=== PATIENT | male | born 1990 | race Caucasian/White ===

== ENCOUNTER 2018-04-30 09:35 | Emergency (ER) | payer OTHER, SELFPAY ==
[2018-04-30 09:47] VITALS: BP 139/89; PULSE 85; RESP 20; TEMP 36.8; O2SAT 96
--- NOTE | 2018-04-30 10:59 | ED.GENADUL ---
Disposition Clinical Impression: Contact dermatitis and eczema due to plant Disposition: HOME Instructions: Contact Dermatitis (ED), Poison Glendy (ED) Additional Instructions: Return immediately if you have a rapid spread of your rash, signs of infection, severe urination or thirst, fever chills or systemic illness symptoms. Otherwise take your steroids as prescribed and follow-up with your primary care provider if not improving over the next 2 weeks. Prescriptions: Prednisone 10 mg PO DAILY #31 tablet Referrals: Marty Saleh MD [Primary Care Provider] - 2 weeks (If not improving over the next couple weeks for any worsening symptoms feel free to follow-up with your primary care provider for reassessment) Forms: Work Release Medical Decision Making - Medical Decision Making Patient presenting to the emergency department for chief complaint of contact dermatitis. Patient has physical exam findings consistent with contact dermatitis given periodic vesicular lesions that are linear on the hands and small approximately 1-2 millimeters each. Patient has been trying yzlb-jok-[id number] therapy with little improvement. Due to diffuse nature of rash being present on both lower extremities from the knee down, and the dorsal aspect of hands I do feel that patient is a good candidate for steroid therapy. Patient is a larger gentleman but denies any history of diabetes, or recent infections so patient was placed upon a steroid taper of prednisone. Patient encouraged to return for any signs of infection, high blood sugars, or other concerns due to the prednisone use that were thoroughly discussed with the patient. Otherwise patient informed to follow-up with his primary care provider for reassessment in 2 weeks. After discussion of diagnosis and plan of care with patient patient agreed and stated no further needs, questions, or concerns at this time. History of Present Illness - General Chief complaint: RashLesion Stated complaint: POISON GLENDY Time Seen by Provider: 04/30/18 10:58 Source: patient, RN notes reviewed, old records reviewed Mode of arrival: ambulatory Limitations: no limitations - History of Present Illness Initial comments: Patient reports 5 days ago he was weed whacking and believes he may have gotten into some poison glendy. He noticed the next day after weed whacking he started having a itchy rash on his lower legs and his hands. He is continued to have significant itching and weeping vesicles in these areas. Patient does state he was wearing shorts. Patient denies any areas of rash on his abdomen, denies fever chills, cough, cold, or sores in his mouth. He states he has been using calamine lotion for itching. Onset/Timin -: days(s) Location: upper extremity, lower extremity Severity scale (1-10): 5 Quality: burning (Itching) Consistency: constant Improves with: none Worsens with: none Associated Symptoms: denies other symptoms Treatments Prior to Arrival: none - Related Data Albuterol [Proventil Hfa] 2 puff IH .6HRS PRN #1 inh 11/20/15 Fluticasone/Salmeterol [Advair HFA 115-21] 2 puff IH BID #1 inhaler 12/06/15 Buprenorphine HCl/Naloxone HCl [Suboxone 8 mg-2 mg Sl Film] 1 film PO DAILY 04/30/18 Prednisone 10 mg PO DAILY #31 tablet 04/30/18 Allergies Allergy/AdvReac Type Severity Reaction Status Date / Time No Known Allergies Allergy Unverified 04/30/18 09:54 Review of Systems Constitutional: denies: chills, fever ENT: denies: throat pain Respiratory: no symptoms reported. denies: cough, shortness of breath, stridor, wheezing Cardiovascular: edema (Chronic). denies: chest pain Endocrine: denies: increased thirst, increased urine Gastrointestinal: denies: abdominal pain Genitourinary: denies: dysuria, frequency Skin: as per HPI, rash Past Medical History - Past Medical History Medical history: asthma Previous drug abuse, lower extremity edema Surgical history: non-contributory - Social History Smoking status: current everyday smoker Alcohol use: occasionally Drug use: none, other (Previous narcotic abuse) General Exam - General Limitations: no limitations General appearance: alert, in no apparent distress, other (Well-appearing) - Eye Eye exam: Present: normal apperance - ENT ENT exam: Present: normal exam, normal orophraynx - Respiratory Respiratory exam: Absent: respiratory distress - Cardiovascular Cardiovascular Exam: Present: regular rate, normal rhythm - Extremities Exam Extremities exam: Present: pedal edema (Bilateral 1+ pitting) - Neurological Exam Neurological exam: Present: alert, oriented X3. Absent: altered - Skin Skin exam: Present: warm, dry, vesicles (Patient has linear vesicular lesions on his hands and diffuse vesicular lesions on his legs some of him linear also in nature. None are weeping. Patient does have significant amount of calamine lotion on his lower extremities(circumferential) and dorsal aspect of his hands making exam slightly difficult.) Course Vital Signs - 24 hr 04/30/18 09:47 Temperature 36.8 C Pulse 85 Respiratory 20 Rate Blood Pressure 139/89 Pulse Oximetry 96
== END 2018-04-30 11:28 | disposition home or self-care (01) ==
PROVIDERS: Emergency Provider Physician Assistant; PCP Internal Medicine
DX: L23.7 Allergic contact dermatitis due to plants, except food (principal)
CPT/HCPCS: 99283

== ENCOUNTER 2018-07-14 09:00 | Emergency (ER) | payer OTHER, SELFPAY ==
[2018-07-14 09:06] VITALS: BP 145/86; PULSE 113; RESP 19; TEMP 36.1; O2SAT 96
[2018-07-14] MEDS: Ketorolac 30 MG/ML VIAL IVP (09:33)
[2018-07-14 09:40] LABS: Abs Immature Grans 0.21 k/cumm (0.0-0.09); HCT 40.4 % (40.0-50.0); HGB 13.9 g/dL (13.5-17.5); Mean Corp. HGB Concentration 34.4 g/dL (32.0-36.0); Mean Corpuscular Hemoglobin 29.4 pg (27.0-33.0); Mean Corpuscular Volume 85.4 fL (80-95); Mean Platelet Volume 9.6 fL (8.0-11.0); Platelet Count 301 x1000/uL (130-400); RBC 4.73 m/cumm (4.50-6.00); RBC Distribution Width 12.8 % (11.8-14.1); White Blood Cell Count 10.78 k/cumm (4.4-10.8)
[2018-07-14 09:50] LABS: ALT 42 U/L (12-78); AST 31 U/L (15-37); Albumin 2.6 g/dL (3.4-5.0); Alkaline Phosphatase 92 U/L (46-116); Anion Gap 7.2 mmol/L (3-11); BUN 7 mg/dL (7-18); Bilirubin, Total 0.4 mg/dL (0.2-1.0); CO2 30.8 mmol/L (21.0-32.0); CREATININE 0.71 mg/dL (0.70-1.30); Chloride 100 mmol/L (98-107); Glucose 134 mg/dL (70-100); Potassium 3.8 mmol/L (3.5-5.1); Sodium 138 mmol/L (136-145); Total Protein 7.7 g/dL (6.4-8.2)
[2018-07-14 09:58] LABS: Absolute Basophil Count 0.11 k/cumm (0.0-0.2); Absolute Eosinophil Count 0.43 k/cumm (0.0-0.7); Absolute Lymphocyte Count 2.48 k/cumm (1.2-3.4); Absolute Monocyte Count 0.54 k/cumm (0.11-0.7); Absolute Neutrophil Count 7.22 k/cumm (1.2-6.7); Atypical Lymphocytes % 3; Diff Comment Manual Differential; RBC Morphology Normal
[2018-07-14] MEDS: ACETAMINOPHEN 1,000 MG/100 ML BTL 400 MG IVPB (10:47)
--- NOTE | 2018-07-14 11:09 | DI.US_ITS ---
SYMPTOM/DIAGNOSIS: LEG SWELLING, PAIN BILATERAL LOWER EXTREMITY VENOUS ULTRASOUND: The examination is technically limited. No DVT is identified. It is difficult to visualize the femoral vein though color flow was noted. The left distal femoral vein did not fully compress.
--- NOTE | 2018-07-14 11:49 | W.ED.GENAD ---
Discharge Plan Disposition Patient Disposition: HOME Condition: Stable Discharge Details Chief Complaint: Cellulitis Clinical Impression: Venous stasis dermatitis Primary Care Provider: Marty Saleh ED Provider: Ashok Chand Home Meds and New Rx's Prescriptions: New furosemide 40 mg tablet 40 mg PO DAILY PRN (Reason: edema) Qty: 7 RF: 0 cephalexin 500 mg capsule 500 mg PO TID 7 Days Qty: 21 RF: 0 Continue fluticasone-salmeterol [Advair HFA] 8 GM HFA aerosol inhaler 2 puff Inhalation BID Qty: 1 RF: 3 albuterol sulfate [Proventil HFA] 1 PUFF HFA aerosol inhaler 2 puff Inhalation .6HRS PRNQty: 1 RF: 0 buprenorphine-naloxone [Suboxone] 1 EACH film 1 film PO DAILY RF: 0 Discharge Instructions Instructions: Cellulitis (ED), Stasis Dermatitis (ED) Additional Instructions: Return immediately to the emergency department for any new or worsening symptoms such as fever chills, worsening redness or pain. Otherwise you may continue to take [id number] pain medication as needed. You should follow-up with your primary care provider for reassessment especially if not improving over the next 5 days. While on your fluid pills you should ensure that you have appropriate intake of foods that are high in potassium. Stand Alone Forms: Work Release Referrals: Marty Saleh MD [Primary Care Provider] - (Keep your appointment as scheduled for today and follow-up also in 1 week if not improving on antibiotics and fluid pills.) Discharge Data Discharge Date/Time-TO BE ENTERED AT DEPARTURE: 07/14/18 13:10 Medical Decision Making Patient presenting to the emergency department for chief complaint of right lower leg pain and swelling. Patient states that this is been going on for the past week but over the past couple months this has intermittently occurred bilateral and sometimes switches legs. Patient states that he has seen his primary care provider and put on a fluid pill for this which has provided minimal relief. Patient does state that he is on his feet for 10 hours at a time while at work. Patient is on Suboxone for previous drug abuse but has been using Tylenol and Motrin for discomfort. Physical exam findings does show diffuse erythematous right lower extremity with erythema extending from the knee down and diffuse tenderness throughout the entire leg. Patient does have 3+ pitting edema bilateral with also diffuse tenderness of left leg that does not show any erythematous changes. Differential diagnosis to include thrombosis, cellulitis, venous stasis, lymphedema. Patient given ketorolac for pain pending results. Patient continued to have pain so discussed use of narcotics versus nonnarcotic and patient requested nonnarcotic and so we then gave patient IV Tylenol. Pending review of ultrasound imaging patient continued to complain of pain so patient was given 1 tablet of tramadol as I feel that he is at low risk for current abuse or relapse but did thoroughly discuss risk versus benefit with patient. Ultrasound imaging shows no signs of DVT and appropriate color flow but there is lymphadenopathy bilateral seen within the groin. I still highly suspicious more of venous stasis dermatitis compared to cellulitis but given unilateral nature and lymphadenopathy plan to place patient on Keflex 3 times daily for 7 days along with furosemide 40 mg daily as needed for swelling. Patient does state that he has a primary care follow-up already scheduled for later this afternoon for his Suboxone which I feel is appropriate but he was encouraged to return for any new or worsening symptoms otherwise to follow-up with primary care if not improving over the next week. After discussion of diagnosis and plan of care patient states no further needs, questions, or concerns. HPI General Mode of arrival: ambulatory. Date/Time Provider Initiated Documentation: 07/14/18 09:06. Limitations to Documentation: no limitations. Information obtained by: patient, RN notes reviewed and old records reviewed. History of Present Illness 27 year old M presents to the emergency department with the chief complaint of Right leg pain, described as moderate, with intensity rated at 6. Quality is described as aching, and is localized to the right and lower extremity. Patient started experiencing this week(s) (1) and it has been constant. No relieving factors improve symptom(s), No exacerbating factors reported . Patient notes malaise. Patient did receive the following treatments prior to arrival, NSAID Related Data Home Medications Medication Instructions Recorded Confirmed albuterol sulfate [Proventil HFA] 2 puff INHALATION .6HRS PRN #1 inh 11/20/15 07/14/18 fluticasone-salmeterol [Advair HFA] 2 puff INHALATION BID #1 inhaler 12/06/15 07/14/18 buprenorphine-naloxone [Suboxone] 1 film PO DAILY 04/30/18 07/14/18 cephalexin 500 mg PO TID 7 Days #21 cap 07/14/18 furosemide 40 mg PO DAILY PRN #7 tab 07/14/18 Previous Rx's Medication Instructions Recorded albuterol sulfate [Proventil HFA] 2 puff INHALATION .6HRS PRN #1 inh 11/20/15 cephalexin 500 mg PO TID 7 Days #21 cap 07/14/18 furosemide 40 mg PO DAILY PRN #7 tab 07/14/18 Allergies Allergy/AdvReac Type Severity Reaction Status Date / Time No Known Allergies Allergy Unverified 04/30/18 09:54 General Stated Complaint: Cellulitis GIL: 3 Review of Systems Constitutional Denies body ache(s), Denies chills, Denies fever(s), Reports lethargy and Reports malaise Cardiovascular Denies chest pain and Denies dyspnea Respiratory Denies dyspnea Gastrointestinal Denies abdominal pain, Denies nausea and Denies vomiting Integumentary/Breasts Reports erythema (right lower leg) Neurologic Denies confusion and Denies sensory deficit Psychiatric Denies confusion [facility] Family History Sister Mental disorder Grandfather Diabetes Grandmother Heart disease Maternal Uncle Mental disorder Mother COPD (chronic obstructive pulmonary disease) Father No problems noted. Medical History History of substance abuse Opiate dependence, continuous Social History Smoking/Tobacco Use Status: Current every day Exam Const General: cooperative, no acute distress and not ill appearing Nutritional Appearance: obese morbidly obese Orientation: alert, awake and oriented x3 Limitations: mental status not altered [facility] Mouth: moist mucous membranes Resp Effort & Inspection: normal respiratory effort, able to speak in complete sentences and no respiratory distress Cardio Rate: regular rate Rhythm: regular rhythm Heart Sounds: S1 normal and S2 normal Neuro General: alert, awake, oriented x3, moves all extremities and no focal motor deficits Sensory Exam: no sensory deficits noted Extrem Right lower extremity: full ROM, normal capillary refill, edema Details: pitting and 3+, hip/thigh Details: tenderness Location: of the mid upper leg (difuse), lower leg Details: erythema Location: of the proximal lower leg, of the mid lower leg and of the distal lower leg and tenderness (Differential), ankle Details: tenderness (Diffuse) and foot Left lower extremity: full ROM, normal capillary refill and edema (From thigh down) Details: pitting and 3+ Course Vital Signs Temperature 36.1 C L 07/14/18 09:06 Pulse 113 H 07/14/18 09:06 Respiratory Rate 19 07/14/18 09:06 Blood Pressure 145/86 H 07/14/18 09:06 Pulse Oximetry 96 07/14/18 09:06 Temperature 36.1 C L 07/14/18 09:06 Temperature Source Temporal Artery Scan 07/14/18 09:06 Pulse 113 H 07/14/18 09:06 Respiratory Rate 19 07/14/18 09:06 Blood Pressure 145/86 H 07/14/18 09:06 Pulse Oximetry 96 07/14/18 09:06 Oxygen Delivery Method Room Air 07/14/18 09:06 Oxygen Flow Rate 0 07/14/18 09:06 Pain Level 7 07/14/18 09:52 Lab/Test Results Lab/Test Results: Laboratory Tests Range/Units 07/14/18 07/14/18 09:20 09:20 WBC (4.4-10.8) k/cumm 10.78 RBC (4.50-6.00) m/cumm 4.73 Hgb (13.5-17.5) g/dL 13.9 Hct (40.0-50.0) % 40.4 MCV (80-95) fL 85.4 MCH (27.0-33.0) pg 29.4 MCHC (32.0-36.0) g/dL 34.4 RDW (11.8-14.1) % 12.8 Plt Count (130-400) x1000/uL 301 MPV (8.0-11.0) fL 9.6 Immature Gran % 0.0 Neutrophils % 66.0 Lymphocytes % 20.0 Monocytes % 5.0 Eosinophils % 4.0 Basophils % 1.0 Absolute Neutrophils (1.2-6.7) k/cumm 7.22 H Band Neutrophils % 1.0 Absolute Lymphocytes (1.2-3.4) k/cumm 2.48 Absolute Monocytes (0.11-0.7) k/cumm 0.54 Absolute Eosinophils (0.0-0.7) k/cumm 0.43 Absolute Basophils (0.0-0.2) k/cumm 0.11 Differential Comment Manual differential Atypical Lymphocytes 3 RBC Morphology Normal Sodium (136-145) mmol/L 138 Potassium (3.5-5.1) mmol/L 3.8 Chloride (98-107) mmol/L 100 Carbon Dioxide (21.0-32.0) mmol/L 30.8 Anion Gap (3-11) mmol/L 7.2 BUN (7-18) mg/dL 7 Creatinine (0.70-1.30) mg/dL 0.71 Estimated GFR/1.73 m2 (mL/min/1.73m2) >= 60.00 Glucose (70-100) mg/dL 134 H Calcium (8.5-10.1) mg/dL 8.0 L Total Bilirubin (0.2-1.0) mg/dL 0.4 AST (15-37) U/L 31 ALT (12-78) U/L 42 Alkaline Phosphatase (46-116) U/L 92 Total Protein (6.4-8.2) g/dL 7.7 Albumin (3.4-5.0) g/dL 2.6 L
--- NOTE | 2018-07-14 11:52 | ED.GENADUL_ITS ---
Discharge Plan Disposition Patient Disposition: HOME Condition: Stable Discharge Details Chief Complaint: Cellulitis Clinical Impression: Venous stasis dermatitis Primary Care Provider: Marty Saleh ED Provider: Ashok Chand Home Meds and New Rx's Prescriptions: New furosemide 40 mg tablet 40 mg PO DAILY PRN (Reason: edema) Qty: 7 RF: 0 cephalexin 500 mg capsule 500 mg PO TID 7 Days Qty: 21 RF: 0 Continue fluticasone-salmeterol [Advair HFA] 8 GM HFA aerosol inhaler 2 puff Inhalation BID Qty: 1 RF: 3 albuterol sulfate [Proventil HFA] 1 PUFF HFA aerosol inhaler 2 puff Inhalation .6HRS PRNQty: 1 RF: 0 buprenorphine-naloxone [Suboxone] 1 EACH film 1 film PO DAILY RF: 0 Discharge Instructions Instructions: Cellulitis (ED), Stasis Dermatitis (ED) Additional Instructions: Return immediately to the emergency department for any new or worsening symptoms such as fever chills, worsening redness or pain. Otherwise you may continue to take [id number]-[id number] pain medication as needed. You should follow- up with your primary care provider for reassessment especially if not improving over the next 5 days. While on your fluid pills you should ensure that you have appropriate intake of foods that are high in potassium. Stand Alone Forms: Work Release Referrals: Marty Saleh MD [Primary Care Provider] - (Keep your appointment as scheduled for today and follow-up also in 1 week if not improving on antibiotics and fluid pills.) Discharge Data Discharge Date/Time-TO BE ENTERED AT DEPARTURE: 07/14/18 13:10 Medical Decision Making Patient presenting to the emergency department for chief complaint of right lower leg pain and swelling. Patient states that this is been going on for the past week but over the past couple months this has intermittently occurred bilateral and sometimes switches legs. Patient states that he has seen his primary care provider and put on a fluid pill for this which has provided minimal relief. Patient does state that he is on his feet for 10 hours at a time while at work. Patient is on Suboxone for previous drug abuse but has been using Tylenol and Motrin for discomfort. Physical exam findings does show diffuse erythematous right lower extremity with erythema extending from the knee down and diffuse tenderness throughout the entire leg. Patient does have 3 + pitting edema bilateral with also diffuse tenderness of left leg that does not show any erythematous changes. Differential diagnosis to include thrombosis , cellulitis, venous stasis, lymphedema. Patient given ketorolac for pain pending results. Patient continued to have pain so discussed use of narcotics versus nonnarcotic and patient requested nonnarcotic and so we then gave patient IV Tylenol. Pending review of ultrasound imaging patient continued to complain of pain so patient was given 1 tablet of tramadol as I feel that he is at low risk for current abuse or relapse but did thoroughly discuss risk versus benefit with patient. Ultrasound imaging shows no signs of DVT and appropriate color flow but there is lymphadenopathy bilateral seen within the groin. I still highly suspicious more of venous stasis dermatitis compared to cellulitis but given unilateral nature and lymphadenopathy plan to place patient on Keflex 3 times daily for 7 days along with furosemide 40 mg daily as needed for swelling. Patient does state that he has a primary care follow-up already scheduled for later this afternoon for his Suboxone which I feel is appropriate but he was encouraged to return for any new or worsening symptoms otherwise to follow-up with primary care if not improving over the next week. After discussion of diagnosis and plan of care patient states no further needs, questions, or concerns. HPI General Mode of arrival: ambulatory . Date/Time Provider Initiated Documentation: 07/14/18 09:06 . Limitations to Documentation: no limitations . Information obtained by: patient, RN notes reviewed and old records reviewed . History of Present Illness 27 year old M presents to the emergency department with the chief complaint of Right leg pain, described as moderate, with intensity rated at 6. Quality is described as aching, and is localized to the right and lower extremity. Patient started experiencing this week(s) (1) and it has been constant. No relieving factors improve symptom(s), No exacerbating factors reported . Patient notes malaise. Patient did receive the following treatments prior to arrival, NSAID Related Data Home Medications Medication Instructions Recorded Confirmed albuterol sulfate [Proventil HFA] 2 puff INHALATION .6HRS PRN #1 inh 11/20/15 fluticasone-salmeterol [Advair HFA] 2 puff INHALATION BID #1 inhaler 12/06/15 buprenorphine-naloxone [Suboxone] 1 film PO DAILY 04/30/18 07/14/18 cephalexin 500 mg PO TID 7 Days #21 cap 07/14/18 furosemide 40 mg PO DAILY PRN #7 tab 07/14/18 Previous Rx's Medication Instructions Recorded albuterol sulfate [Proventil HFA] 2 puff INHALATION .6HRS PRN #1 inh 11/20/15 cephalexin 500 mg PO TID 7 Days #21 cap 07/14/18 furosemide 40 mg PO DAILY PRN #7 tab 07/14/18 Allergies Allergy/AdvReac Type Severity Reaction Status Date / Time No Known Allergies Allergy Unverified 04/30/18 09:54 General Stated Complaint: Cellulitis GIL: 3 Review of Systems Constitutional Denies body ache(s), Denies chills, Denies fever(s), Reports lethargy and Reports malaise Cardiovascular Denies chest pain and Denies dyspnea Respiratory Denies dyspnea Gastrointestinal Denies abdominal pain, Denies nausea and Denies vomiting Integumentary/Breasts Reports erythema (right lower leg) Neurologic Denies confusion and Denies sensory deficit Psychiatric Denies confusion [facility] Family History Sister Mental disorder Grandfather Diabetes Grandmother Heart disease Maternal Uncle Mental disorder Mother COPD (chronic obstructive pulmonary disease) Father No problems noted. Medical History History of substance abuse Opiate dependence, continuous Social History Smoking/Tobacco Use Status: Current every day Exam Const General: cooperative, no acute distress and not ill appearing Nutritional Appearance: obese morbidly obese Orientation: alert, awake and oriented x3 Limitations: mental status not altered [facility] Mouth: moist mucous membranes Resp Effort & Inspection: normal respiratory effort, able to speak in complete sentences and no respiratory distress Cardio Rate: regular rate Rhythm: regular rhythm Heart Sounds: S1 normal and S2 normal Neuro General: alert, awake, oriented x3, moves all extremities and no focal motor deficits Sensory Exam: no sensory deficits noted Extrem Right lower extremity: full ROM, normal capillary refill, edema Details: pitting and 3+, hip/thigh Details: tenderness Location: of the mid upper leg ( difuse), lower leg Details: erythema Location: of the proximal lower leg, of the mid lower leg and of the distal lower leg and tenderness (Differential), ankle Details: tenderness (Diffuse) and foot Left lower extremity: full ROM, normal capillary refill and edema (From thigh down) Details: pitting and 3+ Course Vital Signs Temperature 36.1 C L 07/14/18 09:06 Pulse 113 H 07/14/18 09:06 Respiratory Rate 19 07/14/18 09:06 Blood Pressure 145/86 H 07/14/18 09:06 Pulse Oximetry 96 07/14/18 09:06 Temperature 36.1 C L 07/14/18 09:06 Temperature Source Temporal Artery Scan 07/14/18 09:06 Pulse 113 H 07/14/18 09:06 Respiratory Rate 19 07/14/18 09:06 Blood Pressure 145/86 H 07/14/18 09:06 Pulse Oximetry 96 07/14/18 09:06 Oxygen Delivery Method Room Air 07/14/18 09:06 Oxygen Flow Rate 0 07/14/18 09:06 Pain Level 7 07/14/18 09:52 Lab/Test Results Lab/Test Results: Laboratory Tests Range/Units 07/14/18 07/14/18 09:20 09:20 WBC (4.4-10.8) k/cumm 10.78 RBC (4.50-6.00) m/cumm 4.73 Hgb (13.5-17.5) g/dL 13.9 Hct (40.0-50.0) % 40.4 MCV (80-95) fL 85.4 MCH (27.0-33.0) pg 29.4 MCHC (32.0-36.0) g/dL 34.4 RDW (11.8-14.1) % 12.8 Plt Count (130-400) x1000/uL 301 MPV (8.0-11.0) fL 9.6 Immature Gran % 0.0 Neutrophils % 66.0 Lymphocytes % 20.0 Monocytes % 5.0 Eosinophils % 4.0 Basophils % 1.0 Absolute Neutrophils (1.2-6.7) k/cumm 7.22 H Band Neutrophils % 1.0 Absolute Lymphocytes (1.2-3.4) k/cumm 2.48 Absolute Monocytes (0.11-0.7) k/cumm 0.54 Absolute Eosinophils (0.0-0.7) k/cumm 0.43 Absolute Basophils (0.0-0.2) k/cumm 0.11 Differential Comment Manual differential Atypical Lymphocytes 3 RBC Morphology Normal Sodium (136-145) mmol/L 138 Potassium (3.5-5.1) mmol/L 3.8 Chloride (98-107) mmol/L 100 Carbon Dioxide (21.0-32.0) mmol/L 30.8 Anion Gap (3-11) mmol/L 7.2 BUN (7-18) mg/dL 7 Creatinine (0.70-1.30) mg/dL 0.71 Estimated GFR/1.73 m2 (mL/min/1.73m2) >= 60.00 Glucose (70-100) mg/dL 134 H Calcium (8.5-10.1) mg/dL 8.0 L Total Bilirubin (0.2-1.0) mg/dL 0.4 AST (15-37) U/L 31 ALT (12-78) U/L 42 Alkaline Phosphatase (46-116) U/L 92 Total Protein (6.4-8.2) g/dL 7.7 Albumin (3.4-5.0) g/dL 2.6 L
[2018-07-14 12:32] VITALS: BP 141/86; PULSE 83; RESP 19; TEMP 36.7; O2SAT 94
[2018-07-14] MEDS: traMADol 50 MG TAB PO (12:54)
[2018-07-14] MEDS: Furosemide 20 MG TAB 40 MG PO (13:09)
[2018-07-14] MEDS: Cephalexin 500 MG CAP PO (13:09)
== END 2018-07-14 13:10 | disposition home or self-care (01) ==
PROVIDERS: Emergency Provider Nurse Practitioner Family; PCP Internal Medicine
DX: I87.2 Venous insufficiency (chronic) (peripheral) (principal); R60.0 Localized edema; R59.0 Localized enlarged lymph nodes
CPT/HCPCS: 36415; 80053; 96365; 96366; 96375; 99284; 85025; 93970; J0131; J1885

== ENCOUNTER 2018-07-18 08:30 | Emergency (ER) | payer OTHER, SELFPAY ==
[2018-07-18 08:39] VITALS: BP 152/103; PULSE 104; RESP 16; TEMP 36.5; O2SAT 95
--- NOTE | 2018-07-18 09:00 | W.ED.GENAD ---
Discharge Plan Disposition Patient Disposition: HOME Condition: Good Discharge Details Chief Complaint: Cellulitis Clinical Impression: Acute stasis dermatitis of right lower extremity Primary Care Provider: Marty Saleh ED Provider: Mack Tidwell Home Meds and New Rx's Prescriptions: New triamcinolone acetonide 0.1 % ointment 1 applic TP BID Qty: 30 RF: 0 Continue fluticasone-salmeterol [Advair HFA] 8 GM HFA aerosol inhaler 2 puff Inhalation BID Qty: 1 RF: 3 albuterol sulfate [Proventil HFA] 1 PUFF HFA aerosol inhaler 2 puff Inhalation .6HRS PRNQty: 1 RF: 0 buprenorphine-naloxone [Suboxone] 1 EACH film 1 film PO DAILY RF: 0 furosemide 40 mg tablet 40 mg PO DAILY PRN (Reason: edema) Qty: 7 RF: 0 cephalexin 500 mg capsule 500 mg PO TID 7 Days Qty: 21 RF: 0 Discharge Instructions Instructions: Stasis Dermatitis (ED) Additional Instructions: follow up with your primary care provider if you have fevers return to the emergency department for reevaluation Discharge Data Discharge Physician: Mack Tidwell Medical Decision Making 27 yo male comes in with continued redness of the right leg for about a week. Was seen here on 07/14 and placed on cephalexin for possible cellulitis though was noted likely to be venous insuffiency vs stasis dermatitis. He still has redness of the right lower leg so came here. No changes in the redness, no spreading and no fever. Based on his exam I feel this is likely stasis dermatitis, given lack of fevers and no change in the redness and not warm to touch compared to the other leg do not suspect cellulitis and do not feel he has failed outpatient management. Will prescribe topical steroids based on uptodate recommendations, advised f/u with pcp and return precautions given. He has no severe pain or fevers to suggest nec fasc and appears well systemically at this time Differential Diagnosis cellulitis, stasis dermatitis HPI General Mode of arrival: ambulatory. Date/Time Provider Initiated Documentation: 07/18/18 08:31. Limitations to Documentation: no limitations. Information obtained by: patient. History of Present Illness 27 year old M presents to the emergency department with the chief complaint of right leg redness and swelling, described as moderate, with intensity rated at 4. and is localized to the right and lower extremity. Patient reports no radiation. Patient started experiencing this week(s) (1) and it has been constant. No relieving factors improve symptom(s), No exacerbating factors reported . Patient notes no other symptoms.. Related Data Home Medications Medication Instructions Recorded Confirmed albuterol sulfate [Proventil HFA] 2 puff INHALATION .6HRS PRN #1 inh 11/20/15 07/18/18 fluticasone-salmeterol [Advair HFA] 2 puff INHALATION BID #1 inhaler 12/06/15 07/18/18 buprenorphine-naloxone [Suboxone] 1 film PO DAILY 04/30/18 07/18/18 cephalexin 500 mg PO TID 7 Days #21 cap 07/14/18 07/18/18 furosemide 40 mg PO DAILY PRN #7 tab 07/14/18 07/18/18 triamcinolone acetonide 1 applic TP BID #30 gm 07/18/18 Previous Rx's Medication Instructions Recorded albuterol sulfate [Proventil HFA] 2 puff INHALATION .6HRS PRN #1 inh 11/20/15 cephalexin 500 mg PO TID 7 Days #21 cap 07/14/18 furosemide 40 mg PO DAILY PRN #7 tab 07/14/18 triamcinolone acetonide 1 applic TP BID #30 gm 07/18/18 Allergies Allergy/AdvReac Type Severity Reaction Status Date / Time No Known Allergies Allergy Unverified 04/30/18 09:54 General Stated Complaint: Cellulitis GIL: 3 Review of Systems Review of Systems All systems reviewed & are unremarkable except as noted in HPI and below Constitutional Denies chills, Denies fever(s) and Denies weakness Eyes Denies loss of vision ENT Denies change in voice Cardiovascular Denies chest pain and Denies dyspnea Respiratory Denies dyspnea Gastrointestinal Denies abdominal pain, Denies nausea and Denies vomiting Genitourinary Denies dysuria Musculoskeletal Denies joint swelling Integumentary/Breasts Reports rash Neurologic Denies loss of vision and Denies weakness Psychiatric Denies depression Endocrine Denies cold intolerance and Denies heat intolerance [facility] Family History Sister Mental disorder Grandfather Diabetes Grandmother Heart disease Maternal Uncle Mental disorder Mother COPD (chronic obstructive pulmonary disease) Father No problems noted. Medical History History of substance abuse Opiate dependence, continuous Social History Smoking/Tobacco Use Status: Current every day Exam Const General: no acute distress Orientation: alert HENMT Head: normal to inspection Ears: external ears normal General nose exam: external nose normal Mouth: moist mucous membranes Eyes General: appearance normal, both eyes and all related structures Neck Neck: normal visual inspection Resp Effort & Inspection: normal respiratory effort and able to speak in complete sentences Cardio Rate: regular rate Neuro General: alert and oriented x3 Extrem General: full ROM and other (both legs have pitting edema to the knees which is chronic per pt, right leg has redness from foot to proximal tibia, no crepitus, no drainage, not warm to touch compared to the left leg) Psych Mental Status: mental status grossly normal Course Vital Signs Temperature 36.5 C 07/18/18 08:39 Pulse 104 H 07/18/18 08:39 Respiratory Rate 16 07/18/18 08:39 Blood Pressure 152/103 H 07/18/18 08:39 Pulse Oximetry 95 07/18/18 08:39 Temperature 36.5 C 07/18/18 08:39 Temperature Source Temporal Artery Scan 07/18/18 08:39 Pulse 104 H 07/18/18 08:39 Respiratory Rate 16 07/18/18 08:39 Respiratory Effort Non-Labored 07/18/18 08:46 Blood Pressure 152/103 H 07/18/18 08:39 Blood Pressure Position Sitting 07/18/18 08:39 Pulse Oximetry 95 07/18/18 08:39 Oxygen Delivery Method Room Air 07/18/18 08:39 Oxygen Flow Rate 0 07/18/18 08:39
--- NOTE | 2018-07-18 09:05 | ED.GENADUL_ITS ---
Discharge Plan Disposition Patient Disposition: HOME Condition: Good Discharge Details Chief Complaint: Cellulitis Clinical Impression: Acute stasis dermatitis of right lower extremity Primary Care Provider: Marty Saleh ED Provider: Mack Tidwell Home Meds and New Rx's Prescriptions: New triamcinolone acetonide 0.1 % ointment 1 applic TP BID Qty: 30 RF: 0 Continue fluticasone-salmeterol [Advair HFA] 8 GM HFA aerosol inhaler 2 puff Inhalation BID Qty: 1 RF: 3 albuterol sulfate [Proventil HFA] 1 PUFF HFA aerosol inhaler 2 puff Inhalation .6HRS PRNQty: 1 RF: 0 buprenorphine-naloxone [Suboxone] 1 EACH film 1 film PO DAILY RF: 0 furosemide 40 mg tablet 40 mg PO DAILY PRN (Reason: edema) Qty: 7 RF: 0 cephalexin 500 mg capsule 500 mg PO TID 7 Days Qty: 21 RF: 0 Discharge Instructions Instructions: Stasis Dermatitis (ED) Additional Instructions: follow up with your primary care provider if you have fevers return to the emergency department for reevaluation Discharge Data Discharge Physician: Mack Tidwell Medical Decision Making 27 yo male comes in with continued redness of the right leg for about a week. Was seen here on 07/14 and placed on cephalexin for possible cellulitis though was noted likely to be venous insuffiency vs stasis dermatitis. He still has redness of the right lower leg so came here. No changes in the redness, no spreading and no fever. Based on his exam I feel this is likely stasis dermatitis, given lack of fevers and no change in the redness and not warm to touch compared to the other leg do not suspect cellulitis and do not feel he has failed outpatient management. Will prescribe topical steroids based on uptodate recommendations, advised f/u with pcp and return precautions given. He has no severe pain or fevers to suggest nec fasc and appears well systemically at this time Differential Diagnosis cellulitis, stasis dermatitis HPI General Mode of arrival: ambulatory . Date/Time Provider Initiated Documentation: 07/18/18 08:31 . Limitations to Documentation: no limitations . Information obtained by: patient . History of Present Illness 27 year old M presents to the emergency department with the chief complaint of right leg redness and swelling, described as moderate, with intensity rated at 4. and is localized to the right and lower extremity. Patient reports no radiation. Patient started experiencing this week(s) (1) and it has been constant. No relieving factors improve symptom(s), No exacerbating factors reported . Patient notes no other symptoms.. Related Data Home Medications Medication Instructions Recorded Confirmed albuterol sulfate [Proventil HFA] 2 puff INHALATION .6HRS PRN #1 inh 11/20/15 fluticasone-salmeterol [Advair HFA] 2 puff INHALATION BID #1 inhaler 12/06/15 buprenorphine-naloxone [Suboxone] 1 film PO DAILY 04/30/18 07/18/18 cephalexin 500 mg PO TID 7 Days #21 cap 07/14/18 07/18/18 furosemide 40 mg PO DAILY PRN #7 tab 07/14/18 07/18/18 triamcinolone acetonide 1 applic TP BID #30 gm 07/18/18 Previous Rx's Medication Instructions Recorded albuterol sulfate [Proventil HFA] 2 puff INHALATION .6HRS PRN #1 inh 11/20/15 cephalexin 500 mg PO TID 7 Days #21 cap 07/14/18 furosemide 40 mg PO DAILY PRN #7 tab 07/14/18 triamcinolone acetonide 1 applic TP BID #30 gm 07/18/18 Allergies Allergy/AdvReac Type Severity Reaction Status Date / Time No Known Allergies Allergy Unverified 04/30/18 09:54 General Stated Complaint: Cellulitis GIL: 3 Review of Systems Review of Systems All systems reviewed & are unremarkable except as noted in HPI and below Constitutional Denies chills, Denies fever(s) and Denies weakness Eyes Denies loss of vision ENT Denies change in voice Cardiovascular Denies chest pain and Denies dyspnea Respiratory Denies dyspnea Gastrointestinal Denies abdominal pain, Denies nausea and Denies vomiting Genitourinary Denies dysuria Musculoskeletal Denies joint swelling Integumentary/Breasts Reports rash Neurologic Denies loss of vision and Denies weakness Psychiatric Denies depression Endocrine Denies cold intolerance and Denies heat intolerance [facility] Family History Sister Mental disorder Grandfather Diabetes Grandmother Heart disease Maternal Uncle Mental disorder Mother COPD (chronic obstructive pulmonary disease) Father No problems noted. Medical History History of substance abuse Opiate dependence, continuous Social History Smoking/Tobacco Use Status: Current every day Exam Const General: no acute distress Orientation: alert HENMT Head: normal to inspection Ears: external ears normal General nose exam: external nose normal Mouth: moist mucous membranes Eyes General: appearance normal, both eyes and all related structures Neck Neck: normal visual inspection Resp Effort & Inspection: normal respiratory effort and able to speak in complete sentences Cardio Rate: regular rate Neuro General: alert and oriented x3 Extrem General: full ROM and other (both legs have pitting edema to the knees which is chronic per pt, right leg has redness from foot to proximal tibia, no crepitus, no drainage, not warm to touch compared to the left leg) Psych Mental Status: mental status grossly normal Course Vital Signs Temperature 36.5 C 07/18/18 08:39 Pulse 104 H 07/18/18 08:39 Respiratory Rate 16 07/18/18 08:39 Blood Pressure 152/103 H 07/18/18 08:39 Pulse Oximetry 95 07/18/18 08:39 Temperature 36.5 C 07/18/18 08:39 Temperature Source Temporal Artery Scan 07/18/18 08:39 Pulse 104 H 07/18/18 08:39 Respiratory Rate 16 07/18/18 08:39 Respiratory Effort Non-Labored 07/18/18 08:46 Blood Pressure 152/103 H 07/18/18 08:39 Blood Pressure Position Sitting 07/18/18 08:39 Pulse Oximetry 95 07/18/18 08:39 Oxygen Delivery Method Room Air 07/18/18 08:39 Oxygen Flow Rate 0 07/18/18 08:39
== END 2018-07-18 09:29 | disposition home or self-care (01) ==
PROVIDERS: Emergency Provider Emergency Medicine; PCP Internal Medicine
DX: I87.2 Venous insufficiency (chronic) (peripheral) (principal)
CPT/HCPCS: 99283

== ENCOUNTER 2019-02-02 15:45 | Outpatient (REF) | payer SELFPAY ==
[2019-02-07 10:04] LABS: Benzoylecgonine 1791 ng/mL (Cutoff: 50); Cocaine Negative ng/mL (Cutoff: 50); Cocaine Interpretation Positive.
== END 2019-02-02 16:05 ==
LOC: NCHCN 15:45
PROVIDERS: PCP Internal Medicine; Visit Provider Internal Medicine
DX: F11.20 Opioid dependence, uncomplicated (principal)
CPT/HCPCS: 80353

== ENCOUNTER 2019-03-29 11:39 | Inpatient (IN) | payer OTHER, SELFPAY ==
[2019-03-29] VITALS (73 sets, daily range): BP systolic 102–143; BP diastolic 60–89; PULSE 76–145; RESP 3–24; TEMP 36.5–37.9; O2SAT 87–100
--- NOTE | 2019-03-29 12:06 | DI.US_ITS ---
SYMPTOMS/DIAGNOSIS: SWELLING, ? DVT BILATERAL LOWER EXTREMITY ULTRASOUND: Comparison is made with [id number]. Enlarged right groin lymph nodes are again noted. The femoral and popliteal veins and visualized portions of the calf veins are freely compression. The exam is somewhat limited by the patient's body habitus. No thrombus is visible. The doppler venous wave form augments normally. No galan's cyst is seen. There is edema in the subcutaneous fat. IMPRESSION: Findings consistent with cellulitis and reactive groin lymph nodes. No evidence of DVT.
--- NOTE | 2019-03-29 12:06 | DI.RAD_ITS ---
SYMPTOMS/DIAGNOSIS: INFECTION, ? GAS LEFT FEMUR: No fracture is identified. There is no foreign body in the field of view. There is no abnormal gas collection in the field of view. IMPRESSION: Negative left femur. LEFT TIBIA AND FIBULA: There is soft tissue edema in the lower leg and ankle. No focal gas collection or foreign body is seen. No fracture or bony erosions are identified. The knee and ankle are unremarkable. IMPRESSION: Soft tissue edema.
--- NOTE | 2019-03-29 12:18 | ED.GENADUL_ITS ---
Discharge Plan Disposition Condition: Improving Discharge Details Chief Complaint: Cellulitis Admit Date/Time: 03/29/19 14:54 Admit Provider: Fernanda David Attending Provider: Orlando Kim Primary Care Provider: Marty Saleh ED Provider: Maira Ralph Discharge Instructions Activity:: Activity as Tolerated Equipment/Supplies:: No Equipment Needed Diet:: As Tolerated Discharge Orders Discharge Orders: Discharge Order (Routine); Ordered 04/05/19 Ordered By: Tegan Trujillo Discharge Data Discharge Date/Time-TO BE ENTERED AT DEPARTURE: 03/29/19 16:28 Medical Decision Making Abelardo Marrero is a 28 y/o man with history of asthma, IV drug use in the past currently on Suboxone, obesity who presented to the emergency department with left leg pain and rash. On exam patient is nontoxic-appearing. Sinus tachycardia in the 130s. Left leg with extensive erythema and edema into the thigh, genitals not involved. DP pulses not palpable bilaterally. Concern for cellulitis with sepsis, possible DVT. No crepitus however cannot rule out necrotizing fasciitis given extensive erythema of LLE with rapid progression. Exam/history is not consistent with fourniers gangrene, pulmonary embolism at this time. Plan for EKG, left tib-fib and femur x-rays, bilateral lower extremity ultrasound, screening labs, IV fluid hydration, broad-spectrum IV antibiotics, will obtain Doppler lower extremity pulses, telemetry. Xrays neg. US neg. Plan for admission. Medical Records Medical records reviewed: Yes I reviewed the patient's medical records. Imaging Data Radiologic Study: Attestation: I personally reviewed and interpreted this imaging study as follows: Radiologist's impression: LEFT FEMUR: No fracture is identified. There is no foreign body in the field of view. There is no abnormal gas collection in the field of view. IMPRESSION: Negative left femur. LEFT TIBIA AND FIBULA: There is soft tissue edema in the lower leg and ankle. No focal gas collection or foreign body is seen. No fracture or bony erosions are identified. The knee and ankle are unremarkable. IMPRESSION: Soft tissue edema. BILATERAL LOWER EXTREMITY ULTRASOUND: Comparison is made with [id number]. Enlarged right groin lymph nodes are again noted. The femoral and popliteal veins and visualized portions of the calf veins are freely compression. The exam is somewhat limited by the patient's body habitus. No thrombus is visible. The doppler venous wave form augments normally. No galan's cyst is seen. There is edema in the subcutaneous fat. IMPRESSION: Findings consistent with cellulitis and reactive groin lymph nodes. No evidence of DVT. Lab Data Lab results reviewed: Yes I reviewed the patient's lab results. ECG Data Attestation: I personally reviewed and interpreted this ECG (s) as follows: Interpretation: EKG shows sinus tachycardia at 129, normal axis, no significant ST elevation HPI General Mode of arrival: ambulatory . Date/Time Provider Initiated Documentation: 03/29/19 11:47 . Limitations to Documentation: no limitations . Information obtained by: patient, RN notes reviewed and old records reviewed . HPI Narrative: Abelardo Marrero is a 28-year-old man with history of asthma, drug abuse in the past now on Suboxone, obesity presenting to the emergency department with leg pain. Patient reports over the past few days he has noticed that he has had swelling and redness of the left lower leg, now spreading into his thigh. He reports that he has also had pain in the left lower leg. Patient reports that he has had cellulitis of the right lower leg in the past, and has noticed some mild increase in swelling on the right lower leg in the past few days as well, not as severe as the left. He denies fever, vomiting, diarrhea, dysuria. Reports that rash does not spread into the genitals. Has had no pain other than to the left leg. No recent travel. No trauma that he knows of or other inciting factor. Has been eating and drinking as usual. Related Data Home Medications Medication Instructions Recorded Confirmed albuterol sulfate 2 puff INHALATION PRN PRN 03/29/19 03/29/19 buprenorphine-naloxone [Suboxone] 0.5 film SUBLINGUAL DAILY 03/29/19 03/29/19 ammonium lactate 1 applic TOPICAL BID #222 gm 04/05/19 cephalexin [Keflex] 500 mg PO QID #56 cap 04/05/19 foam bandage [Mepilex Border] #5 each 04/05/19 ibuprofen [IBU] 800 mg PO Q8H #30 tab 04/05/19 omeprazole 20 mg PO DAILY #30 cap 04/05/19 Previous Rx's Medication Instructions Recorded ammonium lactate 1 applic TOPICAL BID #222 gm 04/05/19 cephalexin [Keflex] 500 mg PO QID #56 cap 04/05/19 foam bandage [Mepilex Border] #5 each 04/05/19 ibuprofen [IBU] 800 mg PO Q8H #30 tab 04/05/19 omeprazole 20 mg PO DAILY #30 cap 04/05/19 Allergies Allergy/AdvReac Type Severity Reaction Status Date / Time No Known Allergies Allergy Unverified 03/29/19 11:53 General Stated Complaint: Cellulitis GIL: 2 Review of Systems Review of Systems Constitutional: denies fevers, reports malaise and fatigue Eyes: denies eye pain ENT: denies facial pain, dental pain, sore throat Cardiovascular: denies chest pain, reports edema b/l LEs Respiratory: denies SOB, cough GI: denies abdominal pain, vomiting, diarrhea : denies flank pain MSK: denies back pain, neck pain, arthralgias, myalgias Skin: reports rash as per HPI Neuro: denies headaches, numbness, weakness PFSH Medical History Obesity, morbid, BMI 50 or higher (Acute) Asthma (Chronic) Obstructive sleep apnea (Chronic) History of substance abuse Opiate dependence, continuous Family History Sister Mental disorder Grandfather Diabetes Grandmother Heart disease Maternal Uncle Mental disorder Mother COPD (chronic obstructive pulmonary disease) Social History Smoking/Tobacco Use Status: Current every day Tobacco Type: cigarettes Alcohol Intake: current Alcohol Intake frequency: 3 or more drinks per day Alcohol type: beer Counseling given: Yes Counseling provided: provider counseling Details: 7-12 drinks/day, last drink 3 days ago, denies withdrawal sx/seizures Drug use: Current Sobriety Substance use type: former substance user Details: 3 years free of herion; on suboxone therapy Do you feel safe at home: Yes Do you feel safe in your relationship?: Yes Exam Narrative Exam Narrative: Constitutional: appears somewhat ill, pleasant, conversing normally HENT: head atraumatic/normocephalic/normal inspection, mucous membranes dry Eyes: conjunctiva normal, sclera normal, pupils 3mm b/l Neck: no stridor, normal ROM, trachea midline Chest: normal inspection Resp: normal work of breathing, LCTAB Cardio: tachycardic rate, normal rhythm, no murmur appreciated GI: abdomen soft, non-tender, non-distended : normal inspection of external genitalia without erythema or edema Back: normal inspection, no rash Skin: warm, dry, normal color, no rash Neuro: mildly somnolent c/w opiate use, arouses easily to voice, not altered, grossly non-focal, normal tone Ext: non-pitting edema b/l LEs, LLE>>RLE, RLE with mild erythema over anterior lower leg, no crepitus, LLE with circumfirential edema of the lower leg and anterior/medial/posterior erythema of the thigh, does not extend into genitals or abdomen, no crepitus of either lower extremity Psych: normal mood, normal affect, normal behavior Course Vital Signs Temperature 37.9 C H 03/29/19 11:45 Pulse 145 H 03/29/19 11:45 Respiratory Rate 24 03/29/19 11:45 Blood Pressure 130/80 03/29/19 11:45 Pulse Oximetry 93 L 03/29/19 11:45 Temperature 37.9 C H 03/29/19 11:45 Temperature Source Tympanic 03/29/19 11:45 Pulse 145 H 03/29/19 11:45 Respiratory Rate 24 03/29/19 11:45 Blood Pressure 130/80 03/29/19 11:45 Blood Pressure Position Sitting 03/29/19 11:45 Pulse Oximetry 93 L 03/29/19 11:45 Oxygen Delivery Method Room Air 03/29/19 11:45 Oxygen Flow Rate 0 03/29/19 11:45 Pain Level 10 03/29/19 11:45 Critical Care Time Critical Care Time: Yes Total Critical Care Time: 35 Attestation: I have spent 35 minutes of critical care time caring for this critically ill patient.
[2019-03-29 12:37] LABS: Abs Immature Grans 0.56 k/cumm (0.0-0.09); HCT 38.1 % (40.0-50.0); HGB 13.4 g/dL (13.5-17.5); Mean Corp. HGB Concentration 35.2 g/dL (32.0-36.0); Mean Corpuscular Hemoglobin 29.6 pg (27.0-33.0); Mean Corpuscular Volume 84.3 fL (80-95); Mean Platelet Volume 9.7 fL (8.0-11.0); Platelet Count 171 x1000/uL (130-400); RBC 4.52 m/cumm (4.50-6.00); RBC Distribution Width 13.4 % (11.8-14.1); White Blood Cell Count 22.05 k/cumm (4.4-10.8)
[2019-03-29 12:43] LABS: Lactate 2.2 mmol/L (0.6-1.4)
[2019-03-29 12:53] LABS: Absolute Lymphocyte Count 0.88 k/cumm (1.2-3.4); Absolute Monocyte Count 0.44 k/cumm (0.11-0.7); Absolute Neutrophil Count 20.51 k/cumm (1.2-6.7)
[2019-03-29 12:54] LABS: Diff Comment Manual Differential; RBC Morphology Normal
[2019-03-29 13:06] LABS: ALT 28 U/L (12-78); AST 59 U/L (15-37); Albumin 2.8 g/dL (3.4-5.0); Alkaline Phosphatase 55 U/L (46-116); Anion Gap 11.4 mmol/L (3-11); BUN 14 mg/dL (7-18); CO2 24.6 mmol/L (21.0-32.0); CREATININE 1.16 mg/dL (0.70-1.30); Calcium 8.2 mg/dL (8.5-10.1); Chloride 95 mmol/L (98-107); Glucose 145 mg/dL (70-100); Magnesium 1.3 mg/dL (1.8-2.4); Potassium 3.7 mmol/L (3.5-5.1); Sodium 131 mmol/L (136-145); Total Protein 7.2 g/dL (6.4-8.2)
[2019-03-29 13:07] LABS: Troponin I < 0.05 ng/mL (0.00-0.06)
[2019-03-29] MEDS: Normal Saline 1,000 ML 1000 ML IV (13:07)
[2019-03-29] MEDS: CEFEPIME 2 GM in Normal Saline 100 ML IVPB ×2 (13:07→21:24)
--- NOTE | 2019-03-29 15:22 | NUR.NOTE ---
Nursing Note: pedal pulses noted bilaterally by martin
[2019-03-29 16:29] LABS: Procalcitonin 11.7 ng/mL
[2019-03-29 16:33] LABS: Bilirubin Small (Negative); Blood Negative (Negative); Clarity Clear (Clear); Glucose Negative (Negative); Ketones Negative (Negative); Leukocyte Esterase Negative (Negative); Nitrite Negative (Negative); Urobilinogen >=8.0 EU/dL (Up TO 0.2)
[2019-03-29 16:50] LABS: WBC 0-2 HPF (0-5)
[2019-03-29 16:51] LABS: Bacteria Moderate HPF (Negative); Crystals Few Amorphous HPF (Negative); Epithelial Cells Rare HPF (Negative); Other Cells Rare Renal (Negative); RBC Negative (0-2)
[2019-03-29 16:52] LABS: C & S Indicated? Yes; Mucus Trace (Negative)
[2019-03-29 16:56] LABS: *AMPHETAMINES SCREEN URINE Negative (Negative); *BARBITURATES SCREEN URINE Negative (Negative); *BENZODIAZEPINES SCREEN URINE Negative (Negative); Cannabinoids THC POSITIVE (Negative); Cocaine Screen,Urine POSITIVE (Negative); METHADONE URINE SCREEN Negative (Negative); OPIATES URINE SCREEN Negative (Negative)
[2019-03-29 16:57] LABS: Tricyclic Antidepressants Negative (Negative)
[2019-03-29] MEDS: Normal Saline 1,000 ML 200 ML IV (17:25)
[2019-03-29] MEDS: Enoxaparin 40 MG/0.4 ML SYR SC (17:26)
[2019-03-29] MEDS: Albuterol/Ipratropium 3 ML UPD VIAL UPD (17:26)
[2019-03-29] MEDS: predniSONE 20 MG TAB 40 MG PO (17:26)
--- NOTE | 2019-03-29 17:31 | HPE_ITS ---
Date of service: 03/29/19 Time of Service: 17:20 Assessment and Plan (1) Sepsis: Current visit: Yes Status: Acute Due to bilateral lower extremity cellulitis. Started on empiric vancomycin/cefepime in ED - will continue. Procalcitonin is 11.7. Will trend. Continue aggressive IVF. Await blood culture results. (2) Bilateral cellulitis of lower leg: Current visit: Yes Status: Acute As above (3) Asthma exacerbation: Current visit: Yes Status: Acute Does have some bronchospasm. Will give him a dose of prednisone 40 mg in addition to scheduled and prn nebs. If still wheezing tomorrow, would consider increasing steroids and adding symbicort. Continues to smoke - advised to quit. (4) Obstructive sleep apnea: Current visit: Yes Status: Chronic Will offer CPAP tonight. ER does note that the patient becomes hypoxic to low 80's the moment he falls asleep, recovers once awake. (5) Morbid obesity with BMI of 50.0-59.9, adult: Current visit: Yes Status: Chronic Provide counseling on lifestyle modification (6) Opioid dependence: Current visit: Yes Status: Chronic Continue home dose of suboxone - verified via VPMS as well as per conversation with Dr Saleh (7) Discharge planning issues: Current visit: Yes Status: Acute Full code ICU admission. (8) Alcohol abuse: Current visit: Yes Status: Chronic Monitor for withdrawal with CIWA. Will receive thiamine now; prn ativan written. (9) DVT prophylaxis: Current visit: Yes Status: Acute Lovenox SC (10) Hypomagnesemia: Current visit: Yes Status: Acute Replete and monitor History of Present Illness Chief Complaint: I have cellulitis Narrative: Mr Marrero is a 28 year old male with PMHx of asthma, obstructive sleep apnea, noncompliant with CPAP, Obesity with BMI of 53.3, opioid dependence on suboxone therapy (claims last used drugs 3 years ago, h/o IVD), alcohol abuse, who presented to [facility] today complaining fevers, chills, generalized weakness and malaise starting yesterday. He states his RLE has been red for months, but the left leg just got red yesterday. He also reports a nonproductive cough and sore throat starting yesterday. He denies wheezing. In the ED, he was noted to be quite tachycardic on arrival (140's). He is less so now after receiving aggressive IVF as well as vancomycin/cefepime, but overall his condition was considered to be poor enough to necessitate an ICU bed. We were asked to admit the patient for further care. Of note, the patient drinks between 7 and 12 beers a day. His last drink was 3 days ago. He states he has never withdrawn from alcohol and has never had a seizure, but thought he might be withdrawing yesterday. Review of Systems Review of Systems 12 systems reviewed. Pertinent positives and negatives are as per HPI. Additionally, the patient endorses pain/aches all over. Denies recent use of drugs. PFSH Medical History Obesity, morbid, BMI 50 or higher (Acute) Asthma (Chronic) Obstructive sleep apnea (Chronic) History of substance abuse Opiate dependence, continuous Social History Smoking/Tobacco Use Status: Current every day Tobacco Type: cigarettes Smoking cigarettes per day: 10 Alcohol Intake: current Alcohol Intake frequency: 3 or more drinks per day Alcohol type: beer Counseling given: Yes Counseling provided: provider counseling Details: 7-12 drinks/day, last drink 3 days ago, denies withdrawal sx/seizures Drug use: Current Sobriety Substance use type: former substance user Details: 3 years free of herion; on suboxone therapy Do you feel safe at home: Yes Do you feel safe in your relationship?: Yes Meds Home Medications Medication Instructions Recorded Confirmed Type albuterol sulfate 2 puff INHALATION PRN PRN 03/29/19 03/29/19 History buprenorphine-naloxone [Suboxone] 0.5 film SUBLINGUAL DAILY 03/29/19 03/29/19 History Allergies Allergy/AdvReac Type Severity Reaction Status Date / Time No Known Allergies Allergy Unverified 03/29/19 11:53 Exam Narrative Exam Narrative: General: Very obese male, appears slightly lethargic (under effect of opioids) and definitely sick, able to stay awake during our interview, poor history provider. Neurological: A&Ox3, somnolent, no obvious focal deficits Psychiatric: flat affect Skin: distal BLE erythema; dirty plantar surfaces of both feet - I cannot easily see a wound HEENT: Atraumatic, normocephalic, EOMI, dry MM, no submandibular or cervical lymphadenopathy, large neck diameter, ?goiter, no JVD Cardiovascular: RRR, tachycardic, no clear murmur auscultated Lungs: quiet wheezing on auscultation B; patient did not permit posterior auscultation. Gastrointestinal: abdomen is soft, nontender, nondistended Genitourinary: deferred Extremities: BLE edema, appears nonpitting; distal BLE erythema, R>L; poor foot hygiene Results Imaging Additional studies: XR L femur/TIb/fib: Negative left femur. Soft tissue edema. US venous BLE's done, pending Labs : 03/29/19 12:30 03/29/19 12:30 Laboratory Results - last 24 hr 03/29/19 03/29/19 03/29/19 12:30 12:30 12:30 WBC 22.05 H RBC 4.52 Hgb 13.4 L Hct 38.1 L MCV 84.3 MCH 29.6 MCHC 35.2 RDW 13.4 Plt Count 171 MPV 9.7 Immature Gran % See Differential Neutrophils % 79.0 Band Neutrophils % 14.0 Lymphocytes % 4.0 Monocytes % 2.0 Eosinophils % 0.0 Basophils % 0.0 Metamyelocytes % 1.0 Absolute Neutrophils 20.51 H Absolute Lymphocytes 0.88 L Absolute Monocytes 0.44 Absolute Eosinophils 0.00 Absolute Basophils 0.00 Differential Comment Manual differential RBC Morphology Normal Sodium 131 L Potassium 3.7 Chloride 95 L Carbon Dioxide 24.6 Anion Gap 11.4 H BUN 14 Creatinine 1.16 Estimated GFR/1.73 m2 >= 60.00 Glucose 145 H Lactate 2.2 H* Calcium 8.2 L Magnesium 1.3 L Total Bilirubin 1.0 AST 59 H ALT 28 Alkaline Phosphatase 55 Troponin I < 0.05 Total Protein 7.2 Albumin 2.8 L Procalcitonin Urine Color Urine Clarity Urine pH Ur Specific [place] Urine Protein Urine Ketones Urine Blood Urine Nitrite Urine Bilirubin Urine Urobilinogen Ur Leukocyte Esterase Urine RBC Urine WBC Ur Epithelial Cells Urine Crystals Urine Bacteria Urine Casts Urine Mucus Urine Other Ur Culture Indicated? Urine Glucose Urine Opiates Screen Urine Methadone Screen Ur Barbiturates Screen Ur Tricyclics Screen Ur Amphetamines Screen U Benzodiazepines Scrn Urine Cocaine Screen Ur THC Screen 03/29/19 03/29/19 03/29/19 12:30 16:22 16:22 WBC RBC Hgb Hct MCV MCH MCHC RDW Plt Count MPV Immature Gran % Neutrophils % Band Neutrophils % Lymphocytes % Monocytes % Eosinophils % Basophils % Metamyelocytes % Absolute Neutrophils Absolute Lymphocytes Absolute Monocytes Absolute Eosinophils Absolute Basophils Differential Comment RBC Morphology Sodium Potassium Chloride Carbon Dioxide Anion Gap BUN Creatinine Estimated GFR/1.73 m2 Glucose Lactate Calcium Magnesium Total Bilirubin AST ALT Alkaline Phosphatase Troponin I Total Protein Albumin Procalcitonin 11.7 Urine Color Yellow Urine Clarity Clear Urine pH 7.0 Ur Specific [place] 1.020 Urine Protein 100 H Urine Ketones Negative Urine Blood Negative Urine Nitrite Negative Urine Bilirubin Small H Urine Urobilinogen >=8.0 Ur Leukocyte Esterase Negative Urine RBC Negative Urine WBC 0-2 Ur Epithelial Cells Rare Urine Crystals Few amorphous Urine Bacteria Moderate Urine Casts Urine Mucus Trace Urine Other Rare renal Ur Culture Indicated? Yes Urine Glucose Negative Urine Opiates Screen Negative Urine Methadone Screen Negative Ur Barbiturates Screen Negative Ur Tricyclics Screen Negative Ur Amphetamines Screen Negative U Benzodiazepines Scrn Negative Urine Cocaine Screen Positive Ur THC Screen Positive Last Vital Signs Temp 37 C 03/29/19 17:10 Pulse 110 H 03/29/19 17:10 Resp 9 L 03/29/19 17:10 BP 139/67 03/29/19 17:10 Pulse Ox 95 03/29/19 17:10
[2019-03-29] MEDS: THIAMINE 100 MG in Normal Saline 100 ML 200 MG IVPB (17:43)
[2019-03-29] MEDS: Acetaminophen 325 MG TAB PO (18:16)
[2019-03-29] MEDS: Normal Saline Flush 10 ML SYR IVP (18:18)
[2019-03-29] MEDS: Ketorolac 15 MG/ML VIAL IVP (18:18)
[2019-03-29] MEDS: MAGNESIUM SULFATE 4 GM/100 ML BAG IVPB (18:28)
[2019-03-29] MEDS: VANCOMYCIN 2,000 MG in Normal Saline 500 ML 250 MG IVPB (22:42)
[2019-03-30] VITALS (22 sets, daily range): BP systolic 112–127; BP diastolic 60–79; PULSE 83–112; RESP 8–23; TEMP 35.5–37.6; O2SAT 93–99
[2019-03-30] MEDS: CEFEPIME 2 GM in Normal Saline 100 ML IVPB ×3 (03:56→20:04)
[2019-03-30] MEDS: Normal Saline 1,000 ML 200 ML IV ×3 (04:01→18:05)
[2019-03-30 07:14] LABS: Abs Immature Grans 0.18 k/cumm (0.0-0.09); Absolute Lymphocyte Count 0.68 k/cumm (1.2-3.4); Basophils % 0.1; HCT 36.8 % (40.0-50.0); HGB 12.9 g/dL (13.5-17.5); Lymphocytes % 3.9; Mean Corp. HGB Concentration 35.1 g/dL (32.0-36.0); Mean Corpuscular Hemoglobin 29.8 pg (27.0-33.0); Monocytes % 2.9; Neutrophils % 92.1; Platelet Count 156 x1000/uL (130-400); RBC 4.33 m/cumm (4.50-6.00); RBC Distribution Width 13.6 % (11.8-14.1); White Blood Cell Count 17.43 k/cumm (4.4-10.8)
[2019-03-30 07:17] LABS: Absolute Basophil Count 0.02 k/cumm (0.0-0.2); Absolute Monocyte Count 0.51 k/cumm (0.11-0.7); Absolute Neutrophil Count 16.05 k/cumm (1.2-6.7)
[2019-03-30 07:36] LABS: BUN 16 mg/dL (7-18); CREATININE 0.85 mg/dL (0.70-1.30); Calcium 8.1 mg/dL (8.5-10.1); Chloride 100 mmol/L (98-107); Glucose 124 mg/dL (70-100); Magnesium 2.1 mg/dL (1.8-2.4); Potassium 4.1 mmol/L (3.5-5.1); Sodium 134 mmol/L (136-145); TSH (W/Ref FT4) 0.58 uIU/mL (0.358-3.74)
[2019-03-30 07:47] LABS: C-Reactive Protein > 25.00 mg/dL (0.0-0.3)
[2019-03-30 08:04] LABS: Procalcitonin 5.3 ng/mL
--- NOTE | 2019-03-30 08:20 | PDOC.CMIN ---
Care Management Initial Assess REASON FOR HOSPITALIZATION:: Sepsis due to BLE Cellulitis PAST MEDICAL HISTORY/PAST SURGICAL HISTORY:: Opioid dependence, morbid obesity, GERI, Sepsis, Hypomagnesemia, alcohol abuse, asthma with acute exacerbation, cellulitis of left and right lower limbs, BMI 50-59.9. PREVIOUS FUNCTIONAL STATUS/SOCIAL/FAMILY SUPPORTS:: Abelardo resides alone in [place], [place]. He works at [employer] in [place], [place] and reports his parents as primary suppports. CURRENT FUNCTIONAL STATUS:: Valerio remains hesistant to engage with staff. He is refusing nicotene replacement. ADVANCE DIRECTIVES:: None on file. Has patient been provided with information about the portal?: Yes Did the patient sign up for the portal?: No CODE STATUS:: Full Code INSURANCE COVERAGE / FINANCIAL ISSUES:: [employer] CURRENT HOME/COMMUNITY SERVICES/EQUIPMENT:: No current services or equipment. PRIMARY CARE PHYSICIAN:: Marty Saleh POTENTIAL DISCHARGE NEEDS:: Follow up appointment with PCP. PATIENT/FAMILY EDUCATION NEEDS:: Review of discharge instructions, discuss Ask Me Three. ANTICIPATED BARRIERS TO DISCHARGE:: None identified. TRANSPORTATION:: Via private vehicle with family. PLAN:: Abelardo will return home when ready per MD. He will follow up with his PCP and plan of care as prescribed. He will transport via private vehicle with family.
--- NOTE | 2019-03-30 08:29 | PGE_ITS ---
Date of Service Date of service: 03/30/19 Time of Service: 08:26 Assessment and Plan (1) Sepsis: Current visit: Yes Status: Acute Due to bilateral lower extremity cellulitis. Improving. Blood cultures are still pending. CRP is quite high; procalcitonin is trending down. I think we need to consider possibility of osteomyelitis (there is no evidence thereof on XR, and I am not sure that the patient would fit into a CT scan. Will consider to monitor blood cultures/clinical picture). Continue vancomycin/cefepime (day 2) (2) Bilateral cellulitis of lower leg: Current visit: Yes Status: Acute As above (3) Asthma exacerbation: Current visit: Yes Status: Acute Improved significantly. Would finish a 5 day steroid burst. Continue nebs. Based on rapid clinical improvement, I am no longer sure the patient needs symbicort. Continues to smoke - advised to quit. Refuses nicotine replacement therapy. (4) Obstructive sleep apnea: Current visit: Yes Status: Chronic Patient will try BiPAP tonight. I think it is safe to say that the patient also has obesity hypoventilation syndrome. (5) Morbid obesity with BMI of 50.0-59.9, adult: Current visit: Yes Status: Chronic Provide counseling on lifestyle modification. Obtain nutrition consult (6) Opioid dependence: Current visit: Yes Status: Chronic Continue home dose of suboxone. Noted and communicated findings of cocaine on UDS to Dr Saleh (7) Alcohol abuse: Current visit: Yes Status: Chronic Monitor for withdrawal with CIWA, prn ativan. Continue vitamins. (8) Hypomagnesemia: Current visit: Yes Status: Resolved Recheck in am (9) DVT prophylaxis: Current visit: Yes Status: Acute Lovenox SC (10) Discharge planning issues: Current visit: Yes Status: Acute Full code Transfer out of ICU to [facility] floor Subjective Interval history since last seen: C/o headache this morning. Legs still hurt this morning, but feels much better. He states redness is getting better in his left leg. He shows me today that it is all the way up to his thigh, but does not involve his scrotum. Denies dizziness, chest pain, shortness of breath. Wheezing is better. Having a nonproductive cough. Denies nausea/vomiting. Used 2L of O2 at night. Thinks about trying BiPAP later today. HR is now down to 90's. BP's stable. CIWAs negative. Exam Narrative Exam Narrative: General: Very obese male, A&Ox3, looks better/more alert today HEENT: EOMI, MMM Cardiovascular: RRR, no m/r/g; not tachycardic today Lungs: diminished breath sounds B - no wheezing heard today Gastrointestinal: abdomen is soft, nontender, nondistended Genitourinary: scrotum is not erythematous, but LLE erythema does extend all the way up to the L inner thigh Extremities: BLE edema, nonpitting; BLE erythema, L>R extending to L inner thigh Objective Objective Clinical Data: Abnormal lab results 03/29/19 03/29/19 03/29/19 Range/Units 12:30 12:30 12:30 WBC 22.05 H (4.4-10.8) k/cumm RBC (4.50-6.00) m/cumm Hgb 13.4 L (13.5-17.5) g/dL Hct 38.1 L (40.0-50.0) % Absolute Neutrophils 20.51 H (1.2-6.7) k/cumm Absolute Lymphocytes 0.88 L (1.2-3.4) k/cumm Sodium 131 L (136-145) mmol/L Chloride 95 L (98-107) mmol/L Anion Gap 11.4 H (3-11) mmol/L Glucose 145 H (70-100) mg/dL Lactate 2.2 H* (0.6-1.4) mmol/L Calcium 8.2 L (8.5-10.1) mg/dL Magnesium 1.3 L (1.8-2.4) mg/dL AST 59 H (15-37) U/L C-Reactive Protein (0.0-0.3) mg/dL Albumin 2.8 L (3.4-5.0) g/dL Urine Protein (Negative) mg/dL Urine Bilirubin (Negative) 03/29/19 03/30/19 03/30/19 Range/Units 16:22 06:55 06:55 WBC 17.43 H (4.4-10.8) k/cumm RBC 4.33 L (4.50-6.00) m/cumm Hgb 12.9 L (13.5-17.5) g/dL Hct 36.8 L (40.0-50.0) % Absolute Neutrophils 16.05 H (1.2-6.7) k/cumm Absolute Lymphocytes 0.68 L (1.2-3.4) k/cumm Sodium 134 L (136-145) mmol/L Chloride (98-107) mmol/L Anion Gap (3-11) mmol/L Glucose 124 H (70-100) mg/dL Lactate (0.6-1.4) mmol/L Calcium 8.1 L (8.5-10.1) mg/dL Magnesium (1.8-2.4) mg/dL AST (15-37) U/L C-Reactive Protein > 25.00 H (0.0-0.3) mg/dL Albumin (3.4-5.0) g/dL Urine Protein 100 H (Negative) mg/dL Urine Bilirubin Small H (Negative) Vital Signs Temperature 36.5 C 03/30/19 03:02 Temperature Source Temporal Artery Scan 03/30/19 03:02 Pulse 83 03/30/19 01:37 Pulse 92 H 03/30/19 06:00 Respiratory Rate 10 L 03/30/19 06:00 Respiratory Effort Non-Labored 03/30/19 03:02 Respiratory Depth Normal 03/30/19 03:02 Respiratory Pattern Normal 03/30/19 03:02 Blood Pressure 126/60 03/30/19 01:37 Blood Pressure Mean 75 03/30/19 01:37 Blood Pressure Position Supine 03/29/19 21:00 Pulse Oximetry 98 03/30/19 06:00 Oxygen Delivery Method Nasal Cannula 03/30/19 03:02 Oxygen Flow Rate 2 03/30/19 03:02 Pain Level 5 03/30/19 03:02 Intake & Output 03/29/19 03/29/19 03/30/19 11:59 23:59 11:59 Intake Total 7.667 / 2037.667 2086.666 / 2086.666 Output Total 700 / 700 400 / 400 Balance 1337.667 / 5173.676 1726.666 / 1686.666 Weight 181.437 kg 183.4 kg 188.5 kg Intake: IV 1717.667 / 2609.155 5976.666 / 2086.666 Oral 320 / 320 Output: Urine 700 / 700 400 / 400 Other: Urine Color Dark Sienna Light Sienna Urine Appearance Cloudy Cloudy Urine Odor Strong Comment Pt has yet to void on my shift. Voiding Methods Urinal Laboratory Results WBC 17.43 k/cumm (4.4-10.8) H 03/30/19 06:55 RBC 4.33 m/cumm (4.50-6.00) L 03/30/19 06:55 Hgb 12.9 g/dL (13.5-17.5) L 03/30/19 06:55 Hct 36.8 % (40.0-50.0) L 03/30/19 06:55 MCV 85.0 fL (80-95) 03/30/19 06:55 MCH 29.8 pg (27.0-33.0) 03/30/19 06:55 MCHC 35.1 g/dL (32.0-36.0) 03/30/19 06:55 RDW 13.6 % (11.8-14.1) 03/30/19 06:55 Plt Count 156 x1000/uL (130-400) 03/30/19 06:55 MPV 10.0 fL (8.0-11.0) 03/30/19 06:55 Immature Gran % 1.0 03/30/19 06:55 Neutrophils % 92.1 03/30/19 06:55 Band Neutrophils % 14.0 % 03/29/19 12:30 Lymphocytes % 3.9 03/30/19 06:55 Monocytes % 2.9 03/30/19 06:55 Eosinophils % 0.0 03/30/19 06:55 Basophils % 0.1 03/30/19 06:55 Metamyelocytes % 1.0 % 03/29/19 12:30 Absolute Neutrophils 16.05 k/cumm (1.2-6.7) H 03/30/19 06:55 Absolute Lymphocytes 0.68 k/cumm (1.2-3.4) L 03/30/19 06:55 Absolute Monocytes 0.51 k/cumm (0.11-0.7) 03/30/19 06:55 Absolute Eosinophils 0.00 k/cumm (0.0-0.7) 03/30/19 06:55 Absolute Basophils 0.02 k/cumm (0.0-0.2) 03/30/19 06:55 Differential Comment Manual differential 03/29/19 12:30 RBC Morphology Normal 03/29/19 12:30 Sodium 134 mmol/L (136-145) L 03/30/19 06:55 Potassium 4.1 mmol/L (3.5-5.1) 03/30/19 06:55 Chloride 100 mmol/L (98-107) 03/30/19 06:55 Carbon Dioxide 26.0 mmol/L (21.0-32.0) 03/30/19 06:55 Anion Gap 8.0 mmol/L (3-11) 03/30/19 06:55 BUN 16 mg/dL (7-18) 03/30/19 06:55 Creatinine 0.85 mg/dL (0.70-1.30) 03/30/19 06:55 Estimated GFR/1.73 m2 >= 60.00 (mL/min/1.73m2) 03/30/19 06:55 Glucose 124 mg/dL (70-100) H 03/30/19 06:55 Lactate 1.0 mmol/l (0.6-1.4) 03/30/19 06:55 Calcium 8.1 mg/dL (8.5-10.1) L 03/30/19 06:55 Magnesium 2.1 mg/dL (1.8-2.4) 03/30/19 06:55 Total Bilirubin 1.0 mg/dL (0.2-1.0) 03/29/19 12:30 AST 59 U/L (15-37) H 03/29/19 12:30 ALT 28 U/L (12-78) 03/29/19 12:30 Alkaline Phosphatase 55 U/L (46-116) 03/29/19 12:30 Troponin I < 0.05 ng/mL (0.00-0.06) 03/29/19 12:30 C-Reactive Protein > 25.00 mg/dL (0.0-0.3) H 03/30/19 06:55 Total Protein 7.2 g/dL (6.4-8.2) 03/29/19 12:30 Albumin 2.8 g/dL (3.4-5.0) L 03/29/19 12:30 Procalcitonin 5.3 ng/mL 03/30/19 06:55 TSH 0.58 uIU/mL (0.358-3.74) 03/30/19 06:55 Urine Color Yellow (Yellow) 03/29/19 16:22 Urine Clarity Clear (Clear) 03/29/19 16:22 Urine pH 7.0 (5-8) 03/29/19 16:22 Ur Specific [place] 1.020 (1.005-1.025) 03/29/19 16:22 Urine Protein 100 mg/dL (Negative) H 03/29/19 16:22 Urine Ketones Negative mg/dL (Negative) 03/29/19 16:22 Urine Blood Negative (Negative) 03/29/19 16:22 Urine Nitrite Negative (Negative) 03/29/19 16:22 Urine Bilirubin Small (Negative) H 03/29/19 16:22 Urine Urobilinogen >=8.0 EU/dL (Up TO 0.2) 03/29/19 16:22 Ur Leukocyte Esterase Negative (Negative) 03/29/19 16:22 Urine RBC Negative (0-2) 03/29/19 16:22 Urine WBC 0-2 HPF (0-5) 03/29/19 16:22 Ur Epithelial Cells Rare HPF (Negative) 03/29/19 16:22 Urine Crystals Few amorphous HPF (Negative) 03/29/19 16:22 Urine Bacteria Moderate HPF (Negative) 03/29/19 16:22 Urine Casts LPF (Negative) 03/29/19 16:22 Urine Mucus Trace (Negative) 03/29/19 16:22 Urine Other Rare renal (Negative) 03/29/19 16:22 Ur Culture Indicated? Yes 03/29/19 16:22 Urine Glucose Negative mg/dL (Negative) 03/29/19 16:22 Urine Opiates Screen Negative (Negative) 03/29/19 16:22 Urine Methadone Screen Negative (Negative) 03/29/19 16:22 Ur Barbiturates Screen Negative (Negative) 03/29/19 16:22 Ur Tricyclics Screen Negative (Negative) 03/29/19 16:22 Ur Amphetamines Screen Negative (Negative) 03/29/19 16:22 U Benzodiazepines Scrn Negative (Negative) 07/01/19 16:22 Urine Cocaine Screen Positive (Negative) 03/29/19 16:22 Ur THC Screen Positive (Negative) 03/29/19 16:22
[2019-03-30] MEDS: Multivitamin TAB 1 TAB PO (08:42)
[2019-03-30] MEDS: Ketorolac 15 MG/ML VIAL IVP ×2 (08:42→14:55)
[2019-03-30] MEDS: Folic Acid 1 MG TAB PO (08:43)
[2019-03-30] MEDS: predniSONE 20 MG TAB 40 MG PO (08:43)
[2019-03-30] MEDS: Thiamine 100 MG TAB PO (08:43)
[2019-03-30] MEDS: Pantoprazole 40 MG TABCR PO (08:43)
[2019-03-30] MEDS: VANCOMYCIN 2,000 MG in Normal Saline 500 ML 250 MG IVPB ×2 (08:43→18:29)
[2019-03-30] MEDS: Normal Saline Flush 10 ML SYR IVP ×2 (08:44→14:56)
[2019-03-30] MEDS: Buprenorphine/Naloxone 12 mg/3 mg FILM 0.5 EACH SL (08:48)
--- NOTE | 2019-03-30 09:15 | OT.INIE ---
Occupational Therapy Notes Inpatient Occupational Therapy Evaluation Date: 03/30/19 Referring Doctor: Fernanda David MD OT Orders: Eval and Treat Precautions: Fall, Standard PATIENT PROFILE/ADMITTING DIAGNOSIS: Pt is a 28 year old male who presented to the ER on 03/29/19 for cellulitis (B) LE, sepsis and an asthma exacerbation. Pt has had on-going issues in his LE for almost a year now, he states he has been retaining fluid and has had excessive drainage on and off. He states that when it does drain he feels better. He notes that he has gone to the doctor multiple times and feels that the cellulitis never fully healed from prior incident. Past Medical History: Obesity, morbid, BMI 50 or higher (Acute) Asthma (Chronic) Obstructive sleep apnea (Chronic) History of substance abuse Opiate dependence, continuous Social History/Home Situation: Pt [place] in an apartment [place] [facility]. He notes that it is a one floor. He has a tub/shower combination which he says is very small to the point where he has to turn sideways in order to get into it. Functionally pt states that he is totally (I) in his ADL/IADL routines when his (B) Legs are not swollen or sore. He works at [employer] reporting that at times is legs swell so bad that he can't get his pants on. He does not drive he gets (A) for driving from his parents or friends so he is able to get groceries, get to appts etc.. Pt states that if he did not have pain in his (B) LE he would be able to perform all ADLs (I). Equipment owned/DME: None SUBJECTIVE: Pt was sitting in bed when OT arrived. He is agreeable to OT session. OBJECTIVE: General Observation: (B) LE edema and redness, telemetry, BP cuff Mental Status: A&Ox3 Pain: C/o pain in (B) LE with any functional movements or bed mobility ROM: RUE AROM WNL L UE AROM WNL STRENGTH: RUE Shoulder flexion 4/5, bicep 4+/5, tricep 5/5, group rooms coordinator is strong and symmetrical LUE Shoulder flexion 4/5, bicep 4+/5, tricep 5/5, group rooms coordinator is strong and symmetrical FUNCTIONAL MOBILITY/ADLS: Pt did not want to perform ADLs at todays reporting that he is in a lot of pain. Functionally he was able to reach to his (B) knees before reporting pain but this is not something pt has had issues with until his cellulitis and sepsis started. Pt has Functional ROM required to perform all ADLs. BALANCE: Static sitting Normal Dynamic Sitting Normal SPECIAL TESTS: Daily Activity Limitations Standardized Measure [facility] AM -PAC ?6 clicks? Daily Activity Inpatient Short Form: Raw score: 21 Standardized score: 44.27 CMS score: 32.79% INFORMED CONSENT/EDUCATION: Pt instructed in purpose of OT Consult and plan of care. ASSESSMENT: Patient is a 28-year-old referred to occupational therapy services with diagnosis of cellulitis, sepsis and asthma exacerbation. Patient presents with clinical signs and symptoms consistent with dx. Pt notes that besides the pain in his (B) LE he is functional (I) in ADLs/IADLs. He is able to demonstrate this with functional AROM and strength in (B) UE. He is restricted in LE movements based on current condition. Pt states that he feels he will be (I) once his sepsis and cellulitis is controlled. Functionally due to this OT does not feel that pt would not benefit from skilled OT services at this time. Pt has been performing his ADLs/IADLs (I) for the most part besides driving since yesterday. OT did discuss with pt use of chair or bench for the shower to decrease pressure and strain on his (B) LE while performing his bathing routine. Pt denies the need for this and reports that he has a small tub and he is able to get in and out without this. Pt notes that he would like to return to work, based on his pain and functional standing tolerance right now this may be limiting however pt notes he has been going to work for the past couple months with pain in his (B) LE and did not have any issues. Due to pts current condition OT feels that pt would benefit from outpatient lymphedema tx when medically cleared per MD. AMPAC score 21, CMS score 32.79% Patient is assessed as a Moderate 74632 complexity based on the following: History: See Above Examination: See Above Presentation: Evolving Decision Making: AMPAC score 21, CMS score 32.79% GOALS N/A PLAN OF CARE/TREATMENT PLAN: OT consult only. DISCHARGE RECOMMENDATIONS OT recommends that pt return home when medically cleared per MD with follow up in outpatient setting for (B) LE lymphedema. TREATMENT TIME/MINUTES/CODES 78922, 25 minutes (08:50) Caro Santana OTR/L [facility]
--- NOTE | 2019-03-30 09:19 | OTIE_ITS ---
Occupational Therapy Notes Inpatient Occupational Therapy Evaluation Date: 03/30/19 Referring Doctor: Fernanda David MD OT Orders: Eval and Treat Precautions: Fall, Standard PATIENT PROFILE/ADMITTING DIAGNOSIS: Pt is a 28 year old male who presented to the ER on 03/29/19 for cellulitis (B) LE, sepsis and an asthma exacerbation. Pt has had on-going issues in his LE for almost a year now, he states he has been retaining fluid and has had excessive drainage on and off. He states that when it does drain he feels better. He notes that he has gone to the doctor multiple times and feels that the cellulitis never fully healed from prior incident. Past Medical History: Obesity, morbid, BMI 50 or higher (Acute) Asthma (Chronic) Obstructive sleep apnea (Chronic) History of substance abuse Opiate dependence, continuous Social History/Home Situation: Pt lives in an apartment near [facility]. He notes that it is a one floor. He has a tub/shower combination which he says is very small to the point where he has to turn sideways in order to get into it. Functionally pt states that he is totally (I) in his ADL/IADL routines when his (B) Legs are not swollen or sore. He works at [employer] reporting that at times is legs swell so bad that he can't get his pants on. He does not drive he gets (A) for driving from his parents or friends so he is able to get groceries, get to appts etc.. Pt states that if he did not have pain in his (B) LE he would be able to perform all ADLs (I). Equipment owned/DME: None SUBJECTIVE: Pt was sitting in bed when OT arrived. He is agreeable to OT session. OBJECTIVE: General Observation: (B) LE edema and redness, telemetry, BP cuff Mental Status: A&Ox3 Pain: C/o pain in (B) LE with any functional movements or bed mobility ROM: RUE AROM WNL L UE AROM WNL STRENGTH: RUE Shoulder flexion 4/5, bicep 4+/5, tricep 5/5, kitchen worker is strong and symmetrical LUE Shoulder flexion 4/5, bicep 4+/5, tricep 5/5, kitchen worker is strong and symmetrical FUNCTIONAL MOBILITY/ADLS: Pt did not want to perform ADLs at todays reporting that he is in a lot of pain. Functionally he was able to reach to his (B) knees before reporting pain but this is not something pt has had issues with until his cellulitis and sepsis started. Pt has Functional ROM required to perform all ADLs. BALANCE: Static sitting Normal Dynamic Sitting Normal SPECIAL TESTS: Daily Activity Limitations Standardized Measure [facility] AM -PAC ?6 clicks? Daily Activity Inpatient Short Form: Raw score: 21 Standardized score: 44.27 CMS score: 32.79% INFORMED CONSENT/EDUCATION: Pt instructed in purpose of OT Consult and plan of care. ASSESSMENT: Patient is a 28-year-old referred to occupational therapy services with diagnosis of cellulitis, sepsis and asthma exacerbation. Patient presents with clinical signs and symptoms consistent with dx. Pt notes that besides the pain in his (B) LE he is functional (I) in ADLs/IADLs. He is able to demonstrate this with functional AROM and strength in (B) UE. He is restricted in LE movements based on current condition. Pt states that he feels he will be (I) once his sepsis and cellulitis is controlled. Functionally due to this OT does not feel that pt would not benefit from skilled OT services at this time. Pt has been performing his ADLs/IADLs (I) for the most part besides driving since yesterday. OT did discuss with pt use of chair or bench for the shower to decrease pressure and strain on his (B) LE while performing his bathing routine. Pt denies the need for this and reports that he has a small tub and he is able to get in and out without this. Pt notes that he would like to return to work, based on his pain and functional standing tolerance right now this may be limiting however pt notes he has been going to work for the past couple months with pain in his (B) LE and did not have any issues. Due to pts current condition OT feels that pt would benefit from outpatient lymphedema tx when medically cleared per MD. AMPAC score 21, CMS score 32.79% Patient is assessed as a Moderate 36663 complexity based on the following: History: See Above Examination: See Above Presentation: Evolving Decision Making: AMPAC score 21, CMS score 32.79% GOALS N/A PLAN OF CARE/TREATMENT PLAN: OT consult only. DISCHARGE RECOMMENDATIONS OT recommends that pt return home when medically cleared per MD with follow up in outpatient setting for (B) LE lymphedema. TREATMENT TIME/MINUTES/CODES 27185, 25 minutes (08:50) Caro Santana OTR/L [facility]
--- NOTE | 2019-03-30 11:45 | PHARADMIT ---
Addendum entered by Sung Hall III 04/02/19 15:42: Pharmacy Note Subjective Bilateral lower exremity cellulits improving. Nutrition consult regarding alchol and portion control. Objective VS-OK Mag-1.8 Assessment Vancomycin & Cefepime continues, day 5. plan to deescalte Plan needs a lot of wound care. van need to go to swing bed. Addendum entered by Danni Peoples 04/01/19 12:42: Pharmacy Note Subjective improving per morning report Objective HR-91 other VS okay Assessment vanco and cefepime continue (day 4 starts this afternoon), plan is for 2 weeks of abx unless its osteo, vanco trough came back at 16.8 (extrapolated trough was 15.9), continue current dose of [address] of lower extremities ordered to rule out osetomyelitis Plan MD may try to deescalate abx tomorrow by discontinuing vanco? (per progress note) watch for CT results Addendum entered by Mary Ellen Krishnamurthy 03/31/19 15:26: Pharmacy Note Subjective Sepsis Objective VS good, afebrile, pain 7/10, CIWA: 1 Mag 1.7(oral Mag started), Na++ 135 Creactive protein down 20.29, WBC down 14.29 Procalcitonin 5.3 yesterday Assessment Vanco trough last evening was 14.7, interval changed to 2gram IV q8h due to large improvement in SCr and weight increase IVF's dc'd MD thinking with inflammatory markers there may be some sort of Osteomyelitis but difficult body habitus, we do not have open MRI to verify. Can do CT scan Pt using own Jorge L Rodriguez dc'd-pt refusing Suboxone dose was verified per MD as 1/2 SL film even though not recommended to cut Plan Podiatry consult, Wound care-Amlactin ordered Cefepime and Vanco continue-second trough ordered for 04/01 @ 0900 Original Note: Admission Pharmacy Clinical Review SEPSIS DUE TO BILATERAL LOWER EXTREMITIES/CELLULITIS Code Status Full Code Current Weight 188.5 kg Renally Cleared and Narrow Therapeutic Index Meds CrCl~143ml/min QTc Value / Action Taken QTC 516 BP Control, Fever BP 126/60 Afebrile pain 6/10 Electrolytes reviewed Na+ 134 K+ 4.1 Mag 2.1 DVT Prophylaxis Lovenox 40mg Opiate Usage / Scheduled Bowel Regimen Ordered none Plt/SCr for Heparin / Enoxaparin Plt 156 SCr 0.85 INR for Warfarin H/H stable, WBC/Bands H/H 12.9/36.8 WBC 17.43 (was 22.05) Antibiotic appropriateness Cefepime/Vanco (5pm trough today is ordered) Cultures and Sensitivities Urine and blood pending Surgical ABX d/c within 24 hr DM control / Insulin Dosing Heart Failure (Check EF%) (VIVIANE's, B-Block, Diuretics) IV to PO Switch Home Meds Reviewed Suboxone 12/3 film.../2 film daily (dose verified w/ per ) Home Meds Not Ordered Advair HFA Comments PCT 11.7 then 5.3 C-reactive >25 CIMT protocol and RT discussed possibly adding Symbicort...pt refusing scheduled Duoneb Smoker but refusing nicotine replacement Toradol for pain
--- NOTE | 2019-03-30 12:00 | PT.INIE ---
Date of service: 03/30/19 Time of Service: 09:57 PT Notes Inpatient Physical Therapy Evaluation Date: 03/30/2019 Referring Doctor: Fernanda David MD PT Orders: PT CONSULT: Eval/treat Precautions: Fall. Standard. Patient Profile/Admitting Diagnosis: Patient is a 28-year-old male with medical history significant for asthma, IV drug use and is currently on Suboxone, and opiate dependence who presented to the ED on 03/29/2019with chief complaints of left leg pain and rash. Patient was diagnosed with bilateral lower extremity cellulitis, sepsis, asthma exacerbation, and hypomagnesemia. Referral for physical therapy was made in order to address impairments in strength, balance, and mobility level. PMHX: Medical History Obesity, morbid, BMI 50 or higher (Acute) Asthma (Chronic) Obstructive sleep apnea (Chronic) History of substance abuse Opiate dependence, continuous Social History/Home Situation: Abelardo lives in a 1-floor apartment with no steps to enter here in [place], [place]. He has been independent with all aspects of ADLs without the need for assistive device nor adaptive equipment. He works currently at [employer] in [place]. Patient's chart there was a previous scheduled appointment last year for a lymphedema evaluation treatment that patient did not show up that appointment. Patient does not drive and receives assistance from friends and apparently is to perform his basic care needs transportation needs. Current Functional Limitations: Need for assistance with level surface ambulation due to cellulitis involving bilateral lower extremities Equipment Owned/DME: None Subjective: Abelardo is agreeable to a PT consult and evaluation today. Patient states that he could move but movement hurts. He hopes to go home and be able to go back to work as soon as he is able to. He denies any dizziness, chest pain, headache, throughout PT session for today. Objective: General Observation: Patient seen resting in bed. Telemetry monitoring in place. Erythema, increased warmth, and increased swelling noted to bilateral legs and right thigh. No open areas seen on B LE except for cracked bilateral soles of feet. Patient appeared to be neglectful of physical hygiene. He is quite non-chalant initially but is cooperative later in the session. Mental Status: Alert and oriented x4 Pain: Reports 6/10 on bilateral lower extremities ambulation activity ROM: Right Upper Extremity: Shoulder Flexion WFL. Shoulder abduction WFL. Elbow flexion WFL. Wrist flexion WFL. Functional opening and closing of hand WFL. Left Upper Extremity: Shoulder Flexion WFL. Shoulder abduction WFL. Elbow flexion WFL. Wrist flexion WFL. Functional opening and closing of hand WFL. Right Lower Extremity: Hip flexion WFL. Hip abduction WFL. Knee flexion 0-90. Knee full extension achievable but accompanied by pain. Ankle dorsiflexion 0-20. Ankle plantarflexion WFL. Left Lower Extremity: Hip flexion WFL. Hip abduction WFL. Knee flexion 0-90. Knee full extension achievable but accompanied by pain. Ankle dorsiflexion 0-20. Ankle plantarflexion WFL. Strength: Right Upper Extremity: Shoulder flexors 5/5. Shoulder abductors 5/5. Elbow flexors 5/5. Elbow extensors 5/5. Kettle Skimmer strong. Left Upper Extremity: Shoulder flexors 5/5. Shoulder abductors 5/5. Elbow flexors 5/5. Elbow extensors 5/5. Kettle Skimmer strong. Right Lower Extremity: Hip flexors 4/5. Hip abductors 4/5. Knee flexors 3-/5. Knee extensors 4-/5. Ankle dorsiflexors 3-/5. Ankle plantarflexors 4-/5. Left Lower Extremity:Hip flexors 4/5. Hip abductors 4/5. Knee flexors 3-/5. Knee extensors 4-/5. Ankle dorsiflexors 3-/5. Ankle plantarflexors 4-/5. Sensation: Intact as to pain and pressure on bilateral lower extremities. Bed Mobility/Transfers: Rolling SBA Supine to sit SBA Sit to supine SBA Sit to stand SBA Stand to sit SBA Bed to chair SBA Chair to bed SBA Patient tolerated level surface ambulation of 50 feet using FWW with WBAT on BLE requiring only SBA from this PT with observed decreased step height in length due to report of pain on bilateral legs Gait: Patient tolerated level surface ambulation of 50 feet using FWW with WBAT on BLE requiring only SBA from this PT with observed decreased step height in length due to report of pain on bilateral legs Balance: Static Sitting: Good Dynamic Sitting: Good Static Standing: Fair Dynamic Standing: Fair Special Tests: Mobility Limitations Standardized Measure [facility] 6 clicks Basic Mobility Inpatient Short Form: Raw Score: 18 CMS Score: 47% deficit Informed Consent/Education: Patient instructed in purpose of PT consult and plan of care. Patient was advised that consultation with referring MD will need to be made in order to assess appropriate timing of a potential manual lymphatic drainage services in light of active acute infection. Focus of POC will be on maximizing mobility level, reducing pain complaint, and regaining lower extremity strength. Assessment: 28-year-old male with diagnosis of bilateral lower extremities cellulitis. Patient presents with clinical signs and symptoms consistent with current/admitting diagnoses that have resulted to mobility limitations, gait instability, generalized weakness, and impairment of motor control as demonstrated by the following impairment level findings: 1. Decreased strength to B LE major muscle groups 2. Impaired standing balance 3. Impaired activity tolerance 4. Limitation of joint range of motion in the lateral knees and ankles Impairments are contributing to the following functional limitations: 1. SBA for bed mobility skills 2. SBA for transfers 3. Inability to safely ambulate without assistance 4. Increase completion time for mobility ADL performance 5. Increased fall risk Patient is assessed as a 05175 moderate complexity based on the following: History: 28-year-old male with untreated lymphedema now with bilateral lower extremity cellulitis Examination: Demonstrable impairment in strength, balance, and range of motion with underlying impairments and functional limitations as documented above Presentation:Evolving Decision Makin moderate complexity Goals: Goals X1 week 1. Supine-Sit independent 2. Sit-Supine independent 3. Sit-Stand independent 4. Stand-Sit independent 5. Bed-Chair independent 6. Chair-Bed independent 7. Independent gait on level surface without use of assistive device for at least 300 feet without report of pain nor dyspnea 8. Independent with home exercise program 9. Patient will demonstrate standing tolerance of 30 minutes in order to safely participate in activities of daily living 10. Patient will achieve girth reduction of at least 3 cm in order to maximize mobility performance and facilitate return to work Plan of Care/Treatment Plan: 1-2x/day, 7 days/week x 1 week. Plan of care has been reviewed with the AIR DRIER MACHINE OPERATOR providing the service under Physical Therapy direction. Initiate Physical Therapy intervention for strengthening, bed mobility, transfers, gait, stairs, balance training, use of assistive device. Will coordinate and consult with referring MD regarding appropriateness of lymphedema treatment to address existing symptoms. DISCHARGE RECOMMENDATIONS: Patient will benefit from outpatient lymphedema/complete decongestive therapy services once infection is resolved in order to address pain, swelling, and moblity impairments. TREATMENT CODE/TIME: 95957 x 39 minutes beginning at 9:57 AM. Thank you very much for this referral. Sherrie Kingston PT, DPT, CLT [facility]
[2019-03-30] MEDS: Acetaminophen 325 MG TAB PO (12:41)
--- NOTE | 2019-03-30 14:41 | PT.INTREAT ---
Date of service: 03/30/19 Time of Service: 14:41 PT Notes Inpatient Physical Therapy Treatment Note [facility] Date: 03/30/19 PRECAUTIONS: Fall SUBJECTIVE: Mathieu is agreeable to participating in PT. He reports that he is able to stand and walk, however, he reports that it is painful to do so in his feet due to the swelling. OBJECTIVE: PAIN: Patient c/o B foot pain with gait training BED MOBILITY/TRANSFERS Supine-sit: I with HOB flat Sit-supine: I with HOB flat Sit-stand: S Stand-sit: S GAIT Assistive Device: No AD Weight bearing: WBAT B Assist: S Distance: 100' + 150' Static standing x10 minutes without UE support and with supervision. THEREX: Patient completed ankle pump x20, bilaterally. He was instructed to perform ankle pumping exercise x20 each hour. ASSESSMENT: Patient was able to tolerate a progression in gait distance without assistive device support and supervision. He was also able to tolerate static standing without UE support x10 minutes. Patient would benefit from continued gait training, as well as strengthening for improved activity tolerance. PLAN: Continue with PT's POC TREATMENT CODE/TIME: 25 minutes; 10647 x2
--- NOTE | 2019-03-30 15:08 | INITIAL_ITS ---
Care Management Initial Assess REASON FOR HOSPITALIZATION:: Sepsis due to BLE Cellulitis PAST MEDICAL HISTORY/PAST SURGICAL HISTORY:: Opioid dependence, morbid obesity, GERI, Sepsis, Hypomagnesemia, alcohol abuse, asthma with acute exacerbation, cellulitis of left and right lower limbs, BMI 50-59.9. PREVIOUS FUNCTIONAL STATUS/SOCIAL/FAMILY SUPPORTS:: Abelardo resides alone in [place], [place]. He works at [employer] in [place], [place] and reports his parents as primary suppports. CURRENT FUNCTIONAL STATUS:: Valerio remains hesistant to engage with staff. He is refusing nicotene replacement. ADVANCE DIRECTIVES:: None on file. Has patient been provided with information about the portal?: Yes Did the patient sign up for the portal?: No CODE STATUS:: Full Code INSURANCE COVERAGE / FINANCIAL ISSUES:: [employer] CURRENT HOME/COMMUNITY SERVICES/EQUIPMENT:: No current services or equipment. PRIMARY CARE PHYSICIAN:: Marty Saleh POTENTIAL DISCHARGE NEEDS:: Follow up appointment with PCP. PATIENT/FAMILY EDUCATION NEEDS:: Review of discharge instructions, discuss Ask Me Three. ANTICIPATED BARRIERS TO DISCHARGE:: None identified. TRANSPORTATION:: Via private vehicle with family. PLAN:: Abelardo will return home when ready per MD. He will follow up with his PCP and plan of care as prescribed. He will transport via private vehicle with family.
[2019-03-30 17:34] LABS: Vancomycin, Trough 14.7 ug/mL (10.0-20.0)
[2019-03-30] MEDS: Enoxaparin 40 MG/0.4 ML SYR SC (18:05)
[2019-03-31] MEDS: Normal Saline 1,000 ML 200 ML IV ×2 (01:34→10:26)
[2019-03-31] MEDS: VANCOMYCIN 2,000 MG in Normal Saline 500 ML 250 MG IVPB ×3 (01:34→17:56)
[2019-03-31] MEDS: CEFEPIME 2 GM in Normal Saline 100 ML IVPB ×3 (03:45→20:39)
--- NOTE | 2019-03-31 05:23 | NUR.NOTE ---
Nursing Note: pt was found walking on his dirty floor without his shoes on. His feet were bleeding. This remote mortgage underwriter recommended wrapping or putting bandages on his feet. pt refused, will continue to monitor.
[2019-03-31 05:26] VITALS: BP 118/84; PULSE 97; RESP 22; TEMP 37.7; O2SAT 96
[2019-03-31] MEDS: Ketorolac 15 MG/ML VIAL IVP (05:39)
[2019-03-31] MEDS: Acetaminophen 325 MG TAB PO ×3 (05:39→20:47)
[2019-03-31 07:13] LABS: Abs Immature Grans 0.06 k/cumm (0.0-0.09); Absolute Basophil Count 0.01 k/cumm (0.0-0.2); Absolute Eosinophil Count 0.01 k/cumm (0.0-0.7); Absolute Monocyte Count 0.67 k/cumm (0.11-0.7); Basophils % 0.1; Eosinophils % 0.1; HGB 11.5 g/dL (13.5-17.5); Immature Grans % 0.4; Lymphocytes % 8.4; Mean Corp. HGB Concentration 33.8 g/dL (32.0-36.0); Mean Corpuscular Volume 85.9 fL (80-95); Mean Platelet Volume 10.2 fL (8.0-11.0); Monocytes % 4.7; Neutrophils % 86.3; Platelet Count 144 x1000/uL (130-400); RBC 3.96 m/cumm (4.50-6.00); RBC Distribution Width 13.7 % (11.8-14.1); White Blood Cell Count 14.29 k/cumm (4.4-10.8)
[2019-03-31 07:17] LABS: Absolute Neutrophil Count 12.33 k/cumm (1.2-6.7)
[2019-03-31 07:19] VITALS: BP 121/70; PULSE 87; RESP 22; TEMP 37.4; O2SAT 97
[2019-03-31 07:29] LABS: Anion Gap 9.7 mmol/L (3-11); BUN 17 mg/dL (7-18); C-Reactive Protein 20.29 mg/dL (0.0-0.3); CO2 22.3 mmol/L (21.0-32.0); CREATININE 0.83 mg/dL (0.70-1.30); Calcium 8.1 mg/dL (8.5-10.1); Chloride 103 mmol/L (98-107); Glucose 115 mg/dL (70-100); Magnesium 1.7 mg/dL (1.8-2.4); Potassium 3.9 mmol/L (3.5-5.1); Sodium 135 mmol/L (136-145)
[2019-03-31] MEDS: Thiamine 100 MG TAB PO (08:48)
[2019-03-31] MEDS: Pantoprazole 40 MG TABCR PO (08:48)
[2019-03-31] MEDS: Buprenorphine/Naloxone 12 mg/3 mg FILM 0.5 EACH SL (08:48)
[2019-03-31] MEDS: Folic Acid 1 MG TAB PO (08:48)
[2019-03-31] MEDS: Multivitamin TAB 1 TAB PO (08:48)
[2019-03-31] MEDS: predniSONE 20 MG TAB 40 MG PO (08:48)
[2019-03-31] MEDS: Normal Saline Flush 10 ML SYR IVP ×3 (10:37→20:40)
[2019-03-31] MEDS: Magnesium Chloride 64 MG TABCR PO (11:10)
--- NOTE | 2019-03-31 11:19 | W.NUTCONSULT ---
Date of service: 03/31/19 Time of Service: 11:20 Nutritional Consult ASSESSMENT: Mr. Marrero is hospitalized with cellulitis and water retention in leg. He has a friend visiting during the visit. BMI 54 Mr. Marrero is laying in bed frustrated that he cannot move without the nurse. He also does not like the food as having an 'off' taste. Self admits spending $20 daily on twisted tea and has decided he has to give that up. He does little shopping and no cooking for himself. He has communal meals on the weekends and eats leftovers during the week. He orders out [employer] on the other days. He can make spaghetti and pasta himself. He works 10 hours a day and states he walks miles at work. He is not interested in exercising otherwise. NUTRITIONAL DIAGNOSIS: Obesity grade 3 as evidenced by excess calorie intake INTERVENTION: Discussed calories from beverages and he is aware of the health consequences and is willing and committed to quit this including Vishal Finney. Discussed balanced diet related to vegetable consumption. Briefly discussed processed high fat/salt/sugar foods and gut health and healing. Given the circumstances, this was an adequate initial visit and will follow up when there can be a private conversation. MONITORING AND EVALUATION: Will follow weight and nutritional intake and see him 04/02/19 Time Spent in Nutritional Counseling and Treatment: 10 minutes face t oface
[2019-03-31 11:28] VITALS: BP 135/77; PULSE 91; RESP 20; TEMP 37.3; O2SAT 96
[2019-03-31 11:38] LABS: HIV-1/2 Ag & Ab Screen Negative (NEGAT)
--- NOTE | 2019-03-31 11:56 | PT.INNT ---
Date of service: 03/31/19 Time of Service: 11:56 PT Notes 03/31/19 Hold PT today, per nsg request, due to increased swelling of B LEs. Will attempt to resume PT services tomorrow morning, if appropriate.
--- NOTE | 2019-03-31 13:11 | PDOC.CMPRO ---
Care Management Progress Note S/O-Met with Abelardo today. He states he only got OOB this AM for a shower, but otherwise has been in bed. His L leg is still very swollen and sore. He states he hopes to get leg healed so he can return to work. His work is entirely done on his feet. A- 28 yo man admitted with sepsis due to BLE cellulitis. P-Anticipate d/c home as per MD , no services anticipated. Family to transport.
--- NOTE | 2019-03-31 15:18 | WOUNDCARE ---
Wound Care Report Pt is a 28 year old male consulted for bilateral cracked feet. Podiatry consulted and unavailable until 04/05/19. Pt?s admitting diagnosis is bilateral LE cellulitis. Chart reviewed, including H&P, recent labs, and vital signs, and other providers? reports. Medical Hx and labs pertinent to wound healing: Abnormal Lab Results 03/30/19 03/30/19 03/31/19 06:55 17:10 06:50 WBC RBC Hgb Hct MCV MCH MCHC RDW Plt Count MPV Immature Gran % Neutrophils % Lymphocytes % Monocytes % Eosinophils % Basophils % Absolute Neutrophils Absolute Lymphocytes Absolute Monocytes Absolute Eosinophils Absolute Basophils Sodium 135 L Potassium 3.9 Chloride 103 Carbon Dioxide 22.3 Anion Gap 9.7 BUN 17 Creatinine 0.83 Estimated GFR/1.73 m2 >= 60.00 Glucose 115 H Calcium 8.1 L Magnesium 1.7 L C-Reactive Protein 20.29 H Vancomycin Trough 14.7 HIV 1&2 Ag/Ab, 4th Gen Negative 03/31/19 06:50 WBC 14.29 H RBC 3.96 L Hgb 11.5 L Hct 34.0 L MCV 85.9 MCH 29.0 MCHC 33.8 RDW 13.7 Plt Count 144 MPV 10.2 Immature Gran % 0.4 Neutrophils % 86.3 Lymphocytes % 8.4 Monocytes % 4.7 Eosinophils % 0.1 Basophils % 0.1 Absolute Neutrophils 12.33 H Absolute Lymphocytes 1.20 Absolute Monocytes 0.67 Absolute Eosinophils 0.01 Absolute Basophils 0.01 Sodium Potassium Chloride Carbon Dioxide Anion Gap BUN Creatinine Estimated GFR/1.73 m2 Glucose Calcium Magnesium C-Reactive Protein Vancomycin Trough HIV 1&2 Ag/Ab, 4th Gen Wound Assessment Findings Bilateral feet dry and scaly. Tiny little cracks noted all over plantar aspect of feet, most concentrated at metatarsal heads. Open slit noted between 3rd and 4th left digit. Indicators of infection present? No indications of infection located on plantar aspect of feet. Cellulitic lower extremities being managed by hospitalist. Patients Mobility status independent, encouraged to keep LE?s elevated above heart level to assist w/decrease in edema. Minimizing weight bearing may also assist with healing of cracks in feet. Nutritional Status- nutrition consult recommended and completed already today by Cynthia Constantino. Current Topical Treatment plan- Ammonia Lactate 12% applied BID, ordered by physician. Physician/nurse practitioner notification- Dr. David notified of recommendations Recommendations: Wash bilateral feet BID. Apply Ammonium Lactate 12% BID after cleansing. Thank you for the consult.
[2019-03-31 15:19] VITALS: BP 124/77; PULSE 84; RESP 21; TEMP 36.7; O2SAT 95
--- NOTE | 2019-03-31 17:15 | PGE_ITS ---
Date of Service Date of service: 03/31/19 Time of Service: 17:10 Assessment and Plan (1) Sepsis: Current visit: Yes Status: Acute Due to bilateral lower extremity cellulitis. Improving. Blood cultures with NGTD x 48 hours. CRP and procalcitonin are trending down, as is leucocytosis. Will obtain CT of the LLE to r/o osteomyelitis - it is unlikely the patient would fit into MRI. Continue vancomycin/cefepime (day 3) (2) Bilateral cellulitis of lower leg: Current visit: Yes Status: Acute As above Wound care consult for cracking on feet Podiatry unavailable until Friday (3) Asthma exacerbation: Current visit: Yes Status: Acute I think he is at his baseline. Would finish a 5 day steroid burst. Scheduled nebs d/c'ed. Continues to smoke - advised to quit. Refuses nicotine replacement therapy. (4) Obstructive sleep apnea: Current visit: Yes Status: Chronic Not compliant with BiPAP. I think it is safe to say that the patient also has obesity hypoventilation syndrome. (5) Morbid obesity with BMI of 50.0-59.9, adult: Current visit: Yes Status: Chronic Provide counseling on lifestyle modification. Obtain nutrition consult. We spoke a lot about quitting alcohol and decreasing portion size. (6) Opioid dependence: Current visit: Yes Status: Chronic Continue home dose of suboxone. Noted and communicated findings of cocaine on UDS to Dr Saleh (7) Alcohol abuse: Current visit: Yes Status: Chronic Monitor for withdrawal with CIWA, prn ativan. Continue vitamins. Patient is interested in staying quit - but not AA. (8) Hypomagnesemia: Current visit: Yes Status: Resolved Recheck in am (9) DVT prophylaxis: Current visit: Yes Status: Acute Lovenox SC (10) Discharge planning issues: Current visit: Yes Status: Acute Full code Continues to require hospitalization. Subjective Interval history since last seen: Feels better. Breathing is better, overall feels better, but felt generally unwell this morning. He is worried about the cracking on his feet. Denies dizziness, chest pain, nausea, vomiting, shortness of breath. Exam Narrative Exam Narrative: General: Very obese male, A&Ox3, looks even better HEENT: EOMI, MMM Cardiovascular: RRR, no m/r/g Lungs: diminished breath sounds B Gastrointestinal: abdomen is soft, nontender, nondistended Genitourinary: scrotum is not erythematous, but LLE erythema does extend all the way up to the L inner thigh Extremities: BLE edema, today it is slightly pitting; distal LLE edema with slight weeping noted; BLE erythema, L>R extending to L inner thigh, looks a little better today Objective Objective Clinical Data: Abnormal lab results 03/31/19 03/31/19 Range/Units 06:50 06:50 WBC 14.29 H (4.4-10.8) k/cumm RBC 3.96 L (4.50-6.00) m/cumm Hgb 11.5 L (13.5-17.5) g/dL Hct 34.0 L (40.0-50.0) % Absolute Neutrophils 12.33 H (1.2-6.7) k/cumm Sodium 135 L (136-145) mmol/L Glucose 115 H (70-100) mg/dL Calcium 8.1 L (8.5-10.1) mg/dL Magnesium 1.7 L (1.8-2.4) mg/dL C-Reactive Protein 20.29 H (0.0-0.3) mg/dL Vital Signs Temperature 36.7 C 03/31/19 15:19 Temperature Source Tympanic 03/31/19 15:19 Pulse 84 03/31/19 15:19 Pulse Rhythm Regular 03/31/19 15:58 Pulse 92 H 03/30/19 13:20 Respiratory Rate 21 03/31/19 15:19 Respiratory Effort 03/31/19 15:58 Respiratory Depth Normal 03/31/19 15:58 Respiratory Pattern Normal 03/31/19 15:58 Blood Pressure 124/77 03/31/19 15:19 Blood Pressure Mean 88 03/30/19 11:02 Blood Pressure Position Supine 03/30/19 11:23 Pulse Oximetry 95 03/31/19 15:19 Oxygen Delivery Method Room Air 03/31/19 15:19 Oxygen Flow Rate 0 03/31/19 15:19 Pain Level 7 03/31/19 10:36 Intake & Output 03/30/19 03/31/19 03/31/19 23:59 11:59 23:59 Intake Total 2700 / 6426.666 2970.000 / 5256.667 2286.667 / 5256.667 Balance 4240 / 5726.666 2970.000 / 5256.667 2286.667 / 5256.667 Intake: IV 3280 / 5466.666 2490.000 / 3936.667 1446.667 / 3936.667 Oral 960 / 960 480 / 1320 840 / 1320 Other: Urine Color Yellow Urine Appearance Clear Urine Odor Normal Voiding Methods Toilet Toilet Laboratory Results WBC 14.29 k/cumm (4.4-10.8) H 03/31/19 06:50 RBC 3.96 m/cumm (4.50-6.00) L 03/31/19 06:50 Hgb 11.5 g/dL (13.5-17.5) L 03/31/19 06:50 Hct 34.0 % (40.0-50.0) L 03/31/19 06:50 MCV 85.9 fL (80-95) 03/31/19 06:50 MCH 29.0 pg (27.0-33.0) 03/31/19 06:50 MCHC 33.8 g/dL (32.0-36.0) 03/31/19 06:50 RDW 13.7 % (11.8-14.1) 03/31/19 06:50 Plt Count 144 x1000/uL (130-400) 03/31/19 06:50 MPV 10.2 fL (8.0-11.0) 03/31/19 06:50 Immature Gran % 0.4 03/31/19 06:50 Neutrophils % 86.3 03/31/19 06:50 Band Neutrophils % 14.0 % 03/29/19 12:30 Lymphocytes % 8.4 03/31/19 06:50 Monocytes % 4.7 03/31/19 06:50 Eosinophils % 0.1 03/31/19 06:50 Basophils % 0.1 03/31/19 06:50 Metamyelocytes % 1.0 % 03/29/19 12:30 Absolute Neutrophils 12.33 k/cumm (1.2-6.7) H 03/31/19 06:50 Absolute Lymphocytes 1.20 k/cumm (1.2-3.4) 03/31/19 06:50 Absolute Monocytes 0.67 k/cumm (0.11-0.7) 03/31/19 06:50 Absolute Eosinophils 0.01 k/cumm (0.0-0.7) 03/31/19 06:50 Absolute Basophils 0.01 k/cumm (0.0-0.2) 03/31/19 06:50 Differential Comment Manual differential 03/29/19 12:30 RBC Morphology Normal 03/29/19 12:30 Sodium 135 mmol/L (136-145) L 03/31/19 06:50 Potassium 3.9 mmol/L (3.5-5.1) 03/31/19 06:50 Chloride 103 mmol/L (98-107) 03/31/19 06:50 Carbon Dioxide 22.3 mmol/L (21.0-32.0) 03/31/19 06:50 Anion Gap 9.7 mmol/L (3-11) 03/31/19 06:50 BUN 17 mg/dL (7-18) 03/31/19 06:50 Creatinine 0.83 mg/dL (0.70-1.30) 03/31/19 06:50 Estimated GFR/1.73 m2 >= 60.00 (mL/min/1.73m2) 03/31/19 06:50 Glucose 115 mg/dL (70-100) H 03/31/19 06:50 Lactate 1.0 mmol/l (0.6-1.4) 03/30/19 06:55 Calcium 8.1 mg/dL (8.5-10.1) L 03/31/19 06:50 Magnesium 1.7 mg/dL (1.8-2.4) L 03/31/19 06:50 Total Bilirubin 1.0 mg/dL (0.2-1.0) 03/29/19 12:30 AST 59 U/L (15-37) H 03/29/19 12:30 ALT 28 U/L (12-78) 03/29/19 12:30 Alkaline Phosphatase 55 U/L (46-116) 03/29/19 12:30 Troponin I < 0.05 ng/mL (0.00-0.06) 03/29/19 12:30 C-Reactive Protein 20.29 mg/dL (0.0-0.3) H 03/31/19 06:50 Total Protein 7.2 g/dL (6.4-8.2) 03/29/19 12:30 Albumin 2.8 g/dL (3.4-5.0) L 03/29/19 12:30 Procalcitonin 5.3 ng/mL 03/30/19 06:55 TSH 0.58 uIU/mL (0.358-3.74) 03/30/19 06:55 Urine Color Yellow (Yellow) 03/29/19 16:22 Urine Clarity Clear (Clear) 03/29/19 16:22 Urine pH 7.0 (5-8) 03/29/19 16:22 Ur Specific [place] 1.020 (1.005-1.025) 03/29/19 16:22 Urine Protein 100 mg/dL (Negative) H 03/29/19 16:22 Urine Ketones Negative mg/dL (Negative) 03/29/19 16:22 Urine Blood Negative (Negative) 03/29/19 16:22 Urine Nitrite Negative (Negative) 03/29/19 16:22 Urine Bilirubin Small (Negative) H 03/29/19 16:22 Urine Urobilinogen >=8.0 EU/dL (Up TO 0.2) 03/29/19 16:22 Ur Leukocyte Esterase Negative (Negative) 03/29/19 16:22 Urine RBC Negative (0-2) 03/29/19 16:22 Urine WBC 0-2 HPF (0-5) 03/29/19 16:22 Ur Epithelial Cells Rare HPF (Negative) 03/29/19 16:22 Urine Crystals Few amorphous HPF (Negative) 03/29/19 16:22 Urine Bacteria Moderate HPF (Negative) 03/29/19 16:22 Urine Casts LPF (Negative) 03/29/19 16:22 Urine Mucus Trace (Negative) 03/29/19 16:22 Urine Other Rare renal (Negative) 03/29/19 16:22 Ur Culture Indicated? Yes 03/29/19 16:22 Ur Random Creatinine Cancelled 03/30/19 Unknown U Random Total Protein Cancelled 03/30/19 Unknown U [place] Prot/Creat Ratio Cancelled 03/30/19 Unknown Urine Glucose Negative mg/dL (Negative) 03/29/19 16:22 Vancomycin Trough 14.7 ug/mL (10.0-20.0) 03/30/19 17:10 Urine Opiates Screen Negative (Negative) 03/29/19 16:22 Urine Methadone Screen Negative (Negative) 03/29/19 16:22 Ur Barbiturates Screen Negative (Negative) 03/29/19 16:22 Ur Tricyclics Screen Negative (Negative) 03/29/19 16:22 Ur Amphetamines Screen Negative (Negative) 03/29/19 16:22 U Benzodiazepines Scrn Negative (Negative) 03/29/19 16:22 Urine Cocaine Screen Positive (Negative) 03/29/19 16:22 Ur THC Screen Positive (Negative) 03/29/19 16:22 HIV 1&2 Ag/Ab, 4th Gen Negative (NEGAT) 03/30/19 06:55
[2019-03-31] MEDS: Enoxaparin 40 MG/0.4 ML SYR SC (17:55)
[2019-03-31 18:27] LABS: PROTEIN 130.5 mg/dL
[2019-03-31 18:38] LABS: COMMENT (LAB VIEW ONLY) 166.89 mg/dL; Prot/Crea Ur Ratio 0.78
[2019-03-31 19:43] VITALS: BP 124/73; PULSE 98; RESP 20; TEMP 36.3; O2SAT 96
[2019-03-31] MEDS: Lachydrin 12% LOTION 225 GM BTL TP (20:38)
[2019-03-31 23:30] VITALS: BP 126/74; PULSE 86; RESP 20; TEMP 36.5; O2SAT 96
[2019-04-01] MEDS: VANCOMYCIN 2,000 MG in Normal Saline 500 ML 250 MG IVPB ×3 (01:58→18:49)
[2019-04-01] MEDS: Normal Saline Flush 10 ML SYR IVP ×4 (01:59→20:06)
[2019-04-01 04:00] VITALS: BP 122/72; PULSE 82; RESP 20; TEMP 36.6; O2SAT 96
[2019-04-01] MEDS: CEFEPIME 2 GM in Normal Saline 100 ML IVPB ×3 (04:08→20:06)
[2019-04-01 07:14] LABS: Abs Immature Grans 0.06 k/cumm (0.0-0.09); Absolute Basophil Count 0.04 k/cumm (0.0-0.2); Absolute Eosinophil Count 0.08 k/cumm (0.0-0.7); Absolute Lymphocyte Count 1.41 k/cumm (1.2-3.4); Absolute Monocyte Count 1.04 k/cumm (0.11-0.7); Basophils % 0.3; Eosinophils % 0.7; HGB 11.3 g/dL (13.5-17.5); Immature Grans % 0.5; Lymphocytes % 11.8; Mean Corp. HGB Concentration 33.2 g/dL (32.0-36.0); Mean Corpuscular Hemoglobin 28.8 pg (27.0-33.0); Mean Corpuscular Volume 86.7 fL (80-95); Mean Platelet Volume 10.5 fL (8.0-11.0); Monocytes % 8.7; Platelet Count 160 x1000/uL (130-400); RBC 3.92 m/cumm (4.50-6.00); RBC Distribution Width 14.1 % (11.8-14.1); White Blood Cell Count 11.92 k/cumm (4.4-10.8)
[2019-04-01 07:27] LABS: Anion Gap 7.3 mmol/L (3-11); BUN 12 mg/dL (7-18); C-Reactive Protein 14.23 mg/dL (0.0-0.3); CO2 24.7 mmol/L (21.0-32.0); CREATININE 0.66 mg/dL (0.70-1.30); Calcium 8.2 mg/dL (8.5-10.1); Chloride 106 mmol/L (98-107); Glucose 92 mg/dL (70-100); Magnesium 1.5 mg/dL (1.8-2.4); Sodium 138 mmol/L (136-145)
[2019-04-01 07:35] VITALS: BP 125/80; PULSE 89; RESP 20; TEMP 36.9; O2SAT 97
[2019-04-01 07:55] LABS: Procalcitonin 1.4 ng/mL
[2019-04-01] MEDS: Acetaminophen 325 MG TAB PO ×2 (08:25→17:13)
[2019-04-01] MEDS: Pantoprazole 40 MG TABCR PO (08:25)
[2019-04-01] MEDS: predniSONE 20 MG TAB 40 MG PO (08:25)
[2019-04-01] MEDS: Buprenorphine/Naloxone 12 mg/3 mg FILM 0.5 EACH SL (08:25)
[2019-04-01] MEDS: Ketorolac 15 MG/ML VIAL IVP ×2 (08:26→17:13)
[2019-04-01] MEDS: Thiamine 100 MG TAB PO (08:26)
[2019-04-01] MEDS: Multivitamin TAB 1 TAB PO (08:26)
[2019-04-01] MEDS: Magnesium Chloride 64 MG TABCR PO (08:26)
[2019-04-01] MEDS: Furosemide 20 MG/2 ML VIAL IVP (08:26)
[2019-04-01] MEDS: Folic Acid 1 MG TAB PO (08:26)
[2019-04-01] MEDS: MAGNESIUM SULFATE 4 GM/100 ML BAG IVPB (08:27)
[2019-04-01] MEDS: Lachydrin 12% LOTION 225 GM BTL TP ×2 (09:01→20:06)
[2019-04-01 09:28] LABS: Vancomycin, Trough 16.8 ug/mL (10.0-20.0)
--- NOTE | 2019-04-01 11:06 | W.PM.PROGNOT ---
Date of Service Date of service: 04/01/19 Time of Service: 11:07 Assessment and Plan (1) Sepsis: Current visit: Yes Status: Acute Due to bilateral lower extremity cellulitis. Improving. Blood cultures with NGTD. Inflammatory markers and leucocytosis continue to improve. For CT of his LE's with contrast to r/o osteomyelitis. Continue vancomycin/cefepime (day 4). Because no culture data is available, it is hard to deescalate antibiotics. We could try to d/c vancomycin tomorrow. (2) Bilateral cellulitis of lower leg: Current visit: Yes Status: Acute As above Wound care recommendations appreciated (cracking on feet) Podiatry unavailable until Friday (3) Asthma exacerbation: Current visit: Yes Status: Acute I think he is at his baseline. Would finish a 5 day steroid burst (tomorrow). Continues to smoke - advised to quit. Refuses nicotine replacement therapy. (4) Obstructive sleep apnea: Current visit: Yes Status: Chronic Not compliant with BiPAP. I think it is safe to say that the patient also has obesity hypoventilation syndrome. (5) Morbid obesity with BMI of 50.0-59.9, adult: Current visit: Yes Status: Chronic Provide counseling on lifestyle modification. Renal Case Manager consulted. We spoke a lot about quitting alcohol and decreasing portion size. (6) Opioid dependence: Current visit: Yes Status: Chronic Continue home dose of suboxone. Noted and communicated findings of cocaine on UDS to Dr Saleh (7) Alcohol abuse: Current visit: Yes Status: Chronic Monitor for withdrawal with CIWA, prn ativan. Continue vitamins. Patient is interested in staying quit - but not AA. (8) Hypomagnesemia: Current visit: Yes Status: Acute [place] (9) DVT prophylaxis: Current visit: Yes Status: Acute Lovenox SC (10) Discharge planning issues: Current visit: Yes Status: Acute Full code Continues to require hospitalization. Length of antibiotics will depend CT results as well as patient progress. If does have osteomyelitis, will need at least 6 weeks of antibiotics IV. By monitoring his inflammatory markers while deescalating antibiotics, we might be able to change him to daily IV therapy. For midline vs PICC line today. Subjective Interval history since last seen: Feels tired today. Agrees to get a midline/PICC line. Complains of pain in RLE. Denies dizziness, chest pain, shortness of breath, nausea, vomiting. Exam Narrative Exam Narrative: General: Very obese male, A&Ox3, looks tired this morning HEENT: EOMI, MMM Cardiovascular: RRR, no m/r/g Lungs: diminished breath sounds B Gastrointestinal: abdomen is soft, nontender, nondistended Genitourinary: scrotum is not erythematous, but LLE erythema does extend all the way up to the L inner thigh; this area appears slightly more pink today Extremities: BLE edema, wrinkling is noted on RLE, LLE is also with mild wrinkling; has edema blisters, some of them weeping; RLE erythema is nearly resolved; LLE looks less erythematous, except in the upper inner thigh. Objective Objective Clinical Data: Abnormal lab results 04/01/19 04/01/19 Range/Units 06:35 06:35 WBC 11.92 H (4.4-10.8) k/cumm RBC 3.92 L (4.50-6.00) m/cumm Hgb 11.3 L (13.5-17.5) g/dL Hct 34.0 L (40.0-50.0) % Absolute Neutrophils 9.30 H (1.2-6.7) k/cumm Absolute Monocytes 1.04 H (0.11-0.7) k/cumm Creatinine 0.66 L (0.70-1.30) mg/dL Calcium 8.2 L (8.5-10.1) mg/dL Magnesium 1.5 L (1.8-2.4) mg/dL C-Reactive Protein 14.23 H (0.0-0.3) mg/dL Vital Signs Temperature 36.9 C 04/01/19 07:35 Temperature Source Tympanic 04/01/19 07:35 Pulse 89 04/01/19 07:35 Pulse Rhythm Regular 04/01/19 09:05 Pulse 92 H 03/30/19 13:20 Respiratory Rate 20 04/01/19 07:35 Respiratory Effort Non-Labored 04/01/19 09:05 Respiratory Depth Normal 04/01/19 09:05 Respiratory Pattern Normal 04/01/19 09:05 Blood Pressure 125/80 04/01/19 07:35 Blood Pressure Mean 88 03/30/19 11:02 Blood Pressure Position Supine 03/30/19 11:23 Pulse Oximetry 97 04/01/19 07:35 Oxygen Delivery Method Room Air 04/01/19 07:35 Oxygen Flow Rate 0 04/01/19 07:35 Pain Level 7 04/01/19 08:26 Intake & Output 03/31/19 03/31/19 04/01/19 11:59 23:59 11:59 Intake Total 2970.000 / 6936.667 3966.667 / 6936.667 960 / 960 Output Total 1075 / 1075 500 / 500 Balance 2970.000 / 5861.667 2891.667 / 5861.667 460 / 460 Weight 195.3 kg 190 kg Intake: IV 2490.000 / 4536.667 2046.667 / 4536.667 600 / 600 Oral 480 / 2400 1920 / 2400 360 / 360 Output: Urine 1075 / 1075 500 / 500 Other: Urine Color Yellow Dark Sienna Dark Sienna Urine Appearance Clear Clear Clear Urine Odor Normal Strong Strong Voiding Methods Toilet Urinal Urinal Laboratory Results WBC 11.92 k/cumm (4.4-10.8) H 04/01/19 06:35 RBC 3.92 m/cumm (4.50-6.00) L 04/01/19 06:35 Hgb 11.3 g/dL (13.5-17.5) L 04/01/19 06:35 Hct 34.0 % (40.0-50.0) L 04/01/19 06:35 MCV 86.7 fL (80-95) 04/01/19 06:35 MCH 28.8 pg (27.0-33.0) 04/01/19 06:35 MCHC 33.2 g/dL (32.0-36.0) 04/01/19 06:35 RDW 14.1 % (11.8-14.1) 04/01/19 06:35 Plt Count 160 x1000/uL (130-400) 04/01/19 06:35 MPV 10.5 fL (8.0-11.0) 04/01/19 06:35 Immature Gran % 0.5 04/01/19 06:35 Neutrophils % 78.0 04/01/19 06:35 Band Neutrophils % 14.0 % 03/29/19 12:30 Lymphocytes % 11.8 04/01/19 06:35 Monocytes % 8.7 04/01/19 06:35 Eosinophils % 0.7 04/01/19 06:35 Basophils % 0.3 04/01/19 06:35 Metamyelocytes % 1.0 % 03/29/19 12:30 Absolute Neutrophils 9.30 k/cumm (1.2-6.7) H 04/01/19 06:35 Absolute Lymphocytes 1.41 k/cumm (1.2-3.4) 04/01/19 06:35 Absolute Monocytes 1.04 k/cumm (0.11-0.7) H 04/01/19 06:35 Absolute Eosinophils 0.08 k/cumm (0.0-0.7) 04/01/19 06:35 Absolute Basophils 0.04 k/cumm (0.0-0.2) 04/01/19 06:35 Differential Comment Manual differential 03/29/19 12:30 RBC Morphology Normal 03/29/19 12:30 Sodium 138 mmol/L (136-145) 04/01/19 06:35 Potassium 4.0 mmol/L (3.5-5.1) 04/01/19 06:35 Chloride 106 mmol/L (98-107) 04/01/19 06:35 Carbon Dioxide 24.7 mmol/L (21.0-32.0) 04/01/19 06:35 Anion Gap 7.3 mmol/L (3-11) 04/01/19 06:35 BUN 12 mg/dL (7-18) 04/01/19 06:35 Creatinine 0.66 mg/dL (0.70-1.30) L 04/01/19 06:35 Estimated GFR/1.73 m2 >= 60.00 (mL/min/1.73m2) 04/01/19 06:35 Glucose 92 mg/dL (70-100) 04/01/19 06:35 Lactate 1.0 mmol/l (0.6-1.4) 03/30/19 06:55 Calcium 8.2 mg/dL (8.5-10.1) L 04/01/19 06:35 Magnesium 1.5 mg/dL (1.8-2.4) L 04/01/19 06:35 Total Bilirubin 1.0 mg/dL (0.2-1.0) 03/29/19 12:30 AST 59 U/L (15-37) H 03/29/19 12:30 ALT 28 U/L (12-78) 03/29/19 12:30 Alkaline Phosphatase 55 U/L (46-116) 03/29/19 12:30 Troponin I < 0.05 ng/mL (0.00-0.06) 03/29/19 12:30 C-Reactive Protein 14.23 mg/dL (0.0-0.3) H 04/01/19 06:35 Total Protein 7.2 g/dL (6.4-8.2) 03/29/19 12:30 Albumin 2.8 g/dL (3.4-5.0) L 03/29/19 12:30 Procalcitonin 1.4 ng/mL 04/01/19 06:35 TSH 0.58 uIU/mL (0.358-3.74) 03/30/19 06:55 Urine Color Yellow (Yellow) 03/29/19 16:22 Urine Clarity Clear (Clear) 03/29/19 16:22 Urine pH 7.0 (5-8) 03/29/19 16:22 Ur Specific [place] 1.020 (1.005-1.025) 03/29/19 16:22 Urine Protein 100 mg/dL (Negative) H 03/29/19 16:22 Urine Ketones Negative mg/dL (Negative) 03/29/19 16:22 Urine Blood Negative (Negative) 03/29/19 16:22 Urine Nitrite Negative (Negative) 03/29/19 16:22 Urine Bilirubin Small (Negative) H 03/29/19 16:22 Urine Urobilinogen >=8.0 EU/dL (Up TO 0.2) 03/29/19 16:22 Ur Leukocyte Esterase Negative (Negative) 03/29/19 16:22 Urine RBC Negative (0-2) 03/29/19 16:22 Urine WBC 0-2 HPF (0-5) 03/29/19 16:22 Ur Epithelial Cells Rare HPF (Negative) 03/29/19 16:22 Urine Crystals Few amorphous HPF (Negative) 03/29/19 16:22 Urine Bacteria Moderate HPF (Negative) 03/29/19 16:22 Urine Casts LPF (Negative) 03/29/19 16:22 Urine Mucus Trace (Negative) 03/29/19 16:22 Urine Other Rare renal (Negative) 03/29/19 16:22 Ur Culture Indicated? Yes 03/29/19 16:22 Ur Random Creatinine 166.89 mg/dL 03/31/19 17:59 U Random Total Protein 130.5 mg/dL 03/31/19 17:59 U [place] Prot/Creat Ratio 0.78 03/31/19 17:59 Urine Glucose Negative mg/dL (Negative) 03/29/19 16:22 Vancomycin Trough 16.8 ug/mL (10.0-20.0) 04/01/19 09:07 Urine Opiates Screen Negative (Negative) 03/29/19 16:22 Urine Methadone Screen Negative (Negative) 03/29/19 16:22 Ur Barbiturates Screen Negative (Negative) 03/29/19 16:22 Ur Tricyclics Screen Negative (Negative) 03/29/19 16:22 Ur Amphetamines Screen Negative (Negative) 03/29/19 16:22 U Benzodiazepines Scrn Negative (Negative) 03/29/19 16:22 Urine Cocaine Screen Positive (Negative) 03/29/19 16:22 Ur THC Screen Positive (Negative) 03/29/19 16:22 HIV 1&2 Ag/Ab, 4th Gen Negative (NEGAT) 03/30/19 06:55
--- NOTE | 2019-04-01 11:07 | CHAPLAIN ---
Abelardo was sleeping when I visited his room. I spoke with his father (?). He said Abelardo has been sleeping on and off and that his leg is still painful. I explained my role and offered support.
--- NOTE | 2019-04-01 11:31 | DI.CT_ITS ---
SYMPTOM/DIAGNOSIS: SEVERE CELLULITIS, SUSPECTED OSTEOMYELITIS CT LOWER EXTREMITIES: Images were performed from the level of the acetabulum through the feet after IV contrast. There is mild motion at the level of the ankles. There is some soft tissue edema greatest in the lower legs at the distal calf. No fracture, abscess or drainable fluid collection is seen. No evidence of osteomyelitis. IMPRESSION: Soft tissue swelling
[2019-04-01] MEDS: Omnipaque 350 MG/ML 100 ML BTL IJ (11:33)
[2019-04-01] MEDS: Omnipaque 350 MG/ML 50 ML BTL IJ (11:34)
[2019-04-01 11:40] VITALS: BP 134/77; PULSE 91; RESP 19; TEMP 36.4; O2SAT 95
--- NOTE | 2019-04-01 13:48 | DI.VRAD_ITS ---
EXAM: CT Right Lower Extremity With Contrast EXAM DATE/TIME: 04/01/2019 10:07 AM CLINICAL HISTORY: 28 years old, male; Cellulitis and swelling, leg or foot; Ankle and calf and foot and knee and lower leg and thigh; Bilateral; Patient HX: Foot was cracked due to dryness, infection the following day, weeping cellulitis. ? Osteomyelitis; Additional info: Please read both legs, unable to generate order for bilat TECHNIQUE: Imaging protocol: CT of the Right lower extremity with intravenous contrast was performed. Coronal and sagittal reformatted images were created and reviewed. COMPARISON: CR XR tib/fib LT 03/29/2019 2:02 PM FINDINGS: Bones/joints: There is no evidence of acute fracture. No dislocation.There is no evidence of bone destruction, erosion or periosteal reaction. Soft tissues: There is diffuse infiltration of the subcutaneous fat which is most marked overlying the distal calf and hindfoot.No soft tissue gas densities are identified.There is no evidence of a radiopaque foreign body. There is no evidence of focal rim-enhancing encapsulated fluid collections to suggest drainable abscess formation. The muscle groups and deep fascial planes are intact. IMPRESSION: 1. No radiographic evidence of osteomyelitis. If there is a concern for osteomyelitis of the foot, dedicated x-rays of the foot or MRI is recommended. 2. Diffuse infiltration of the subcutaneous fat which could represent edema and/or cellulitis. Remainder of non-emergent findings as described above. EXAM: CT Left Lower Extremity With Contrast EXAM DATE/TIME: 04/01/2019 10:07 AM CLINICAL HISTORY: 28 years old, male; Cellulitis and swelling, leg or foot; Ankle and calf and foot and knee and lower leg and thigh; Bilateral; Patient HX: Foot was cracked due to dryness, infection the following day, weeping cellulitis. ? Osteomyelitis; Additional info: Please read both legs, unable to generate order for bilat TECHNIQUE: Imaging protocol: CT of the Left lower extremity with intravenous contrast was performed. Coronal and sagittal reformatted images were created and reviewed. Contrast material: OMNIPAQUE 350; Contrast volume: 125 ml; Contrast route: R AC 18 G; COMPARISON: CR XR tib/fib LT 03/29/2019 2:02 PM FINDINGS: Bones/joints: There is no evidence of acute fracture.There is no evidence of bone destruction, erosion or periosteal reaction. No dislocation. Soft tissues: There is diffuse infiltration of the subcutaneous fat with skin thickening, this is most marked over the calf. The soft tissue changes are more pronounced in the left leg than the right.No soft tissue gas densities are identified.There is no evidence of a radiopaque foreign body. There is no evidence of focal rim-enhancing encapsulated fluid collections to suggest drainable abscess formation. The muscle groups and deep fascial planes are intact. IMPRESSION: 1. No radiographic evidence of osteomyelitis. If there is concern for osteomyelitis of the foot, dedicated x-rays of the foot or MRI is recommended. 2. Diffuse infiltration of the subcutaneous fat which is more pronounced in the left leg than the right. This could represent edema and/or cellulitis. Remainder of non-emergent findings as described above. Dictated and Authenticated by: Ladi Saleem MD. Ordering:KIARA Michael MD
[2019-04-01 15:43] VITALS: BP 146/72; PULSE 73; RESP 20; TEMP 36.2; O2SAT 97
--- NOTE | 2019-04-01 15:44 | PDOC.CMPRO ---
- If Service Date Differs Date of service: 04/01/19 Time of Service: 15:44 Care Management Progress Note S/O- Abelardo remains acute today.He will have a CT scan to determine if he has osteomylitis. Podiatry consult pending for Friday when returns. Valerio remains on antibiotics IV and he may need to transition to SB1 to compete a two week course. A- 28 yo man admitted with sepsis due to BLE cellulitis. P-Anticipate IV antibiotics at least two weeks, will need to change to SB1 due to frequency of antibiotics he would not be an outpatient candidate. Will await status change per provider when medially ready.
[2019-04-01] MEDS: Enoxaparin 40 MG/0.4 ML SYR SC (17:12)
[2019-04-01 19:39] VITALS: BP 107/72; PULSE 77; RESP 21; TEMP 37.1; O2SAT 96
[2019-04-02] VITALS (8 sets, daily range): BP systolic 120–147; BP diastolic 70–87; PULSE 68–95; RESP 14–20; TEMP 36.2–37; O2SAT 95–97
[2019-04-02] MEDS: VANCOMYCIN 2,000 MG in Normal Saline 500 ML 250 MG IVPB ×3 (01:00→18:18)
[2019-04-02] MEDS: CEFEPIME 2 GM in Normal Saline 100 ML IVPB ×3 (03:15→20:11)
[2019-04-02] MEDS: Normal Saline Flush 10 ML SYR IVP ×4 (03:46→20:12)
--- NOTE | 2019-04-02 05:49 | IN_ITS ---
Date of service: 03/30/19 Time of Service: 09:57 PT Notes Inpatient Physical Therapy Evaluation Date: 03/30/2019 Referring Doctor: Fernanda David MD PT Orders: PT CONSULT: Eval/treat Precautions: Fall. Standard. Patient Profile/Admitting Diagnosis: Patient is a 28-year-old male with medical history significant for asthma, IV drug use and is currently on Suboxone, and opiate dependence who presented to the ED on 03/29/2019with chief complaints of left leg pain and rash. Patient was diagnosed with bilateral lower extremity cellulitis, sepsis, asthma exacerbation, and hypomagnesemia. Referral for physical therapy was made in order to address impairments in strength, balance, and mobility level. PMHX: Medical History Obesity, morbid, BMI 50 or higher (Acute) Asthma (Chronic) Obstructive sleep apnea (Chronic) History of substance abuse Opiate dependence, continuous Social History/Home Situation: Abelardo lives in a 1-floor apartment with no steps to enter here in [place], [place]. He has been independent with all aspects of ADLs without the need for assistive device nor adaptive equipment. He works currently at [employer] in [place]. Patient's chart there was a previous scheduled appointment last year for a lymphedema evaluation treatment that patient did not show up that appointment. Patient does not drive and receives assistance from friends and apparently is to perform his basic care needs transportation needs. Current Functional Limitations: Need for assistance with level surface ambulation due to cellulitis involving bilateral lower extremities Equipment Owned/DME: None Subjective: Abelardo is agreeable to a PT consult and evaluation today. Patient states that he could move but movement hurts. He hopes to go home and be able to go back to work as soon as he is able to. He denies any dizziness, chest pain, headache, throughout PT session for today. Objective: General Observation: Patient seen resting in bed. Telemetry monitoring in place. Erythema, increased warmth, and increased swelling noted to bilateral legs and right thigh. No open areas seen on B LE except for cracked bilateral soles of feet. Patient appeared to be neglectful of physical hygiene. He is quite non-chalant initially but is cooperative later in the session. Mental Status: Alert and oriented x4 Pain: Reports 6/10 on bilateral lower extremities ambulation activity ROM: Right Upper Extremity: Shoulder Flexion WFL. Shoulder abduction WFL. Elbow flexion WFL. Wrist flexion WFL. Functional opening and closing of hand WFL. Left Upper Extremity: Shoulder Flexion WFL. Shoulder abduction WFL. Elbow flexion WFL. Wrist flexion WFL. Functional opening and closing of hand WFL. Right Lower Extremity: Hip flexion WFL. Hip abduction WFL. Knee flexion 0-90. Knee full extension achievable but accompanied by pain. Ankle dorsiflexion 0-20. Ankle plantarflexion WFL. Left Lower Extremity: Hip flexion WFL. Hip abduction WFL. Knee flexion 0-90. Knee full extension achievable but accompanied by pain. Ankle dorsiflexion 0-20. Ankle plantarflexion WFL. Strength: Right Upper Extremity: Shoulder flexors 5/5. Shoulder abductors 5/5. Elbow flexors 5/5. Elbow extensors 5/5. Waste Picker strong. Left Upper Extremity: Shoulder flexors 5/5. Shoulder abductors 5/5. Elbow flexors 5/5. Elbow extensors 5/5. Waste Picker strong. Right Lower Extremity: Hip flexors 4/5. Hip abductors 4/5. Knee flexors 3-/5. Knee extensors 4-/5. Ankle dorsiflexors 3-/5. Ankle plantarflexors 4-/5. Left Lower Extremity:Hip flexors 4/5. Hip abductors 4/5. Knee flexors 3-/5. Knee extensors 4-/5. Ankle dorsiflexors 3-/5. Ankle plantarflexors 4-/5. Sensation: Intact as to pain and pressure on bilateral lower extremities. Bed Mobility/Transfers: Rolling SBA Supine to sit SBA Sit to supine SBA Sit to stand SBA Stand to sit SBA Bed to chair SBA Chair to bed SBA Patient tolerated level surface ambulation of 50 feet using FWW with WBAT on BLE requiring only SBA from this PT with observed decreased step height in length due to report of pain on bilateral legs Gait: Patient tolerated level surface ambulation of 50 feet using FWW with WBAT on BLE requiring only SBA from this PT with observed decreased step height in length due to report of pain on bilateral legs Balance: Static Sitting: Good Dynamic Sitting: Good Static Standing: Fair Dynamic Standing: Fair Special Tests: Mobility Limitations Standardized Measure [facility] 6 clicks Basic Mobility Inpatient Short Form: Raw Score: 18 CMS Score: 47% deficit Informed Consent/Education: Patient instructed in purpose of PT consult and plan of care. Patient was advised that consultation with referring MD will need to be made in order to assess appropriate timing of a potential manual lymphatic drainage services in light of active acute infection. Focus of POC will be on maximizing mobility level, reducing pain complaint, and regaining lower extremity strength. Assessment: 28-year-old male with diagnosis of bilateral lower extremities cellulitis. Patient presents with clinical signs and symptoms consistent with current/admitting diagnoses that have resulted to mobility limitations, gait instability, generalized weakness, and impairment of motor control as demonstrated by the following impairment level findings: 1. Decreased strength to B LE major muscle groups 2. Impaired standing balance 3. Impaired activity tolerance 4. Limitation of joint range of motion in the lateral knees and ankles Impairments are contributing to the following functional limitations: 1. SBA for bed mobility skills 2. SBA for transfers 3. Inability to safely ambulate without assistance 4. Increase completion time for mobility ADL performance 5. Increased fall risk Patient is assessed as a 11223 moderate complexity based on the following: History: 28-year-old male with untreated lymphedema now with bilateral lower extremity cellulitis Examination: Demonstrable impairment in strength, balance, and range of motion with underlying impairments and functional limitations as documented above Presentation:Evolving Decision Makin moderate complexity Goals: Goals X1 week 1. Supine-Sit independent 2. Sit-Supine independent 3. Sit-Stand independent 4. Stand-Sit independent 5. Bed-Chair independent 6. Chair-Bed independent 7. Independent gait on level surface without use of assistive device for at least 300 feet without report of pain nor dyspnea 8. Independent with home exercise program 9. Patient will demonstrate standing tolerance of 30 minutes in order to safely participate in activities of daily living 10. Patient will achieve girth reduction of at least 3 cm in order to maximize mobility performance and facilitate return to work Plan of Care/Treatment Plan: 1-2x/day, 7 days/week x 1 week. Plan of care has been reviewed with the DEPARTMENT SALES MANAGER providing the service under Physical Therapy direction. Initiate Physical Therapy intervention for strengthening, bed mobility, transfers, gait, stairs, balance training, use of assistive device. Will coordinate and consult with referring MD regarding appropriateness of lymphedema treatment to address existing symptoms. DISCHARGE RECOMMENDATIONS: Patient will benefit from outpatient lymphedema/complete decongestive therapy services once infection is resolved in order to address pain, swelling, and moblity impairments. TREATMENT CODE/TIME: 13513 x 39 minutes beginning at 9:57 AM. Thank you very much for this referral. Sherrie Kingston PT, DPT, CLT [facility]
[2019-04-02] MEDS: predniSONE 20 MG TAB 40 MG PO (08:58)
[2019-04-02] MEDS: Pantoprazole 40 MG TABCR PO (08:58)
[2019-04-02] MEDS: Magnesium Chloride 64 MG TABCR PO (08:58)
[2019-04-02] MEDS: Thiamine 100 MG TAB PO (08:59)
[2019-04-02] MEDS: Multivitamin TAB 1 TAB PO (08:59)
[2019-04-02] MEDS: Folic Acid 1 MG TAB PO (08:59)
[2019-04-02] MEDS: Buprenorphine/Naloxone 12 mg/3 mg FILM 0.5 EACH SL (08:59)
[2019-04-02 09:04] LABS: Anion Gap 6.6 mmol/L (3-11); BUN 15 mg/dL (7-18); C-Reactive Protein 9.12 mg/dL (0.0-0.3); CO2 28.4 mmol/L (21.0-32.0); CREATININE 0.69 mg/dL (0.70-1.30); Calcium 8.5 mg/dL (8.5-10.1); Chloride 103 mmol/L (98-107); Glucose 116 mg/dL (70-100); Magnesium 1.8 mg/dL (1.8-2.4); Potassium 3.8 mmol/L (3.5-5.1); Sodium 138 mmol/L (136-145)
[2019-04-02 09:27] LABS: Procalcitonin 0.8 ng/mL
--- NOTE | 2019-04-02 09:46 | PDOC.CMPRO ---
Care Management Progress Note S/O-Met with Abelardo again today. Advised him that CM/UR is communicating daily with his insurance [employer], and that this CM had spoken with them today re possibility of utilizing SB1 here at [facility] if he requires longer period of IV Abx. Advised that [facility] are pursuing this. He did not feel he would be able to manage any IV Abx at home, and history would seem to agree with this as he is not completely compliant at home. A-28 yo man admitted with BLE cellulitis. P-Continue in acute care as per MD for IV Abx, with consideration of SB1 for longer period of Abx and wound care.
[2019-04-02] MEDS: Lachydrin 12% LOTION 225 GM BTL TP ×2 (12:02→20:11)
[2019-04-02] MEDS: Acetaminophen 325 MG TAB PO ×2 (12:51→20:10)
--- NOTE | 2019-04-02 13:25 | PT.INDS ---
Date of service: 04/02/19 Time of Service: 11:58 PT Notes Inpatient Physical Therapy Discharge Summary Dates: 04/02/2019 Dates of Service: 03/30/2019 through 04/02/2019 Referring Doctor: Fernanda David MD PT Orders: PT CONSULT: Eval/treat Precautions: Fall. Standard. Patient Profile/Admitting Diagnosis: Patient is a 28-year-old male with medical history significant for asthma, IV drug use and is currently on Suboxone, and opiate dependence who presented to the ED on 03/29/2019with chief complaints of left leg pain and rash. Patient was diagnosed with bilateral lower extremity cellulitis, sepsis, asthma exacerbation, and hypomagnesemia. Referral for physical therapy was made in order to address impairments in strength, balance, and mobility level. PMHX: Medical History Obesity, morbid, BMI 50 or higher (Acute) Asthma (Chronic) Obstructive sleep apnea (Chronic) History of substance abuse Opiate dependence, continuous Social History/Home Situation: Abelardo lives in a 1-floor apartment with no steps to enter here in [place], [place]. He has been independent with all aspects of ADLs without the need for assistive device nor adaptive equipment. He works currently at [employer] in [place]. Patient's chart there was a previous scheduled appointment last year for a lymphedema evaluation treatment that patient did not show up that appointment. Patient does not drive and receives assistance from friends and apparently is to perform his basic care needs transportation needs. Current Functional Limitations: Need for assistance with level surface ambulation due to cellulitis involving bilateral lower extremities Equipment Owned/DME: None Subjective: Abelardo states that he is able to move a lot better compared to start of care. he manged to walk to and from shower rooma some 65 feet x 2 with just supervision assist and without an assistive device. he states that it is not the most comfortable activity to do but he can do it. He is agreeable to going to out-patient PT services for lymphedema management if he still has persistent edema from chroninc venous insufficiency. Mental Status: Alert and oriented x4 Pain: Reports 6/10 on bilateral lower extremities with ambulation activity ROM: Right Upper Extremity: Shoulder Flexion WFL. Shoulder abduction WFL. Elbow flexion WFL. Wrist flexion WFL. Functional opening and closing of hand WFL. Left Upper Extremity: Shoulder Flexion WFL. Shoulder abduction WFL. Elbow flexion WFL. Wrist flexion WFL. Functional opening and closing of hand WFL. Right Lower Extremity: Hip flexion WFL. Hip abduction WFL. Knee flexion 0-90. Knee full extension achievable but accompanied by pain. Ankle dorsiflexion 0-20. Ankle plantarflexion WFL. Left Lower Extremity: Hip flexion WFL. Hip abduction WFL. Knee flexion 0-90. Knee full extension achievable but accompanied by pain. Ankle dorsiflexion 0-20. Ankle plantarflexion WFL. Strength: Right Upper Extremity: Shoulder flexors 5/5. Shoulder abductors 5/5. Elbow flexors 5/5. Elbow extensors 5/5. Household Appliances Service Technician strong. Left Upper Extremity: Shoulder flexors 5/5. Shoulder abductors 5/5. Elbow flexors 5/5. Elbow extensors 5/5. Household Appliances Service Technician strong. Right Lower Extremity: Hip flexors 4/5. Hip abductors 4/5. Knee flexors 3-/5. Knee extensors 4-/5. Ankle dorsiflexors 3-/5. Ankle plantarflexors 4-/5. Left Lower Extremity:Hip flexors 4/5. Hip abductors 4/5. Knee flexors 3-/5. Knee extensors 4-/5. Ankle dorsiflexors 3-/5. Ankle plantarflexors 4-/5. Sensation: Intact as to pain and pressure on bilateral lower extremities. Bed Mobility/Transfers: Rolling I Supine to sit I Sit to supine I Sit to stand I Stand to sit I Bed to chair I Chair to bed I Gait: Patient tolerated level surface ambulation of 65 feet using FWW with WBAT on BLE requiring only supervision from this nursing staff today but with complaint of pain on L LE Balance: Static Sitting: Good Dynamic Sitting: Good Static Standing: Good Dynamic Standing: Good Assessment: 28-year-old male with diagnosis of bilateral lower extremities cellulitis. Patient presents with clinical signs and symptoms consistent with current/admitting diagnoses that have resulted to mobility limitations, gait instability, generalized weakness, and impairment of motor control as demonstrated by the following impairment level findings: 1. Decreased strength to B LE hip flexors due to pain 2. Impaired activity tolerance 3. Limitation of joint range of motion in the bilateral knees and ankles Impairments are contributing to the following functional limitations: 1. Increase completion time for mobility ADL performance 2. Increased fall risk Goals: Goals X1 week 1. Supine-Sit independent MET 2. Sit-Supine independent MET 3. Sit-Stand independent MET 4. Stand-Sit independent MET 5. Bed-Chair independent MET 6. Chair-Bed independent MET 7. Independent gait on level surface without use of assistive device for at least 300 feet without report of pain nor dyspnea MET 8. Independent with home exercise program MET 9. Patient will demonstrate standing tolerance of 30 minutes in order to safely participate in activities of daily living MET 10. Patient will achieve girth reduction of at least 3 cm in order to maximize mobility performance and facilitate return to work NOT MET DISCHARGE RECOMMENDATIONS: Patient will benefit from out patient lymphedema/complete decongestive therapy services once infection is resolved in order to address pain, swelling, and moblity impairments. TREATMENT CODE/TIME: 65032 x 17 minutes beginning at 11:55 AM. Thank you very much for this referral. Sherrie Kingston PT, DPT, CLT [facility]
--- NOTE | 2019-04-02 13:35 | NUR.NOTE ---
Nursing Note: 1245 While assessing pts IV and hanging antibiotics, RN notes increased drowsiness and slurred speech. Pt eyes half closed. Pt has visitor in room at this time.
--- NOTE | 2019-04-02 15:08 | W.PM.PROGNOT ---
Date of Service Date of service: 04/02/19 Time of Service: 15:08 Assessment and Plan (1) Sepsis: Current visit: Yes Status: Acute Due to bilateral lower extremity cellulitis. Improving. Blood cultures with NGTD. RLE cellulitis is nearly completely resolved. Inflammatory markers and leucocytosis steadily improving. No evidence of osteomyelitis by CT Continue vancomycin/cefepime (day 5). I do not feel comfortable deescalating antibiotics based on the appearance of the LLE today. Continue wound care. Because no culture data is available, it is hard to deescalate antibiotics. (2) Bilateral cellulitis of lower leg: Current visit: Yes Status: Acute As above Wound care recommendations appreciated (cracking on feet, edema blisters) Podiatry unavailable until Friday (3) Asthma exacerbation: Current visit: Yes Status: Acute I think he is at his baseline. Finished steroid burst today. Continues to smoke - advised to quit. Refuses nicotine replacement therapy. (4) Obstructive sleep apnea: Current visit: Yes Status: Chronic Not compliant with BiPAP. I think it is safe to say that the patient also has obesity hypoventilation syndrome. (5) Morbid obesity with BMI of 50.0-59.9, adult: Current visit: Yes Status: Chronic Provide counseling on lifestyle modification. High Pressure Operator consulted. We spoke a lot about quitting alcohol and decreasing portion size again today. (6) Opioid dependence: Current visit: Yes Status: Chronic Continue home dose of suboxone. Noted and communicated findings of cocaine on UDS to Dr Saleh (7) Alcohol abuse: Current visit: Yes Status: Chronic Monitor for withdrawal with CIWA, prn ativan. Continue vitamins. Patient is interested in staying quit - but not AA. (8) Hypomagnesemia: Current visit: Yes Status: Resolved Recheck in am (9) DVT prophylaxis: Current visit: Yes Status: Acute Lovenox SC (10) Discharge planning issues: Current visit: Yes Status: Acute Full code Continues to require hospitalization. Might require longer term IV antibiotics than classic cellulitis due to severity of disease. Subjective Interval history since last seen: Feels better. Continues to report difficulty getting out of bed, but is able to do this independently, per PT - it just takes time. Denies dizziness, chest pain, shortness of breath, wheezing, nausea, vomiting. Exam Narrative Exam Narrative: General: Very obese male, A&Ox3, in bed, looks better than the day before HEENT: EOMI, MMM Cardiovascular: RRR, no m/r/g Lungs: diminished breath sounds B Gastrointestinal: abdomen is soft, nontender, nondistended Genitourinary: scrotum is not erythematous, L inner thigh erythema is less intense, starting to recede from the outline Extremities: BLE edema with wrinkles, has edema blisters LLE, especially on the dependent portions of the leg, weeping; RLE erythema is nearly resolved; LLE looks less erythematous, and significantly better today, but still with impressive disease. There are tiny white fluid-filled vessicles around the scar on L knee as well as in the inner thigh. Some of the vessicles are also seen on the dependent portion of the outer thigh. These do not look herpetiform. Chronic venous stasis changes BLE's in addition to above findings. Objective Objective Clinical Data: Abnormal lab results 04/02/19 Range/Units 08:38 Creatinine 0.69 L (0.70-1.30) mg/dL Glucose 116 H (70-100) mg/dL C-Reactive Protein 9.12 H (0.0-0.3) mg/dL Vital Signs Temperature 36.7 C 04/02/19 11:05 Temperature Source Tympanic 04/02/19 11:05 Pulse 95 H 04/02/19 11:05 Pulse Rhythm Regular 04/02/19 09:00 Pulse 92 H 03/30/19 13:20 Respiratory Rate 19 04/02/19 11:05 Respiratory Effort Non-Labored 04/02/19 09:00 Respiratory Depth Normal 04/02/19 09:00 Respiratory Pattern Normal 04/02/19 09:00 Blood Pressure 132/79 04/02/19 11:05 Blood Pressure Mean 88 03/30/19 11:02 Blood Pressure Position Supine 03/30/19 11:23 Pulse Oximetry 95 04/02/19 11:05 Oxygen Delivery Method Room Air 04/02/19 11:05 Oxygen Flow Rate 0 04/02/19 11:05 Pain Level 7 04/02/19 12:51 Intake & Output 04/01/19 04/02/19 04/02/19 23:59 11:59 23:59 Intake Total 1680 / 2640 960 / 1520 560 / 1520 Output Total 300 / 800 1475 / 1475 Balance 1380 / 1840 -515 / 45 560 / 45 Weight 195.3 kg Intake: IV 1200 / 1800 600 / 710 110 / 710 Oral 480 / 840 360 / 810 450 / 810 Output: Urine 300 / 800 1475 / 1475 Other: Urine Color Straw Straw Urine Appearance Clear Clear Urine Odor None None Comment pt voided in toilet prior to shower; urine not assessed by RN Stool Characteristics Soft Black Voiding Methods Urinal Urinal Laboratory Results WBC 11.92 k/cumm (4.4-10.8) H 04/01/19 06:35 RBC 3.92 m/cumm (4.50-6.00) L 04/01/19 06:35 Hgb 11.3 g/dL (13.5-17.5) L 04/01/19 06:35 Hct 34.0 % (40.0-50.0) L 04/01/19 06:35 MCV 86.7 fL (80-95) 04/01/19 06:35 MCH 28.8 pg (27.0-33.0) 04/01/19 06:35 MCHC 33.2 g/dL (32.0-36.0) 04/01/19 06:35 RDW 14.1 % (11.8-14.1) 04/01/19 06:35 Plt Count 160 x1000/uL (130-400) 04/01/19 06:35 MPV 10.5 fL (8.0-11.0) 04/01/19 06:35 Immature Gran % 0.5 04/01/19 06:35 Neutrophils % 78.0 04/01/19 06:35 Band Neutrophils % 14.0 % 03/29/19 12:30 Lymphocytes % 11.8 04/01/19 06:35 Monocytes % 8.7 04/01/19 06:35 Eosinophils % 0.7 04/01/19 06:35 Basophils % 0.3 04/01/19 06:35 Metamyelocytes % 1.0 % 03/29/19 12:30 Absolute Neutrophils 9.30 k/cumm (1.2-6.7) H 04/01/19 06:35 Absolute Lymphocytes 1.41 k/cumm (1.2-3.4) 04/01/19 06:35 Absolute Monocytes 1.04 k/cumm (0.11-0.7) H 04/01/19 06:35 Absolute Eosinophils 0.08 k/cumm (0.0-0.7) 04/01/19 06:35 Absolute Basophils 0.04 k/cumm (0.0-0.2) 04/01/19 06:35 Differential Comment Manual differential 03/29/19 12:30 RBC Morphology Normal 03/29/19 12:30 Sodium 138 mmol/L (136-145) 04/02/19 08:38 Potassium 3.8 mmol/L (3.5-5.1) 04/02/19 08:38 Chloride 103 mmol/L (98-107) 04/02/19 08:38 Carbon Dioxide 28.4 mmol/L (21.0-32.0) 04/02/19 08:38 Anion Gap 6.6 mmol/L (3-11) 04/02/19 08:38 BUN 15 mg/dL (7-18) 04/02/19 08:38 Creatinine 0.69 mg/dL (0.70-1.30) L 04/02/19 08:38 Estimated GFR/1.73 m2 >= 60.00 (mL/min/1.73m2) 04/02/19 08:38 Glucose 116 mg/dL (70-100) H 04/02/19 08:38 Lactate 1.0 mmol/l (0.6-1.4) 03/30/19 06:55 Calcium 8.5 mg/dL (8.5-10.1) 04/02/19 08:38 Magnesium 1.8 mg/dL (1.8-2.4) 04/02/19 08:38 Total Bilirubin 1.0 mg/dL (0.2-1.0) 03/29/19 12:30 AST 59 U/L (15-37) H 03/29/19 12:30 ALT 28 U/L (12-78) 03/29/19 12:30 Alkaline Phosphatase 55 U/L (46-116) 03/29/19 12:30 Troponin I < 0.05 ng/mL (0.00-0.06) 03/29/19 12:30 C-Reactive Protein 9.12 mg/dL (0.0-0.3) H 04/02/19 08:38 Total Protein 7.2 g/dL (6.4-8.2) 03/29/19 12:30 Albumin 2.8 g/dL (3.4-5.0) L 03/29/19 12:30 Procalcitonin 0.8 ng/mL 04/02/19 08:38 TSH 0.58 uIU/mL (0.358-3.74) 03/30/19 06:55 Urine Color Yellow (Yellow) 03/29/19 16:22 Urine Clarity Clear (Clear) 03/29/19 16:22 Urine pH 7.0 (5-8) 03/29/19 16:22 Ur Specific [place] 1.020 (1.005-1.025) 03/29/19 16:22 Urine Protein 100 mg/dL (Negative) H 03/29/19 16:22 Urine Ketones Negative mg/dL (Negative) 03/29/19 16:22 Urine Blood Negative (Negative) 03/29/19 16:22 Urine Nitrite Negative (Negative) 03/29/19 16:22 Urine Bilirubin Small (Negative) H 03/29/19 16:22 Urine Urobilinogen >=8.0 EU/dL (Up TO 0.2) 03/29/19 16:22 Ur Leukocyte Esterase Negative (Negative) 03/29/19 16:22 Urine RBC Negative (0-2) 03/29/19 16:22 Urine WBC 0-2 HPF (0-5) 03/29/19 16:22 Ur Epithelial Cells Rare HPF (Negative) 03/29/19 16:22 Urine Crystals Few amorphous HPF (Negative) 03/29/19 16:22 Urine Bacteria Moderate HPF (Negative) 03/29/19 16:22 Urine Casts LPF (Negative) 03/29/19 16:22 Urine Mucus Trace (Negative) 03/29/19 16:22 Urine Other Rare renal (Negative) 03/29/19 16:22 Ur Culture Indicated? Yes 03/29/19 16:22 Ur Random Creatinine 166.89 mg/dL 03/31/19 17:59 U Random Total Protein 130.5 mg/dL 03/31/19 17:59 U [place] Prot/Creat Ratio 0.78 03/31/19 17:59 Urine Glucose Negative mg/dL (Negative) 07/01/19 16:22 Vancomycin Trough 16.8 ug/mL (10.0-20.0) 04/01/19 09:07 Urine Opiates Screen Negative (Negative) 03/29/19 16:22 Urine Methadone Screen Negative (Negative) 03/29/19 16:22 Ur Barbiturates Screen Negative (Negative) 03/29/19 16:22 Ur Tricyclics Screen Negative (Negative) 03/29/19 16:22 Ur Amphetamines Screen Negative (Negative) 03/29/19 16:22 U Benzodiazepines Scrn Negative (Negative) 03/29/19 16:22 Urine Cocaine Screen Positive (Negative) 03/29/19 16:22 Ur THC Screen Positive (Negative) 03/29/19 16:22 HIV 1&2 Ag/Ab, 4th Gen Negative (NEGAT) 03/30/19 06:55
--- NOTE | 2019-04-02 16:15 | CMPROGNOTE_ITS ---
Care Management Progress Note S/O-Met with Abelardo again today. Advised him that CM/UR is communicating daily with his insurance [employer], and that this CM had spoken with them today re possibility of utilizing SB1 here at [facility] if he requires longer period of IV Abx. Advised that [facility] and [facility] are pursuing this. He did not feel he would be able to manage any IV Abx at home, and history would seem to agree with this as he is not completely compliant at home. A-28 yo man admitted with BLE cellulitis. P-Continue in acute care as per MD for IV Abx, with consideration of SB1 for longer period of Abx and wound care.
[2019-04-02] MEDS: Enoxaparin 40 MG/0.4 ML SYR SC (17:27)
[2019-04-03] VITALS (8 sets, daily range): BP systolic 103–135; BP diastolic 68–88; PULSE 73–90; RESP 16–20; TEMP 35.7–37.1; O2SAT 95–98
[2019-04-03] MEDS: VANCOMYCIN 2,000 MG in Normal Saline 500 ML 250 MG IVPB ×2 (02:18→10:06)
[2019-04-03] MEDS: Normal Saline Flush 10 ML SYR IVP ×2 (02:19→17:31)
[2019-04-03] MEDS: CEFEPIME 2 GM in Normal Saline 100 ML IVPB (04:54)
[2019-04-03 07:48] LABS: Abs Immature Grans 0.53 k/cumm (0.0-0.09); HCT 36.9 % (40.0-50.0); HGB 12.1 g/dL (13.5-17.5); Mean Corp. HGB Concentration 32.8 g/dL (32.0-36.0); Mean Corpuscular Hemoglobin 29.1 pg (27.0-33.0); Mean Corpuscular Volume 88.7 fL (80-95); Mean Platelet Volume 9.8 fL (8.0-11.0); Platelet Count 234 x1000/uL (130-400); RBC 4.16 m/cumm (4.50-6.00); RBC Distribution Width 14.4 % (11.8-14.1); White Blood Cell Count 9.23 k/cumm (4.4-10.8)
[2019-04-03 08:04] LABS: Anion Gap 7.9 mmol/L (3-11); BUN 14 mg/dL (7-18); C-Reactive Protein 5.09 mg/dL (0.0-0.3); CO2 28.1 mmol/L (21.0-32.0); CREATININE 0.49 mg/dL (0.70-1.30); Calcium 8.3 mg/dL (8.5-10.1); Chloride 103 mmol/L (98-107); Glucose 103 mg/dL (70-100); Magnesium 1.8 mg/dL (1.8-2.4); Potassium 4.1 mmol/L (3.5-5.1); Sodium 139 mmol/L (136-145)
[2019-04-03 08:37] LABS: Absolute Lymphocyte Count 2.58 k/cumm (1.2-3.4); Absolute Monocyte Count 0.55 k/cumm (0.11-0.7); Absolute Neutrophil Count 5.45 k/cumm (1.2-6.7); Atypical Lymphocytes % 1; Diff Comment Manual Differential
[2019-04-03 08:38] LABS: Absolute Eosinophil Count 0.37 k/cumm (0.0-0.7)
[2019-04-03 08:39] LABS: RBC Morphology Normal
[2019-04-03] MEDS: Magnesium Chloride 64 MG TABCR PO (08:56)
[2019-04-03] MEDS: Lachydrin 12% LOTION 225 GM BTL TP ×2 (08:56→19:48)
[2019-04-03] MEDS: Multivitamin TAB 1 TAB PO (08:57)
[2019-04-03] MEDS: Buprenorphine/Naloxone 12 mg/3 mg FILM 0.5 EACH SL (08:57)
[2019-04-03] MEDS: Pantoprazole 40 MG TABCR PO (08:57)
[2019-04-03] MEDS: Folic Acid 1 MG TAB PO (08:57)
[2019-04-03] MEDS: Acetaminophen 325 MG TAB PO ×2 (08:58→17:30)
[2019-04-03] MEDS: Ketorolac 15 MG/ML VIAL IVP ×2 (08:58→16:30)
[2019-04-03] MEDS: Thiamine 100 MG TAB PO (08:58)
[2019-04-03] MEDS: Magnesium Oxide 400 MG TAB PO (11:05)
--- NOTE | 2019-04-03 13:23 | W.PM.PROGNOT ---
Date of Service Date of service: 04/03/19 Time of Service: 13:23 Assessment and Plan (1) Sepsis: Start date: 04/03/19 Start time: 13:30 Current visit: Yes Status: Acute Improved. Blood cultures NGTD after [address] [facility] regarding antibiotics. Started on ancef per their recommendation trial overnight if successful transition to PO cephalexin x 14 Days. WBC has normalized. CRP down to 5.09, continue to monitor. LLE erythema receding. (2) Bilateral cellulitis of lower leg: Start date: 04/03/19 Start time: 13:34 Current visit: Yes Status: Acute As above Wound care recommendations appreciated (cracking on feet, edema blisters) Podiatry unavailable until Friday (3) Asthma exacerbation: Start date: 04/03/19 Start time: 13:35 Current visit: Yes Status: Acute Not exacerbated at this time. LSC. Continue to monitor. Spoke about smoking cessation. Feels he can quit on his own. (4) Obstructive sleep apnea: Start date: 04/03/19 Start time: 13:36 Current visit: Yes Status: Chronic Not compliant with BiPAP. Spoke to patient about possible effects of not wearing bipap. Understood. (5) Morbid obesity with BMI of 50.0-59.9, adult: Start date: 04/03/19 Start time: 13:37 Current visit: Yes Status: Chronic Provide counseling on lifestyle modification. 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 We spoke a lot about quitting alcohol and decreasing portion size again today. (6) Opioid dependence: Start date: 04/03/19 Start time: 13:37 Current visit: Yes Status: Chronic Continue home dose of suboxone. Noted and communicated findings of cocaine on UDS to Dr Saleh (7) Alcohol abuse: Start date: 04/03/19 Start time: 13:37 Current visit: Yes Status: Chronic Monitor for withdrawal with CIWA, prn ativan. Continue vitamins. Patient is interested in staying quit - but not AA. No sx of withdrawal overnight (8) Hypomagnesemia: Start date: 04/03/19 Start time: 13:37 Current visit: Yes Status: Resolved Improved 1.8 today, continue to monitor and replete as needed. (9) DVT prophylaxis: Start date: 04/03/19 Start time: 13:38 Current visit: Yes Status: Acute Lovenox SC (10) Discharge planning issues: Start date: 04/03/19 Start time: 13:38 Current visit: Yes Status: Acute Full code Spoke with ID see above. Subjective Patient reports: no new complaints Interval history since last seen: Feeling better. Redness and swelling improving. Continue to encourage getting out of bed. Denies CP, SOB, N/V/D. Exam Narrative Exam Narrative: General: Very obese male, A&Ox3, in bed, appears well. HEENT: EOMI, MMM Cardiovascular: RRR, no m/r/g Lungs: diminished breath sounds B Gastrointestinal: abdomen is soft, nontender, nondistended Genitourinary: scrotum is not erythematous, L inner thigh erythema is improving receding from the outline Extremities: BLE edema with wrinkles, has edema blisters LLE, especially on the dependent portions of the leg, weeping; RLE erythema is resolved; LLE looks less erythematous, and significantly better today. Vesicles are now open areas. Chronic venous stasis changes BLE's in addition to above findings. Objective Objective Clinical Data: Abnormal lab results 04/03/19 04/03/19 Range/Units 07:00 07:00 RBC 4.16 L (4.50-6.00) m/cumm Hgb 12.1 L (13.5-17.5) g/dL Hct 36.9 L (40.0-50.0) % RDW 14.4 H (11.8-14.1) % Creatinine 0.49 L (0.70-1.30) mg/dL Glucose 103 H (70-100) mg/dL Calcium 8.3 L (8.5-10.1) mg/dL C-Reactive Protein 5.09 H (0.0-0.3) mg/dL Vital Signs Temperature 37.1 C 04/03/19 11:59 Temperature Source Tympanic 04/03/19 11:59 Pulse 82 04/03/19 11:59 Pulse Rhythm Regular 04/03/19 08:15 Pulse 92 H 03/30/19 13:20 Respiratory Rate 18 04/03/19 11:59 Respiratory Effort 04/03/19 08:15 Respiratory Depth Normal 04/03/19 08:15 Respiratory Pattern Normal 04/03/19 08:15 Blood Pressure 135/77 04/03/19 11:59 Blood Pressure Mean 88 03/30/19 11:02 Blood Pressure Position Supine 03/30/19 11:23 Pulse Oximetry 95 04/03/19 11:59 Oxygen Delivery Method Room Air 04/03/19 11:59 Oxygen Flow Rate 0 04/03/19 11:59 Pain Level 0 04/03/19 05:10 Intake & Output 04/02/19 04/03/19 04/03/19 23:59 11:59 23:59 Intake Total 2380 / 3340 960 / 1460 500 / 1460 Output Total 840 / 2315 600 / 600 Balance 1540 / 1025 360 / 860 500 / 860 Weight 194.1 kg Intake: IV 1210 / 1810 600 / 1100 500 / 1100 Oral 1170 / 1530 360 / 360 Output: Urine 840 / 2315 600 / 600 Other: Urine Color Yellow Yellow Urine Appearance Clear Clear Urine Odor Normal Strong Comment pt voided in toilet prior to shower; urine not assessed by RN Stool Characteristics Soft Black Voiding Methods Urinal Urinal Laboratory Results WBC 9.23 k/cumm (4.4-10.8) 04/03/19 07:00 RBC 4.16 m/cumm (4.50-6.00) L 04/03/19 07:00 Hgb 12.1 g/dL (13.5-17.5) L 04/03/19 07:00 Hct 36.9 % (40.0-50.0) L 04/03/19 07:00 MCV 88.7 fL (80-95) 04/03/19 07:00 MCH 29.1 pg (27.0-33.0) 04/03/19 07:00 MCHC 32.8 g/dL (32.0-36.0) 04/03/19 07:00 RDW 14.4 % (11.8-14.1) H 04/03/19 07:00 Plt Count 234 x1000/uL (130-400) 04/03/19 07:00 MPV 9.8 fL (8.0-11.0) 04/03/19 07:00 Immature Gran % See Differential 04/03/19 07:00 Neutrophils % 58.0 04/03/19 07:00 Band Neutrophils % 1.0 % 04/03/19 07:00 Lymphocytes % 27.0 04/03/19 07:00 Atypical Lymphs % 1 04/03/19 07:00 Monocytes % 6.0 04/03/19 07:00 Eosinophils % 4.0 04/03/19 07:00 Basophils % 0.0 04/03/19 07:00 Metamyelocytes % 2.0 % 04/03/19 07:00 Myelocytes % 1.0 % 04/03/19 07:00 Absolute Neutrophils 5.45 k/cumm (1.2-6.7) 04/03/19 07:00 Absolute Lymphocytes 2.58 k/cumm (1.2-3.4) 04/03/19 07:00 Absolute Monocytes 0.55 k/cumm (0.11-0.7) 04/03/19 07:00 Absolute Eosinophils 0.37 k/cumm (0.0-0.7) 04/03/19 07:00 Absolute Basophils 0.00 k/cumm (0.0-0.2) 04/03/19 07:00 Differential Comment Manual differential 04/03/19 07:00 RBC Morphology Normal 04/03/19 07:00 Sodium 139 mmol/L (136-145) 04/03/19 07:00 Potassium 4.1 mmol/L (3.5-5.1) 04/03/19 07:00 Chloride 103 mmol/L (98-107) 04/03/19 07:00 Carbon Dioxide 28.1 mmol/L (21.0-32.0) 04/03/19 07:00 Anion Gap 7.9 mmol/L (3-11) 04/03/19 07:00 BUN 14 mg/dL (7-18) 04/03/19 07:00 Creatinine 0.49 mg/dL (0.70-1.30) L 04/03/19 07:00 Estimated GFR/1.73 m2 >= 60.00 (mL/min/1.73m2) 04/03/19 07:00 Glucose 103 mg/dL (70-100) H 04/03/19 07:00 Lactate 1.0 mmol/l (0.6-1.4) 03/30/19 06:55 Calcium 8.3 mg/dL (8.5-10.1) L 04/03/19 07:00 Magnesium 1.8 mg/dL (1.8-2.4) 04/03/19 07:00 Total Bilirubin 1.0 mg/dL (0.2-1.0) 03/29/19 12:30 AST 59 U/L (15-37) H 03/29/19 12:30 ALT 28 U/L (12-78) 03/29/19 12:30 Alkaline Phosphatase 55 U/L (46-116) 03/29/19 12:30 Troponin I < 0.05 ng/mL (0.00-0.06) 03/29/19 12:30 C-Reactive Protein 5.09 mg/dL (0.0-0.3) H 04/03/19 07:00 Total Protein 7.2 g/dL (6.4-8.2) 03/29/19 12:30 Albumin 2.8 g/dL (3.4-5.0) L 03/29/19 12:30 Procalcitonin 0.8 ng/mL 04/02/19 08:38 TSH 0.58 uIU/mL (0.358-3.74) 03/30/19 06:55 Urine Color Yellow (Yellow) 03/29/19 16:22 Urine Clarity Clear (Clear) 03/29/19 16:22 Urine pH 7.0 (5-8) 03/29/19 16:22 Ur Specific [place] 1.020 (1.005-1.025) 03/29/19 16:22 Urine Protein 100 mg/dL (Negative) H 03/29/19 16:22 Urine Ketones Negative mg/dL (Negative) 03/29/19 16:22 Urine Blood Negative (Negative) 03/29/19 16:22 Urine Nitrite Negative (Negative) 03/29/19 16:22 Urine Bilirubin Small (Negative) H 03/29/19 16:22 Urine Urobilinogen >=8.0 EU/dL (Up TO 0.2) 03/29/19 16:22 Ur Leukocyte Esterase Negative (Negative) 03/29/19 16:22 Urine RBC Negative (0-2) 03/29/19 16:22 Urine WBC 0-2 HPF (0-5) 03/29/19 16:22 Ur Epithelial Cells Rare HPF (Negative) 03/29/19 16:22 Urine Crystals Few amorphous HPF (Negative) 03/29/19 16:22 Urine Bacteria Moderate HPF (Negative) 03/29/19 16:22 Urine Casts LPF (Negative) 03/29/19 16:22 Urine Mucus Trace (Negative) 03/29/19 16:22 Urine Other Rare renal (Negative) 03/29/19 16:22 Ur Culture Indicated? Yes 03/29/19 16:22 Ur Random Creatinine 166.89 mg/dL 03/31/19 17:59 U Random Total Protein 130.5 mg/dL 03/31/19 17:59 U [place] Prot/Creat Ratio 0.78 03/31/19 17:59 Urine Glucose Negative mg/dL (Negative) 03/29/19 16:22 Vancomycin Trough 16.8 ug/mL (10.0-20.0) 04/01/19 09:07 Urine Opiates Screen Negative (Negative) 03/29/19 16:22 Urine Methadone Screen Negative (Negative) 03/29/19 16:22 Ur Barbiturates Screen Negative (Negative) 03/29/19 16:22 Ur Tricyclics Screen Negative (Negative) 03/29/19 16:22 Ur Amphetamines Screen Negative (Negative) 03/29/19 16:22 U Benzodiazepines Scrn Negative (Negative) 03/29/19 16:22 Urine Cocaine Screen Positive (Negative) 03/29/19 16:22 Ur THC Screen Positive (Negative) 03/29/19 16:22 HIV 1&2 Ag/Ab, 4th Gen Negative (NEGAT) 03/30/19 06:55
--- NOTE | 2019-04-03 15:04 | PDOC.CMPRO ---
- If Service Date Differs Date of service: 04/03/19 Time of Service: 15:04 Care Management Progress Note S/O-Valerio remains in acute status today, provider contacted infectious disease obtained recommendations for ongoing antibiotic coverage. Valerio has been transition to [facility] and will be monitored overnight per provider if he does well he will be discharged on oral antibiotics.At discharge he may need ongoing wound care through home health services. A-28 yo man admitted with BLE cellulitis.in the setting of morbid obesity P-Continue in acute care as per MD for IV Abx. Discharge home when medically ready per provider.
[2019-04-03] MEDS: ceFAZolin 2,000 MG in Normal Saline 100 ML 200 MG IVPB (17:30)
[2019-04-03] MEDS: Enoxaparin 40 MG/0.4 ML SYR SC (17:31)
[2019-04-03] MEDS: Normal Saline Flush 10 ML SYR 20 ML IVP (19:48)
[2019-04-04] MEDS: ceFAZolin 2,000 MG in Normal Saline 100 ML 200 MG IVPB ×3 (02:34→17:27)
[2019-04-04] MEDS: Acetaminophen 325 MG TAB PO ×5 (02:36→23:45)
[2019-04-04 03:26] VITALS: BP 139/90; PULSE 70; RESP 20; TEMP 36.4; O2SAT 95
[2019-04-04 07:10] VITALS: BP 123/87; PULSE 78; RESP 20; TEMP 36.6; O2SAT 97
[2019-04-04 07:25] LABS: Abs Immature Grans 0.69 k/cumm (0.0-0.09); HCT 38.1 % (40.0-50.0); HGB 12.5 g/dL (13.5-17.5); Mean Corp. HGB Concentration 32.8 g/dL (32.0-36.0); Mean Corpuscular Hemoglobin 29.1 pg (27.0-33.0); Mean Corpuscular Volume 88.6 fL (80-95); Mean Platelet Volume 9.3 fL (8.0-11.0); Platelet Count 284 x1000/uL (130-400); RBC Distribution Width 14.2 % (11.8-14.1); White Blood Cell Count 9.13 k/cumm (4.4-10.8)
[2019-04-04 07:37] LABS: BUN 15 mg/dL (7-18); Calcium 8.5 mg/dL (8.5-10.1); Chloride 101 mmol/L (98-107); Glucose 89 mg/dL (70-100); Magnesium 1.8 mg/dL (1.8-2.4); Potassium 4.5 mmol/L (3.5-5.1); Sodium 139 mmol/L (136-145)
[2019-04-04] MEDS: Buprenorphine/Naloxone 12 mg/3 mg FILM 0.5 EACH SL (07:53)
[2019-04-04] MEDS: Pantoprazole 40 MG TABCR PO (07:53)
[2019-04-04] MEDS: Folic Acid 1 MG TAB PO (07:53)
[2019-04-04] MEDS: Thiamine 100 MG TAB PO (07:53)
[2019-04-04] MEDS: Normal Saline Flush 10 ML SYR 20 ML IVP ×2 (07:53→19:24)
[2019-04-04] MEDS: Multivitamin TAB 1 TAB PO (07:53)
[2019-04-04] MEDS: Magnesium Chloride 64 MG TABCR PO (07:53)
[2019-04-04] MEDS: Lachydrin 12% LOTION 225 GM BTL TP ×2 (07:54→19:24)
[2019-04-04] MEDS: Normal Saline Flush 10 ML SYR IVP ×3 (07:54→17:28)
[2019-04-04 08:03] LABS: Absolute Eosinophil Count 0.37 k/cumm (0.0-0.7); Absolute Lymphocyte Count 1.83 k/cumm (1.2-3.4); Absolute Monocyte Count 0.55 k/cumm (0.11-0.7); Absolute Neutrophil Count 6.03 k/cumm (1.2-6.7)
[2019-04-04 08:04] LABS: Diff Comment Manual Differential; RBC Morphology Normal
[2019-04-04] MEDS: Diclofenac Sodium 75 MG TABEC PO (08:41)
--- NOTE | 2019-04-04 13:20 | PGE_ITS ---
Date of Service Date of service: 04/04/19 Time of Service: 13:20 Assessment and Plan (1) Sepsis: Start date: 04/04/19 Start time: 13:44 Current visit: Yes Status: Acute Resolved. Blood cultures NGTD after 120 hours on ancef per [facility] recommendation trial if successful transition to PO cephalexin x 14 Days. WBC has normalized. Afebrile, c/o pain to leg. Ibuprofen 800 prn 8 hours for pain. Recommend lymphedema care as an outpatient. Cellulitis improving. (2) Bilateral cellulitis of lower leg: Start date: 04/04/19 Start time: 13:44 Current visit: Yes Status: Acute As above Wound care recommendations appreciated (cracking on feet, edema blisters) Podiatry unavailable until Friday (3) Asthma exacerbation: Start date: 04/04/19 Start time: 13:44 Current visit: Yes Status: Acute Not exacerbated at this time. LSC. Continue to monitor. Spoke about smoking cessation. Feels he can quit on his own. (4) Obstructive sleep apnea: Start date: 04/04/19 Start time: 13:44 Current visit: Yes Status: Chronic Not compliant with BiPAP. Refusing to wear (5) Morbid obesity with BMI of 50.0-59.9, adult: Start date: 04/04/19 Start time: 13:45 Current visit: Yes Status: Chronic Provide counseling on lifestyle modification. [employer] consulted. (6) Opioid dependence: Start date: 04/04/19 Current visit: Yes Status: Chronic Continue home dose of suboxone. Noted and communicated findings of cocaine on UDS to Dr Saleh (7) Alcohol abuse: Start date: 04/04/19 Start time: 13:45 Current visit: Yes Status: Chronic Monitor for withdrawal with CIWA, prn ativan. Continue vitamins. No sx of withdrawal overnight (8) Hypomagnesemia: Start date: 04/04/19 Start time: 13:45 Current visit: Yes Status: Resolved Resolved, continue to monitor. (9) DVT prophylaxis: Start date: 04/04/19 Start time: 13:45 Current visit: Yes Status: Acute Lovenox SC (10) Discharge planning issues: Start date: 04/04/19 Start time: 13:46 Current visit: Yes Status: Acute Full code Subjective Patient reports: still having pain Interval history since last seen: C/o worsening pain to calf of left leg when trying to move or get up. ketorlac finished ibuprofen 800 mg TID ordered. Recommendations by wound nurse for alge dressing. Wound edges are receding, no leukocytosis, afebrile, blood culture with NGTD. Denies CP, SOB, N/v/D. Exam Narrative Exam Narrative: General: Very obese male, A&Ox3, in bed, appears well. HEENT: EOMI, MMM Cardiovascular: RRR, no m/r/g Lungs: diminished breath sounds B Gastrointestinal: abdomen is soft, nontender, nondistended Genitourinary: scrotum is not erythematous, L inner thigh erythema is improving receding from the outline Extremities: BLE edema with wrinkles, has edema blisters LLE, especially on the dependent portions of the leg, weeping; RLE erythema is resolved; LLE looks sligthly less erythematous. Vesicles are now open areas. Chronic venous stasis changes BLE's in addition to above findings. Objective Objective Clinical Data: Abnormal lab results 04/04/19 Range/Units 07:03 RBC 4.30 L (4.50-6.00) m/cumm Hgb 12.5 L (13.5-17.5) g/dL Hct 38.1 L (40.0-50.0) % RDW 14.2 H (11.8-14.1) % Vital Signs Temperature 36.6 C 04/04/19 07:10 Temperature Source Tympanic 04/04/19 07:10 Pulse 78 04/04/19 07:10 Pulse Rhythm Regular 04/04/19 08:30 Pulse 92 H 03/30/19 13:20 Respiratory Rate 20 04/04/19 07:10 Respiratory Effort Non-Labored 04/04/19 08:30 Respiratory Depth Normal 04/04/19 08:30 Respiratory Pattern Normal 04/04/19 08:30 Blood Pressure 123/87 04/04/19 07:10 Blood Pressure Mean 88 03/30/19 11:02 Blood Pressure Position Supine 03/30/19 11:23 Pulse Oximetry 97 04/04/19 07:10 Oxygen Delivery Method Room Air 04/04/19 07:10 Oxygen Flow Rate 0 04/04/19 07:10 Pain Level 8 04/04/19 07:10 Intake & Output 04/03/19 04/04/19 04/04/19 23:59 11:59 23:59 Intake Total 1540 / 2500 750 / 1200 450 / 1200 Output Total 800 / 1400 900 / 1675 775 / 1675 Balance 740 / 1100 -150 / -475 -325 / -475 Weight 194 kg Intake: IV 620 / 1220 100 / 100 Oral 920 / 1280 650 / 1100 450 / 1100 Output: Urine 800 / 1400 900 / 1675 775 / 1675 Other: Urine Color Light Sienna Yellow Yellow Urine Appearance Clear Clear Clear Urine Odor Normal None Voiding Methods Urinal Urinal Urinal Laboratory Results WBC 9.13 k/cumm (4.4-10.8) 04/04/19 07:03 RBC 4.30 m/cumm (4.50-6.00) L 04/04/19 07:03 Hgb 12.5 g/dL (13.5-17.5) L 04/04/19 07:03 Hct 38.1 % (40.0-50.0) L 04/04/19 07:03 MCV 88.6 fL (80-95) 04/04/19 07:03 MCH 29.1 pg (27.0-33.0) 04/04/19 07:03 MCHC 32.8 g/dL (32.0-36.0) 04/04/19 07:03 RDW 14.2 % (11.8-14.1) H 04/04/19 07:03 Plt Count 284 x1000/uL (130-400) 04/04/19 07:03 MPV 9.3 fL (8.0-11.0) 04/04/19 07:03 Immature Gran % See Differential 04/04/19 07:03 Neutrophils % 63.0 04/04/19 07:03 Band Neutrophils % 3.0 % 04/04/19 07:03 Lymphocytes % 20.0 04/04/19 07:03 Atypical Lymphs % 1 04/03/19 07:00 Monocytes % 6.0 04/04/19 07:03 Eosinophils % 4.0 04/04/19 07:03 Basophils % 0.0 04/04/19 07:03 Metamyelocytes % 4.0 % 04/04/19 07:03 Myelocytes % 1.0 % 04/03/19 07:00 Absolute Neutrophils 6.03 k/cumm (1.2-6.7) 04/04/19 07:03 Absolute Lymphocytes 1.83 k/cumm (1.2-3.4) 04/04/19 07:03 Absolute Monocytes 0.55 k/cumm (0.11-0.7) 04/04/19 07:03 Absolute Eosinophils 0.37 k/cumm (0.0-0.7) 04/04/19 07:03 Absolute Basophils 0.00 k/cumm (0.0-0.2) 04/04/19 07:03 Differential Comment Manual differential 04/04/19 07:03 RBC Morphology Normal 04/04/19 07:03 Sodium 139 mmol/L (136-145) 04/04/19 07:03 Potassium 4.5 mmol/L (3.5-5.1) 04/04/19 07:03 Chloride 101 mmol/L (98-107) 04/04/19 07:03 Carbon Dioxide 31.0 mmol/L (21.0-32.0) 04/04/19 07:03 Anion Gap 7.0 mmol/L (3-11) 04/04/19 07:03 BUN 15 mg/dL (7-18) 04/04/19 07:03 Creatinine 0.70 mg/dL (0.70-1.30) 04/04/19 07:03 Estimated GFR/1.73 m2 >= 60.00 (mL/min/1.73m2) 04/04/19 07:03 Glucose 89 mg/dL (70-100) 04/04/19 07:03 Lactate 1.0 mmol/l (0.6-1.4) 03/30/19 06:55 Calcium 8.5 mg/dL (8.5-10.1) 04/04/19 07:03 Magnesium 1.8 mg/dL (1.8-2.4) 04/04/19 07:03 Total Bilirubin 1.0 mg/dL (0.2-1.0) 03/29/19 12:30 AST 59 U/L (15-37) H 03/29/19 12:30 ALT 28 U/L (12-78) 03/29/19 12:30 Alkaline Phosphatase 55 U/L (46-116) 03/29/19 12:30 Troponin I < 0.05 ng/mL (0.00-0.06) 03/29/19 12:30 C-Reactive Protein 5.09 mg/dL (0.0-0.3) H 04/03/19 07:00 Total Protein 7.2 g/dL (6.4-8.2) 03/29/19 12:30 Albumin 2.8 g/dL (3.4-5.0) L 03/29/19 12:30 Procalcitonin 0.8 ng/mL 04/02/19 08:38 TSH 0.58 uIU/mL (0.358-3.74) 03/30/19 06:55 Urine Color Yellow (Yellow) 03/29/19 16:22 Urine Clarity Clear (Clear) 03/29/19 16:22 Urine pH 7.0 (5-8) 03/29/19 16:22 Ur Specific [place] 1.020 (1.005-1.025) 03/29/19 16:22 Urine Protein 100 mg/dL (Negative) H 03/29/19 16:22 Urine Ketones Negative mg/dL (Negative) 03/29/19 16:22 Urine Blood Negative (Negative) 03/29/19 16:22 Urine Nitrite Negative (Negative) 03/29/19 16:22 Urine Bilirubin Small (Negative) H 03/29/19 16:22 Urine Urobilinogen >=8.0 EU/dL (Up TO 0.2) 03/29/19 16:22 Ur Leukocyte Esterase Negative (Negative) 03/29/19 16:22 Urine RBC Negative (0-2) 03/29/19 16:22 Urine WBC 0-2 HPF (0-5) 03/29/19 16:22 Ur Epithelial Cells Rare HPF (Negative) 03/29/19 16:22 Urine Crystals Few amorphous HPF (Negative) 03/29/19 16:22 Urine Bacteria Moderate HPF (Negative) 03/29/19 16:22 Urine Casts LPF (Negative) 03/29/19 16:22 Urine Mucus Trace (Negative) 03/29/19 16:22 Urine Other Rare renal (Negative) 03/29/19 16:22 Ur Culture Indicated? Yes 03/29/19 16:22 Ur Random Creatinine 166.89 mg/dL 03/31/19 17:59 U Random Total Protein 130.5 mg/dL 03/31/19 17:59 U [place] Prot/Creat Ratio 0.78 03/31/19 17:59 Urine Glucose Negative mg/dL (Negative) 03/29/19 16:22 Vancomycin Trough 16.8 ug/mL (10.0-20.0) 04/01/19 09:07 Urine Opiates Screen Negative (Negative) 03/29/19 16:22 Urine Methadone Screen Negative (Negative) 03/29/19 16:22 Ur Barbiturates Screen Negative (Negative) 03/29/19 16:22 Ur Tricyclics Screen Negative (Negative) 03/29/19 16:22 Ur Amphetamines Screen Negative (Negative) 03/29/19 16:22 U Benzodiazepines Scrn Negative (Negative) 03/29/19 16:22 Urine Cocaine Screen Positive (Negative) 03/29/19 16:22 Ur THC Screen Positive (Negative) 03/29/19 16:22 HIV 1&2 Ag/Ab, 4th Gen Negative (NEGAT) 03/30/19 06:55
[2019-04-04 15:19] VITALS: BP 113/79; PULSE 80; RESP 18; TEMP 36.5; O2SAT 98
--- NOTE | 2019-04-04 15:31 | CMPROGNOTE_ITS ---
- If Service Date Differs Date of service: 04/04/19 Time of Service: 15:26 Care Management Progress Note S/O-Valerio is engaged during assessment he states he continues to have a lot of burning pain around the wound site. He was started on Ibuprofen today he reports the NSAIDs help the discomfort. He does not want home health he would prefer to go to the primary care office for wound care if needed. He reports it does hurt to stand by states he is independent with transfers. [place] remains in acute status today, provider contacted infectious disease obtained recommendations for ongoing antibiotic coverage. Valerio has been transition to [facility] and will be monitored overnight per provider if he does well he will be discharged on oral antibiotics. He will plan to not return to work this week and should receive a provider note to be out of work if needed. A-28 yo man admitted with cellulitis left lower extremity.in the setting of morbid obesity and chronic edema in both LE's. He reports he has been trying to manage these chronic wounds for about a year now. P-Continue in acute care as per MD for IV Abx. Discharge home when medically ready per provider.
[2019-04-04] MEDS: Enoxaparin 40 MG/0.4 ML SYR SC (17:27)
[2019-04-04] MEDS: Normal Saline 500 ML 30 ML IV (17:35)
[2019-04-04 19:26] VITALS: BP 123/81; PULSE 77; RESP 18; TEMP 37.2; O2SAT 97
[2019-04-04] MEDS: Ibuprofen 800 MG TAB PO (21:25)
[2019-04-04 23:09] VITALS: O2SAT 97
[2019-04-04 23:36] VITALS: BP 131/77; PULSE 67; RESP 20; TEMP 36.5; O2SAT 98
[2019-04-05] MEDS: Normal Saline Flush 10 ML SYR IVP ×2 (01:59→09:10)
[2019-04-05] MEDS: ceFAZolin 2,000 MG in Normal Saline 100 ML 200 MG IVPB ×2 (01:59→10:41)
[2019-04-05 03:25] VITALS: BP 135/77; PULSE 69; RESP 18; TEMP 36.5; O2SAT 97
[2019-04-05] MEDS: Ibuprofen 800 MG TAB PO (06:27)
[2019-04-05 07:05] VITALS: BP 154/98; PULSE 76; RESP 17; TEMP 36.7; O2SAT 96
[2019-04-05] MEDS: Pantoprazole 40 MG TABCR PO (07:26)
[2019-04-05 07:28] LABS: Abs Immature Grans 0.48 k/cumm (0.0-0.09); Absolute Basophil Count 0.03 k/cumm (0.0-0.2); Basophils % 0.3; HCT 36.1 % (40.0-50.0); HGB 11.7 g/dL (13.5-17.5); Mean Corp. HGB Concentration 32.4 g/dL (32.0-36.0); Mean Corpuscular Hemoglobin 28.9 pg (27.0-33.0); Mean Corpuscular Volume 89.1 fL (80-95); Mean Platelet Volume 9.3 fL (8.0-11.0); Platelet Count 291 x1000/uL (130-400); RBC 4.05 m/cumm (4.50-6.00); RBC Distribution Width 13.9 % (11.8-14.1); White Blood Cell Count 8.58 k/cumm (4.4-10.8)
[2019-04-05 07:53] LABS: Anion Gap 1.9 mmol/L (3-11); BUN 15 mg/dL (7-18); C-Reactive Protein 2.25 mg/dL (0.0-0.3); CO2 35.1 mmol/L (21.0-32.0); CREATININE 0.75 mg/dL (0.70-1.30); Calcium 8.4 mg/dL (8.5-10.1); Chloride 101 mmol/L (98-107); Glucose 89 mg/dL (70-100); Magnesium 1.8 mg/dL (1.8-2.4); Potassium 4.6 mmol/L (3.5-5.1); Sodium 138 mmol/L (136-145)
[2019-04-05 08:21] LABS: Absolute Eosinophil Count 0.26 k/cumm (0.0-0.7); Absolute Lymphocyte Count 2.23 k/cumm (1.2-3.4); Absolute Monocyte Count 0.51 k/cumm (0.11-0.7); Absolute Neutrophil Count 5.15 k/cumm (1.2-6.7); Diff Comment Manual Differential; RBC Morphology Normal
[2019-04-05] MEDS: Magnesium Chloride 64 MG TABCR PO (09:10)
[2019-04-05] MEDS: Multivitamin TAB 1 TAB PO (09:10)
[2019-04-05] MEDS: Folic Acid 1 MG TAB PO (09:11)
[2019-04-05] MEDS: Thiamine 100 MG TAB PO (09:11)
[2019-04-05] MEDS: Buprenorphine/Naloxone 12 mg/3 mg FILM 0.5 EACH SL (09:11)
[2019-04-05 10:00] VITALS: O2SAT 96
--- NOTE | 2019-04-05 10:50 | DSE_ITS ---
Date of service: 04/05/19 Time of Service: 10:51 DS: Diagnosis Discharge Diagnosis (1) Sepsis: Status: Acute (2) Bilateral cellulitis of lower leg: Status: Acute (3) Asthma exacerbation: Status: Acute (4) Obstructive sleep apnea: Status: Chronic (5) Morbid obesity with BMI of 50.0-59.9, adult: Status: Chronic (6) Opioid dependence: Status: Chronic (7) Alcohol abuse: Status: Chronic (8) Hypomagnesemia: Status: Resolved (9) DVT prophylaxis: Status: Acute (10) Discharge planning issues: Status: Acute Discharge Plan Disposition Patient Disposition: HOME Condition: Improving Discharge Details Reason For Visit: SEPSIS DUE TO BLE CELLULITIS Admit Date/Time: 03/29/19 14:54 Admit Provider: Fernanda David Attending Provider: Fernanda David Primary Care Provider: Marty Saleh Hospital Course Hospital Course: Mr Marrero is a 28 year old male with PMHx of asthma, obstructive sleep apnea, noncompliant with CPAP, Obesity with BMI of 53.3, opioid dependence on suboxone therapy (claims last used drugs 3 years ago, h/o IVD), alcohol abuse, who presented to [facility] emergency department complaining of fevers, chills, generalized weakness and malaise starting yesterday. He states his RLE has been red for months, but the left leg just got red yesterday. He also reports a nonproductive cough and sore throat starting yesterday. He denies wheezing. In the ED, he was noted to be quite tachycardic on arrival (140's). He is less so now after receiving aggressive IVF as well as vancomycin/cefepime, but overall his condition was considered to be poor enough to necessitate an ICU bed. We were asked to admit the patient for further care. Of note, the patient drinks between 7 and 12 beers a day. His last drink was 3 days ago. He states he has never withdrawn from alcohol and has never had a seizure, but thought he might be withdrawing. During his course of stay at the hospital, he was initially on vanco and zosyn, then ID at [facility] was consulted regarding antibiotic therapy and they recommend ancef with a 14 day course of keflex to follow. After a 2 day course of ancef the patient RLE vastly improved. Erythema is now localized to inner left calf. No erythema on right leg. There are two wounds to the left leg that are covered with silver ag. Today he is feeling well, afebrile, CRP is down at 2, afebrile and would like to go home. He will be discharged home with antibiotics and lymphedema clinic follow up. Patient feels confident him or his mother can care for the wounds at home. He is refusing home health, he agreed to lymphedema clinic. He will need a repeat CBC with diff and CRP in three days. Follow up with PCP in 1 week. He will need to be out of work for 1 week as he works on his feet 10-12 hours a day every day. Home Meds and New Rx's Prescriptions: New ammonium lactate 12 % Lotion 1 applic topical BID Qty: 222 RF: 1 ibuprofen [IBU] 800 mg Tablet 800 mg PO Q8H Qty: 30 RF: 0 cephalexin [Keflex] 500 mg capsule 500 mg PO QID Qty: 56 RF: 0 omeprazole 20 mg capsule,delayed release(DR/EC) 20 mg PO DAILY Qty: 30 RF: 0 Continued buprenorphine-naloxone [Suboxone] 12-3 mg Film 0.5 film Sublingual DAILY RF: 0 albuterol sulfate 90 mcg/actuation Hfa Aerosol Inhaler 2 puff Inhalation PRN PRN (Reason: Shortness Of Breath Or Wheezing) RF: 0 Discharge Instructions Instructions: Cellulitis (GEN), Cigarette Smoking and Your Health (GEN), Obesity (GEN) Additional Instructions: Follow up with Dr. Saleh or someone from his office in 1 week. Get your labs done in 3 days. Follow up with [facility] for lymphedema treatment on April 14 at 1:30. Follow wound instructions. Out of work at least 1 week follow up with Dr. Saleh to decide if you need to stay out of work longer. BILATERAL PLANTAR SURFACE OF FEET--Apply ammonium lactate 12% to bilateral feet after cleansing BID. Elevate bilateral lower extremities as tolerated above heart level. Silver AG applied to left calf, change every 3 days if wet, if it is saturated change it daily and if is is holding on leave on for 7 days. Stand Alone Forms: Nursing Discharge Form Referrals: Marty Saleh MD [Primary Care Provider] - 04/09/19 8:20 am Charli Cain, PT [PHYSICAL THERAPIST] - 04/14/19 1:30 pm (lymphedema therapy) Activity:: Activity as Tolerated Equipment/Supplies:: No Equipment Needed Diet:: As Tolerated Discharge Orders Discharge Orders: Discharge Order (Routine); Ordered 04/05/19 Ordered By: Tegan Trujillo Other Ambulatory Orders: Basic Metabolic Panel (Routine) Location: Determined by Patient Ordered By: Tegan Trujillo Complete Blood Count w/Diff (Routine) Location: Determined by Patient Ordered By: Tegan Trujillo C-Reactive Protein (Routine) Location: Determined by Patient Ordered By: Tegan Trujillo Exam Narrative Exam Narrative: General: Very obese male, A&Ox3, in bed, appears well. HEENT: EOMI, MMM Cardiovascular: RRR, no m/r/g Lungs: diminished breath sounds B Gastrointestinal: abdomen is soft, nontender, nondistended Genitourinary: scrotum is not erythematous, L inner thigh erythema is improving receding from the outline Extremities: BLE edema with wrinkles, LLE with localized erythema to inner calf. RLE with venous stasis discoloration Chronic venous stasis changes BLE's in addition to above findings. DS: Data Vitals/I&O Vitals and I&O: Vital Signs Temperature 36.7 C 04/05/19 07:05 Temperature Source Tympanic 04/05/19 07:05 Pulse 76 04/05/19 07:05 Pulse Rhythm Regular 04/05/19 07:25 Pulse 92 H 03/30/19 13:20 Respiratory Rate 17 04/05/19 07:05 Respiratory Effort Non-Labored 04/05/19 07:25 Respiratory Depth Normal 04/05/19 07:25 Respiratory Pattern Normal 04/05/19 07:25 Blood Pressure 154/98 H 04/05/19 07:05 Blood Pressure Mean 88 03/30/19 11:02 Blood Pressure Position Supine 03/30/19 11:23 Pulse Oximetry 96 04/05/19 07:05 Oxygen Delivery Method Room Air 04/05/19 07:05 Oxygen Flow Rate 0 04/05/19 07:05 Pain Level 4 04/05/19 07:27 Comment 04/05/19 03:25 Intake & Output 04/04/19 04/04/19 04/05/19 11:59 23:59 11:59 Intake Total 750 / 2069.5 1319.5 / 2069.5 608 / 608 Output Total 900 / 2325 1425 / 2325 1775 / 1775 Balance -150 / -255.5 -105.5 / -255.5 -1167 / -1167 Weight 194 kg Intake: IV 100 / 489.5 389.5 / 489.5 108 / 108 Oral 650 / 1580 930 / 1580 500 / 500 Output: Urine 900 / 2325 1425 / 2325 1775 / 177 Other: Urine Color Yellow Yellow Yellow Urine Appearance Clear Clear Clear Urine Odor None None Normal Stool Size Large Stool Characteristics Formed Voiding Methods Urinal Urinal Urinal Completed studies during hospitalization [Text1]: linda(s) EXAM: CT Right Lower Extremity With Contrast EXAM DATE/TIME: 04/01/2019 10:07 AM CLINICAL HISTORY: 28 years old, male; Cellulitis and swelling, leg or foot; Ankle and calf and foot and knee and lower leg and thigh; Bilateral; Patient HX: Foot was cracked due to dryness, infection the following day, weeping cellulitis. ? Osteomyelitis; Additional info: Please read both legs, unable to generate order for bilat TECHNIQUE: Imaging protocol: CT of the Right lower extremity with intravenous contrast was performed. Coronal and sagittal reformatted images were created and reviewed. COMPARISON: CR XR tib/fib LT 03/29/2019 2:02 PM FINDINGS: Bones/joints: There is no evidence of acute fracture. No dislocation.There is no evidence of bone destruction, erosion or periosteal reaction. Soft tissues: There is diffuse infiltration of the subcutaneous fat which is most marked overlying the distal calf and hindfoot.No soft tissue gas densities are identified.There is no evidence of a radiopaque foreign body. There is no evidence of focal rim-enhancing encapsulated fluid collections to suggest drainable abscess formation. The muscle groups and deep fascial planes are intact. IMPRESSION: 1. No radiographic evidence of osteomyelitis. If there is a concern for osteomyelitis of the foot, dedicated x-rays of the foot or MRI is recommended. 2. Diffuse infiltration of the subcutaneous fat which could represent edema and/or cellulitis. Remainder of non-emergent findings as described above. Labs on day of discharge: Labs from last 24 hours 07/08/19 07/08/19 06:33 06:33 WBC 8.58 RBC 4.05 L Hgb 11.7 L Hct 36.1 L MCV 89.1 MCH 28.9 MCHC 32.4 RDW 13.9 Plt Count 291 MPV 9.3 Immature Gran % See Differential Neutrophils % 58.0 Band Neutrophils % 2.0 Lymphocytes % 26.0 Monocytes % 6.0 Eosinophils % 3.0 Basophils % 0.3 Metamyelocytes % 4.0 Myelocytes % 1.0 Absolute Neutrophils 5.15 Absolute Lymphocytes 2.23 Absolute Monocytes 0.51 Absolute Eosinophils 0.26 Absolute Basophils 0.03 Differential Comment Manual differential RBC Morphology Normal Sodium 138 Potassium 4.6 Chloride 101 Carbon Dioxide 35.1 H Anion Gap 1.9 L BUN 15 Creatinine 0.75 Estimated GFR/1.73 m2 >= 60.00 Glucose 89 Calcium 8.4 L Magnesium 1.8 C-Reactive Protein 2.25 H [facility] Medical History Obesity, morbid, BMI 50 or higher (Acute) Asthma (Chronic) Obstructive sleep apnea (Chronic) History of substance abuse Opiate dependence, continuous Family History Sister Mental disorder Grandfather Diabetes Grandmother Heart disease Maternal Uncle Mental disorder Mother COPD (chronic obstructive pulmonary disease) Social History Smoking/Tobacco Use Status: Current every day Tobacco Type: cigarettes Alcohol Intake: current Alcohol Intake frequency: 3 or more drinks per day Alcohol type: beer Counseling given: Yes Counseling provided: provider counseling Details: 7-12 drinks/day, last drink 3 days ago, denies withdrawal sx/seizures Drug use: Current Sobriety Substance use type: former substance user Details: 3 years free of herion; on suboxone therapy Do you feel safe at home: Yes Do you feel safe in your relationship?: Yes
--- NOTE | 2019-04-05 10:51 | PDOC.CMDIS ---
LACE Index Scoring Tool - Questions: Length of Stay (in days): 7 - 13 Acuity (Admit via E.D.?): Yes E.D. Visits: 7 - Answers: Total Score: 12 Risk of Readmission: High Risk Care Management Discharge Reason for Hospitalization: Sepsis due to BLE Cellulitis Discharge Plan: He is being discharged home today and will manage his own wound care with his mother's assistance. He has watched nurses treat the feet and legs and feels confident they can manage this at home. His mother is willing to assist. CM contacted [facility] and a follow-up appt was made for Friday04/09/19 at 8:30 AM. They can do follow-up if needed several times a week to assist with wound management, but are unable to do it BID. RN will call mother (who is unable to be here this AM) and review wound management with her. Patient/Family Education Needs: RN to review d/c instructions for wound management with patient and mother as well as instructions for meds and activity levels. Review of Ask me Now with patient.
[2019-04-05] MEDS: Bacitracin 1 PACKET (12:15)
--- NOTE | 2019-04-05 12:46 | CMDISCH_ITS ---
LACE Index Scoring Tool - Questions: Length of Stay (in days): 7 - 13 Acuity (Admit via E.D.?): Yes E.D. Visits: 7 - Answers: Total Score: 12 Risk of Readmission: High Risk Care Management Discharge Reason for Hospitalization: Sepsis due to BLE Cellulitis Discharge Plan: He is being discharged home today and will manage his own wound care with his mother's assistance. He has watched nurses treat the feet and legs and feels confident they can manage this at home. His mother is willing to assist. CM contacted [facility] and a follow-up appt was made for Friday04/09/19 at 8:30 AM. They can do follow-up if needed several times a week to assist with wound management, but are unable to do it BID. RN will call mother (who is unable to be here this AM) and review wound management with her. Patient/Family Education Needs: RN to review d/c instructions for wound management with patient and mother as well as instructions for meds and activity levels. Review of Ask me Now with patient.
== END 2019-04-05 12:45 | disposition home or self-care (01) | DRG 602 ==
LOC: ER 15:09 → ICU 16:31 → MS 03-30 14:24
PROVIDERS: Admitting Provider Internal Medicine; Emergency Provider Student in an Organized Health Care Education/Training Program; PCP Internal Medicine; Visit Provider Internal Medicine
DX: L03.116 Cellulitis of left lower limb (principal); A41.9 Sepsis, unspecified organism; J45.901 Unspecified asthma with (acute) exacerbation; Z68.43 Body mass index [BMI] 50.0-59.9, adult; F11.20 Opioid dependence, uncomplicated; E66.2 Morbid (severe) obesity with alveolar hypoventilation; L03.115 Cellulitis of right lower limb; G47.33 Obstructive sleep apnea (adult) (pediatric); R78.2 Finding of cocaine in blood; F10.10 Alcohol abuse, uncomplicated; E83.42 Hypomagnesemia; Z91.19 Patient's noncompliance with other medical treatment and regimen; R09.02 Hypoxemia; F17.210 Nicotine dependence, cigarettes, uncomplicated; Z71.3 Dietary counseling and surveillance
CPT/HCPCS: 36415; 36416; 36569; 73552; 80048; 80053; 80307; 82962; 84145; 87040; 87389; 96361; 96365; 96366; 97162; 97166; 97530; 99223; 99232; 99233; 99239; 99285; J1650; 73590; 73701; 80202; 81003; 81015; 82565; 83605; 83735; 84156; 84443; 84484; 85025; 86140; 87086; 93970; 99284; J0690; J1885; J1941; J3475; J3490; J7512; J7620; Q9967

== ENCOUNTER 2019-04-13 10:44 | Inpatient (IN) | payer OTHER, SELFPAY ==
--- NOTE | 2019-04-13 10:48 | NUR.NOTE ---
Nursing Note: pt was seen in our ER and admitted to ICU/ medical for 7days for cellulites of left leg pt was discharged on the . pt is here today because left leg has slowly been getting worse pt has 6/10 pain in left leg from foot to knee. redness from left foot to upper thigh
[2019-04-13 10:51] VITALS: BP 137/76; PULSE 91; RESP 18; TEMP 36.8; O2SAT 94
--- NOTE | 2019-04-13 11:08 | W.ED.GENAD ---
Discharge Plan Disposition Patient Disposition: [facility] INPATIENT Condition: Stable Discharge Details Chief Complaint: Cellulitis Clinical Impression: Cellulitis of left leg Admit Date/Time: 04/13/19 14:01 Admit Provider: Fernanda David Attending Provider: Fernanda David Primary Care Provider: Marty Saleh ED Provider: Nannette Guerra Medical Decision Making Patient is a 28-year-old male who was recently admitted for left lower extremity cellulitis. He presents today for recurrence of his symptoms. Patient was admitted here on the first and discharged on the eighth. States that since being discharged, he is continue to take the Keflex as previously prescribed. Despite this, the erythema on the leg is continued to move proximally. Erythema is now almost to the groin with associated edema and pain. No fevers. Patient has been trying to follow a more appropriate diet, has cut out alcohol, stop smoking. Denies any substance abuse. No recent trauma. Was seen by his primary care physician who advised that he come to the emergency department for evaluation. Labs concerning for slight tachycardia of 91. He appears nontoxic, does not appear to be septic as he had been on his previous admission. However, the left lower extremity is notably edematous, erythematous with pain on palpation. He does have a small opening in the medial left calf with a thick yellow drainage that may be cultured. Plan to culture this at this time. He has pain diffusely about the leg with erythema circumferentially. Patient has pitting edema to the contralateral side as well. Plan to hydrate the patient, give IV Lasix and begin antibiotics. We will culture the wound, obtain blood cultures and repeat laboratory evaluation At the time of recent discharge, the patient's CRP had gone down to 2, is back up to 6 at this time. He does not have a white count. He is slightly anemic. Lactate is 0.5. Ultrasound obtained, reviewed by wet process technician with no DVT or abscess noted. Consulted with hospitalist regarding admission for recurrence of LLE edema, cellulitis. Does not appear to be septic at this point. Dr. David agrees to admission. Patient received Lasix, fluids and Vanco while here. Discussed long-term care of BLE edema. He agrees to f/u which he has not attended historically. Impressed upon him the importance of weight loss. He reports that he has stopped ETOH, has improved diet and feels that he has lost weight. HPI General Mode of arrival: ambulatory. Date/Time Provider Initiated Documentation: 04/13/19 10:51. Limitations to Documentation: no limitations. Information obtained by: patient, family (accompanied by father) and RN notes reviewed. History of Present Illness 28 year old M presents to the emergency department with the chief complaint of LLE swelling, erythema, warmth, pain, described as moderate, with intensity rated at 6. Quality is described as aching, and is localized to the left and lower extremity. Patient reports no radiation. Patient started experiencing this day(s) and it has been constant. No relieving factors improve symptom(s), No exacerbating factors reported . Patient notes rash (erythema); denies chest pain, cough, fever/chills, headaches, loss of appetite, nausea/vomiting, shortness of breath and weakness. Patient did receive the following treatments prior to arrival, other (patient has been taking Keflex as prescribed) Related Data Home Medications Medication Instructions Recorded Confirmed albuterol sulfate 2 puff INHALATION PRN PRN 03/29/19 04/13/19 buprenorphine-naloxone [Suboxone] 0.5 film SUBLINGUAL DAILY 03/29/19 04/13/19 ammonium lactate 1 applic TOPICAL BID #222 gm 04/05/19 04/13/19 cephalexin [Keflex] 500 mg PO QID #56 cap 04/05/19 04/13/19 foam bandage [Mepilex Border] #5 each 04/05/19 04/13/19 ibuprofen [IBU] 800 mg PO Q8H #30 tab 04/05/19 04/13/19 omeprazole 20 mg PO DAILY #30 cap 04/05/19 04/13/19 Previous Rx's Medication Instructions Recorded ammonium lactate 1 applic TOPICAL BID #222 gm 04/05/19 cephalexin [Keflex] 500 mg PO QID #56 cap 04/05/19 foam bandage [Mepilex Border] #5 each 04/05/19 ibuprofen [IBU] 800 mg PO Q8H #30 tab 04/05/19 omeprazole 20 mg PO DAILY #30 cap 04/05/19 Allergies Allergy/AdvReac Type Severity Reaction Status Date / Time No Known Allergies Allergy Unverified 04/13/19 10:52 General Stated Complaint: Cellulitis GIL: 3 Review of Systems Constitutional Reports as per HPI, Denies chills, Denies fever(s), Denies headache(s) and Denies weakness ENT Denies headache(s) Cardiovascular Reports as per HPI Respiratory Reports as per HPI and Denies cough Musculoskeletal Reports as per HPI and Denies tingling Integumentary/Breasts Reports as per HPI and Reports erythema Neurologic Reports as per HPI, Denies headache(s), Denies tingling, Denies paresthesias and Denies weakness [facility] Medical History Asthma (Chronic) History of substance abuse Obesity, morbid, BMI 50 or higher (Acute) Obstructive sleep apnea (Chronic) Opiate dependence, continuous Social History Smoking/Tobacco Use Status: Current every day Tobacco Type: cigarettes Alcohol Intake: former Counseling given: Yes Counseling provided: provider counseling Details: 7-12 drinks/day, last drink 3 days ago, denies withdrawal sx/seizures Drug use: Daily Substance use type: former substance user and marijuana Details: 3 years free of herion; on suboxone therapy Do you feel safe at home: Yes Do you feel safe in your relationship?: Yes Exam Const General: cooperative, comfortable, no acute distress, well developed, well groomed and ill appearing chronically Nutritional Appearance: well nourished and obese Orientation: alert and awake Resp Effort & Inspection: normal respiratory effort, able to speak in complete sentences and no respiratory distress Auscultation: clear to auscultation bilaterally Cardio Rate: regular rate Rhythm: regular rhythm Heart Sounds: S1 normal and S2 normal Skin General skin exam: crusts (Patient has peeling posterior scabs to LLE), erythema (Patient is a large area of erythema to the left lower extremity, circumfere), no fluctuance and induration Neuro General: alert and awake Cognition: normal cognition Speech: speech normal Gait: normal gait Motor: muscle tone normal throughout Sensory Exam: no sensory deficits noted Extrem Left lower extremity: normal capillary refill and edema Details: pitting (BLE, L>R) Upper/lower leg/hip images: 1. 2. areas of erythema Psych Appearance: grossly normal and well kempt Mental Status: mental status grossly normal Speech and Movement: speech and movement normal Course Vital Signs Temperature 36.8 C 04/13/19 10:51 Pulse 91 H 04/13/19 10:51 Respiratory Rate 18 04/13/19 10:51 Blood Pressure 137/76 04/13/19 10:51 Pulse Oximetry 94 L 04/13/19 10:51 Temperature 36.8 C 04/13/19 10:51 Temperature Source Skin 04/13/19 10:51 Pulse 91 H 04/13/19 10:51 Respiratory Rate 18 04/13/19 10:51 Respiratory Effort 04/13/19 10:53 Blood Pressure 137/76 04/13/19 10:51 Blood Pressure Position Sitting 04/13/19 10:51 Pulse Oximetry 94 L 04/13/19 10:51 Oxygen Delivery Method Room Air 04/13/19 10:51 Oxygen Flow Rate 0 04/13/19 10:51 Pain Level 6 04/13/19 10:51
[2019-04-13 11:41] LABS: Lactate 0.5 mmol/L (0.6-1.4)
--- NOTE | 2019-04-13 11:41 | DI.US_ITS ---
SYMPTOMS/DIAGNOSIS: CALF PAIN, INFECTION, SWELLING LEFT LOWER EXTREMITY ULTRASOUND: The study is somewhat limited due to patient body habitus. The deep veins of the left lower extremity show normal compression, augmentation and color flow. No evidence of a deep venous thrombus is identified. There is no evidence of a superficial vein thrombus or galan's cyst. There is a 5 cm lymph node in the left inguinal region. IMPRESSION: No evidence of a left lower extremity deep venous thrombus. The findings were discussed with the emergency department on the date of the examination.
[2019-04-13 11:45] LABS: Abs Immature Grans 0.02 k/cumm (0.0-0.09); Absolute Basophil Count 0.13 k/cumm (0.0-0.2); Absolute Eosinophil Count 0.09 k/cumm (0.0-0.7); Absolute Lymphocyte Count 1.64 k/cumm (1.2-3.4); Absolute Monocyte Count 0.72 k/cumm (0.11-0.7); Basophils % 1.5; HCT 34.1 % (40.0-50.0); HGB 11.4 g/dL (13.5-17.5); Immature Grans % 0.2; Lymphocytes % 18.9; Mean Corp. HGB Concentration 33.4 g/dL (32.0-36.0); Mean Corpuscular Hemoglobin 29.1 pg (27.0-33.0); Mean Platelet Volume 9.1 fL (8.0-11.0); Monocytes % 8.3; Neutrophils % 70.1; Platelet Count 308 x1000/uL (130-400); RBC 3.92 m/cumm (4.50-6.00); RBC Distribution Width 13.1 % (11.8-14.1)
[2019-04-13 12:00] LABS: C-Reactive Protein 6.78 mg/dL (0.0-0.3)
[2019-04-13 12:07] LABS: ALT 35 U/L (12-78); AST 16 U/L (15-37); Albumin 2.9 g/dL (3.4-5.0); Alkaline Phosphatase 65 U/L (46-116); Anion Gap 8.3 mmol/L (3-11); BUN 18 mg/dL (7-18); Bilirubin, Total 0.3 mg/dL (0.2-1.0); CO2 27.7 mmol/L (21.0-32.0); CREATININE 0.64 mg/dL (0.70-1.30); Calcium 8.9 mg/dL (8.5-10.1); Chloride 101 mmol/L (98-107); Glucose 105 mg/dL (70-100); Magnesium 1.8 mg/dL (1.8-2.4); Potassium 4.2 mmol/L (3.5-5.1); Sodium 137 mmol/L (136-145); Total Protein 8.7 g/dL (6.4-8.2)
[2019-04-13 12:08] LABS: Troponin I < 0.05 ng/mL (0.00-0.06)
[2019-04-13] MEDS: VANCOMYCIN 2,000 MG in Normal Saline 500 ML 250 MG IVPB ×2 (12:11→20:36)
[2019-04-13] MEDS: Furosemide 40 MG/4 ML VIAL IVP (12:16)
--- NOTE | 2019-04-13 15:01 | NUR.NOTE ---
report given to RN prior to admission pt to floor via iliana and RN and POT PULLER Nursing Note:
[2019-04-13 15:20] VITALS: BP 132/88; PULSE 96; RESP 20; TEMP 37.2; O2SAT 96
[2019-04-13 15:56] VITALS: BP 132/88; PULSE 96; RESP 20; TEMP 37.2; O2SAT 96
[2019-04-13] MEDS: Acetaminophen 325 MG TAB PO (17:03)
[2019-04-13] MEDS: Enoxaparin 40 MG/0.4 ML SYR SC (17:23)
[2019-04-13] MEDS: ceFAZolin 2,000 MG in Normal Saline 100 ML 200 MG IVPB ×2 (17:23→23:21)
--- NOTE | 2019-04-13 18:14 | NUR.NOTE ---
Pt in wheelchair awaiting X-Ray, pt and Mom upset had to wait 30 min and states there upset with the care they are receiving. States has been waiting 3 hours for pain medicine, medicated with 650mg Tylenol. Also states just don't feel good and feel cold now. Checked temp 38, automobile racer notified. 30 min later pt resting quietly and appears comfortable in bed.
--- NOTE | 2019-04-13 18:39 | W.PM.HP.N ---
Date of service: 04/13/19 Time of Service: 15:00 Assessment and Plan (1) Cellulitis of left lower extremity: Current visit: Yes Status: Acute Failed outpatient therapy. Given that he now has wounds on LLE, these were cultured. Vancomycin/cefazolin resumed. Blood cultures obtained. Trend CRP. Obtain wound care consult. I feel that the lymphedema makes oral therapy less effective. Will discuss with case management - could benefit from completing course of IV antibiotics until resolution of disease. (2) Opioid dependence: Current visit: No Status: Chronic Continue suboxone (3) Obstructive sleep apnea: Current visit: No Status: Chronic Monitor respiratory status (4) Normocytic anemia: Current visit: Yes Status: Acute Obtain anemia studies (5) DVT prophylaxis: Current visit: Yes Status: Acute Lovenox (6) Discharge planning issues: Current visit: Yes Status: Acute May require IV antibiotics until resolution of disease History of Present Illness Chief Complaint: Worsening left leg swelling and redness Narrative: Mr Marrero is a 28 year old obese male with PMHx of BLE lymphedema, as well as asthma, GERI (not using CPAP), opiate dependence on suboxone therapy, who was discharged from our service on 04/05/19 after an admission for severe BLE cellulitis with a prescription for keflex, who was sent to [facility] ED today from his PCP's office with worsening LLE erythema and edema, despite compliance with above outpatient regimen. The patient states that he started to feel weak again yesterday and today, that the discomfort in his leg has worsened, and that he now has wounds in the leg. The wounds were cultured in the ED. In ED, he was afebrile and had a normal white count; however, cellulitis was indeed felt to be worse. We were asked to admit the patient for further care. He was reinitiated on vancomycin/cefazolin which seemed to have been beneficial on previous admission. Review of Systems Review of Systems 12 systems reviewed. Pertinent positives and negatives are as per HPI. In addition, the patient states he has not had any alcohol since being discharged from the hospital, stopped drinking soda, bought salad and lean cousines and has really been trying to make life style modifications. Denies fever at home; states temperature was 100.7 at the [facility] office. [facility] Medical History (Updated 04/13/19 @ 19:07 by Fernanda David MD) Asthma (Chronic) Bilateral cellulitis of lower leg (Acute) History of substance abuse Lymphedema of both lower extremities (Acute) Obesity, morbid, BMI 50 or higher (Acute) Obstructive sleep apnea (Chronic) Opiate dependence, continuous Social History Smoking/Tobacco Use Status: Current every day Tobacco Type: cigarettes Alcohol Intake: former Counseling given: Yes Counseling provided: provider counseling Details: 7-12 drinks/day, last drink 3 days ago, denies withdrawal sx/seizures Drug use: Daily Substance use type: former substance user and marijuana Details: 3 years free of herion; on suboxone therapy Do you feel safe at home: Yes Do you feel safe in your relationship?: Yes Meds Home Medications Medication Instructions Recorded Confirmed Type albuterol sulfate 2 puff INHALATION PRN PRN 03/29/19 04/13/19 History buprenorphine-naloxone [Suboxone] 0.5 film SUBLINGUAL DAILY 03/29/19 04/13/19 History ammonium lactate 1 applic TOPICAL BID #222 gm 04/05/19 04/13/19 Rx cephalexin [Keflex] 500 mg PO QID #56 cap 04/05/19 04/13/19 Rx foam bandage [Mepilex Border] #5 each 04/05/19 04/13/19 Rx ibuprofen [IBU] 800 mg PO Q8H #30 tab 04/05/19 04/13/19 Rx omeprazole 20 mg PO DAILY #30 cap 04/05/19 04/13/19 Rx Allergies Allergy/AdvReac Type Severity Reaction Status Date / Time No Known Allergies Allergy Unverified 04/13/19 10:52 Exam Narrative Exam Narrative: General: Very pleasant obese male, sitting up in bed, elevating his LLE Neurological: A&Ox3, no focal deficits Psychiatric: appropriate speech pattern/content Skin: RLE with chronic venous stasis and no visible cellulitis; LLE with cellulitis up to mid-thigh, looks more erythematous than when I last saw him. 3 wounds noted on medial side of L calf, appear scabbed over, no active drainage seen HEENT: Atraumatic, normocephalic, EOMI, MMM, clear oropharynx, no submandibular or cervical lymphadenopathy, no goiter or JVD Cardiovascular: RRR, no m/r/g Lungs: CTAB Gastrointestinal: abdomen is soft, nontender, nondistended Extremities: BLE lymphedema, poor foot hygiene, see skin exam above Results Imaging Additional studies: Venous doppler LLE: No evidence of a left lower extremity deep venous thrombus. XR tib/fib is done; read pending Labs : 04/13/19 11:35 04/13/19 11:35 Laboratory Results - last 24 hr 04/13/19 04/13/19 04/13/19 11:35 11:35 11:35 WBC 8.70 RBC 3.92 L Hgb 11.4 L Hct 34.1 L MCV 87.0 MCH 29.1 MCHC 33.4 RDW 13.1 Plt Count 308 MPV 9.1 Immature Gran % 0.2 Neutrophils % 70.1 Lymphocytes % 18.9 Monocytes % 8.3 Eosinophils % 1.0 Basophils % 1.5 Absolute Neutrophils 6.10 Absolute Lymphocytes 1.64 Absolute Monocytes 0.72 H Absolute Eosinophils 0.09 Absolute Basophils 0.13 Sodium 137 Potassium 4.2 Chloride 101 Carbon Dioxide 27.7 Anion Gap 8.3 BUN 18 Creatinine 0.64 L Estimated GFR/1.73 m2 >= 60.00 Glucose 105 H Lactate Calcium 8.9 Magnesium 1.8 Total Bilirubin 0.3 AST 16 ALT 35 Alkaline Phosphatase 65 Troponin I < 0.05 C-Reactive Protein 6.78 H Total Protein 8.7 H Albumin 2.9 L 04/13/19 11:35 WBC RBC Hgb Hct MCV MCH MCHC RDW Plt Count MPV Immature Gran % Neutrophils % Lymphocytes % Monocytes % Eosinophils % Basophils % Absolute Neutrophils Absolute Lymphocytes Absolute Monocytes Absolute Eosinophils Absolute Basophils Sodium Potassium Chloride Carbon Dioxide Anion Gap BUN Creatinine Estimated GFR/1.73 m2 Glucose Lactate 0.5 L Calcium Magnesium Total Bilirubin AST ALT Alkaline Phosphatase Troponin I C-Reactive Protein Total Protein Albumin Last Vital Signs Temp 37.2 C 04/13/19 15:56 Pulse 96 H 04/13/19 15:56 Resp 20 04/13/19 15:56 BP 132/88 04/13/19 15:56 Pulse Ox 96 04/13/19 15:56
[2019-04-13 20:32] VITALS: BP 148/72; PULSE 91; RESP 18; TEMP 37.3; O2SAT 95
[2019-04-13] MEDS: Lachydrin 12% LOTION 225 GM BTL TP (20:35)
[2019-04-13] MEDS: Normal Saline Flush 10 ML SYR IVP (20:37)
[2019-04-14] VITALS (11 sets, daily range): BP systolic 112–151; BP diastolic 65–89; PULSE 70–100; RESP 16–20; TEMP 36–38.6; O2SAT 92–98
[2019-04-14] MEDS: Acetaminophen 325 MG TAB PO ×4 (00:21→19:58)
[2019-04-14] MEDS: VANCOMYCIN 2,000 MG in Normal Saline 500 ML 250 MG IVPB ×3 (03:48→19:47)
[2019-04-14 07:22] LABS: Abs Immature Grans 0.01 k/cumm (0.0-0.09); Absolute Basophil Count 0.02 k/cumm (0.0-0.2); Absolute Eosinophil Count 0.12 k/cumm (0.0-0.7); Absolute Lymphocyte Count 0.92 k/cumm (1.2-3.4); Absolute Monocyte Count 0.41 k/cumm (0.11-0.7); Basophils % 0.4; Eosinophils % 2.2; HCT 32.9 % (40.0-50.0); HGB 10.7 g/dL (13.5-17.5); Immature Grans % 0.2; Lymphocytes % 16.5; Mean Corp. HGB Concentration 32.5 g/dL (32.0-36.0); Mean Corpuscular Hemoglobin 28.6 pg (27.0-33.0); Mean Platelet Volume 9.3 fL (8.0-11.0); Monocytes % 7.4; Neutrophils % 73.3; Platelet Count 250 x1000/uL (130-400); RBC 3.74 m/cumm (4.50-6.00); RBC Distribution Width 13.5 % (11.8-14.1); White Blood Cell Count 5.57 k/cumm (4.4-10.8)
[2019-04-14 07:29] LABS: Absolute Neutrophil Count 4.08 k/cumm (1.2-6.7)
[2019-04-14 07:33] LABS: Anion Gap 10.2 mmol/L (3-11); BUN 15 mg/dL (7-18); C-Reactive Protein 7.87 mg/dL (0.0-0.3); CO2 25.8 mmol/L (21.0-32.0); CREATININE 0.61 mg/dL (0.70-1.30); Calcium 8.6 mg/dL (8.5-10.1); Chloride 102 mmol/L (98-107); Glucose 95 mg/dL (70-100); Magnesium 1.8 mg/dL (1.8-2.4); Potassium 3.8 mmol/L (3.5-5.1); Sodium 138 mmol/L (136-145)
[2019-04-14] MEDS: ceFAZolin 2,000 MG in Normal Saline 100 ML 200 MG IVPB ×3 (07:51→23:48)
[2019-04-14] MEDS: Lachydrin 12% LOTION 225 GM BTL TP ×2 (07:52→19:47)
[2019-04-14] MEDS: Buprenorphine/Naloxone 12 mg/3 mg FILM 0.5 EACH SL (07:52)
[2019-04-14] MEDS: Omeprazole 20 MG CAPCR PO (07:52)
--- NOTE | 2019-04-14 10:21 | OT.INIE ---
Occupational Therapy Notes Inpatient Occupational Therapy Evaluation Date: Referring Doctor: Fernanda David MD OT Orders: Eval and Treat Precautions: Fall, Standard PATIENT PROFILE/ADMITTING DIAGNOSIS: Pt is a 28 year old male who presented to the ER on 03/29/19 for cellulitis (L) LE. Pt has had on-going issues in his LE for almost a year now, he states he has been retaining fluid and has had excessive drainage on and off. He states that when it does drain he feels better. He notes that he has gone to the doctor multiple times and feels that the cellulitis never fully healed from prior admission. He states that his pain is almost unbearable at this time that even his suboxine is not helping him. Past Medical History: Obesity, morbid, BMI 50 or higher (Acute) Asthma (Chronic) Obstructive sleep apnea (Chronic) History of substance abuse Opiate dependence, continuous Social History/Home Situation: Pt lives in an apartment near [facility]. He notes that it is a one floor. He has a tub/shower combination which he says is very small to the point where he has to turn sideways in order to get into it. Functionally pt states that he is totally (I) in his ADL/IADL routines when his (B) Legs are not swollen or sore. He works at [employer] reporting that at times is legs swell so bad that he can't get his pants on. He does not drive he gets (A) for driving from his parents or friends so he is able to get groceries, get to appts etc.. Pt states that if he did not have pain in his (B) LE he would be able to perform all ADLs (I). Equipment owned/DME: None SUBJECTIVE: Pt was sitting in bed when OT arrived. He is agreeable to OT session but states that he does not feel that much has changed since the last time he saw OT. OBJECTIVE: General Observation: (B) LE edema and redness Mental Status: A&Ox3 Pain: C/o pain in (L) LE with any functional movements or bed mobility. Increased redness into his groin and to his toes on his (L) LE. ROM: RUE AROM WNL L UE AROM WNL STRENGTH: RUE Shoulder flexion 5/5, bicep 4+/5, tricep 5/5, undercollar maker is strong and symmetrical LUE Shoulder flexion 5/5, bicep 4+/5, tricep 5/5, undercollar maker is strong and symmetrical FUNCTIONAL MOBILITY/ADLS: Pt does not want to perform ADLs and states that it is not his ADLs that are the issues he feels he is dealing with. BALANCE: Static sitting Normal Dynamic Sitting Normal SPECIAL TESTS: Daily Activity Limitations Standardized Measure [facility] AM -PAC ?6 clicks? Daily Activity Inpatient Short Form: Raw score: 21 Standardized score: 44.27 CMS score: 32.79% INFORMED CONSENT/EDUCATION: Pt instructed in purpose of OT Consult and plan of care. ASSESSMENT: Patient is a 28-year-old referred to occupational therapy services with diagnosis of cellulitis (L) LE. Patient presents with clinical signs and symptoms consistent with dx. Pt notes that besides the pain in his (B) LE he is functional (I) in ADLs/IADLs. He is able to demonstrate this with functional AROM and strength in (B) UE. He is restricted in (L) LE movements based on current condition. Pt states that he feels he will be (I) once his sepsis and cellulitis is controlled. Functionally due to this OT does not feel that pt would not benefit from skilled OT services at this time. Pt has been performing his ADLs/IADLs (I) for the most part besides driving since yesterday. OT did discuss with pt use of chair or bench for the shower to decrease pressure and strain on his (B) LE while performing his bathing routine at last admission to [facility] 8 days ago. Pt continues to deny the need for this and reports that he has a small tub and he is able to get in and out without this. Pt notes that he would like to return to work, based on his pain and functional standing tolerance right now this will continue to be limiting however pt notes he has been going to work for the past couple months with pain in his (B) LE and did not have any issues. Due to pts current condition OT feels that pt would benefit from outpatient lymphedema tx when medically cleared per MD. Pt states that his pain and cellulitis are more of his concern at this time. He would like to go to work to get back on a routine to help him continue to make positive choices. AMPAC score 21, CMS score 32.79% Patient is assessed as a Moderate 83699 complexity based on the following: History: See Above Examination: See Above Presentation: Evolving Decision Making: AMPAC score 21, CMS score 32.79% GOALS N/A PLAN OF CARE/TREATMENT PLAN: OT consult only. DISCHARGE RECOMMENDATIONS OT recommends that pt return home when medically cleared per MD with follow up in outpatient setting for (B) LE lymphedema. TREATMENT TIME/MINUTES/CODES 98015, 09:45 (15 minutes) Caro Santana OTR/L [facility]
[2019-04-14] MEDS: Ibuprofen 800 MG TAB PO ×3 (10:56→23:48)
--- NOTE | 2019-04-14 11:09 | WOUNDCARE ---
Wound Care Report Pt is a 28 year old male consulted for LLE cellulitis. Chart reviewed, including H&P, recent labs, and vital signs, and other providers? reports. Medical Hx and labs pertinent to wound healing: Wound Hx if applicable This is Pt?s second admission for same diagnosis on effected limb. Wound Assessment Findings Effected area measures approximately 15x7x0.1 . Skin is red and warm w/small areas of purple noted. Large crust noted. Skin cleansed with debrisoft pad, crust loosened and removed. Scattered areas of superficial skin loss noted after cleansing, see wound photo. Small 1x0.9x0.1 partial thickness circular wound noted superior to where crusts were present. Wound bed 100% non-granulating tissue. Indicators of infection present? Yes, cellulitis on LLE. Positive blood cultures. Patients Mobility status independent Nutritional Status- Pain Descriptors: reports stinging on LLE. Current Topical Treatment plan: wash LLE. Compliance with care plan Patient/family/staff education: Pt educated on importance of keeping feet clean and wearing shoes. Feet were black with dirt upon admission. Also educated on importance of elevation on effected extremity. Physician/nurse practitioner notification Dr. David notified of recommendations Recommendations: Wash LLE w/soap and water. Pat dry. Tegaderm absorbent applied to partial thickness circular wound on left medial calf on 04/14/19. Leave in place, change on 04/28/19 and PRN. D/C tx when wound is healed. Thank you for the consult.
[2019-04-14 12:07] LABS: Vancomycin, Trough 17.5 ug/mL (10.0-20.0)
--- NOTE | 2019-04-14 12:12 | INITIAL_ITS ---
Care Management Initial Assess REASON FOR HOSPITALIZATION:: Worsening cellulitis LLE, Failure of Outpatient antibiotic therapy. PAST MEDICAL HISTORY/PAST SURGICAL HISTORY:: Opioid dependence, substance abuse, morbid obesity, GERI, Sepsis, Hypomagnesemia, alcohol abuse, asthma with acute exacerbation, Lymphedema of both lower extremities, cellulitis of left and right lower limbs, BMI 50-59.9, current everyday smoker. Mr Marrero is a 28 year old obese male with PMHx of BLE lymphedema, as well as asthma, GERI (not using CPAP), opiate dependence on suboxone therapy, who was discharged from our service on 04/05/19 after an admission for severe BLE cellulitis with a prescription for keflex, who was sent to [facility] ED today from his PCP's office with worsening LLE erythema and edema, despite compliance with above outpatient regimen. The patient states that he started to feel weak again yesterday and today, that the discomfort in his leg has worsened, and that he now has wounds in the leg. The wounds were cultured in the ED. In ED, he was afebrile and had a normal white count; however, cellulitis was indeed felt to be worse. We were asked to admit the patient for further care. He was reinitiated on vancomycin/cefazolin which seemed to have been beneficial on previous admission. PREVIOUS FUNCTIONAL STATUS/SOCIAL/FAMILY SUPPORTS:: Abelardo resides alone in [place], [place]. He works at [employer] in [place], [place] and reports his parents as primary suppports. 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 He reports not drinking alcohol since being discharged from the hospital, stopped drinking soda, bought salad and lean cusines and has really been trying to make life style modifications. CURRENT FUNCTIONAL STATUS:: Abelardo was being wheeled in a W/C downstairs by his RN when CM greeted him. Later in the afternoon, Abelardo was lying in bed and struggled to keep his eyes open and engage with this board writer. He did report that he had taken a few weeks off due to this illness. He shared frustrations around the amount of staff coming into his room and the times he has had his blood drawn. ADVANCE DIRECTIVES:: None on file. Has patient been provided with information about the portal?: Yes Did the patient sign up for the portal?: No CODE STATUS:: Full Code INSURANCE COVERAGE / FINANCIAL ISSUES:: [employer]/no SWB coverage; CM spent 75 minutes attempting to coordinate prior-auth for [employer] coverage. Result; [employer] reports in network for SNF, CM spoke with Sabrina ref#[id number]. CURRENT HOME/COMMUNITY SERVICES/EQUIPMENT:: No current services or equipment. PRIMARY CARE PHYSICIAN:: Marty Saleh POTENTIAL DISCHARGE NEEDS:: Follow up appointment with PCP, extended IV ABX therapy [id number]. PATIENT/FAMILY EDUCATION NEEDS:: Review of discharge instructions, discuss Ask Me Three. ANTICIPATED BARRIERS TO DISCHARGE:: None identified. TRANSPORTATION:: Via private vehicle with family. PLAN:: Abelardo will return home when ready per MD, anticipate MD direction in extended course of IV ABX. CM will continue to follow and support discharge planning considerations.
--- NOTE | 2019-04-14 13:20 | DI.RAD_ITS ---
SYMPTOMS/DIAGNOSIS: CELLULITIS, RISING CRP, SUSPICION FOR OM LEFT LEG: Diffuse edema involving the soft tissues of the left leg are demonstrated. No bony or joint abnormality is seen.
--- NOTE | 2019-04-14 13:49 | IN_ITS ---
Date of service: 04/14/19 Time of Service: 13:26 PT Notes Inpatient Physical Therapy Evaluation Date: 04/14/2019 Referring Doctor: Fernanda David MD PT Orders: PT CONSULT: Eval/treat Precautions: Fall. Standard. Patient Profile/Admitting Diagnosis: Patient is a 28-year-old male with medical history significant for asthma, IV drug use currently on Suboxone, and opiate dependence who presented to the ED on 04/13/2019 with recurrence of L LE cellulitis due to failed out-patient antibiotic therapy. Patient was recently seen as an acute care patient from 03/30/2019 through 04/02/2019 for functional mobility training. Patient is diagnosed with recurrent cellulitis of left LE, opioid dependence, and normocytic anemia. Referral for physical therapy was made in order to address any impairments in strength, balance, and mobility level. PMHX: Medical History Obesity, morbid, BMI 50 or higher (Acute) Asthma (Chronic) Obstructive sleep apnea (Chronic) History of substance abuse Opiate dependence, continuous Social History/Home Situation: Abelardo lives in a 1-floor apartment with no steps to enter here in [place], [place]. He has been independent with all aspects of ADLs without the need for assistive device nor adaptive equipment. He works currently at [employer] in [place]. Patient's chart there was a previous scheduled appointment last year for a lymphedema evaluation treatment that patient did not show up that appointment. Patient does not drive and receives assistance from friends and apparently is to perform his basic care needs transportation needs. Current Functional Limitations: Patient is at baseline level with level surface ambulation for up to 100 feet without an assistive device with supervision assist Equipment Owned/DME: None Subjective: Abelardo is agreeable to a PT consult and evaluation today. Patient states that he could move but movement hurts. He hopes to go home and be able to go back to work as soon as he is able to. He denies any dizziness, chest pain, headache, throughout PT session for today. Mobility level?[place] patient states that nothing has changed except for his leg hurting with mobility performance. Objective: General Observation: Patient seen going out of the bathroom with nurse. Postop shoes on bilateral feet for support. Left leg purplish, mildly warm, and swollen. Open areas seen on posterior medial left leg covered with wound dressing, bilateral soles of feet cracked . Patient continues to appear negle ctful of physical hygiene. Mental Status: Alert and oriented x4 Pain: Reports 4-5/10 on bilateral lower extremities after ambulation activity ROM: Right Upper Extremity: Shoulder Flexion WFL. Shoulder abduction WFL. Elbow flexion WFL. Wrist flexion WFL. Functional opening and closing of hand WFL. Left Upper Extremity: Shoulder Flexion WFL. Shoulder abduction WFL. Elbow flexion WFL. Wrist flexion WFL. Functional opening and closing of hand WFL. Right Lower Extremity: Hip flexion WFL. Hip abduction WFL. Knee flexion 0-90 limited by swelling. Knee full extension achievable but accompanied by pain. Ankle dorsiflexion WFL. Ankle plantarflexion WFL. Left Lower Extremity: Hip flexion WFL. Hip abduction WFL. Knee flexion 0-90. Knee full extension achievable but accompanied by pain. Ankle dorsiflexion 0-20. Ankle plantarflexion WFL. Strength: Right Upper Extremity: Shoulder flexors 5/5. Shoulder abductors 5/5. Elbow flexors 5/5. Elbow extensors 5/5. Multiple Drum Sander strong. Left Upper Extremity: Shoulder flexors 5/5. Shoulder abductors 5/5. Elbow flexors 5/5. Elbow extensors 5/5. Multiple Drum Sander strong. Right Lower Extremity: Hip flexors 4/5. Hip abductors 4/5. Knee flexors 4/5. Knee extensors 4-/5. Ankle dorsiflexors 4/5. Ankle plantarflexors 4/5. Left Lower Extremity:Hip flexors 4/5. Hip abductors 4/5. Knee flexors 3-/5. Knee extensors 4-/5. Ankle dorsiflexors 3-/5. Ankle plantarflexors 4-/5. Sensation: Intact as to pain and pressure on bilateral lower extremities. Bed Mobility/Transfers: Rolling independent Supine to sit independent Sit to supine independent Sit to stand independent Stand to sit independent Bed to chair independent Chair to bed independent Gait: Patient tolerated level surface ambulation of 120 feet with nursing staff using FWW with WBAT on BLE requiring only supervision with observed decreased step height in length due to report of pain and swelling on bilateral legs Balance: Static Sitting: Good Dynamic Sitting: Good Static Standing: Good Dynamic Standing: Fair Special Tests: Mobility Limitations Standardized Measure [facility]-PAC 6 clicks Basic Mobility Inpatient Short Form: Raw Score: 18 CMS Score: 47% deficit Informed Consent/Education: Patient instructed in purpose of PT consult and on recommendations for complete decongestive therapy once infection is resolved. Assessment: 28-year-old male with diagnosis of bilateral lower extremities cellulitis. Patient is at baseline as far as ambulation short distance ambulation and mobility level is concerned. Patient presents with clinical signs and symptoms consistent with current/admitting diagnoses that have resulted to impairment level findings: 1. Impaired activity tolerance Impairments are contributing to the following functional limitations: 1. Increase completion time for mobility ADL performance 2. Increased fall risk Patient is assessed as a 86050 low complexity based on the following: History: 28-year-old male with untreated lymphedema now with bilateral lower extremity cellulitis Examination: Demonstrable impairment in strength, balance, and range of motion with underlying impairments and functional limitations as documented above Presentation:Evolving Decision Makin low complexity Goals: N/A. PT evaluation only. DISCHARGE RECOMMENDATIONS: Continue with use of bilateral postop shoes in order to protect feet and prevent further skin breakdown. Patient will benefit from outpatient lymphedema/complete decongestive therapy services once infection is resolved in order to address pain, swelling, and moblity impairments. TREATMENT CODE/TIME: 81717 x 20 minutes beginning at 1:26 PM. Thank you very much for this referral. Sherrie Kingston PT, DPT, CLT [facility]
[2019-04-14] MEDS: Enoxaparin 40 MG/0.4 ML SYR SC (15:51)
--- NOTE | 2019-04-14 16:57 | W.PM.PROGNOT ---
Date of Service Date of service: 04/14/19 Time of Service: 16:57 Assessment and Plan (1) Cellulitis of left lower extremity: Current visit: Yes Status: Acute Failed outpatient therapy. Blood cx 1/4 positive for GPC, speciation/sensitivities pending. CRP is rising - we will have to try to have a better look at the bone. Continue to trend CRP, repeat blood cultures tomorrow; obtain echo. Wound care recommendations appreciated. (2) Gram-positive bacteremia: Current visit: Yes Status: Acute As above (3) Opioid dependence: Current visit: No Status: Chronic Continue suboxone (4) Obstructive sleep apnea: Current visit: No Status: Chronic Monitor respiratory status (5) Normocytic anemia: Current visit: Yes Status: Acute Obtain anemia studies (6) DVT prophylaxis: Current visit: Yes Status: Acute Lovenox (7) Discharge planning issues: Current visit: Yes Status: Acute May require IV antibiotics until resolution of disease. Duration to depend on whether the patient has osteomyelitis/endocarditis. Subjective Interval history since last seen: Mr Marrero had a fever last night. He notices both of his legs look less swollen. The left leg looks a little bit less red. Denies dizziness, chest pain, shortness of breath, nausea, vomiting. 1/4 blood cultures grew GPC's - we talked about the best and the worst case scenarios. Exam Narrative Exam Narrative: General: Very pleasant obese male, laying flat in bed, comfortable, appears sad, A&Ox3 HEENT: Atraumatic, normocephalic, EOMI, MMM Cardiovascular: RRR, no m/r/g - I auscultated thoroughly Lungs: CTAB Gastrointestinal: abdomen is soft, nontender, nondistended Extremities: BLE lymphedema, LLE erythema is receding from medial thigh; small medial calf wound is dressed - c/d/i Objective Objective Clinical Data: Abnormal lab results 04/14/19 04/14/19 Range/Units 06:40 06:40 RBC 3.74 L (4.50-6.00) m/cumm Hgb 10.7 L (13.5-17.5) g/dL Hct 32.9 L (40.0-50.0) % Absolute Lymphocytes 0.92 L (1.2-3.4) k/cumm Creatinine 0.61 L (0.70-1.30) mg/dL C-Reactive Protein 7.87 H (0.0-0.3) mg/dL Vital Signs Temperature 36.4 C L 04/14/19 15:56 Temperature Source Tympanic 04/14/19 15:56 Pulse 70 04/14/19 15:56 Respiratory Rate 16 04/14/19 15:56 Respiratory Effort Non-Labored 04/14/19 07:54 Respiratory Depth Normal 04/14/19 07:54 Respiratory Pattern Normal 04/14/19 07:54 Blood Pressure 119/83 04/14/19 15:56 Blood Pressure Position Sitting 04/13/19 10:51 Pulse Oximetry 98 04/14/19 15:56 Oxygen Delivery Method Room Air 04/14/19 15:56 Oxygen Flow Rate 0 04/14/19 15:56 Pain Level 7 04/14/19 15:50 Comment 04/14/19 00:22 Intake & Output 04/13/19 04/14/19 04/14/19 23:59 11:59 23:59 Intake Total 1580 / 1580 710 / 1210 500 / 1210 Output Total 500 / 500 400 / 400 Balance 1080 / 1080 310 / 810 500 / 810 Weight 181.808 kg 182.9 kg Intake: IV 1100 / 1100 710 / 1210 500 / 1210 Oral 480 / 480 Output: Urine 500 / 500 400 / 400 Other: Urine Color Light Sienna Light Sienna Urine Appearance Clear Clear Urine Odor Normal Normal Voiding Methods Urinal Urinal Laboratory Results WBC 5.57 k/cumm (4.4-10.8) D 04/14/19 06:40 RBC 3.74 m/cumm (4.50-6.00) L 04/14/19 06:40 Hgb 10.7 g/dL (13.5-17.5) L 04/14/19 06:40 Hct 32.9 % (40.0-50.0) L 04/14/19 06:40 MCV 88.0 fL (80-95) 04/14/19 06:40 MCH 28.6 pg (27.0-33.0) 04/14/19 06:40 MCHC 32.5 g/dL (32.0-36.0) 04/14/19 06:40 RDW 13.5 % (11.8-14.1) 04/14/19 06:40 Plt Count 250 x1000/uL (130-400) 04/14/19 06:40 MPV 9.3 fL (8.0-11.0) 04/14/19 06:40 Immature Gran % 0.2 04/14/19 06:40 73.3 04/14/19 06:40 16.5 04/14/19 06:40 7.4 04/14/19 06:40 2.2 04/14/19 06:40 0.4 04/14/19 06:40 Absolute Neutrophils 4.08 k/cumm (1.2-6.7) 04/14/19 06:40 Absolute Lymphocytes 0.92 k/cumm (1.2-3.4) L 04/14/19 06:40 Absolute Monocytes 0.41 k/cumm (0.11-0.7) 04/14/19 06:40 Absolute Eosinophils 0.12 k/cumm (0.0-0.7) 04/14/19 06:40 Absolute Basophils 0.02 k/cumm (0.0-0.2) 04/14/19 06:40 Sodium 138 mmol/L (136-145) 04/14/19 06:40 Potassium 3.8 mmol/L (3.5-5.1) 04/14/19 06:40 Chloride 102 mmol/L (98-107) 04/14/19 06:40 Carbon Dioxide 25.8 mmol/L (21.0-32.0) 04/14/19 06:40 10.2 mmol/L (3-11) 04/14/19 06:40 BUN 15 mg/dL (7-18) 04/14/19 06:40 0.61 mg/dL (0.70-1.30) L 04/14/19 06:40 >= 60.00 (mL/min/1.73m2) 04/14/19 06:40 Glucose 95 mg/dL (70-100) 04/14/19 06:40 0.5 mmol/L (0.6-1.4) L 04/13/19 11:35 Calcium 8.6 mg/dL (8.5-10.1) 04/14/19 06:40 Magnesium 1.8 mg/dL (1.8-2.4) 04/14/19 06:40 0.3 mg/dL (0.2-1.0) 04/13/19 11:35 AST 16 U/L (15-37) 04/13/19 11:35 ALT 35 U/L (12-78) 04/13/19 11:35 65 U/L (46-116) 04/13/19 11:35 < 0.05 ng/mL (0.00-0.06) 04/13/19 11:35 7.87 mg/dL (0.0-0.3) H 04/14/19 06:40 8.7 g/dL (6.4-8.2) H 04/13/19 11:35 2.9 g/dL (3.4-5.0) L 04/13/19 11:35 Vancomycin Trough 17.5 ug/mL (10.0-20.0) 04/14/19 11:15
[2019-04-14] MEDS: Normal Saline Flush 10 ML SYR IVP ×2 (19:47→23:49)
[2019-04-15 03:10] VITALS: BP 112/76; PULSE 68; RESP 18; TEMP 36.4; O2SAT 94
[2019-04-15] MEDS: VANCOMYCIN 2,000 MG in Normal Saline 500 ML 250 MG IVPB ×3 (03:50→19:50)
[2019-04-15] MEDS: Normal Saline Flush 10 ML SYR IVP ×3 (03:50→15:53)
[2019-04-15 07:10] VITALS: BP 126/78; PULSE 84; RESP 18; TEMP 36.6; O2SAT 97
[2019-04-15] MEDS: Omeprazole 20 MG CAPCR PO (07:47)
[2019-04-15] MEDS: Buprenorphine/Naloxone 12 mg/3 mg FILM 0.5 EACH SL (07:48)
[2019-04-15] MEDS: Ibuprofen 800 MG TAB PO ×2 (07:48→15:52)
[2019-04-15 07:50] LABS: Absolute Basophil Count 0.04 k/cumm (0.0-0.2); Absolute Eosinophil Count 0.14 k/cumm (0.0-0.7); Absolute Monocyte Count 0.32 k/cumm (0.11-0.7); Absolute Neutrophil Count 2.55 k/cumm (1.2-6.7); Eosinophils % 3.5; HCT 31.7 % (40.0-50.0); HGB 10.3 g/dL (13.5-17.5); Lymphocytes % 22.8; Mean Corp. HGB Concentration 32.5 g/dL (32.0-36.0); Mean Corpuscular Hemoglobin 28.7 pg (27.0-33.0); Mean Corpuscular Volume 88.3 fL (80-95); Mean Platelet Volume 9.3 fL (8.0-11.0); Monocytes % 8.1; Neutrophils % 64.6; Platelet Count 284 x1000/uL (130-400); RBC 3.59 m/cumm (4.50-6.00); RBC Distribution Width 13.5 % (11.8-14.1); White Blood Cell Count 3.95 k/cumm (4.4-10.8)
[2019-04-15] MEDS: ceFAZolin 2,000 MG in Normal Saline 100 ML 200 MG IVPB ×2 (07:56→16:04)
[2019-04-15 08:28] LABS: Iron 38 ug/dL (50-175); Total Iron Binding Capacity 228 ug/dL (250-450); Transferrin Sat 17 % (20-55)
[2019-04-15 08:48] LABS: Ferritin 217 ng/mL (8-388); Folate 12.5 ng/mL (8.6-20.0); Magnesium 1.7 mg/dL (1.8-2.4); Vitamin B12 502 pg/mL (193-986)
[2019-04-15 09:03] LABS: C-Reactive Protein 6.71 mg/dL (0.0-0.3)
[2019-04-15 09:29] LABS: Anion Gap 8.5 mmol/L (3-11); BUN 18 mg/dL (7-18); CO2 26.5 mmol/L (21.0-32.0); CREATININE 0.56 mg/dL (0.70-1.30); Calcium 8.6 mg/dL (8.5-10.1); Chloride 104 mmol/L (98-107); Glucose 94 mg/dL (70-100); Potassium 3.7 mmol/L (3.5-5.1); Sodium 139 mmol/L (136-145)
[2019-04-15 11:10] VITALS: BP 155/88; PULSE 79; RESP 18; TEMP 36.8; O2SAT 96
[2019-04-15 11:26] LABS: Vancomycin, Trough 18.2 ug/mL (10.0-20.0)
--- NOTE | 2019-04-15 11:51 | PDOC.CMPRO ---
Care Management Progress Note S/O: Abelardo continues to be closely monitored. He remains on IV ABX; duration, frequency and antibiotics assigned forthcoming; anticipate MD consult with [facility] [place] [facility]. CM continues to follow. A: 28 year old male admitted to [facility] 04/13/19 for worsening LLE cellulitis, failure of outpatient therapy P: Abelardo will return home when ready per MD, anticipate MD direction in extended course of IV ABX. Likely that Abelardo will require SWB1 stay for IV ABX. CM will continue to follow and support discharge planning considerations.
[2019-04-15] MEDS: Acetaminophen 325 MG TAB PO (12:02)
[2019-04-15] MEDS: MAGNESIUM SULFATE 2 GM/50 ML BAG IVPB (12:02)
[2019-04-15] MEDS: Lachydrin 12% LOTION 225 GM BTL TP ×2 (12:15→19:51)
--- NOTE | 2019-04-15 12:35 | MERGE_ITS ---
*[facility]* *[facility]* [address] [place] [address] Date of study: 04/15/2019 Transthoracic Echocardiography M-mode, complete 2D, complete spectral Doppler, and color Doppler *STUDY CONCLUSIONS* Impressions: There are no typical features of vegetative endocarditis. However, this diagnosis cannot be excluded on the basis of this transthoracic study. Consider transesophageal echocardiography, if clinically indicated, for superior assessment of valve anatomy. Summary: 1. Left ventricle: The cavity size was normal. Wall thickness was increased in a pattern of mild LVH. Systolic function was normal. The estimated ejection fraction was 60-65%. Diastolic parameters were normal for age. There was no evidence of elevated ventricular filling pressure by Doppler parameters. 2. Right ventricle: The cavity size was normal. Wall thickness was normal. Systolic function was normal. 3. Atrial septum: No defect or patent foramen ovale was identified. 4. Pulmonary arteries: Systolic pressure could not be accurately estimated. 5. Inferior vena cava: The vessel was normal in size. The respirophasic diameter changes were in the normal range (greater than or equal to 50%), consistent with normal central venous pressure. *PATIENT PRESENTATION* Height: 180.3cm (71in ) S/D Pressure: 112 / 76 Weight: 182.8kg (402.2lb ) BSA: 3.13m^2 Test start time: 12:30 PM. Test stop time: 01:35 PM. PERFORMING Unknown PERFORMING [facility] SHIPPING INSPECTOR Ella Jackson CONSULTING Fernanda David ORDERING Fernanda David REFERRING Fernanda David *PROCEDURE DATA* Procedure information: This study was interpreted by [facility]. Pertinent images and digital data are archived for permanent storage and are available for subsequent review. Comparison was made to the study of 12/23/2017. Study status: Routine. Transthoracic echocardiography. M-mode, complete 2D, complete spectral Doppler, and color Doppler. A Transthoracic Echocardiogram was performed. Scanning was performed from the parasternal, apical, subcostal, and suprasternal notch acoustic windows. Images were obtained using an [employer] sc 2000 cardiac ultrasound machine. Image quality was adequate. Study completion: The patient tolerated the procedure well. History: PMH: Bacteremia, fever. *CARDIAC ANATOMY* Left ventricle: The cavity size was normal. Wall thickness was increased in a pattern of mild LVH. Systolic function was normal. The estimated ejection fraction was 60-65%. The tissue Doppler parameters were abnormal. Diastolic parameters were normal for age. There was no evidence of elevated ventricular filling pressure by Doppler parameters. Aortic valve: Trileaflet. Doppler: There was no stenosis. There was no regurgitation. VTI ratio of LVOT to aortic valve: 0.91. Valve area (VTI): 3.1cm^2. Indexed valve area (VTI): 1cm^2/m^2. Peak velocity ratio of LVOT to aortic valve: 0.77. Valve area (Vmax): 2.6cm^2. Indexed valve area (Vmax): 0.8cm^2/m^2. Mean velocity ratio of LVOT to aortic valve: 0.74. Valve area (Vmean): 2.5cm^2. Indexed valve area (Vmean): 0.8cm^2/m^2. Mean gradient (S): 3.4mm Hg. Peak gradient (S): 6.3mm Hg. Aorta: Aortic root: The aortic root was normal in size. Ascending aorta: The ascending aorta was normal in size. Mitral valve: Doppler: There was no evidence for stenosis. There was no significant regurgitation. Valve area by pressure half-time: 3.8cm^2. Indexed valve area by pressure half-time: 1.2cm^2/m^2. Peak gradient (D): 4.4mm Hg. Left atrium: The atrium was normal in size. Atrial septum: No defect or patent foramen ovale was identified. Right ventricle: The cavity size was normal. Wall thickness was normal. Systolic function was normal. Pulmonic valve: Doppler: There was no evidence for stenosis. There was no significant regurgitation. Peak gradient (S): 11.6mm Hg. Tricuspid valve: Doppler: There was no significant regurgitation. Pulmonary artery: Poorly visualized. Systolic pressure could not be accurately estimated. Right atrium: Poorly visualized. Pericardium: There was no pericardial effusion. Systemic veins: Inferior vena cava: The vessel was normal in size. The respirophasic diameter changes were in the normal range (greater than or equal to 50%), consistent with normal central venous pressure. Measurements Left ventricle Value 12/23/2017 Reference LV ID, ED, PLAX 4.7 cm 5.6 3.5 - 6.0 LV ID, ES, PLAX 3.0 cm 3.9 2.1 - 4.0 LV PW thickness, ED, PLAX 1.2 cm 1.0 --------- LV end-diastolic volume, 130 ml 83 --------- 1-p A2C LV ejection fraction, 1-p 65 % 50 --------- A2C LV end-diastolic volume, 136 ml 132 --------- 1-p A4C LV ejection fraction, 1-p 56 % 62 --------- A4C LV e', lateral 0.242 m/sec 0.173 --------- LV E/e', lateral 4 4 --------- LV e', medial 0.214 m/sec 0.101 --------- LV E/e', medial 5 7 --------- LV e', average 0.228 m/sec 0.137 --------- LV E/e', average 5 5 --------- Ventricular septum Value 12/23/2017 Reference IVS thickness, ED, PLAX 1.2 cm 1.0 --------- LVOT Value 12/23/2017 Reference LVOT ID, A-P 2.1 cm 2.4 --------- LVOT area 3.4 cm^2 4.6 --------- LVOT peak velocity, S 0.96 m/sec 0.98 --------- LVOT mean velocity, S 0.64 m/sec 0.58 --------- LVOT VTI, S 19.1 cm 19.9 --------- LVOT peak gradient, S 3.7 mm Hg 3.9 --------- LVOT mean gradient, S 1.9 mm Hg 1.7 --------- Stroke volume (SV), LVOT DP 66 ml 92 --------- Stroke index (SV/bsa), LVOT 21 ml/m^2 29 --------- DP Aortic valve Value 12/23/2017 Reference Aortic valve peak velocity, 1.3 m/sec 1.5 --------- S Aortic valve mean velocity, 0.9 m/sec 1.1 --------- S Aortic valve VTI, S 21.0 cm 28.5 --------- Aortic mean gradient, S 3.4 mm Hg 5.5 --------- Aortic peak gradient, S 6.3 mm Hg --------- VTI ratio, LVOT/AV 0.91 0.7 --------- Aortic valve area, VTI 3.1 cm^2 3.2 --------- Velocity ratio, peak, 0.77 0.64 --------- LVOT/AV Aortic valve area, peak 2.6 cm^2 2.9 --------- velocity Velocity ratio, mean, 0.74 0.51 --------- LVOT/AV Aortic valve area, mean 2.5 cm^2 2.4 --------- velocity Aortic valve area/bsa, mean 0.8 cm^2/m^2 0.8 --------- velocity Aorta Value 12/23/2017 Reference Aortic root ID, ED 3.1 cm 3.1 --------- Ascending aorta ID, A-P, S 2.9 cm 2.9 --------- Left atrium Value 12/23/2017 Reference LA ID, A-P, ES 3.7 cm 3.7 --------- LA ID/bsa, A-P 1.2 cm/m^2 1.2 <=2.2 LA volume, ES, 2-p 66 ml 56 --------- LA volume/bsa, ES, 2-p 21 ml/m^2 18 --------- LA/aortic root ratio 1.2 1.19 --------- Mitral valve Value 12/23/2017 Reference Mitral E-wave peak velocity 1.05 m/sec 0.72 --------- Mitral A-wave peak velocity 0.6 m/sec 0.69 --------- Mitral deceleration time 199 ms 204 150 - 230 Mitral pressure half-time 58 ms 59 --------- Mitral peak gradient, D 4.4 mm Hg 2.1 --------- Mitral E/A ratio, peak 1.74 1.05 --------- Mitral valve area, PHT, DP 3.8 cm^2 3.7 --------- Pulmonic valve Value 12/23/2017 Reference Pulmonic peak gradient, S 11.6 mm Hg 10.1 --------- Legend: (L) and (H) sharon values outside specified reference range. I have personally reviewed the images and have reviewed and edited the reported findings. Electronically signed by Mack Taylor MD 04/15/2019 17:10
[2019-04-15 15:43] VITALS: BP 123/82; PULSE 81; RESP 19; TEMP 36.9; O2SAT 96
[2019-04-15] MEDS: Enoxaparin 40 MG/0.4 ML SYR SC (15:53)
--- NOTE | 2019-04-15 15:53 | CHAPLAIN ---
I checked in with Valerio today. Offered support and let him know there is lead furnace operator support is available 24.7.
--- NOTE | 2019-04-15 16:27 | W.PM.PROGNOT ---
Date of Service Date of service: 04/15/19 Time of Service: 16:27 Assessment and Plan (1) Cellulitis of left lower extremity: Current visit: Yes Status: Acute Failed outpatient therapy. Blood cx 1/4 positive for GPC, speciation/sensitivities pending, they haven't been updated and no one is in microbiology who knows the results at this time. Echo done, results pending. MRI LLE ordered. CRP started to improve. Continue to trend CRP, await results of cultures/echo/MRI. Wound care (2) Gram-positive bacteremia: Current visit: Yes Status: Acute As above (3) Opioid dependence: Current visit: No Status: Chronic Continue suboxone (4) Obstructive sleep apnea: Current visit: No Status: Chronic Monitor respiratory status (5) Normocytic anemia: Current visit: Yes Status: Acute B12 low considering current infection. Start repletion. (6) DVT prophylaxis: Current visit: Yes Status: Acute Lovenox (7) Discharge planning issues: Current visit: Yes Status: Acute May require IV antibiotics until resolution of disease. Duration to depend on whether the patient has osteomyelitis/endocarditis. Subjective Interval history since last seen: Mr Marrero feels a little better today, but he is tired. His leg feels and looks better, he thinks. Denies dizziness, chest pain, shortness of breath, nausea, vomiting. Exam Narrative Exam Narrative: General: Very pleasant obese male, laying flat in bed, A&Ox3, falls asleep in the middle of our conversation HEENT: Atraumatic, normocephalic, EOMI, MMM Cardiovascular: RRR, no m/r/g Lungs: CTAB Gastrointestinal: abdomen is soft, nontender, nondistended Extremities: BLE lymphedema, LLE erythema is receding, improving; small medial calf wound is dressed - c/d/i Objective Objective Clinical Data: Abnormal lab results 04/15/19 04/15/19 04/15/19 Range/Units 07:05 07:05 07:05 WBC (4.4-10.8) k/cumm RBC (4.50-6.00) m/cumm Hgb (13.5-17.5) g/dL Hct (40.0-50.0) % Absolute Lymphocytes (1.2-3.4) k/cumm Creatinine 0.56 L (0.70-1.30) mg/dL Magnesium 1.7 L (1.8-2.4) mg/dL Iron 38 L (50-175) ug/dL TIBC 228 L (250-450) ug/dL Transferrin % Sat 17 L (20-55) % C-Reactive Protein 6.71 H (0.0-0.3) mg/dL 04/15/19 Range/Units 07:05 WBC 3.95 L (4.4-10.8) k/cumm RBC 3.59 L (4.50-6.00) m/cumm Hgb 10.3 L (13.5-17.5) g/dL Hct 31.7 L (40.0-50.0) % Absolute Lymphocytes 0.90 L (1.2-3.4) k/cumm Creatinine (0.70-1.30) mg/dL Magnesium (1.8-2.4) mg/dL Iron (50-175) ug/dL TIBC (250-450) ug/dL Transferrin % Sat (20-55) % C-Reactive Protein (0.0-0.3) mg/dL Vital Signs Temperature 36.9 C 04/15/19 15:43 Temperature Source Tympanic 04/15/19 15:43 Pulse 81 04/15/19 15:43 Pulse Rhythm Regular 04/15/19 08:00 Respiratory Rate 19 04/15/19 15:43 Respiratory Effort Non-Labored 04/15/19 08:00 Respiratory Depth Normal 04/15/19 08:00 Respiratory Pattern Normal 04/15/19 08:00 Blood Pressure 123/82 04/15/19 15:43 Blood Pressure Position Sitting 04/13/19 10:51 Pulse Oximetry 96 04/15/19 15:43 Oxygen Delivery Method Room Air 04/15/19 15:43 Oxygen Flow Rate 0 04/15/19 15:43 Pain Level 6 04/15/19 15:52 Comment 04/14/19 00:22 Intake & Output 04/14/19 04/15/19 04/15/19 23:59 11:59 23:59 Intake Total 1590 / 2300 1060 / 1310 250 / 1310 Output Total 250 / 250 Balance 1590 / 1900 810 / 1060 250 / 1060 Weight 183.5 kg Intake: IV 1110 / 1820 700 / 710 10 Oral 480 / 480 360 / 600 240 / 600 Output: Urine 250 / 250 Other: Urine Color Light Sienna Urine Appearance Clear Clear Urine Odor Strong Voiding Methods Urinal Laboratory Results WBC 3.95 k/cumm (4.4-10.8) L 04/15/19 07:05 RBC 3.59 m/cumm (4.50-6.00) L 04/15/19 07:05 Hgb 10.3 g/dL (13.5-17.5) L 04/15/19 07:05 Hct 31.7 % (40.0-50.0) L 04/15/19 07:05 MCV 88.3 fL (80-95) 04/15/19 07:05 MCH 28.7 pg (27.0-33.0) 04/15/19 07:05 MCHC 32.5 g/dL (32.0-36.0) 04/15/19 07:05 RDW 13.5 % (11.8-14.1) 04/15/19 07:05 Plt Count 284 x1000/uL (130-400) 04/15/19 07:05 MPV 9.3 fL (8.0-11.0) 04/15/19 07:05 Immature Gran % 0.0 04/15/19 07:05 64.6 04/15/19 07:05 22.8 04/15/19 07:05 8.1 04/15/19 07:05 3.5 04/15/19 07:05 1.0 04/15/19 07:05 Absolute Neutrophils 2.55 k/cumm (1.2-6.7) 04/15/19 07:05 Absolute Lymphocytes 0.90 k/cumm (1.2-3.4) L 04/15/19 07:05 Absolute Monocytes 0.32 k/cumm (0.11-0.7) 04/15/19 07:05 Absolute Eosinophils 0.14 k/cumm (0.0-0.7) 04/15/19 07:05 Absolute Basophils 0.04 k/cumm (0.0-0.2) 04/15/19 07:05 Sodium 139 mmol/L (136-145) 04/15/19 07:05 Potassium 3.7 mmol/L (3.5-5.1) 04/15/19 07:05 Chloride 104 mmol/L (98-107) 04/15/19 07:05 Carbon Dioxide 26.5 mmol/L (21.0-32.0) 04/15/19 07:05 8.5 mmol/L (3-11) 04/15/19 07:05 BUN 18 mg/dL (7-18) 04/15/19 07:05 0.56 mg/dL (0.70-1.30) L 04/15/19 07:05 >= 60.00 (mL/min/1.73m2) 04/15/19 07:05 Glucose 94 mg/dL (70-100) 04/15/19 07:05 0.5 mmol/L (0.6-1.4) L 04/13/19 11:35 Calcium 8.6 mg/dL (8.5-10.1) 04/15/19 07:05 Magnesium 1.7 mg/dL (1.8-2.4) L 04/15/19 07:05 Iron 38 ug/dL (50-175) L 04/15/19 07:05 TIBC 228 ug/dL (250-450) L 04/15/19 07:05 Transferrin % Sat 17 % (20-55) L 04/15/19 07:05 217 ng/mL (8-388) 04/15/19 07:05 0.3 mg/dL (0.2-1.0) 04/13/19 11:35 AST 16 U/L (15-37) 04/13/19 11:35 ALT 35 U/L (12-78) 04/13/19 11:35 65 U/L (46-116) 04/13/19 11:35 < 0.05 ng/mL (0.00-0.06) 04/13/19 11:35 6.71 mg/dL (0.0-0.3) H 04/15/19 07:05 8.7 g/dL (6.4-8.2) H 04/13/19 11:35 2.9 g/dL (3.4-5.0) L 04/13/19 11:35 Vitamin B12 502 pg/mL (193-986) 04/15/19 07:05 12.5 ng/mL (8.6-20.0) 04/15/19 07:05 Vancomycin Trough 18.2 ug/mL (10.0-20.0) 04/15/19 11:00
[2019-04-15 19:37] VITALS: BP 143/78; PULSE 75; RESP 19; TEMP 36.5; O2SAT 93
[2019-04-16] VITALS (7 sets, daily range): BP systolic 114–151; BP diastolic 76–89; PULSE 73–89; RESP 12–21; TEMP 36.3–37; O2SAT 94–96
[2019-04-16] MEDS: Acetaminophen 325 MG TAB PO (00:37)
[2019-04-16] MEDS: Normal Saline Flush 10 ML SYR IVP ×3 (00:38→12:06)
[2019-04-16] MEDS: ceFAZolin 2,000 MG in Normal Saline 100 ML 200 MG IVPB ×4 (00:39→23:45)
[2019-04-16] MEDS: VANCOMYCIN 2,000 MG in Normal Saline 500 ML 250 MG IVPB ×3 (04:30→20:31)
[2019-04-16 07:56] LABS: BUN 13 mg/dL (7-18); CREATININE 0.56 mg/dL (0.70-1.30); Calcium 8.5 mg/dL (8.5-10.1); Chloride 104 mmol/L (98-107); Glucose 89 mg/dL (70-100); Magnesium 1.8 mg/dL (1.8-2.4); Sodium 140 mmol/L (136-145)
[2019-04-16] MEDS: Buprenorphine/Naloxone 12 mg/3 mg FILM 0.5 EACH SL (08:12)
[2019-04-16] MEDS: Omeprazole 20 MG CAPCR PO (08:13)
[2019-04-16] MEDS: Cyanocobalamin 500 MCG TAB 1000 MCG PO (08:13)
[2019-04-16] MEDS: Lachydrin 12% LOTION 225 GM BTL TP ×2 (08:14→20:33)
[2019-04-16 10:07] LABS: Absolute Basophil Count 0.06 k/cumm (0.0-0.2); Absolute Eosinophil Count 0.15 k/cumm (0.0-0.7); Absolute Lymphocyte Count 1.02 k/cumm (1.2-3.4); Absolute Monocyte Count 0.43 k/cumm (0.11-0.7); Basophils % 1.2; Eosinophils % 2.9; HCT 32.4 % (40.0-50.0); HGB 10.8 g/dL (13.5-17.5); Lymphocytes % 19.6; Mean Corp. HGB Concentration 33.3 g/dL (32.0-36.0); Mean Corpuscular Hemoglobin 29.3 pg (27.0-33.0); Mean Corpuscular Volume 87.8 fL (80-95); Monocytes % 8.3; Platelet Count 296 x1000/uL (130-400); RBC 3.69 m/cumm (4.50-6.00); RBC Distribution Width 13.3 % (11.8-14.1); White Blood Cell Count 5.21 k/cumm (4.4-10.8)
[2019-04-16 10:11] LABS: Absolute Neutrophil Count 3.54 k/cumm (1.2-6.7)
--- NOTE | 2019-04-16 10:17 | CMPROGNOTE_ITS ---
Care Management Progress Note S/O: Abelardo continues to be closely monitored. Per MD he will have MRI of his leg today with follow up conversation with [facility] [place] [facility] to determine frequency and duration of needed IV ABX course. CM continues to follow. A: 28 year old male admitted to [facility] 04/13/19 for worsening LLE cellulitis, failure of outpatient therapy P: Abelardo will return home when ready per MD, anticipate MD direction in extended course of IV ABX; consult with [facility] [facility] forthcoming per MD. Likely that Abelardo will require SWB1 stay for IV ABX. CM will continue to follow and support discharge planning considerations.
--- NOTE | 2019-04-16 10:17 | PDOC.CMPRO ---
Care Management Progress Note S/O: Abelardo continues to be closely monitored. Per MD he will have MRI of his leg today with follow up conversation with [facility] [place] [facility] [place] to determine frequency and duration of needed IV ABX course. CM continues to follow. A: 28 year old male admitted to [facility] 04/13/19 for worsening LLE cellulitis, failure of outpatient therapy P: Abelardo will return home when ready per MD, anticipate MD direction in extended course of IV ABX; consult with [facility] [place] forthcoming per MD. Likely that Abelardo will require SWB1 stay for IV ABX. CM will continue to follow and support discharge planning considerations.
[2019-04-16] MEDS: Gadoterate meglumine 20 ML VIAL IVP (12:10)
--- NOTE | 2019-04-16 12:24 | DI.MRI_ITS ---
SYMPTOM/DIAGNOSIS: CELLULITIS, ELEVATED CRP, ? OSTEOMYELITIS, CALF PAIN, REDNESS, SWELLING DISTAL TO ANKLE JOINT, NON HEALING WOUND LEFT LOWER EXTREMITY: MRI of the left lower extremity was performed without and with intravenous contrast material. There is normal marrow signal. There is fluid attenuation signal in the subcutaneous tissues consistent with cellulitis. No focal fluid collection is seen to suggest an abscess. Following contrast administration, no enhancing fluid collection or enhancement of the marrow is noted. The muscles show normal signal and size. IMPRESSION: No MRI evidence to suggest acute osteomyelitis. Cellulitis of the left lower extremity.
[2019-04-16] MEDS: Ibuprofen 800 MG TAB PO (12:30)
[2019-04-16] MEDS: Enoxaparin 40 MG/0.4 ML SYR SC (15:50)
--- NOTE | 2019-04-16 16:23 | PHARADMIT ---
Admission Pharmacy Clinical Review cellulits LL limb, worsening. Code Status Full Code Current Weight Wgt- 186.2 kg Renally Cleared and Narrow Therapeutic Index Meds CrCl~ 143 mL/min Meds-OK QTc Value / Action Taken QTc-516(on 03/29) Omeprazole, BP Control, Fever BP- 127/80 Tmax- 37.3C Electrolytes reviewed Na- 140 K+4.0 Mag-1.8 DVT Prophylaxis Lovenox Opiate Usage / Scheduled Bowel Regimen Ordered No Yes Plt/SCr for Heparin / Enoxaparin Plts-296 SCr-0.53 INR for Warfarin na H/H stable, WBC/Bands H&H- 10.8/32.4 WBC- 5.21 Antibiotic appropriateness Ancef-Vancomycin Cultures and Sensitivities Blood-no Growth/72 hrs, Wound-Staph (not aureus) Surgical ABX d/c within 24 hr na DM control / Insulin Dosing BG-89 Heart Failure (Check EF%) (VIVIANE's, B-Block, Diuretics) none IV to PO Switch No Home Meds Reviewed Yes Home Meds Not Ordered Melchor Strauss Comments Last Vanco trough-18.2 (04-15) R-CRP- 4.30 Takes Suboxone
--- NOTE | 2019-04-16 16:39 | W.PM.PROGNOT ---
Date of Service Date of service: 04/16/19 Time of Service: 16:39 Assessment and Plan (1) Cellulitis of left lower extremity: Current visit: Yes Status: Acute Failed outpatient therapy. The original positive blood culture speciated into Aerococcus viridans and is a likely contaminant, per ID at [facility]. Echo done - no evidence of endocarditis on TTE. MRI LLE does not show osteomyelitis. CRP is improving. Continue IV vancomycin/cefazolin. Patient is expected to be transitioned to swing bed status tomorrow after completion of prior authorization for completion of IV therapy until complete resolution of his disease. (2) Gram-positive bacteremia: Current visit: Yes Status: Ruled-out Aerococcus viridans is a contaminant, per ID at [facility]. (3) Opioid dependence: Current visit: No Status: Chronic Continue suboxone (4) Obstructive sleep apnea: Current visit: No Status: Chronic Monitor respiratory status (5) Normocytic anemia: Current visit: Yes Status: Acute B12 low considering current infection - continue repletion. (6) DVT prophylaxis: Current visit: Yes Status: Acute Lovenox (7) Discharge planning issues: Current visit: Yes Status: Acute Expected to be transitioned to swing bed status for completion of IV antibiotics until resolution of disease - awaiting prior authorization. Subjective Interval history since last seen: Mr Marrero complains of less pain in his LLE. He thinks his leg is looking better. He denies dizziness, chest pain, shortness of breath, nausea, vomiting. He is interested in being able to go outside. Patient's original blood culture grew Aerococcus viridans. Case was discussed with ID at [facility] - it is felt that this is a contaminant and culture should be ignored. Exam Narrative Exam Narrative: General: Very pleasant obese male, laying flat in bed, A&Ox3, looks better HEENT: Atraumatic, normocephalic, EOMI, MMM Cardiovascular: RRR, no m/r/g Lungs: CTAB Gastrointestinal: abdomen is soft, nontender, nondistended Extremities: BLE lymphedema, LLE erythema continues to improve; small medial calf wound is dressed - c/d/i Objective Objective Clinical Data: Abnormal lab results 04/16/19 04/16/19 Range/Units 07:20 09:50 RBC 3.69 L (4.50-6.00) m/cumm Hgb 10.8 L (13.5-17.5) g/dL Hct 32.4 L (40.0-50.0) % Absolute Lymphocytes 1.02 L (1.2-3.4) k/cumm Creatinine 0.56 L (0.70-1.30) mg/dL C-Reactive Protein 4.30 H (0.0-0.3) mg/dL Vital Signs Temperature 36.3 C L 04/16/19 15:54 Temperature Source Tympanic 04/16/19 15:54 Pulse 78 04/16/19 15:54 Pulse Rhythm Regular 04/16/19 14:36 Respiratory Rate 21 04/16/19 15:54 Respiratory Effort Non-Labored 04/16/19 14:36 Respiratory Depth Normal 04/16/19 14:36 Respiratory Pattern Normal 04/16/19 14:36 Blood Pressure 127/80 04/16/19 15:54 Blood Pressure Position Sitting 04/13/19 10:51 Pulse Oximetry 94 L 04/16/19 15:54 Oxygen Delivery Method Room Air 04/16/19 15:54 Oxygen Flow Rate 0 04/16/19 15:54 Pain Level 8 04/16/19 12:30 Comment 04/16/19 00:40 Intake & Output 04/15/19 04/16/19 04/16/19 23:59 11:59 23:59 Intake Total 1830 / 2890 940 / 1440 500 / 1440 Output Total 750 / 750 Balance 1830 / 2640 190 / 690 500 / 690 Weight 186.2 kg Intake: IV 1110 / 1810 700 / 1200 500 / 1200 Oral 720 / 1080 240 / 240 Output: Urine 750 / 750 Other: Urine Color Yellow Urine Appearance Clear Clear Urine Odor Normal Voiding Methods Urinal Laboratory Results WBC 5.21 k/cumm (4.4-10.8) D 04/16/19 09:50 RBC 3.69 m/cumm (4.50-6.00) L 04/16/19 09:50 Hgb 10.8 g/dL (13.5-17.5) L 04/16/19 09:50 Hct 32.4 % (40.0-50.0) L 04/16/19 09:50 MCV 87.8 fL (80-95) 04/16/19 09:50 MCH 29.3 pg (27.0-33.0) 04/16/19 09:50 MCHC 33.3 g/dL (32.0-36.0) 04/16/19 09:50 RDW 13.3 % (11.8-14.1) 04/16/19 09:50 Plt Count 296 x1000/uL (130-400) 04/16/19 09:50 MPV 9.0 fL (8.0-11.0) 04/16/19 09:50 Immature Gran % 0.0 04/16/19 09:50 68.0 04/16/19 09:50 Cancelled 04/16/19 07:10 19.6 04/16/19 09:50 Atypical Lymphs % Cancelled 04/16/19 07:10 8.3 04/16/19 09:50 2.9 04/16/19 09:50 1.2 04/16/19 09:50 Cancelled 04/16/19 07:10 Cancelled 04/16/19 07:10 Cancelled 04/16/19 07:10 Absolute Neutrophils 3.54 k/cumm (1.2-6.7) 04/16/19 09:50 Absolute Lymphocytes 1.02 k/cumm (1.2-3.4) L 04/16/19 09:50 Absolute Monocytes 0.43 k/cumm (0.11-0.7) 04/16/19 09:50 Absolute Eosinophils 0.15 k/cumm (0.0-0.7) 04/16/19 09:50 Absolute Basophils 0.06 k/cumm (0.0-0.2) 04/16/19 09:50 Nucleated RBCs Cancelled 04/16/19 07:10 Cancelled 04/16/19 07:10 Cancelled 04/16/19 07:10 RBC Morphology Cancelled 04/16/19 07:10 Cancelled 04/16/19 07:10 Cancelled 04/16/19 07:10 Cancelled 04/16/19 07:10 Cancelled 04/16/19 07:10 Cancelled 04/16/19 07:10 Cancelled 04/16/19 07:10 Cancelled 04/16/19 07:10 Cancelled 04/16/19 07:10 Cancelled 04/16/19 07:10 Cancelled 04/16/19 07:10 Cancelled 04/16/19 07:10 Cancelled 04/16/19 07:10 Cancelled 04/16/19 07:10 Cancelled 04/16/19 07:10 Acanthocytes (Spur) Cancelled 04/16/19 07:10 Cancelled 04/16/19 07:10 Sodium 140 mmol/L (136-145) 04/16/19 07:20 Potassium 4.0 mmol/L (3.5-5.1) 04/16/19 07:20 Chloride 104 mmol/L (98-107) 04/16/19 07:20 Carbon Dioxide 28.0 mmol/L (21.0-32.0) 04/16/19 07:20 8.0 mmol/L (3-11) 04/16/19 07:20 BUN 13 mg/dL (7-18) 04/16/19 07:20 0.56 mg/dL (0.70-1.30) L 04/16/19 07:20 >= 60.00 (mL/min/1.73m2) 04/16/19 07:20 Glucose 89 mg/dL (70-100) 04/16/19 07:20 0.5 mmol/L (0.6-1.4) L 04/13/19 11:35 Calcium 8.5 mg/dL (8.5-10.1) 04/16/19 07:20 Magnesium 1.8 mg/dL (1.8-2.4) 04/16/19 07:20 Iron 38 ug/dL (50-175) L 04/15/19 07:05 TIBC 228 ug/dL (250-450) L 04/15/19 07:05 Transferrin % Sat 17 % (20-55) L 04/15/19 07:05 217 ng/mL (8-388) 04/15/19 07:05 0.3 mg/dL (0.2-1.0) 04/13/19 11:35 AST 16 U/L (15-37) 04/13/19 11:35 ALT 35 U/L (12-78) 04/13/19 11:35 65 U/L (46-116) 04/13/19 11:35 < 0.05 ng/mL (0.00-0.06) 04/13/19 11:35 4.30 mg/dL (0.0-0.3) H 04/16/19 07:20 8.7 g/dL (6.4-8.2) H 04/13/19 11:35 2.9 g/dL (3.4-5.0) L 04/13/19 11:35 Vitamin B12 502 pg/mL (193-986) 04/15/19 07:05 12.5 ng/mL (8.6-20.0) 04/15/19 07:05 Vancomycin Trough 18.2 ug/mL (10.0-20.0) 04/15/19 11:00
[2019-04-17] MEDS: Normal Saline Flush 10 ML SYR IVP ×2 (04:10→08:05)
[2019-04-17] MEDS: VANCOMYCIN 2,000 MG in Normal Saline 500 ML 250 MG IVPB (04:12)
[2019-04-17 04:13] VITALS: BP 123/84; PULSE 74; RESP 16; TEMP 36.4; O2SAT 95
[2019-04-17 07:29] LABS: Absolute Basophil Count 0.04 k/cumm (0.0-0.2); Absolute Eosinophil Count 0.13 k/cumm (0.0-0.7); Absolute Lymphocyte Count 1.19 k/cumm (1.2-3.4); Absolute Monocyte Count 0.41 k/cumm (0.11-0.7); Absolute Neutrophil Count 2.85 k/cumm (1.2-6.7); Basophils % 0.9; Eosinophils % 2.8; HCT 30.9 % (40.0-50.0); HGB 10.2 g/dL (13.5-17.5); Lymphocytes % 25.8; Mean Corpuscular Hemoglobin 28.7 pg (27.0-33.0); Mean Platelet Volume 9.1 fL (8.0-11.0); Monocytes % 8.9; Neutrophils % 61.6; Platelet Count 286 x1000/uL (130-400); RBC 3.55 m/cumm (4.50-6.00); RBC Distribution Width 13.2 % (11.8-14.1); White Blood Cell Count 4.62 k/cumm (4.4-10.8)
[2019-04-17 07:43] LABS: Anion Gap 8.4 mmol/L (3-11); BUN 11 mg/dL (7-18); C-Reactive Protein 3.55 mg/dL (0.0-0.3); CO2 27.6 mmol/L (21.0-32.0); CREATININE 0.49 mg/dL (0.70-1.30); Calcium 8.7 mg/dL (8.5-10.1); Chloride 103 mmol/L (98-107); Glucose 86 mg/dL (70-100); Magnesium 1.7 mg/dL (1.8-2.4); Potassium 3.9 mmol/L (3.5-5.1); Sodium 139 mmol/L (136-145)
[2019-04-17 07:55] VITALS: BP 146/88; PULSE 80; RESP 18; TEMP 37.1; O2SAT 95
[2019-04-17] MEDS: Omeprazole 20 MG CAPCR PO (07:57)
[2019-04-17] MEDS: Cyanocobalamin 500 MCG TAB 1000 MCG PO (07:57)
[2019-04-17] MEDS: ceFAZolin 2,000 MG in Normal Saline 100 ML 200 MG IVPB ×2 (07:58→16:05)
[2019-04-17] MEDS: Buprenorphine/Naloxone 12 mg/3 mg FILM 0.5 EACH SL (07:58)
[2019-04-17] MEDS: Lachydrin 12% LOTION 225 GM BTL TP ×2 (07:59→19:51)
[2019-04-17] MEDS: Ibuprofen 800 MG TAB PO ×2 (08:25→16:18)
[2019-04-17 08:36] LABS: Procalcitonin < 0.1 ng/mL
[2019-04-17] MEDS: Doxycycline Hyclate 100 MG CAP PO ×2 (11:12→19:51)
[2019-04-17 11:50] LABS: Vancomycin, Trough 21.5 ug/mL (10.0-20.0)
[2019-04-17] MEDS: Cephalexin 500 MG CAP PO ×3 (12:05→19:51)
[2019-04-17 12:20] VITALS: BP 139/86; PULSE 82; RESP 20; TEMP 36.6; O2SAT 94
--- NOTE | 2019-04-17 14:58 | W.PM.PROGNOT ---
Date of Service Date of service: 04/17/19 Time of Service: 14:58 Assessment and Plan (1) Cellulitis of left lower extremity: Start date: 04/17/19 Start time: 15:02 Current visit: Yes Status: Acute Failed outpatient therapy. The original positive blood culture speciated into Aerococcus viridans and is a likely contaminant, per ID at [facility]. Echo done - no evidence of endocarditis on TTE. MRI LLE does not show osteomyelitis. CRP is improving. ID at [facility] recommends keflex QID with Doxycycline BID. We will monitor for the next 48 hours and if patient responds we will continue treatment. If he does not consider IV antibiotics and swing bed. Blood cultures no growth after 48 hours (2) Gram-positive bacteremia: Start date: 04/17/19 Start time: 15:04 Current visit: Yes Status: Ruled-out Aerococcus viridans is a contaminant, per ID at [facility]. (3) Opioid dependence: Start date: 04/17/19 Start time: 15:05 Current visit: No Status: Chronic Continue suboxone (4) Obstructive sleep apnea: Start date: 04/17/19 Start time: 15:05 Current visit: No Status: Chronic Monitor respiratory status (5) Normocytic anemia: Start date: 04/17/19 Start time: 15:05 Current visit: Yes Status: Acute B12 low considering current infection - continue repletion. (6) DVT prophylaxis: Start date: 04/17/19 Start time: 15:05 Current visit: Yes Status: Acute Lovenox (7) Discharge planning issues: Start date: 04/17/19 Start time: 15:06 Current visit: Yes Status: Acute Possible discharge home in 48 hours. Will continue to monitor status. Subjective Patient reports: feels better Interval history since last seen: Feeling better. Cellulitis is appearing better, decreasing in size. Afebrile. CRP down from 4.3 to 3.5. Pain controlled with ibuprofen. ID at [facility] contacted and they recommend keflex 500 mg QID with doxycycline. We will monitor him over the next 48 hours to see if this is effective. He denies SOB, CP, N/v/d. Exam Narrative Exam Narrative: General: Very pleasant obese male, laying flat in bed, A&Ox3, looks better HEENT: Atraumatic, normocephalic, EOMI, MMM Cardiovascular: RRR, no m/r/g Lungs: CTAB Gastrointestinal: abdomen is soft, nontender, nondistended Extremities: BLE lymphedema, LLE erythema continues to improve; small medial calf wound is dressed - c/d/i Objective Objective Clinical Data: Abnormal lab results 04/17/19 04/17/19 04/17/19 Range/Units 06:46 06:46 11:11 RBC 3.55 L (4.50-6.00) m/cumm Hgb 10.2 L (13.5-17.5) g/dL Hct 30.9 L (40.0-50.0) % Absolute Lymphocytes 1.19 L (1.2-3.4) k/cumm Creatinine 0.49 L (0.70-1.30) mg/dL Magnesium 1.7 L (1.8-2.4) mg/dL C-Reactive Protein 3.55 H (0.0-0.3) mg/dL Vancomycin Trough 21.5 H* (10.0-20.0) ug/mL Vital Signs Temperature 36.6 C 04/17/19 12:20 Temperature Source Skin 04/17/19 12:20 Pulse 82 04/17/19 12:20 Pulse Rhythm Regular 04/17/19 07:45 Respiratory Rate 20 04/17/19 12:20 Respiratory Effort Non-Labored 04/17/19 07:45 Respiratory Depth Normal 04/17/19 07:45 Respiratory Pattern Normal 04/17/19 07:45 Blood Pressure 139/86 04/17/19 12:20 Blood Pressure Position Sitting 04/13/19 10:51 Pulse Oximetry 94 L 04/17/19 12:20 Oxygen Delivery Method Room Air 04/17/19 12:20 Oxygen Flow Rate 0 04/17/19 12:20 Pain Level 5 04/17/19 12:20 Comment 04/17/19 12:20 Intake & Output 04/16/19 04/17/19 04/17/19 23:59 11:59 23:59 Intake Total 1590 / 2530 800 / 800 Output Total 675 / 1425 1825 / 1825 Balance 915 / 1105 -1025 / -1025 Weight 186.8 kg Intake: IV 1110 / 1810 700 / 700 Oral 480 / 720 100 / 100 Output: Urine 675 / 1425 1825 / 1825 Other: Urine Color Yellow Yellow Urine Appearance Clear Clear Urine Odor Normal Voiding Methods Urinal Urinal Laboratory Results WBC 4.62 k/cumm (4.4-10.8) 04/17/19 06:46 RBC 3.55 m/cumm (4.50-6.00) L 04/17/19 06:46 Hgb 10.2 g/dL (13.5-17.5) L 04/17/19 06:46 Hct 30.9 % (40.0-50.0) L 04/17/19 06:46 MCV 87.0 fL (80-95) 04/17/19 06:46 MCH 28.7 pg (27.0-33.0) 04/17/19 06:46 MCHC 33.0 g/dL (32.0-36.0) 04/17/19 06:46 RDW 13.2 % (11.8-14.1) 04/17/19 06:46 Plt Count 286 x1000/uL (130-400) 04/17/19 06:46 MPV 9.1 fL (8.0-11.0) 04/17/19 06:46 Immature Gran % 0.0 04/17/19 06:46 61.6 04/17/19 06:46 Cancelled 04/16/19 07:10 25.8 04/17/19 06:46 Atypical Lymphs % Cancelled 04/16/19 07:10 8.9 04/17/19 06:46 2.8 04/17/19 06:46 0.9 04/17/19 06:46 Cancelled 04/16/19 07:10 Cancelled 04/16/19 07:10 Cancelled 04/16/19 07:10 Absolute Neutrophils 2.85 k/cumm (1.2-6.7) 04/17/19 06:46 Absolute Lymphocytes 1.19 k/cumm (1.2-3.4) L 04/17/19 06:46 Absolute Monocytes 0.41 k/cumm (0.11-0.7) 04/17/19 06:46 Absolute Eosinophils 0.13 k/cumm (0.0-0.7) 04/17/19 06:46 Absolute Basophils 0.04 k/cumm (0.0-0.2) 04/17/19 06:46 Nucleated RBCs Cancelled 04/16/19 07:10 Cancelled 04/16/19 07:10 Cancelled 04/16/19 07:10 RBC Morphology Cancelled 04/16/19 07:10 Cancelled 04/16/19 07:10 Cancelled 04/16/19 07:10 Cancelled 04/16/19 07:10 Cancelled 04/16/19 07:10 Cancelled 04/16/19 07:10 Cancelled 04/16/19 07:10 Cancelled 04/16/19 07:10 Cancelled 04/16/19 07:10 Cancelled 04/16/19 07:10 Cancelled 04/16/19 07:10 Cancelled 04/16/19 07:10 Cancelled 04/16/19 07:10 Cancelled 04/16/19 07:10 Cancelled 04/16/19 07:10 Acanthocytes (Spur) Cancelled 04/16/19 07:10 Cancelled 04/16/19 07:10 Sodium 139 mmol/L (136-145) 04/17/19 06:46 Potassium 3.9 mmol/L (3.5-5.1) 04/17/19 06:46 Chloride 103 mmol/L (98-107) 04/17/19 06:46 Carbon Dioxide 27.6 mmol/L (21.0-32.0) 04/17/19 06:46 8.4 mmol/L (3-11) 04/17/19 06:46 BUN 11 mg/dL (7-18) 04/17/19 06:46 0.49 mg/dL (0.70-1.30) L 04/17/19 06:46 >= 60.00 (mL/min/1.73m2) 04/17/19 06:46 Glucose 86 mg/dL (70-100) 04/17/19 06:46 0.5 mmol/L (0.6-1.4) L 04/13/19 11:35 Calcium 8.7 mg/dL (8.5-10.1) 04/17/19 06:46 Magnesium 1.7 mg/dL (1.8-2.4) L 04/17/19 06:46 Iron 38 ug/dL (50-175) L 04/15/19 07:05 TIBC 228 ug/dL (250-450) L 04/15/19 07:05 Transferrin % Sat 17 % (20-55) L 04/15/19 07:05 217 ng/mL (8-388) 04/15/19 07:05 0.3 mg/dL (0.2-1.0) 04/13/19 11:35 AST 16 U/L (15-37) 04/13/19 11:35 ALT 35 U/L (12-78) 04/13/19 11:35 65 U/L (46-116) 04/13/19 11:35 < 0.05 ng/mL (0.00-0.06) 04/13/19 11:35 3.55 mg/dL (0.0-0.3) H 04/17/19 06:46 8.7 g/dL (6.4-8.2) H 04/13/19 11:35 2.9 g/dL (3.4-5.0) L 04/13/19 11:35 Vitamin B12 502 pg/mL (193-986) 04/15/19 07:05 12.5 ng/mL (8.6-20.0) 04/15/19 07:05 < 0.1 ng/mL 04/17/19 06:46 Vancomycin Trough 21.5 ug/mL (10.0-20.0) H* 04/17/19 11:11
[2019-04-17 15:36] VITALS: BP 117/71; PULSE 75; RESP 20; TEMP 36.3; O2SAT 97
[2019-04-17] MEDS: Magnesium Oxide 400 MG TAB 800 MG PO (16:04)
[2019-04-17] MEDS: Enoxaparin 40 MG/0.4 ML SYR SC (16:16)
--- NOTE | 2019-04-17 19:22 | PDOC.CMPRO ---
Care Management Progress Note S/O: Resting in bed. MRI completed yesterday suggestsacute osteomyelitis. A: 28 year old male admitted to [facility] 04/13/19 for worsening LLE cellulitis, failure of outpatient therapy P: Abelardo will return home when ready per MD, anticipate MD direction in extended course of IV ABX; consult with [facility] [place] forthcoming per MD. Likely that Abelardo will require SWB1 stay for IV ABX. CM will continue to follow and support discharge planning considerations.
[2019-04-17 20:02] VITALS: BP 137/85; PULSE 90; RESP 18; TEMP 37.1; O2SAT 98
[2019-04-18 03:42] VITALS: BP 126/73; PULSE 80; RESP 18; TEMP 36.9; O2SAT 93
[2019-04-18 07:32] VITALS: BP 120/78; PULSE 82; RESP 19; TEMP 36.9; O2SAT 96
[2019-04-18] MEDS: Cyanocobalamin 500 MCG TAB 1000 MCG PO (07:43)
[2019-04-18] MEDS: Ibuprofen 800 MG TAB PO ×2 (07:43→15:18)
[2019-04-18] MEDS: Buprenorphine/Naloxone 12 mg/3 mg FILM 0.5 EACH SL (07:43)
[2019-04-18] MEDS: Cephalexin 500 MG CAP PO ×4 (07:43→19:43)
[2019-04-18] MEDS: Omeprazole 20 MG CAPCR PO (07:44)
[2019-04-18] MEDS: Lachydrin 12% LOTION 225 GM BTL TP ×2 (07:44→19:45)
[2019-04-18] MEDS: Doxycycline Hyclate 100 MG CAP PO ×2 (07:44→19:42)
[2019-04-18 07:53] LABS: Abs Immature Grans 0.01 k/cumm (0.0-0.09); Absolute Basophil Count 0.03 k/cumm (0.0-0.2); Absolute Eosinophil Count 0.15 k/cumm (0.0-0.7); Absolute Lymphocyte Count 1.24 k/cumm (1.2-3.4); Absolute Monocyte Count 0.41 k/cumm (0.11-0.7); Basophils % 0.6; Eosinophils % 3.2; HCT 33.7 % (40.0-50.0); HGB 11.2 g/dL (13.5-17.5); Immature Grans % 0.2; Lymphocytes % 26.7; Mean Corp. HGB Concentration 33.2 g/dL (32.0-36.0); Mean Corpuscular Hemoglobin 28.8 pg (27.0-33.0); Mean Corpuscular Volume 86.6 fL (80-95); Mean Platelet Volume 9.2 fL (8.0-11.0); Monocytes % 8.8; Neutrophils % 60.5; Platelet Count 308 x1000/uL (130-400); RBC 3.89 m/cumm (4.50-6.00); RBC Distribution Width 13.1 % (11.8-14.1); White Blood Cell Count 4.64 k/cumm (4.4-10.8)
[2019-04-18 08:17] LABS: Anion Gap 6.8 mmol/L (3-11); BUN 12 mg/dL (7-18); CO2 30.2 mmol/L (21.0-32.0); Calcium 8.9 mg/dL (8.5-10.1); Chloride 102 mmol/L (98-107); Glucose 85 mg/dL (70-100); Magnesium 1.6 mg/dL (1.8-2.4); Potassium 4.3 mmol/L (3.5-5.1); Sodium 139 mmol/L (136-145)
[2019-04-18] MEDS: Acetaminophen 325 MG TAB PO ×2 (10:11→19:42)
[2019-04-18 11:14] LABS: C-Reactive Protein 2.95 mg/dL (0.0-0.3)
[2019-04-18] MEDS: Magnesium Chloride 64 MG TABCR PO ×2 (13:34→19:42)
--- NOTE | 2019-04-18 13:49 | W.PM.PROGNOT ---
Date of Service Date of service: 04/18/19 Time of Service: 13:49 Assessment and Plan (1) Cellulitis of left lower extremity: Start date: 04/18/19 Start time: 13:59 Current visit: Yes Status: Acute Leg looking worse today after starting keflex and doxy yesterday. Monitor for 1 more day, if not responding consider IV antibiotics. CRP improving, 2.95 down from 3.55 Afebrile. (2) Opioid dependence: Start date: 04/18/19 Start time: 14:01 Current visit: No Status: Chronic Continue suboxone (3) Obstructive sleep apnea: Start date: 04/18/19 Start time: 14:01 Current visit: No Status: Chronic Monitor respiratory status (4) Normocytic anemia: Start date: 04/18/19 Start time: 14:01 Current visit: Yes Status: Acute B12 low considering current infection - continue repletion. (5) DVT prophylaxis: Start date: 04/18/19 Start time: 14:01 Current visit: Yes Status: Acute Lovenox (6) Discharge planning issues: Start date: 04/18/19 Start time: 14:01 Current visit: Yes Status: Acute Monitor status for 24 hours. If improving consider discharge home if worsening, possible swing bed with antibotics. Subjective Patient reports: no new complaints Interval history since last seen: LLE does not appear improved after 24 hours Doxy and keflex. Monitor for another 24 hours, if it appears to be worse or the same consider IV antibiotics. He is also having pain where his midline was it is warm and erythemic at spots. Monitor at this time and he may need an u/s if this does not appear better by tomorrow. He denies CP, SOB, N/V/D Exam Narrative Exam Narrative: General: Very pleasant obese male, laying flat in bed, A&Ox3, looks better HEENT: Atraumatic, normocephalic, EOMI, MMM Cardiovascular: RRR, no m/r/g Lungs: CTAB Gastrointestinal: abdomen is soft, nontender, nondistended Extremities: BLE lymphedema, LLE erythema worse today; small medial calf wound is dressed - c/d/i Objective Objective Clinical Data: Abnormal lab results 04/18/19 04/18/19 Range/Units 06:37 06:37 RBC 3.89 L (4.50-6.00) m/cumm Hgb 11.2 L (13.5-17.5) g/dL Hct 33.7 L (40.0-50.0) % Creatinine 0.60 L (0.70-1.30) mg/dL Magnesium 1.6 L (1.8-2.4) mg/dL C-Reactive Protein 2.95 H (0.0-0.3) mg/dL Vital Signs Temperature 36.9 C 04/18/19 07:32 Temperature Source Tympanic 04/18/19 07:32 Pulse 82 04/18/19 07:32 Pulse Rhythm Regular 04/18/19 11:41 Respiratory Rate 19 04/18/19 07:32 Respiratory Effort 04/18/19 11:41 Respiratory Depth Normal 04/18/19 11:41 Respiratory Pattern Normal 04/18/19 11:41 Blood Pressure 120/78 04/18/19 07:32 Blood Pressure Position Sitting 04/13/19 10:51 Pulse Oximetry 96 04/18/19 07:32 Oxygen Delivery Method Room Air 04/18/19 07:32 Oxygen Flow Rate 0 04/18/19 07:32 Pain Level 8 04/18/19 10:11 Comment 04/17/19 15:36 Intake & Output 04/17/19 04/18/19 04/18/19 23:59 11:59 23:59 Intake Total 513.333 / 1313.333 600 / 600 Output Total 420 / 2245 1500 / 1500 Balance 93.333 / -931.667 -900 / -900 Intake: IV 33.333 / 733.333 Oral 480 / 580 600 / 600 Output: Urine 420 / 2245 1500 / 1500 Other: Urine Color Light Sienna Yellow Urine Appearance Clear Clear Urine Odor None Normal Comment Patient voids in urinal. Voiding Methods Urinal Urinal Laboratory Results WBC 4.64 k/cumm (4.4-10.8) 04/18/19 06:37 RBC 3.89 m/cumm (4.50-6.00) L 04/18/19 06:37 Hgb 11.2 g/dL (13.5-17.5) L 04/18/19 06:37 Hct 33.7 % (40.0-50.0) L 04/18/19 06:37 MCV 86.6 fL (80-95) 04/18/19 06:37 MCH 28.8 pg (27.0-33.0) 04/18/19 06:37 MCHC 33.2 g/dL (32.0-36.0) 04/18/19 06:37 RDW 13.1 % (11.8-14.1) 04/18/19 06:37 Plt Count 308 x1000/uL (130-400) 04/18/19 06:37 MPV 9.2 fL (8.0-11.0) 04/18/19 06:37 Immature Gran % 0.2 04/18/19 06:37 60.5 04/18/19 06:37 Cancelled 04/16/19 07:10 26.7 04/18/19 06:37 Atypical Lymphs % Cancelled 04/16/19 07:10 8.8 04/18/19 06:37 3.2 04/18/19 06:37 0.6 04/18/19 06:37 Cancelled 04/16/19 07:10 Cancelled 04/16/19 07:10 Cancelled 04/16/19 07:10 Absolute Neutrophils 2.80 k/cumm (1.2-6.7) 04/18/19 06:37 Absolute Lymphocytes 1.24 k/cumm (1.2-3.4) 04/18/19 06:37 Absolute Monocytes 0.41 k/cumm (0.11-0.7) 04/18/19 06:37 Absolute Eosinophils 0.15 k/cumm (0.0-0.7) 04/18/19 06:37 Absolute Basophils 0.03 k/cumm (0.0-0.2) 04/18/19 06:37 Nucleated RBCs Cancelled 04/16/19 07:10 Cancelled 04/16/19 07:10 Cancelled 04/16/19 07:10 RBC Morphology Cancelled 04/16/19 07:10 Cancelled 04/16/19 07:10 Cancelled 04/16/19 07:10 Cancelled 04/16/19 07:10 Cancelled 04/16/19 07:10 Cancelled 04/16/19 07:10 Cancelled 04/16/19 07:10 Cancelled 04/16/19 07:10 Cancelled 04/16/19 07:10 Cancelled 04/16/19 07:10 Cancelled 04/16/19 07:10 Cancelled 04/16/19 07:10 Cancelled 04/16/19 07:10 Cancelled 04/16/19 07:10 Cancelled 04/16/19 07:10 Acanthocytes (Spur) Cancelled 04/16/19 07:10 Cancelled 04/16/19 07:10 Sodium 139 mmol/L (136-145) 04/18/19 06:37 Potassium 4.3 mmol/L (3.5-5.1) 04/18/19 06:37 Chloride 102 mmol/L (98-107) 04/18/19 06:37 Carbon Dioxide 30.2 mmol/L (21.0-32.0) 04/18/19 06:37 6.8 mmol/L (3-11) 04/18/19 06:37 BUN 12 mg/dL (7-18) 04/18/19 06:37 0.60 mg/dL (0.70-1.30) L 04/18/19 06:37 >= 60.00 (mL/min/1.73m2) 04/18/19 06:37 Glucose 85 mg/dL (70-100) 04/18/19 06:37 0.5 mmol/L (0.6-1.4) L 04/13/19 11:35 Calcium 8.9 mg/dL (8.5-10.1) 04/18/19 06:37 Magnesium 1.6 mg/dL (1.8-2.4) L 04/18/19 06:37 Iron 38 ug/dL (50-175) L 04/15/19 07:05 TIBC 228 ug/dL (250-450) L 04/15/19 07:05 Transferrin % Sat 17 % (20-55) L 04/15/19 07:05 217 ng/mL (8-388) 04/15/19 07:05 0.3 mg/dL (0.2-1.0) 04/13/19 11:35 AST 16 U/L (15-37) 04/13/19 11:35 ALT 35 U/L (12-78) 04/13/19 11:35 65 U/L (46-116) 04/13/19 11:35 < 0.05 ng/mL (0.00-0.06) 04/13/19 11:35 2.95 mg/dL (0.0-0.3) H 04/18/19 06:37 8.7 g/dL (6.4-8.2) H 04/13/19 11:35 2.9 g/dL (3.4-5.0) L 04/13/19 11:35 Vitamin B12 502 pg/mL (193-986) 04/15/19 07:05 12.5 ng/mL (8.6-20.0) 04/15/19 07:05 < 0.1 ng/mL 04/17/19 06:46 Vancomycin Trough 21.5 ug/mL (10.0-20.0) H* 04/17/19 11:11
[2019-04-18] MEDS: Enoxaparin 40 MG/0.4 ML SYR SC (15:18)
[2019-04-18 15:51] VITALS: BP 136/77; PULSE 74; RESP 20; TEMP 36.5; O2SAT 95
--- NOTE | 2019-04-18 18:08 | CMPROGNOTE_ITS ---
Care Management Progress Note S/O: Resting in bed with left leg elevated on a pillow. Concerned about the possible acute osteomyelitis. States his leg does hurt more today and he would prefer to have the IV antibiotics if that is what it is going to take to get rid of the infection. Worried about being out of work for a month now. 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 States his funds are depleted and he has to get back to work. A: 28 year old male admitted to [facility] 04/13/19 for worsening LLE cellulitis, failure of outpatient therapy P: Abelardo will return home when medically cleared for discharge. Extended course (6-8 weeks) of IV ABX may be needed as an OP Infusion service or in Swing Bed status here prior to returning home.
[2019-04-18 19:20] VITALS: BP 135/87; PULSE 78; RESP 20; TEMP 36.7; O2SAT 97
[2019-04-19 00:01] VITALS: BP 147/94; PULSE 85; RESP 19; TEMP 36.2; O2SAT 94
[2019-04-19 03:54] VITALS: BP 139/85; PULSE 64; RESP 18; TEMP 36.4; O2SAT 94
[2019-04-19 07:32] VITALS: BP 150/87; PULSE 77; RESP 19; TEMP 36.9; O2SAT 96
[2019-04-19 07:54] LABS: Abs Immature Grans 0.01 k/cumm (0.0-0.09); Absolute Basophil Count 0.03 k/cumm (0.0-0.2); Absolute Eosinophil Count 0.12 k/cumm (0.0-0.7); Absolute Lymphocyte Count 1.35 k/cumm (1.2-3.4); Absolute Monocyte Count 0.36 k/cumm (0.11-0.7); Absolute Neutrophil Count 2.41 k/cumm (1.2-6.7); Basophils % 0.7; Eosinophils % 2.8; HCT 33.5 % (40.0-50.0); HGB 10.9 g/dL (13.5-17.5); Immature Grans % 0.2; Lymphocytes % 31.5; Mean Corp. HGB Concentration 32.5 g/dL (32.0-36.0); Mean Corpuscular Hemoglobin 28.4 pg (27.0-33.0); Mean Corpuscular Volume 87.2 fL (80-95); Monocytes % 8.4; Neutrophils % 56.4; Platelet Count 314 x1000/uL (130-400); RBC 3.84 m/cumm (4.50-6.00); RBC Distribution Width 13.2 % (11.8-14.1); White Blood Cell Count 4.28 k/cumm (4.4-10.8)
[2019-04-19 08:15] LABS: Anion Gap 5.4 mmol/L (3-11); BUN 18 mg/dL (7-18); CO2 30.6 mmol/L (21.0-32.0); CREATININE 0.59 mg/dL (0.70-1.30); Calcium 9.1 mg/dL (8.5-10.1); Chloride 101 mmol/L (98-107); Glucose 86 mg/dL (70-100); Magnesium 1.8 mg/dL (1.8-2.4); Potassium 4.6 mmol/L (3.5-5.1); Sodium 137 mmol/L (136-145)
[2019-04-19] MEDS: Doxycycline Hyclate 100 MG CAP PO (08:18)
[2019-04-19] MEDS: Cephalexin 500 MG CAP PO ×2 (08:18→11:40)
[2019-04-19] MEDS: Acetaminophen 325 MG TAB PO (08:18)
[2019-04-19] MEDS: Magnesium Chloride 64 MG TABCR PO ×2 (08:18→14:00)
[2019-04-19] MEDS: Cyanocobalamin 500 MCG TAB 1000 MCG PO (08:19)
[2019-04-19] MEDS: Omeprazole 20 MG CAPCR PO (08:19)
[2019-04-19] MEDS: Ibuprofen 800 MG TAB PO ×2 (08:23→16:16)
[2019-04-19] MEDS: Buprenorphine/Naloxone 12 mg/3 mg FILM 0.5 EACH SL (08:24)
[2019-04-19] MEDS: Lachydrin 12% LOTION 225 GM BTL TP (10:07)
--- NOTE | 2019-04-19 10:16 | CMPROGNOTE_ITS ---
Care Management Progress Note S/O: Abelardo was lying in bed when CM met with him. He shared frustrations around ongoing lab draws and reported he is sick of being poked. He reported he was sick of it last admission. He was quite pleasant in interaction and reported confidence in his treatment plan and providers. He reported he was willing to return home or stay for SWB1; whichever is recommended. 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 CM spoke to Tiffanie Israel regarding medical necessity and plan and agreed to keep her updated. CM continues to follow. A: 28 year old male admitted to [facility] 04/13/19 for worsening LLE cellulitis, failure of outpatient therapy P: Abelardo will return home when ready per MD, anticipate MD direction in extended course of IV ABX; consult with [facility] ID forthcoming per MD. Likely that Abelardo will require SWB1 stay for IV ABX. CM will continue to follow and support discharge planning considerations. [employer]: CM discussed with Tiffanie Constantino for review. New Case# for SWB1: [id number].
[2019-04-19 11:24] VITALS: BP 121/80; PULSE 74; RESP 19; TEMP 37.1; O2SAT 96
--- NOTE | 2019-04-19 11:28 | NUR.NOTE ---
Tommie araps tp legs bilateral per MD order
--- NOTE | 2019-04-19 15:02 | W.PM.DS.N ---
Date of service: 04/19/19 Time of Service: 15:02 DS: Diagnosis Discharge Diagnosis (1) Cellulitis of left lower extremity: Start date: 04/19/19 Start time: 15:03 Status: Acute Asessment and Plan: Trial of PO doxy and keflex, minimal improvement after [address] mid line order with vanco and ancef IV for 14 days. (2) Opioid dependence: Start date: 04/19/19 Start time: 15:04 Status: Chronic (3) Obstructive sleep apnea: Status: Chronic (4) Normocytic anemia: Status: Acute (5) DVT prophylaxis: Status: Acute (6) Discharge planning issues: Status: Acute Discharge Plan Disposition Patient Disposition: [facility] SWING BED LEVEL 1 Condition: Fair Discharge Details Chief Complaint: Cellulitis Clinical Impression: Cellulitis of left leg Reason For Visit: WORSENING CELLULITIS LLE, FAILURE OF OUTPATIENT TH Admit Date/Time: 04/13/19 14:01 Admit Provider: Fernanda David Attending Provider: Fernanda David Primary Care Provider: Marty Saleh ED Provider: Nannette Guerra [facility] Course Hospital Course: Mr Marrero is a 28 year old obese male with PMHx of BLE lymphedema, as well as asthma, GERI (not using CPAP), opiate dependence on suboxone therapy, who was discharged from our service on 04/05/19 after an admission for severe BLE cellulitis with a prescription for keflex, who was sent to [facility] ED from his PCP's office with worsening LLE erythema and edema, despite compliance with above outpatient regimen. The patient states that he started to feel weak again yesterday and today, that the discomfort in his leg has worsened, and that he now has wounds in the leg. The wounds were cultured in the ED. In ED, he was afebrile and had a normal white count; however, cellulitis was indeed felt to be worse. We were asked to admit the patient for further care. He was reinitiated on vancomycin/cefazolin which seemed to have been beneficial on previous admission. He was transitioned to oral in hopes of going home on an oral regimen after speaking with ID at [facility]. Keflex QID with Doxy BID was ordered, he was monitored for 2 days, he did not have a white count, afebrile and his CRP was trending down, however clinically his leg has not improved enough to comfortably send him on PO antibiotics. He is on suboxone with a positive THC and cocaine use on previous admission, for this I would feel more comfortable placing him on swing bed admission with a midline for IV vancomycin and ancef. Today will be day 1 of reintiation of IV antibiotics. Bilateral leg wrapped for compression. He denies CP, SOB, N/V/D. He will be admitted to swing for a 14 day course of IV antibiotics. Home Meds and New Rx's Prescriptions: No Action buprenorphine-naloxone [Suboxone] 12-3 mg Film 0.5 film Sublingual DAILY RF: 0 albuterol sulfate 90 mcg/actuation Hfa Aerosol Inhaler 2 puff Inhalation PRN PRN (Reason: Shortness Of Breath Or Wheezing) RF: 0 ammonium lactate 12 % Lotion 1 applic topical BID Qty: 222 RF: 1 ibuprofen [IBU] 800 mg Tablet 800 mg PO Q8H Qty: 30 RF: 0 cephalexin [Keflex] 500 mg capsule 500 mg PO QID Qty: 56 RF: 0 omeprazole 20 mg capsule,delayed release(DR/EC) 20 mg PO DAILY Qty: 30 RF: 0 (DME) Mepilex Border 6 X 6 bandage See Dose Instructions .ROUTE .MEDSUPPLY Qty: 5 RF: 1 Discharge Instructions Additional Instructions: Elevate lower extremity. Compression wrap. Keep clean Activity:: Activity as Tolerated Equipment/Supplies:: No Equipment Needed Diet:: As Tolerated Discharge Orders Discharge Orders: Discharge Order (Routine); Ordered 04/19/19 Ordered By: Tegan Trujillo Exam Narrative Exam Narrative: General: Very pleasant obese male, laying flat in bed, A&Ox3, minimal improvement HEENT: Atraumatic, normocephalic, EOMI, MMM Cardiovascular: RRR, no m/r/g Lungs: CTAB Gastrointestinal: abdomen is soft, nontender, nondistended Extremities: BLE lymphedema, LLE erythema worse today; small medial calf wound is dressed - c/d/i DS: Data Vitals/I&O Vitals and I&O: Vital Signs Temperature 37.1 C 04/19/19 11:24 Temperature Source Tympanic 04/19/19 11:24 Pulse 74 04/19/19 11:24 Pulse Rhythm Regular 04/19/19 14:40 Respiratory Rate 19 04/19/19 11:24 Respiratory Effort 04/19/19 14:40 Respiratory Depth Normal 04/19/19 14:40 Respiratory Pattern Normal 04/18/19 23:50 Blood Pressure 121/80 04/19/19 11:24 Blood Pressure Position Sitting 04/13/19 10:51 Pulse Oximetry 96 04/19/19 11:24 Oxygen Delivery Method Room Air 04/19/19 11:24 Oxygen Flow Rate 0 04/19/19 11:24 Pain Level 6 04/19/19 11:24 Comment 04/17/19 15:36 Intake & Output 04/18/19 04/19/19 04/19/19 23:59 11:59 23:59 Intake Total 1200 / 1800 480 / 960 480 / 960 Output Total 600 / 2100 750 / 1350 600 / 1350 Balance 600 / -300 -270 / -390 -120 / -390 Weight 184.9 kg Intake: Oral 1200 / 1800 480 / 960 480 / 960 Output: Urine 600 / 2100 750 / 1350 600 / 1350 Other: Urine Color Yellow Yellow Yellow Urine Appearance Clear Clear Clear Urine Odor Normal Voiding Methods Urinal Urinal Urinal Labs on day of discharge: Labs from last 24 hours 04/19/19 04/19/19 07:18 07:18 WBC 4.28 L RBC 3.84 L Hgb 10.9 L Hct 33.5 L MCV 87.2 MCH 28.4 MCHC 32.5 RDW 13.2 Plt Count 314 MPV 9.0 Immature Gran % 0.2 Neutrophils % 56.4 Lymphocytes % 31.5 Monocytes % 8.4 Eosinophils % 2.8 Basophils % 0.7 Absolute Neutrophils 2.41 Absolute Lymphocytes 1.35 Absolute Monocytes 0.36 Absolute Eosinophils 0.12 Absolute Basophils 0.03 Sodium 137 Potassium 4.6 Chloride 101 Carbon Dioxide 30.6 Anion Gap 5.4 BUN 18 D Creatinine 0.59 L Estimated GFR/1.73 m2 >= 60.00 Glucose 86 Calcium 9.1 Magnesium 1.8 Preliminary micro results at discharge 04/14/19 07:35 Blood Culture - Preliminary Blood NO GROWTH 96 HOURS 04/14/19 07:05 Blood Culture - Preliminary Blood NO GROWTH 96 HOURS [facility] Medical History (Updated 04/16/19 @ 19:28 by Fernanda David MD) Asthma (Chronic) Bilateral cellulitis of lower leg (Acute) History of substance abuse Lymphedema of both lower extremities (Acute) Obesity, morbid, BMI 50 or higher (Acute) Obstructive sleep apnea (Chronic) Opiate dependence, continuous Social History Smoking/Tobacco Use Status: Current every day Tobacco Type: cigarettes Alcohol Intake: former Counseling given: Yes Counseling provided: provider counseling Details: 7-12 drinks/day, last drink 3 days ago, denies withdrawal sx/seizures Drug use: Daily Substance use type: former substance user and marijuana Details: 3 years free of herion; on suboxone therapy Do you feel safe at home: Yes Do you feel safe in your relationship?: Yes
--- NOTE | 2019-04-19 15:16 | NUR.NOTE ---
pt is being discharged from acute to swingbed for IV ABX Nursing Note:
[2019-04-19] MEDS: Enoxaparin 40 MG/0.4 ML SYR SC (16:16)
[2019-04-19] MEDS: ACETAMINOPHEN 1,000 MG/100 ML BTL 400 MG IVPB (16:16)
== END 2019-04-19 16:29 | disposition swing bed (61) | DRG 603 ==
LOC: ER 14:42 → MS 14:59
PROVIDERS: Admitting Provider Internal Medicine; Emergency Provider Physician Assistant; PCP Internal Medicine; Visit Provider Internal Medicine
DX: L03.116 Cellulitis of left lower limb (principal); F11.20 Opioid dependence, uncomplicated; G47.33 Obstructive sleep apnea (adult) (pediatric); D64.9 Anemia, unspecified; I89.0 Lymphedema, not elsewhere classified
CPT/HCPCS: 36415; 36569; 80048; 80053; 84145; 87040; 87077; 96365; 96366; 96375; 97161; 97166; 99223; 99232; 99233; 99239; 99285; J1650; 73590; 73720; 80202; 82607; 82728; 82746; 83540; 83550; 83605; 83735; 84484; 85025; 86140; 87070; 87186; 87205; 93306; 93971; 99284; J0131; J0690; J1940

== ENCOUNTER 2019-04-19 16:23 | Inpatient (IN) | payer OTHER, SELFPAY ==
--- NOTE | 2019-04-19 16:20 | PHARADMIT ---
Addendum entered by Danni Peoples 05/03/19 13:24: Pharmacy Note Subjective finished course of IV antibiotics Objective VS-okay no labs Assessment vanco and cefazolin discontinued penicillin started for chronic suppression therapy (recommended by [facility] ID) Plan discharge home tomorrow Addendum entered by Sung Hall III 04/30/19 14:07: Pharmacy Note Subjective MD report that patients leg has improved, but not enough. CRP still elevated (1.28) Objective VS-OK SCr0.69 H&H-11.3/34.2 Plts-270 Lytes-OK No stool assessment ?? Assessment Vancomycin & Cefazolin continue Plan Keep on present course of therapy. Addendum entered by Sung Hall III 04/27/19 15:21: Pharmacy Note Subjective Due to his Lymphadema IV ABX penetration is slow. He may require prolonged IV ABX therapy to insure eradication of infection. Objective VS-OK Plts- 292 No other Labs Assessment Vancomycin trough at 7am tomorrow. Cefazolin continues. Plan Previous Vancomycin trough (16.9) Addendum entered by Anitra Porter 04/25/19 10:10: Pharmacy Note Subjective Patient continuing his 6 weeks of ABX therapy with Vancomycin & Cefazolin Objective UDS to be ordered Assessment no med changes, vanco level yesterday evaluated, dose unchanged Plan may need behavioral plan due to h/o drug use and pt has line and and goes out on pass without it wrapped by nursing. VANCO TROUGH AND SCR ORDERED FOR 04/26 @0500 Addendum entered by Sung Hall III 04/22/19 13:11: Pharmacy Note Subjective Patient continuing his 6 weeks of ABX therapy with Vancomycin & Cefazolin Objective VS-OK No Labs, Assessment Vancomycin trough came back high 20.3, adjusted dose to 1750mg IV q10 hrs. Plan Follow Vancomycin dosing Addendum entered by Danni Peoples 04/21/19 11:48: Pharmacy Note Subjective nothing new per morning report Objective BP-142/76 other VS okay Assessment vanco and cefazolin continue vanco trough came back high so dose changed from 2 grams Q8H to 2 grams Q10H to target a trough of 15.5 Plan vanco trough ordered for tomorrow at 0700, adjust dose if needed Original Note: Pharmacy Note Subjective clinically leg did not improve enough while on po abx to send home, so changed back to IV per discharge note Objective VS okay Assessment today is day 1 of re-initiation of abx; plan is for 14 day course vanco and cefazolin ordered acetaminophen changed from PO PRN to IV JUANITA Plan order vanco trough for 04/21 and adjust dose if needed Swingbed for IV abx info below is from acute account prior to swinging: PETRA CASAS Male : 1990 Emr# [id number] 04/16/19 16:23 - Pharmacy Review by Sung Hall III Acct Num: [id number] : 1990 Patient Age: 28 Admission Pharmacy Clinical Review cellulits LL limb, worsening. Code Status Full Code Current Weight Wgt- 186.2 kg Renally Cleared and Narrow Therapeutic Index Meds CrCl~ 143 mL/min Meds-OK QTc Value / Action Taken QTc-516(on 03/29) Omeprazole, BP Control, Fever BP- 127/80 Tmax- 37.3C Electrolytes reviewed Na- 140 K+4.0 Mag-1.8 DVT Prophylaxis Lovenox Opiate Usage / Scheduled Bowel Regimen Ordered No Yes Plt/SCr for Heparin / Enoxaparin Plts-296 SCr-0.53 INR for Warfarin na H/H stable, WBC/Bands H&H- 10.8/32.4 WBC- 5.21 Antibiotic appropriateness Ancef-Vancomycin Cultures and Sensitivities Blood-no Growth/72 hrs, Wound-Staph (not aureus) Surgical ABX d/c within 24 hr na DM control / Insulin Dosing BG-89 Heart Failure (Check EF%) (VIVIANE's, B-Block, Diuretics) none IV to PO Switch No Home Meds Reviewed Yes Home Meds Not Ordered Advair, Keflex Comments Last Vanco trough-18.2 (04-15) R-CRP- 4.30 Takes Suboxone Initialized on 04/16/19 16:23 - END OF NOTE
--- NOTE | 2019-04-19 16:24 | HPE_ITS ---
Date of service: 04/19/19 Time of Service: 16:25 Assessment and Plan (1) Cellulitis of left lower extremity: Start date: 04/19/19 Start time: 16:30 Current visit: No Status: Acute Started on vanco and ancef reinitation day 1. Midline inserted. Start of 14 day course of antibiotic. Wrap bilateral legs with VIVIANE wraps. Consider TEDs when swelling is lessened and allows for them. Afebrile, wbc normal, CRP improving. continue to monitor. (2) Opioid dependence: Start date: 04/19/19 Start time: 16:31 Current visit: No Status: Chronic Continue suboxone (3) DVT prophylaxis: Start date: 04/19/19 Current visit: No Status: Acute continue enoxaparin. History of Present Illness Chief Complaint: CELLULITIS Narrative: Mr Marrero is a 28 year old obese male with PMHx of BLE lymphedema, as well as asthma, GERI (not using CPAP), opiate dependence on suboxone therapy, who was discharged from our service on 04/05/19 after an admission for severe BLE cellulitis with a prescription for keflex, who was sent to [facility] ED from his PCP's office with worsening LLE erythema and edema, despite compliance with above outpatient regimen. The patient states that he started to feel weak again yesterday and today, that the discomfort in his leg has worsened, and that he now has wounds in the leg. The wounds were cultured in the ED. In ED, he was afebrile and had a normal white count; however, cellulitis was indeed felt to be worse. We were asked to admit the patient for further care. He was reinitiated on vancomycin/cefazolin which seemed to have been beneficial on previous admission. He was transitioned to oral in hopes of going home on an oral regimen after speaking with ID at [facility]. Keflex QID with Doxy BID was ordered, he was monitored for 2 days, he did not have a white count, afebrile and his CRP was trending down, however clinically his leg has not improved enough to comfortably send him on PO antibiotics. He is on suboxone with a positive THC and cocaine use on previous admission, for this I would feel more comfortable placing him on swing bed admission with a midline for IV vancomycin and ancef. Today will be day 1 of reintiation of IV antibiotics. Bilateral leg wrapped for compression. He denies CP, SOB, N/V/D. He will be admitted [place] [facility] [place] for a 14 day course of IV antibiotics. Review of Systems Review of Systems All systems reviewed & are unremarkable except as noted in HPI and below Constitutional Reports system reviewed and no additional complaints, except as docu Eyes Reports system reviewed and no additional complaints, except as docu ENT Reports system reviewed and no additional complaints, except as docu Cardiovascular Reports system reviewed and no additional complaints, except as docu Respiratory Reports system reviewed and no additional complaints, except as docu Gastrointestinal Reports system reviewed and no additional complaints, except as docu Genitourinary Reports system reviewed and no additional complaints, except as docu Musculoskeletal Reports system reviewed and no additional complaints, except as docu Integumentary/Breasts Reports as per HPI, Reports erythema and Reports skin swelling Neurologic Reports system reviewed and no additional complaints, except as docu Psychiatric Reports system reviewed and no additional complaints, except as docu Endocrine Reports system reviewed and no additional complaints, except as docu Hematologic/Lymphatic Reports system reviewed and no additional complaints, except as docu [facility] Medical History (Updated 04/16/19 @ 19:28 by Fernanda David MD) Asthma (Chronic) Bilateral cellulitis of lower leg (Acute) History of substance abuse Lymphedema of both lower extremities (Acute) Obesity, morbid, BMI 50 or higher (Acute) Obstructive sleep apnea (Chronic) Opiate dependence, continuous Social History Smoking/Tobacco Use Status: Current every day Tobacco Type: cigarettes Alcohol Intake: former Counseling given: Yes Counseling provided: provider counseling Details: 7-12 drinks/day, last drink 3 days ago, denies withdrawal sx/seizures Drug use: Daily Substance use type: former substance user and marijuana Details: 3 years free of herion; on suboxone therapy Do you feel safe at home: Yes Do you feel safe in your relationship?: Yes Meds Home Medications Medication Instructions Recorded Confirmed Type albuterol sulfate 2 puff INHALATION PRN PRN 03/29/19 04/19/19 History buprenorphine-naloxone [Suboxone] 0.5 film SUBLINGUAL DAILY 03/29/19 04/19/19 History ammonium lactate 1 applic TOPICAL BID #222 gm 04/05/19 04/19/19 Rx cephalexin [Keflex] 500 mg PO QID #56 cap 04/05/19 04/19/19 Rx foam bandage [Mepilex Border] #5 each 04/05/19 04/19/19 Rx ibuprofen [IBU] 800 mg PO Q8H #30 tab 04/05/19 04/19/19 Rx omeprazole 20 mg PO DAILY #30 cap 04/05/19 04/19/19 Rx Allergies Allergy/AdvReac Type Severity Reaction Status Date / Time No Known Allergies Allergy Unverified 04/13/19 10:52 Exam Const General: cooperative, healthy appearing and no acute distress [facility] Head: normal to inspection Eyes Conjunctivae: conjunctivae normal Sclera: sclerae normal Pupils: PERRL Neck Neck: normal visual inspection Lymphatic: no lymphadenopathy noted Chest Chest: normal inspection of the chest Resp Effort & Inspection: normal respiratory effort and able to speak in complete sentences Auscultation: clear to auscultation bilaterally Cardio Jugular venous pressure: no JVD Palpation: normal PMI Rate: regular rate Rhythm: regular rhythm Heart Sounds: S1 normal, S2 normal and no murmurs GI Inspection: normal to inspection Palpation: soft and no hepatosplenomegaly Auscultation: normal bowel sounds General: deferred Back/Spine/Pelvis Back: no CVA tenderness Skin Wounds: wounds noted Other: LLE erythema with edema Neuro General: alert, awake and oriented x3 Cognition: normal cognition Speech: speech normal Extrem Left lower extremity: edema Results Labs : 05/03/19 07:00 05/01/19 16:20
[2019-04-19 16:33] VITALS: BP 127/87; PULSE 75; RESP 18; TEMP 37.1; O2SAT 94
[2019-04-19] MEDS: VANCOMYCIN 2,000 MG in Normal Saline 500 ML 250 MG IV (17:52)
[2019-04-19] MEDS: Lachydrin 12% LOTION 225 GM BTL TP (20:40)
[2019-04-19] MEDS: Magnesium Chloride 64 MG TABCR PO (20:40)
[2019-04-19 23:39] VITALS: BP 122/71; PULSE 68; RESP 17; TEMP 36.7; O2SAT 92
[2019-04-20] VITALS: O2SAT 95
[2019-04-20] MEDS: VANCOMYCIN 2,000 MG in Normal Saline 500 ML 250 MG IV ×3 (02:41→17:54)
[2019-04-20] MEDS: Normal Saline Flush 10 ML SYR IVP ×2 (02:41→15:43)
[2019-04-20] MEDS: ACETAMINOPHEN 1,000 MG/100 ML BTL 400 MG IVPB ×4 (05:21→22:31)
[2019-04-20] MEDS: Omeprazole 20 MG CAPCR PO (08:33)
[2019-04-20] MEDS: Buprenorphine/Naloxone 12 mg/3 mg FILM 0.5 EACH SL (08:33)
[2019-04-20] MEDS: Magnesium Chloride 64 MG TABCR PO ×3 (08:33→20:32)
[2019-04-20] MEDS: Cyanocobalamin 500 MCG TAB 1000 MCG PO (08:33)
[2019-04-20] MEDS: Lachydrin 12% LOTION 225 GM BTL TP ×2 (08:34→20:34)
[2019-04-20] MEDS: Ibuprofen 800 MG TAB PO (08:45)
[2019-04-20 08:53] VITALS: BP 143/92; PULSE 90; RESP 20; TEMP 37; O2SAT 96
--- NOTE | 2019-04-20 11:46 | W.NUTCONSULT ---
Date of service: 04/20/19 Time of Service: 11:46 Nutritional Consult ASSESSMENT: Appreciate nutrition consult for wound healing. Chart reviewed at admission and high protein foods were offered. He is also offered Arnold twice daily for 7 days. BMI 56 and has been reasonably steady without noted weight loss or gain. Hemoglobin remains low around 11. Estimated Energy needs for wound healing are estimated at 2800. Adjusted ideal body weight 118kg. His estimated protein needs are 153 grams daily. He is currently eating 100% of his meals estimated at 2000 calories and 70 grams protein. NUTRITIONAL DIAGNOSIS: Increased nutrient related to wound healing INTERVENTION: Given Mr. Marrero's high nutrition needs, will continue to offer larger portions of high protein, nutrient dense foods and assess his satisfaction. We will add supplements to improve his protein intake as he allows. MONITORING AND EVALUATION: Will continue to monitor weight and PO intake Will adjust plan as needed
--- NOTE | 2019-04-20 12:46 | CMSA_ITS ---
- If Service Date Differs Date of service: 04/19/19 SB Psychosocial/Act.Assessment - Hospital Admission Admission Date: 04/19/19 Admission From:: [facility] Inpatient Diagnosis:: Cellulitis - Swing Bed Admission Swing Bed Admit Date:: 04/19/19 Swing Bed Level of Care: Level 1/SNF - Social Supports PREVIOUS FUNCTIONAL STATUS/SOCIAL/FAMILY SUPPORTS:: Abelardo resides alone in [place], [place]. He works at [employer] in [place], [place] and reports his parents as primary suppports. 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 He reports not drinking alcohol since being discharged from the hospital, stopped drinking soda, bought salad and lean cusines and has really been trying to make life style modifications. - Prior to Admission Living Arrangements/Environment Prior to Admission:: Abelardo resides alone in [place], [place]. He works at [employer] in [place], [place] and reports his parents as primary suppports. He is independent at baseline in the community. 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 - [place]: No 's Spouse: No - Benefits Financial: Commerical ([employer]) - Gnosticist Active Druze Member:: No Will Druze Members or Aging Box Hand Visit:: No - Advance Directives for Healthcare If no AD, do you want more information:: No - Present Functional Status Physical Abilities:: Unable to stand for long periods of time due to Lymphodema in LE at this time. 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 Cognitive:: Alert and oriented Communication:: Appropriate Sensory Systems: Intact Behavior:: Appropriate - Medical History PAST MEDICAL HISTORY/PAST SURGICAL HISTORY:: Opioid dependence, substance abuse, morbid obesity, GERI, Sepsis, Hypomagnesemia, alcohol abuse, asthma with acute exacerbation, Lymphedema of both lower extremities, cellulitis of left and right lower limbs, BMI 50-59.9, current everyday smoker. Mr Marrero is a 28 year old obese male with PMHx of BLE lymphedema, as well as asthma, GERI (not using CPAP), opiate dependence on suboxone therapy, who was discharged from our service on 04/05/19 after an admission for severe BLE cellulitis with a prescription for keflex, who was sent to [facility] ED today from his PCP's office with worsening LLE erythema and edema, despite compliance with above outpatient regimen. The patient states that he started to feel weak again yesterday and today, that the discomfort in his leg has worsened, and that he now has wounds in the leg. The wounds were cultured in the ED. In ED, he was afebrile and had a normal white count; however, cellulitis was indeed felt to be worse. We were asked to admit the patient for further care. He was reinitiated on vancomycin/cefazolin which seemed to have been beneficial on previous admission. General Health:: Generally healthy with obesity and GERI. Past Psychiatric Treatment:: N/A - Admission Data Reason for Swing Bed Admission:: 7 days of IV ABX 3x/day each: Vancomycin, Cefazolin Q8H Discharge Plan:: Home with outpatient follow up after seven days of IV ABX therapy. Lumber Chain Offbearer: Kaelyn Crowder Date Assessment was completed:: 04/19/19
--- NOTE | 2019-04-20 14:42 | CMSCP_ITS ---
Swingbed Plan of Care Plan of care: SWING BED PROGRAM ACTIVITIES/DISCHARGE PLAN OF CARE ACTIVITIES PLAN Date: 04/19/19 Identified Need: IV ABX therapy for LE Cellulitis Intervention/Plan: Q8H IV ABX, Cefazolin and Vancomycin Initials: [facility] DISCHARGE PLAN Date: 04/19/19 Identified Need: Lymphedema Intervention/Plan: OP/PT follow up for management of Lymphedema Initials: [facility]
--- NOTE | 2019-04-20 15:38 | WOUNDCARE ---
Wound Care Report 04/20/19 Following up with consult done by Tawnya Gore RN [facility]. Pt has one open area on l calf covered with tegaderm absorbant. Dressing CDI. No other open areas noted. no drainage noted from legs outside of dressing. Recommend continue current orders. Tegaderm absorbant due to be changed 04/28/19. Will continue to monitor.
[2019-04-20] MEDS: Enoxaparin 40 MG/0.4 ML SYR SC (15:43)
[2019-04-20 16:04] VITALS: BP 145/81; PULSE 92; RESP 20; TEMP 36; O2SAT 93
[2019-04-21] VITALS: BP 149/70; PULSE 84; RESP 20; TEMP 36.6; O2SAT 94
[2019-04-21] MEDS: VANCOMYCIN 2,000 MG in Normal Saline 500 ML 250 MG IV ×3 (02:28→22:18)
[2019-04-21] MEDS: ACETAMINOPHEN 1,000 MG/100 ML BTL 400 MG IVPB ×4 (04:41→21:49)
[2019-04-21 07:34] VITALS: BP 142/76; PULSE 70; RESP 20; TEMP 35.9; O2SAT 97
[2019-04-21] MEDS: Omeprazole 20 MG CAPCR PO (08:10)
[2019-04-21] MEDS: Magnesium Chloride 64 MG TABCR PO ×3 (08:10→20:33)
[2019-04-21] MEDS: Buprenorphine/Naloxone 12 mg/3 mg FILM 0.5 EACH SL (08:10)
[2019-04-21] MEDS: Cyanocobalamin 500 MCG TAB 1000 MCG PO (08:10)
[2019-04-21] MEDS: Lachydrin 12% LOTION 225 GM BTL TP ×2 (08:12→20:34)
[2019-04-21 08:15] LABS: Platelet Count 297 x1000/uL (130-400)
[2019-04-21] MEDS: Normal Saline Flush 10 ML SYR IVP ×4 (08:20→21:49)
[2019-04-21 10:55] LABS: Vancomycin, Trough 21.5 ug/mL (10.0-20.0)
[2019-04-21] MEDS: Enoxaparin 40 MG/0.4 ML SYR SC (16:12)
[2019-04-21 20:32] VITALS: BP 123/77; PULSE 74; RESP 16; TEMP 36.6; O2SAT 95
[2019-04-22] MEDS: Normal Saline Flush 10 ML SYR IVP ×4 (00:46→21:47)
[2019-04-22] MEDS: ACETAMINOPHEN 1,000 MG/100 ML BTL 400 MG IVPB ×4 (03:37→21:44)
[2019-04-22 07:48] LABS: Vancomycin, Trough 20.3 ug/mL (10.0-20.0)
[2019-04-22 07:50] VITALS: BP 134/84; PULSE 64; RESP 16; TEMP 36.6; O2SAT 96
[2019-04-22] MEDS: Magnesium Chloride 64 MG TABCR PO ×3 (08:17→21:46)
[2019-04-22] MEDS: Omeprazole 20 MG CAPCR PO (08:17)
[2019-04-22] MEDS: Cyanocobalamin 500 MCG TAB 1000 MCG PO (08:18)
[2019-04-22] MEDS: Buprenorphine/Naloxone 12 mg/3 mg FILM 0.5 EACH SL (08:19)
[2019-04-22] MEDS: VANCOMYCIN 2,000 MG in Normal Saline 500 ML 250 MG IV (09:10)
[2019-04-22] MEDS: Lachydrin 12% LOTION 225 GM BTL TP ×2 (10:32→21:47)
[2019-04-22 16:27] VITALS: BP 149/101; PULSE 103; RESP 19; TEMP 36.8; O2SAT 95
[2019-04-22] MEDS: Enoxaparin 40 MG/0.4 ML SYR SC (17:15)
[2019-04-23 00:10] VITALS: BP 119/76; PULSE 86; RESP 16; TEMP 36.3; O2SAT 94
[2019-04-23] MEDS: Normal Saline Flush 10 ML SYR IVP ×5 (00:51→16:38)
[2019-04-23] MEDS: ACETAMINOPHEN 1,000 MG/100 ML BTL 400 MG IVPB ×4 (04:24→22:50)
[2019-04-23 07:12] LABS: Abs Immature Grans 0.01 k/cumm (0.0-0.09); Absolute Basophil Count 0.03 k/cumm (0.0-0.2); Absolute Eosinophil Count 0.16 k/cumm (0.0-0.7); Absolute Lymphocyte Count 1.56 k/cumm (1.2-3.4); Absolute Monocyte Count 0.52 k/cumm (0.11-0.7); Absolute Neutrophil Count 2.46 k/cumm (1.2-6.7); Basophils % 0.6; Eosinophils % 3.4; HCT 33.4 % (40.0-50.0); HGB 10.7 g/dL (13.5-17.5); Immature Grans % 0.2; Lymphocytes % 32.9; Mean Corpuscular Hemoglobin 28.4 pg (27.0-33.0); Mean Corpuscular Volume 88.6 fL (80-95); Mean Platelet Volume 8.9 fL (8.0-11.0); Neutrophils % 51.9; Platelet Count 294 x1000/uL (130-400); RBC 3.77 m/cumm (4.50-6.00); RBC Distribution Width 13.6 % (11.8-14.1); White Blood Cell Count 4.74 k/cumm (4.4-10.8)
[2019-04-23 07:37] LABS: ALT 18 U/L (12-78); AST 12 U/L (15-37); Albumin 2.8 g/dL (3.4-5.0); Alkaline Phosphatase 52 U/L (46-116); Anion Gap 7.2 mmol/L (3-11); BUN 16 mg/dL (7-18); Bilirubin, Total 0.1 mg/dL (0.2-1.0); CO2 29.8 mmol/L (21.0-32.0); CREATININE 0.68 mg/dL (0.70-1.30); Calcium 8.9 mg/dL (8.5-10.1); Chloride 102 mmol/L (98-107); Glucose 91 mg/dL (70-100); Magnesium 1.7 mg/dL (1.8-2.4); Potassium 4.3 mmol/L (3.5-5.1); Sodium 139 mmol/L (136-145); Total Protein 8.4 g/dL (6.4-8.2)
[2019-04-23 07:55] VITALS: BP 134/81; PULSE 76; RESP 19; TEMP 36; O2SAT 94
[2019-04-23] MEDS: Magnesium Chloride 64 MG TABCR PO ×3 (08:00→20:00)
[2019-04-23] MEDS: Cyanocobalamin 500 MCG TAB 1000 MCG PO (08:45)
[2019-04-23] MEDS: Lachydrin 12% LOTION 225 GM BTL TP ×2 (08:46→20:01)
[2019-04-23] MEDS: Buprenorphine/Naloxone 12 mg/3 mg FILM 0.5 EACH SL (08:46)
[2019-04-23] MEDS: Omeprazole 20 MG CAPCR PO (08:49)
--- NOTE | 2019-04-23 14:42 | PDOC.CMPRO ---
Care Management Progress Note Valerio has been going out on pass in the afternoons. CM placed competed S/T disability paperwork on his table as he was off campus. Anticipate Abelardo will discharge home with outpatient PT follow up when ready per MD; tentatively planned for 04/28/19.
[2019-04-23 16:23] VITALS: BP 148/85; PULSE 101; RESP 17; TEMP 36.6; O2SAT 94
[2019-04-23] MEDS: Enoxaparin 40 MG/0.4 ML SYR SC (16:38)
[2019-04-23 23:19] VITALS: BP 129/74; PULSE 74; RESP 19; TEMP 36.7; O2SAT 96
[2019-04-24] MEDS: ACETAMINOPHEN 1,000 MG/100 ML BTL 400 MG IVPB ×4 (03:41→23:13)
[2019-04-24] MEDS: Normal Saline Flush 10 ML SYR IVP ×3 (03:41→23:13)
[2019-04-24 07:42] VITALS: BP 114/83; PULSE 72; RESP 19; TEMP 36.5; O2SAT 96
[2019-04-24] MEDS: Buprenorphine/Naloxone 12 mg/3 mg FILM 0.5 EACH SL (09:37)
[2019-04-24] MEDS: Cyanocobalamin 500 MCG TAB 1000 MCG PO (09:38)
[2019-04-24] MEDS: Omeprazole 20 MG CAPCR PO (09:39)
[2019-04-24] MEDS: Magnesium Chloride 64 MG TABCR PO ×3 (09:39→22:14)
[2019-04-24] MEDS: Lachydrin 12% LOTION 225 GM BTL TP ×2 (09:41→22:14)
[2019-04-24 10:34] LABS: Vancomycin, Trough 21.6 ug/mL (10.0-20.0)
[2019-04-24 15:30] VITALS: BP 105/65; PULSE 86; RESP 20; TEMP 36.9; O2SAT 94
[2019-04-24] MEDS: Enoxaparin 40 MG/0.4 ML SYR SC (16:41)
--- NOTE | 2019-04-24 22:48 | NUR.NOTE ---
Nursing Note: Patient returned from being out on pass at approximately 2200. Patient states he was not wrapped prior to leaving. Patients midline was not clamped and green cap was not attached. Patient states it fell off while he was changing out of his shirt. Patient was educated about hospital policy of wrapping and protecting the site while out on pass. Patient quickly became defensive stating I'm flagged because of my history and that he would never use his line for drugs because he wants to get better. Patient states he feels wrapping is unnecessary because he would not use it and he gives us his word. Patient states he would rather go through drug testing to prove he is not using because his arm is sensitive and becomes easily irritated when wrapped. I explained to the patient that this is the policy and not rules made specifically for him due to his history and that is a policy that we have to have in order to set standardized limits and not be inconsistent with patients. EMILY devlin.
[2019-04-25 00:13] VITALS: BP 136/73; PULSE 77; RESP 19; TEMP 36; O2SAT 95
[2019-04-25] MEDS: ACETAMINOPHEN 1,000 MG/100 ML BTL 400 MG IVPB ×4 (03:39→22:31)
[2019-04-25] MEDS: Buprenorphine/Naloxone 12 mg/3 mg FILM 0.5 EACH SL (09:04)
[2019-04-25] MEDS: Magnesium Chloride 64 MG TABCR PO ×3 (09:05→20:59)
[2019-04-25] MEDS: Cyanocobalamin 500 MCG TAB 1000 MCG PO (09:05)
[2019-04-25] MEDS: Omeprazole 20 MG CAPCR PO (09:05)
[2019-04-25] MEDS: Normal Saline Flush 10 ML SYR IVP ×2 (09:06→20:59)
[2019-04-25] MEDS: Lachydrin 12% LOTION 225 GM BTL TP ×2 (09:06→20:59)
--- NOTE | 2019-04-25 10:32 | PDOC.CMPRO ---
- If Service Date Differs Date of service: 04/25/19 Time of Service: 10:32 Care Management Progress Note Abelardo Janes 86 Behavioral Health Plan for [facility] 04/25/19 Behavioral plan will be established with patient, and care team, to adhere to patient goals, identify restrictions based on behavioral status, address nutrition, and determine allowed personal belongings, tools for hygiene and personal care. As well plan will determine level of activity including ambulation, level of supervision, visitors, and determine privileges based on level of acuity, behaviors and level of engagement by patient. I, Abelardo Jnaes participated in creating this agreement and consent to the following conditions with the understanding this plan was developed to support my success in completing needed medical treatment. 1. Abelardo agrees that his IV site will be taped and marked before leaving unit and inspected upon return 2. Abelardo agrees to random drug screens 3. Abelardo agrees to sign out when leaving and to sign back in when returning to the unit. This plan will remain in effect until a huddle can be called with staff for needed changes. Changes to care plan will be coordinated by the Bakery Assistant in conjunction and cooperation with Abelardo?s wishes to support his patient rights. Signature: Date Witness: Date Witness: Date
[2019-04-25 13:58] LABS: *AMPHETAMINES SCREEN URINE Negative (Negative); *BARBITURATES SCREEN URINE Negative (Negative); *BENZODIAZEPINES SCREEN URINE Negative (Negative); Cannabinoids THC POSITIVE (Negative); Cocaine Screen,Urine Negative (Negative); METHADONE URINE SCREEN Negative (Negative); OPIATES URINE SCREEN Negative (Negative)
[2019-04-25 14:01] LABS: Tricyclic Antidepressants Negative (Negative)
[2019-04-25 16:17] VITALS: BP 150/87; PULSE 91; RESP 21; TEMP 36.3; O2SAT 94
[2019-04-25] MEDS: Enoxaparin 40 MG/0.4 ML SYR SC (16:23)
--- NOTE | 2019-04-25 17:55 | NUR.NOTE ---
Nursing Note: Patient was out on pass for the afternoon , denies pain or sob on return, denies chest pain or pressure, , IV treatment resumes on his return, no other complaints noted
--- NOTE | 2019-04-25 19:10 | PDOC.CMPRO ---
- If Service Date Differs Date of service: 04/25/19 Time of Service: 19:10 Care Management Progress Note At the request of the nursing staff and providers, a Behavioral Plan was created for Abelardo to address the times when he goes out on pass. Last evening when he returned from pass, the dressing on his IV site was loose, a cap was missing and a clamp was undone. All felt it would be safer to have an agreement with Abelardo in place. VIKRAM reviewed this with Abelardo and he agreed to the terms and signed it. He stated that he was upset but since he didn't have anything to hide, so he agreed to it. See CM progress note from earlier today.
[2019-04-25 23:38] VITALS: BP 114/71; PULSE 78; RESP 19; TEMP 36.8; O2SAT 97
[2019-04-26] MEDS: ACETAMINOPHEN 1,000 MG/100 ML BTL 400 MG IVPB ×4 (04:10→21:53)
[2019-04-26] MEDS: Normal Saline Flush 10 ML SYR IVP ×2 (05:30→06:51)
[2019-04-26 06:41] LABS: CREATININE 0.74 mg/dL (0.70-1.30); Vancomycin, Trough 16.9 ug/mL (10.0-20.0)
[2019-04-26 08:12] VITALS: BP 121/75; PULSE 65; RESP 20; TEMP 36.4; O2SAT 98
[2019-04-26] MEDS: Cyanocobalamin 500 MCG TAB 1000 MCG PO (10:13)
[2019-04-26] MEDS: Magnesium Chloride 64 MG TABCR PO ×3 (10:13→20:23)
[2019-04-26] MEDS: Omeprazole 20 MG CAPCR PO (10:13)
[2019-04-26] MEDS: Lachydrin 12% LOTION 225 GM BTL TP ×2 (10:25→20:22)
[2019-04-26] MEDS: Buprenorphine/Naloxone 12 mg/3 mg FILM 0.5 EACH SL (10:27)
--- NOTE | 2019-04-26 12:50 | W.PM.PROGNOT ---
Date of Service Date of service: 04/26/19 Time of Service: 12:50 Assessment and Plan (1) Cellulitis of left lower extremity: Start date: 04/26/19 Start time: 14:46 Current visit: No Status: Acute Improving on ceftriaxone. Continue antibiotics for a couple more days. Localized erythema to calf area. Afebrile, swelling decreased. Pain is improving. Continue to monitor. CRP trending down and no leukocytosis. Subjective Patient reports: no new complaints and feels better Interval history since last seen: Site improving. Erythema has improved, still erythema to left calf wrapping around leg stopping on outer aspect leg. Warm to touch, edema improving. Pain is improving. Continue antibiotics. May need another week of rocephin. Resolving though slowly. Afebrile. CRP trending down. Without leukocytosis. Denies CP, SOB, N/V/d. Exam Resp Effort & Inspection: normal respiratory effort and able to speak in complete sentences Auscultation: clear to auscultation bilaterally Cardio Jugular venous pressure: no JVD Rate: regular rate Rhythm: regular rhythm Heart Sounds: S1 normal, S2 normal and no murmurs GI Inspection: normal to inspection Auscultation: normal bowel sounds Skin Other: venous statis discoloration to bilateral legs. Left leg with erythema localized to calf, warm to touch in the area. Which is vastly improved from last week even 2 days ago. Neuro General: alert, awake and oriented x3 Extrem General: full ROM Left lower extremity: edema Objective Objective Clinical Data: Vital Signs Temperature 36.4 C L 04/26/19 08:12 Temperature Source Tympanic 04/26/19 08:12 Pulse 65 04/26/19 08:12 Pulse Rhythm Regular 04/25/19 21:55 Respiratory Rate 20 04/26/19 08:12 Respiratory Effort Non-Labored 04/25/19 21:55 Respiratory Depth Normal 04/25/19 21:55 Respiratory Pattern Normal 04/25/19 21:55 Blood Pressure 121/75 04/26/19 08:12 Pulse Oximetry 98 04/26/19 08:12 Oxygen Delivery Method Room Air 04/26/19 08:12 Oxygen Flow Rate 0 04/26/19 08:12 Pain Level 3 04/26/19 08:12 Comment 04/20/19 08:53 Intake & Output 04/25/19 04/26/19 04/26/19 23:59 11:59 23:59 Intake Total 2560 / 3560 1150 / 1150 Output Total 1300 / 3200 1100 / 1100 Balance 1260 / 360 50 / 50 Weight 184.8 kg Intake: IV 1300 / 2300 900 / 900 Oral 1260 / 1260 250 / 250 Output: Urine 1300 / 3200 1100 / 1100 Other: Urine Color Yellow Yellow Urine Appearance Clear Clear Urine Odor Normal Strong Voiding Methods Urinal Urinal Laboratory Results WBC 4.74 k/cumm (4.4-10.8) 04/23/19 06:35 RBC 3.77 m/cumm (4.50-6.00) L 04/23/19 06:35 Hgb 10.7 g/dL (13.5-17.5) L 04/23/19 06:35 Hct 33.4 % (40.0-50.0) L 04/23/19 06:35 MCV 88.6 fL (80-95) 04/23/19 06:35 MCH 28.4 pg (27.0-33.0) 04/23/19 06:35 MCHC 32.0 g/dL (32.0-36.0) 04/23/19 06:35 RDW 13.6 % (11.8-14.1) 04/23/19 06:35 Plt Count x1000/uL (130-400) 04/24/19 09:45 MPV 8.9 fL (8.0-11.0) 04/23/19 06:35 Immature Gran % 0.2 04/23/19 06:35 51.9 04/23/19 06:35 32.9 04/23/19 06:35 11.0 04/23/19 06:35 3.4 04/23/19 06:35 0.6 04/23/19 06:35 Absolute Neutrophils 2.46 k/cumm (1.2-6.7) 04/23/19 06:35 Absolute Lymphocytes 1.56 k/cumm (1.2-3.4) 04/23/19 06:35 Absolute Monocytes 0.52 k/cumm (0.11-0.7) 04/23/19 06:35 Absolute Eosinophils 0.16 k/cumm (0.0-0.7) 04/23/19 06:35 Absolute Basophils 0.03 k/cumm (0.0-0.2) 04/23/19 06:35 Sodium 139 mmol/L (136-145) 04/23/19 06:35 Potassium 4.3 mmol/L (3.5-5.1) 04/23/19 06:35 Chloride 102 mmol/L (98-107) 04/23/19 06:35 Carbon Dioxide 29.8 mmol/L (21.0-32.0) 04/23/19 06:35 7.2 mmol/L (3-11) 04/23/19 06:35 BUN 16 mg/dL (7-18) 04/23/19 06:35 0.74 mg/dL (0.70-1.30) 04/26/19 05:50 >= 60.00 (mL/min/1.73m2) 04/26/19 05:50 Glucose 91 mg/dL (70-100) 04/23/19 06:35 Calcium 8.9 mg/dL (8.5-10.1) 04/23/19 06:35 Magnesium 1.7 mg/dL (1.8-2.4) L 04/23/19 06:35 0.1 mg/dL (0.2-1.0) L 04/23/19 06:35 AST 12 U/L (15-37) L 04/23/19 06:35 ALT 18 U/L (12-78) 04/23/19 06:35 52 U/L (46-116) 04/23/19 06:35 2.10 mg/dL (0.0-0.3) H 04/23/19 06:35 8.4 g/dL (6.4-8.2) H 04/23/19 06:35 2.8 g/dL (3.4-5.0) L 04/23/19 06:35 Vancomycin Trough 16.9 ug/mL (10.0-20.0) 04/26/19 05:50 Negative (Negative) 04/25/19 13:10 Negative (Negative) 04/25/19 13:10 Ur Barbiturates Screen Negative (Negative) 04/25/19 13:10 Ur Tricyclics Screen Negative (Negative) 04/25/19 13:10 Ur Amphetamines Screen Negative (Negative) 04/25/19 13:10 U Benzodiazepines Scrn Negative (Negative) 04/25/19 13:10 Negative (Negative) 04/25/19 13:10 Ur THC Screen Positive (Negative) 04/25/19 13:10
[2019-04-26 16:00] VITALS: BP 112/74; PULSE 90; RESP 18; TEMP 36.9; O2SAT 94
[2019-04-26] MEDS: Enoxaparin 40 MG/0.4 ML SYR SC (16:30)
--- NOTE | 2019-04-26 18:33 | NUR.NOTE ---
Nursing Note: Patient returns from pass. He has some pain and feels the swelling is increased in his left leg. Leg is swollen , but no worse than noted previously, warm to the touch and rec, he denies cp, sob any GI/ complaints
[2019-04-27] MEDS: ACETAMINOPHEN 1,000 MG/100 ML BTL 400 MG IVPB ×4 (03:57→22:10)
[2019-04-27 04:16] VITALS: BP 138/91; PULSE 83; RESP 16; TEMP 35.8; O2SAT 97
[2019-04-27 07:31] LABS: Platelet Count 292 x1000/uL (130-400)
[2019-04-27 08:14] VITALS: BP 129/71; PULSE 74; RESP 18; TEMP 36.5; O2SAT 98
[2019-04-27] MEDS: Omeprazole 20 MG CAPCR PO (09:07)
[2019-04-27] MEDS: Cyanocobalamin 500 MCG TAB 1000 MCG PO (09:07)
[2019-04-27] MEDS: Buprenorphine/Naloxone 12 mg/3 mg FILM 0.5 EACH SL (09:12)
[2019-04-27] MEDS: Magnesium Chloride 64 MG TABCR PO ×3 (09:12→20:33)
[2019-04-27] MEDS: Normal Saline Flush 10 ML SYR IVP ×2 (09:13→22:10)
[2019-04-27] MEDS: Lachydrin 12% LOTION 225 GM BTL TP ×2 (10:09→20:33)
[2019-04-27] MEDS: Enoxaparin 40 MG/0.4 ML SYR SC (15:46)
[2019-04-27 16:47] VITALS: BP 135/84; PULSE 76; RESP 18; TEMP 36; O2SAT 95
[2019-04-28] MEDS: ACETAMINOPHEN 1,000 MG/100 ML BTL 400 MG IVPB ×4 (04:20→22:27)
[2019-04-28 04:26] VITALS: BP 136/89; PULSE 63; RESP 14; TEMP 35.7; O2SAT 97
[2019-04-28 07:27] LABS: Vancomycin, Trough 18.3 ug/mL (10.0-20.0)
[2019-04-28 08:06] VITALS: BP 119/74; PULSE 69; RESP 18; TEMP 36.7; O2SAT 96
[2019-04-28] MEDS: Omeprazole 20 MG CAPCR PO (08:41)
[2019-04-28] MEDS: Cyanocobalamin 500 MCG TAB 1000 MCG PO (08:41)
[2019-04-28] MEDS: Magnesium Chloride 64 MG TABCR PO ×2 (08:41→16:02)
[2019-04-28] MEDS: Normal Saline Flush 10 ML SYR IVP (08:42)
[2019-04-28] MEDS: Buprenorphine/Naloxone 12 mg/3 mg FILM 0.5 EACH SL (08:42)
[2019-04-28] MEDS: Lachydrin 12% LOTION 225 GM BTL TP ×2 (08:43→19:49)
[2019-04-28] MEDS: Enoxaparin 40 MG/0.4 ML SYR SC (16:03)
[2019-04-28 16:17] VITALS: BP 151/89; PULSE 84; RESP 20; TEMP 37.2; O2SAT 95
[2019-04-29] VITALS: BP 118/79; PULSE 70; RESP 18; TEMP 36.4; O2SAT 95
[2019-04-29] MEDS: ACETAMINOPHEN 1,000 MG/100 ML BTL 400 MG IVPB ×4 (04:28→21:43)
[2019-04-29 07:25] VITALS: BP 126/84; PULSE 69; RESP 19; TEMP 36.7; O2SAT 92
[2019-04-29] MEDS: Omeprazole 20 MG CAPCR PO (08:49)
[2019-04-29] MEDS: Cyanocobalamin 500 MCG TAB 1000 MCG PO (08:49)
[2019-04-29] MEDS: Magnesium Chloride 64 MG TABCR PO ×3 (08:50→20:19)
[2019-04-29] MEDS: Buprenorphine/Naloxone 12 mg/3 mg FILM 0.5 EACH SL (08:50)
[2019-04-29] MEDS: Normal Saline Flush 10 ML SYR IVP ×3 (09:02→23:21)
[2019-04-29] MEDS: Lachydrin 12% LOTION 225 GM BTL TP ×2 (09:07→20:19)
[2019-04-29 13:27] LABS: Vancomycin, Trough 16.8 ug/mL (10.0-20.0)
[2019-04-29 13:38] LABS: CREATININE 0.74 mg/dL (0.70-1.30)
[2019-04-29 15:49] VITALS: BP 111/69; PULSE 77; RESP 19; TEMP 36.8; O2SAT 94
[2019-04-29] MEDS: Enoxaparin 40 MG/0.4 ML SYR SC (16:23)
[2019-04-29 20:17] VITALS: BP 125/84; PULSE 107; RESP 20; TEMP 36.8; O2SAT 100
[2019-04-30] MEDS: ACETAMINOPHEN 1,000 MG/100 ML BTL 400 MG IVPB ×2 (03:34→09:11)
[2019-04-30 07:01] LABS: Abs Immature Grans 0.01 k/cumm (0.0-0.09); Absolute Basophil Count 0.03 k/cumm (0.0-0.2); Absolute Eosinophil Count 0.16 k/cumm (0.0-0.7); Absolute Lymphocyte Count 1.23 k/cumm (1.2-3.4); Absolute Monocyte Count 0.53 k/cumm (0.11-0.7); Basophils % 0.6; Eosinophils % 3.4; HCT 34.2 % (40.0-50.0); HGB 11.3 g/dL (13.5-17.5); Immature Grans % 0.2; Lymphocytes % 25.8; Mean Corpuscular Hemoglobin 28.8 pg (27.0-33.0); Mean Corpuscular Volume 87.2 fL (80-95); Mean Platelet Volume 8.8 fL (8.0-11.0); Monocytes % 11.1; Neutrophils % 58.9; Platelet Count 270 x1000/uL (130-400); RBC 3.92 m/cumm (4.50-6.00); RBC Distribution Width 13.7 % (11.8-14.1); White Blood Cell Count 4.76 k/cumm (4.4-10.8)
[2019-04-30 07:16] LABS: BUN 15 mg/dL (7-18); C-Reactive Protein 1.28 mg/dL (0.0-0.3); CREATININE 0.69 mg/dL (0.70-1.30); Calcium 8.4 mg/dL (8.5-10.1); Chloride 103 mmol/L (98-107); Glucose 85 mg/dL (70-100); Magnesium 1.8 mg/dL (1.8-2.4); Potassium 4.1 mmol/L (3.5-5.1); Sodium 138 mmol/L (136-145)
[2019-04-30] MEDS: Normal Saline Flush 10 ML SYR IVP ×3 (07:27→21:13)
[2019-04-30] MEDS: Omeprazole 20 MG CAPCR PO (07:28)
[2019-04-30 08:02] VITALS: BP 124/75; PULSE 73; RESP 22; TEMP 36.3; O2SAT 97
[2019-04-30] MEDS: Magnesium Chloride 64 MG TABCR PO ×3 (08:26→21:13)
[2019-04-30] MEDS: Lachydrin 12% LOTION 225 GM BTL TP ×2 (08:27→21:14)
[2019-04-30] MEDS: Buprenorphine/Naloxone 12 mg/3 mg FILM 0.5 EACH SL (08:27)
[2019-04-30] MEDS: Cyanocobalamin 500 MCG TAB 1000 MCG PO (08:28)
[2019-04-30] MEDS: Ketoconazole 2% CREAM 15 GM TUBE TP (09:59)
--- NOTE | 2019-04-30 15:39 | W.PM.PROGNOT ---
Date of Service Date of service: 04/30/19 Time of Service: 15:39 Subjective Interval history since last seen: attempted to see the patient - he was not in his room. Patient seen briefly yesterday - still erythematous in his left lower calf, though with significant improvement from before. His CRP on this am's labs has still not normalized. Based on this information, the patient could benefit from continued antibiotics IV for the next 48 hours and reassessment. Objective Objective Clinical Data: Abnormal lab results 04/30/19 04/30/19 Range/Units 06:35 06:35 RBC 3.92 L (4.50-6.00) m/cumm Hgb 11.3 L (13.5-17.5) g/dL Hct 34.2 L (40.0-50.0) % Creatinine 0.69 L (0.70-1.30) mg/dL Calcium 8.4 L (8.5-10.1) mg/dL C-Reactive Protein 1.28 H (0.0-0.3) mg/dL Vital Signs Temperature 36.3 C L 04/30/19 08:02 Temperature Source Tympanic 04/30/19 08:02 Pulse 73 04/30/19 08:02 Pulse Rhythm Regular 04/30/19 07:45 Respiratory Rate 22 04/30/19 08:02 Respiratory Effort Non-Labored 04/30/19 07:45 Respiratory Depth Normal 04/30/19 07:45 Respiratory Pattern Normal 04/30/19 07:45 Blood Pressure 124/75 04/30/19 08:02 Pulse Oximetry 97 04/30/19 08:02 Oxygen Delivery Method Room Air 04/30/19 08:02 Oxygen Flow Rate 0 04/30/19 08:02 Pain Level 0 04/30/19 08:02 Comment 04/20/19 08:53 Intake & Output 04/29/19 04/30/19 04/30/19 23:59 11:59 23:59 Intake Total 1640 / 3110 1310 / 0 2049 Balance 1640 / 810 1310 / 0 2049 Intake: IV 900 / 1820 830 / 1330 500 / 1330 Oral 740 / 1290 480 / 720 240 / 720 Other: Urine Color Pale Yellow Urine Appearance Clear Clear Urine Odor None Voiding Methods Toilet Urinal Laboratory Results WBC 4.76 k/cumm (4.4-10.8) 04/30/19 06:35 RBC 3.92 m/cumm (4.50-6.00) L 04/30/19 06:35 Hgb 11.3 g/dL (13.5-17.5) L 04/30/19 06:35 Hct 34.2 % (40.0-50.0) L 04/30/19 06:35 MCV 87.2 fL (80-95) 04/30/19 06:35 MCH 28.8 pg (27.0-33.0) 04/30/19 06:35 MCHC 33.0 g/dL (32.0-36.0) 04/30/19 06:35 RDW 13.7 % (11.8-14.1) 04/30/19 06:35 Plt Count 270 x1000/uL (130-400) 04/30/19 06:35 MPV 8.8 fL (8.0-11.0) 04/30/19 06:35 Immature Gran % 0.2 04/30/19 06:35 58.9 04/30/19 06:35 25.8 04/30/19 06:35 11.1 04/30/19 06:35 3.4 04/30/19 06:35 0.6 04/30/19 06:35 Absolute Neutrophils 2.80 k/cumm (1.2-6.7) 04/30/19 06:35 Absolute Lymphocytes 1.23 k/cumm (1.2-3.4) 04/30/19 06:35 Absolute Monocytes 0.53 k/cumm (0.11-0.7) 04/30/19 06:35 Absolute Eosinophils 0.16 k/cumm (0.0-0.7) 04/30/19 06:35 Absolute Basophils 0.03 k/cumm (0.0-0.2) 04/30/19 06:35 Sodium 138 mmol/L (136-145) 04/30/19 06:35 Potassium 4.1 mmol/L (3.5-5.1) 04/30/19 06:35 Chloride 103 mmol/L (98-107) 04/30/19 06:35 Carbon Dioxide 30.0 mmol/L (21.0-32.0) 04/30/19 06:35 5.0 mmol/L (3-11) 04/30/19 06:35 BUN 15 mg/dL (7-18) 04/30/19 06:35 0.69 mg/dL (0.70-1.30) L 04/30/19 06:35 >= 60.00 (mL/min/1.73m2) 04/30/19 06:35 Glucose 85 mg/dL (70-100) 04/30/19 06:35 Calcium 8.4 mg/dL (8.5-10.1) L 04/30/19 06:35 Magnesium 1.8 mg/dL (1.8-2.4) 04/30/19 06:35 0.1 mg/dL (0.2-1.0) L 04/23/19 06:35 AST 12 U/L (15-37) L 04/23/19 06:35 ALT 18 U/L (12-78) 04/23/19 06:35 52 U/L (46-116) 04/23/19 06:35 1.28 mg/dL (0.0-0.3) H 04/30/19 06:35 8.4 g/dL (6.4-8.2) H 04/23/19 06:35 2.8 g/dL (3.4-5.0) L 04/23/19 06:35 Vancomycin Trough 16.8 ug/mL (10.0-20.0) 04/29/19 12:50 Negative (Negative) 04/25/19 13:10 Negative (Negative) 04/25/19 13:10 Ur Barbiturates Screen Negative (Negative) 04/25/19 13:10 Ur Tricyclics Screen Negative (Negative) 04/25/19 13:10 Ur Amphetamines Screen Negative (Negative) 04/25/19 13:10 U Benzodiazepines Scrn Negative (Negative) 04/25/19 13:10 Negative (Negative) 04/25/19 13:10 Ur THC Screen Positive (Negative) 04/25/19 13:10
[2019-04-30] MEDS: Enoxaparin 40 MG/0.4 ML SYR SC (16:07)
[2019-04-30 16:21] VITALS: BP 153/98; PULSE 87; RESP 20; TEMP 37.3; O2SAT 99
[2019-04-30 23:02] VITALS: BP 127/76; PULSE 89; RESP 18; TEMP 37.1; O2SAT 99
[2019-05-01] MEDS: ACETAMINOPHEN 1,000 MG/100 ML BTL 400 MG IVPB ×2 (02:11→22:29)
[2019-05-01] MEDS: Cyanocobalamin 500 MCG TAB 1000 MCG PO (07:44)
[2019-05-01] MEDS: Buprenorphine/Naloxone 12 mg/3 mg FILM 0.5 EACH SL (07:45)
[2019-05-01] MEDS: Ketoconazole 2% CREAM 15 GM TUBE TP (07:45)
[2019-05-01] MEDS: Omeprazole 20 MG CAPCR PO (07:45)
[2019-05-01] MEDS: Lachydrin 12% LOTION 225 GM BTL TP ×2 (07:45→19:27)
[2019-05-01] MEDS: Magnesium Chloride 64 MG TABCR PO ×3 (08:17→21:30)
[2019-05-01 08:31] VITALS: BP 110/74; PULSE 92; RESP 20; TEMP 37.1; O2SAT 93
[2019-05-01] MEDS: Enoxaparin 40 MG/0.4 ML SYR SC (16:02)
[2019-05-01] MEDS: Normal Saline Flush 10 ML SYR IVP ×2 (16:03→22:29)
[2019-05-01 16:46] LABS: CREATININE 0.79 mg/dL (0.70-1.30); Vancomycin, Trough 12.9 ug/mL (10.0-20.0)
[2019-05-01 17:00] VITALS: BP 159/82; PULSE 90; RESP 20; TEMP 36.9; O2SAT 94
[2019-05-01 23:45] VITALS: BP 111/71; PULSE 85; RESP 18; TEMP 37.2; O2SAT 95
[2019-05-02 07:32] VITALS: BP 124/74; PULSE 75; RESP 18; TEMP 36.2; O2SAT 95
[2019-05-02] MEDS: Cyanocobalamin 500 MCG TAB 1000 MCG PO (07:42)
[2019-05-02] MEDS: Omeprazole 20 MG CAPCR PO (07:43)
[2019-05-02] MEDS: Magnesium Chloride 64 MG TABCR PO ×3 (07:43→19:39)
[2019-05-02] MEDS: Buprenorphine/Naloxone 12 mg/3 mg FILM 0.5 EACH SL (07:43)
[2019-05-02] MEDS: Ketoconazole 2% CREAM 15 GM TUBE TP (07:44)
[2019-05-02] MEDS: Lachydrin 12% LOTION 225 GM BTL TP ×2 (07:44→19:39)
[2019-05-02] MEDS: Normal Saline Flush 10 ML SYR IVP ×3 (07:44→21:46)
[2019-05-02] MEDS: Enoxaparin 40 MG/0.4 ML SYR SC (16:19)
[2019-05-02 16:50] VITALS: BP 156/101; PULSE 93; RESP 20; TEMP 36.2; O2SAT 95
[2019-05-03] MEDS: Normal Saline Flush 10 ML SYR IVP (01:09)
[2019-05-03 07:29] LABS: Vancomycin, Trough 15.7 ug/mL (10.0-20.0)
[2019-05-03] MEDS: Buprenorphine/Naloxone 12 mg/3 mg FILM 0.5 EACH SL (07:35)
[2019-05-03] MEDS: Magnesium Chloride 64 MG TABCR PO ×3 (07:35→19:43)
[2019-05-03] MEDS: Omeprazole 20 MG CAPCR PO (07:35)
[2019-05-03] MEDS: Cyanocobalamin 500 MCG TAB 1000 MCG PO (07:35)
[2019-05-03 07:36] LABS: Absolute Basophil Count 0.03 k/cumm (0.0-0.2); Absolute Eosinophil Count 0.27 k/cumm (0.0-0.7); Absolute Lymphocyte Count 1.24 k/cumm (1.2-3.4); Absolute Neutrophil Count 1.95 k/cumm (1.2-6.7); Basophils % 0.8; C-Reactive Protein 2.32 mg/dL (0.0-0.3); Eosinophils % 6.8; HCT 32.8 % (40.0-50.0); HGB 10.7 g/dL (13.5-17.5); Lymphocytes % 31.1; Mean Corp. HGB Concentration 32.6 g/dL (32.0-36.0); Mean Corpuscular Hemoglobin 28.8 pg (27.0-33.0); Mean Corpuscular Volume 88.4 fL (80-95); Mean Platelet Volume 9.3 fL (8.0-11.0); Monocytes % 12.5; Neutrophils % 48.8; Platelet Count 206 x1000/uL (130-400); RBC 3.71 m/cumm (4.50-6.00); RBC Distribution Width 13.7 % (11.8-14.1); White Blood Cell Count 3.99 k/cumm (4.4-10.8)
[2019-05-03] MEDS: Ketoconazole 2% CREAM 15 GM TUBE TP (07:37)
[2019-05-03] MEDS: Lachydrin 12% LOTION 225 GM BTL TP ×2 (07:37→19:43)
[2019-05-03 08:10] VITALS: BP 135/82; PULSE 69; RESP 18; TEMP 37.1; O2SAT 97
--- NOTE | 2019-05-03 12:04 | PGE_ITS ---
Documented by User: Tegan Trujillo NP 05/03/19 12:12 Date of Service Date of service: 05/03/19 Time of Service: 12:05 Subjective Patient reports: other Interval history since last seen: Patient will transitioned to oral Penicillin V with discharge home tomorrow after recommendation from Dr. Abida Hebert at [facility]. Little improvement in appearance of LLE from last week. Patient remains at increased risk of readmission even with a prolonged 21 day course of IV antibiotics. His risk for reinfection include obesity, lymphedema, and previous cellulitis. Hesitantly he will be discharged home on suppressive antibiotics PCN V 500 mg BID and close follow up with infectious disease and his primary care provider. This was discussed with Dr. Abida Hebert of ID at [facility]. Objective Objective Clinical Data: Abnormal lab results 05/03/19 05/03/19 Range/Units 07:00 07:00 WBC 3.99 L (4.4-10.8) k/cumm RBC 3.71 L (4.50-6.00) m/cumm Hgb 10.7 L (13.5-17.5) g/dL Hct 32.8 L (40.0-50.0) % C-Reactive Protein 2.32 H (0.0-0.3) mg/dL Vital Signs Temperature 37.1 C 05/03/19 08:10 Temperature Source Tympanic 05/03/19 08:10 Pulse 69 05/03/19 08:10 Pulse Rhythm Regular 05/03/19 08:28 Respiratory Rate 18 05/03/19 08:10 Respiratory Effort Non-Labored 05/03/19 08:28 Respiratory Depth Normal 05/03/19 08:28 Respiratory Pattern Normal 05/03/19 08:28 Blood Pressure 135/82 05/03/19 08:10 Pulse Oximetry 97 05/03/19 08:10 Oxygen Delivery Method Room Air 05/03/19 08:10 Oxygen Flow Rate 0 05/03/19 08:10 Pain Level 0 05/03/19 08:10 Comment 05/02/19 16:50 Intake & Output 05/02/19 05/03/19 05/03/19 23:59 11:59 23:59 Intake Total 2240 / 3330 1560 / 1560 Output Total 800 / 800 Balance 2240 / 2730 760 / 760 Intake: IV 620 / 1350 1200 / 1200 Oral 1620 / 1980 360 / 360 Output: Urine 800 / 800 Other: Urine Color Yellow Urine Appearance Clear Clear Urine Odor Normal Voiding Methods Toilet Urinal Laboratory Results WBC 3.99 k/cumm (4.4-10.8) L 05/03/19 07:00 RBC 3.71 m/cumm (4.50-6.00) L 05/03/19 07:00 Hgb 10.7 g/dL (13.5-17.5) L 05/03/19 07:00 Hct 32.8 % (40.0-50.0) L 05/03/19 07:00 MCV 88.4 fL (80-95) 05/03/19 07:00 MCH 28.8 pg (27.0-33.0) 05/03/19 07:00 MCHC 32.6 g/dL (32.0-36.0) 05/03/19 07:00 RDW 13.7 % (11.8-14.1) 05/03/19 07:00 Plt Count 206 x1000/uL (130-400) 05/03/19 07:00 MPV 9.3 fL (8.0-11.0) 05/03/19 07:00 Immature Gran % 0.0 05/03/19 07:00 48.8 05/03/19 07:00 31.1 05/03/19 07:00 12.5 05/03/19 07:00 6.8 05/03/19 07:00 0.8 05/03/19 07:00 Absolute Neutrophils 1.95 k/cumm (1.2-6.7) 05/03/19 07:00 Absolute Lymphocytes 1.24 k/cumm (1.2-3.4) 05/03/19 07:00 Absolute Monocytes 0.50 k/cumm (0.11-0.7) 05/03/19 07:00 Absolute Eosinophils 0.27 k/cumm (0.0-0.7) 05/03/19 07:00 Absolute Basophils 0.03 k/cumm (0.0-0.2) 05/03/19 07:00 Sodium 138 mmol/L (136-145) 04/30/19 06:35 Potassium 4.1 mmol/L (3.5-5.1) 04/30/19 06:35 Chloride 103 mmol/L (98-107) 04/30/19 06:35 Carbon Dioxide 30.0 mmol/L (21.0-32.0) 04/30/19 06:35 5.0 mmol/L (3-11) 04/30/19 06:35 BUN 15 mg/dL (7-18) 04/30/19 06:35 0.79 mg/dL (0.70-1.30) 05/01/19 16:20 >= 60.00 (mL/min/1.73m2) 05/01/19 16:20 Glucose 85 mg/dL (70-100) 04/30/19 06:35 Calcium 8.4 mg/dL (8.5-10.1) L 04/30/19 06:35 Magnesium 1.8 mg/dL (1.8-2.4) 04/30/19 06:35 0.1 mg/dL (0.2-1.0) L 04/23/19 06:35 AST 12 U/L (15-37) L 04/23/19 06:35 ALT 18 U/L (12-78) 04/23/19 06:35 52 U/L (46-116) 04/23/19 06:35 2.32 mg/dL (0.0-0.3) H 05/03/19 07:00 8.4 g/dL (6.4-8.2) H 04/23/19 06:35 2.8 g/dL (3.4-5.0) L 04/23/19 06:35 Vancomycin Trough 15.7 ug/mL (10.0-20.0) 05/03/19 07:00 Negative (Negative) 04/25/19 13:10 Negative (Negative) 04/25/19 13:10 Ur Barbiturates Screen Negative (Negative) 04/25/19 13:10 Ur Tricyclics Screen Negative (Negative) 04/25/19 13:10 Ur Amphetamines Screen Negative (Negative) 04/25/19 13:10 U Benzodiazepines Scrn Negative (Negative) 04/25/19 13:10 Negative (Negative) 04/25/19 13:10 Ur THC Screen Positive (Negative) 04/25/19 13:10 Documented by User: Orlando Kim MD 05/04/19 14:05
[2019-05-03 16:03] VITALS: BP 155/98; PULSE 91; RESP 20; TEMP 36.5; O2SAT 95
[2019-05-03] MEDS: Enoxaparin 40 MG/0.4 ML SYR SC (16:49)
[2019-05-03] MEDS: Penicillin V POTASSIUM 500 MG TAB PO (19:43)
[2019-05-04] VITALS: BP 146/75; PULSE 70; RESP 19; TEMP 37; O2SAT 96
[2019-05-04] MEDS: Cyanocobalamin 500 MCG TAB 1000 MCG PO (08:30)
[2019-05-04] MEDS: Omeprazole 20 MG CAPCR PO (08:31)
[2019-05-04] MEDS: Buprenorphine/Naloxone 12 mg/3 mg FILM 0.5 EACH SL (08:31)
[2019-05-04] MEDS: Penicillin V POTASSIUM 500 MG TAB PO (08:31)
[2019-05-04] MEDS: Lachydrin 12% LOTION 225 GM BTL TP (08:31)
[2019-05-04] MEDS: Ketoconazole 2% CREAM 15 GM TUBE TP (08:31)
[2019-05-04] MEDS: Magnesium Chloride 64 MG TABCR PO ×2 (08:31→13:26)
[2019-05-04 10:03] VITALS: BP 152/98; PULSE 72; RESP 16; TEMP 36.2; O2SAT 92
--- NOTE | 2019-05-04 14:05 | DSE_ITS ---
Date of service: 05/04/19 Time of Service: 14:06 DS: Diagnosis Discharge Diagnosis (1) Cellulitis of left lower extremity: Status: Acute (2) Opioid dependence: Status: Chronic (3) DVT prophylaxis: Status: Acute Discharge Plan Disposition Patient Disposition: HOME Condition: Stable Discharge Details Reason For Visit: CELLULITIS Admit Date/Time: 04/19/19 16:23 Admit Provider: Orlando Kim Attending Provider: Orlando Kim Primary Care Provider: Marty Saleh Hospital Course Hospital Course: Chief Complaint: Lower Extremity Cellulitis HPI: 28 year old Obese man with a history of bilateral LE Lymphedema, admitted to [facility] with a diagnosis of LE Cellulitis. Mr. Marrero has a prior history of Obesity with chronic LE Edema, as well as untreated GERI. He is opioid dependent with a prior history of IVDA, currently Suboxone therapy, as well as Alcohol Abuse. Mr. Marrero was initially admitted between 03/29 - 04/05 with evidence of LLE cellulitis with concurrent Sepsis. He was initially treated with broad spectrum antibiotics, transitioned to Cefazolin for 2 days, then changed to oral Cephalexin and monitored for a day prior to discharge. He had remained afebrile with a CRP that had declined to 2 from an original value of >25. He was then discharged home with follow-up scheduled with his PCP and the Lymphedema clinic. The plan was discussed with ID who agreed with course of action. Unfortunately Mr. Marrero's left leg became cellulitic shortly after leaving the hospital, and he was readmitted on 04/13 with recurrence. His CRP had risen and was between 6-7, and his leg was found to be cellulitic again. He was admitted and initiated on Vancomycin and Cefazolin, with plans for an extended course of IV Antibiotics. During this course he was transitioned to Doxy and Cephalexin for a total of 48 hours, with worsening of his findings, and transitioned back to IV. He has now received a total of 21 days of antibiotics, 19 of which were with Vancomycin and Cefazolin. His LLE appears vastly improved but slightly warmer than the right, and slightly more erythematous (darker in color at least) than the right, althought not cellulitic. I discussed this case in detail with ID again - Infectious Disease at [facility] has been consulted by telephone regarding Mr. Marrero's care on 3 prior occasions, each time in full agreement with his care plan. The patient's history was discussed with Dr. Amrik Hebert on 05/03/2019 - he stated that this likely represents recurrent cellulitis. The lack of abscess and osteomyelitis findings were reassuring by prior Xray, ultrasound, CT leg, and MRI. There is no evidence of linger infection or question of source control. TTE was negative, and cultures were negative. Official recommendations were for discontinuation of IV antibiotics given the prolonged length of therapy, and suppressive therapy with oral Penicillin with follow-up within the ID department. Patient's antibiotics were discontinued yesterday and he was initiated on PCN therapy without clinical change today. He will be measured as an outpatient for custom TEDs, and follow- up with PT for lymphedema clinic. Also recommended keeping his legs clean and moisturized, with application of topical antifungal therapy to between his toes. He is tentatively being discharged home, as risk of recurrence does unfortunately exist. Home Meds and New Rx's Prescriptions: New ketoconazole 2 % Cream 0 % topical DAILY Qty: 0 RF: 0 penicillin V potassium 500 mg Tablet 500 mg PO BID Qty: 60 RF: 0 Lactobacillus acidophilus 500 million cell tablet 500 mmu cells PO DAILY Qty: 30 RF: 0 Continued buprenorphine-naloxone [Suboxone] 12-3 mg Film 0.5 film Sublingual DAILY RF: 0 albuterol sulfate 90 mcg/actuation Hfa Aerosol Inhaler 2 puff Inhalation PRN PRN (Reason: Shortness Of Breath Or Wheezing) RF: 0 ammonium lactate 12 % Lotion 1 applic topical BID Qty: 222 RF: 1 ibuprofen [IBU] 800 mg Tablet 800 mg PO Q8H Qty: 30 RF: 0 omeprazole 20 mg capsule,delayed release(DR/EC) 20 mg PO DAILY Qty: 30 RF: 0 (DME) Mepilex Border 6 X 6 bandage See Dose Instructions .ROUTE .MEDSUPPLY Qty: 5 RF: 1 Discontinued cephalexin [Keflex] 500 mg capsule 500 mg PO QID Qty: 56 RF: 0 Discharge Instructions Stand Alone Forms: Nursing Discharge Form Referrals: Marty Saleh MD [Primary Care Provider] - Activity:: No strenuous activity Equipment/Supplies:: No Equipment Needed Diet:: As Tolerated Discharge Orders Discharge Orders: Discharge Order (Routine); Ordered 05/04/19 Ordered By: Orlando Kim DS: Data Vitals/I&O Vitals and I&O: Vital Signs Temperature 36.2 C L 05/04/19 10:03 Temperature Source Tympanic 05/04/19 10:03 Pulse 72 05/04/19 10:03 Pulse Rhythm Regular 05/04/19 09:23 Respiratory Rate 16 05/04/19 10:03 Respiratory Effort Non-Labored 05/04/19 09:23 Respiratory Depth Normal 05/04/19 09:23 Respiratory Pattern Normal 05/04/19 09:23 Blood Pressure 152/98 H 05/04/19 10:03 Pulse Oximetry 92 L 05/04/19 10:03 Oxygen Delivery Method Room Air 05/04/19 10:03 Oxygen Flow Rate 0 05/04/19 10:03 Pain Level 0 05/04/19 00:00 Comment 05/02/19 16:50 Intake & Output 05/03/19 05/04/19 05/04/19 23:59 11:59 23:59 Intake Total 540 / 2100 500 / 980 480 / 980 Balance 540 / 1300 500 / 980 480 / 980 Intake: Oral 540 / 900 500 / 980 480 / 980 Other: Urine Appearance Clear Clear Comment pt gets up AD ROB. Voiding Methods Toilet Completed studies during hospitalization [Text1]: Exam(s) 04/13/2019 a US:US lower extremity venous LT SYMPTOMS/DIAGNOSIS: CALF PAIN, INFECTION, SWELLING LEFT LOWER EXTREMITY ULTRASOUND: The study is somewhat limited due to patient body habitus. The deep veins of the left lower extremity show normal compression, augmentation and color flow. No evidence of a deep venous thrombus is identified. There is no evidence of a superficial vein thrombus or galan's cyst. There is a 5 cm lymph node in the left inguinal region. IMPRESSION: No evidence of a left lower extremity deep venous thrombus. The findings were discussed with the emergency department on the date of the examination. Exam(s) 04/14/2019 a RAD:XR tib/fib LT SYMPTOMS/DIAGNOSIS: CELLULITIS, RISING CRP, SUSPICION FOR OM LEFT LEG: Diffuse edema involving the soft tissues of the left leg are demonstrated. No bony or joint abnormality is seen. Exam(s) a US:US echocardiogram *[facility]* *[facility]* [address] [place] [address] Date of study: 04/15/2019 Transthoracic Echocardiography M-mode, complete 2D, complete spectral Doppler, and color Doppler *STUDY CONCLUSIONS* Impressions: There are no typical features of vegetative endocarditis. However, this diagnosis cannot be excluded on the basis of this transthoracic study. Consider transesophageal echocardiography, if clinically indicated, for superior assessment of valve anatomy. Summary: 1. Left ventricle: The cavity size was normal. Wall thickness was increased in a pattern of mild LVH. Systolic function was normal. The estimated ejection fraction was 60-65%. Diastolic parameters were normal for age. There was no evidence of elevated ventricular filling pressure by Doppler parameters. 2. Right ventricle: The cavity size was normal. Wall thickness was normal. Systolic function was normal. 3. Atrial septum: No defect or patent foramen ovale was identified. 4. Pulmonary arteries: Systolic pressure could not be accurately estimated. 5. Inferior vena cava: The vessel was normal in size. The respirophasic diameter changes were in the normal range (greater than or equal to 50%), consistent with normal central venous pressure. Exam(s) a MRI:MR lower extremity LT wo/w SYMPTOM/DIAGNOSIS: CELLULITIS, ELEVATED CRP, ? OSTEOMYELITIS, CALF PAIN, REDNESS, SWELLING DISTAL TO ANKLE JOINT, NON HEALING WOUND LEFT LOWER EXTREMITY: MRI of the left lower extremity was performed without and with intravenous contrast material. There is normal marrow signal. There is fluid attenuation signal in the subcutaneous tissues consistent with cellulitis. No focal fluid collection is seen to suggest an abscess. Following contrast administration, no enhancing fluid collection or enhancement of the marrow is noted. The muscles show normal signal and size. IMPRESSION: No MRI evidence to suggest acute osteomyelitis. Cellulitis of the left lower extremity. [facility] Medical History Asthma (Chronic) Bilateral cellulitis of lower leg (Acute) History of substance abuse Lymphedema of both lower extremities (Acute) Obesity, morbid, BMI 50 or higher (Acute) Obstructive sleep apnea (Chronic) Opiate dependence, continuous Family History Sister Mental disorder Grandfather Diabetes Grandmother Heart disease Maternal Uncle Mental disorder Mother COPD (chronic obstructive pulmonary disease) Social History Smoking/Tobacco Use Status: Current every day Tobacco Type: cigarettes Alcohol Intake: former Counseling given: Yes Counseling provided: provider counseling Details: 7-12 drinks/day, last drink 3 days ago, denies withdrawal sx/seizures Drug use: Daily Substance use type: former substance user and marijuana Details: 3 years free of herion; on suboxone therapy Do you feel safe at home: Yes Do you feel safe in your relationship?: Yes
--- NOTE | 2019-05-04 15:46 | CMDISCH_ITS ---
LACE Index Scoring Tool - Questions: Length of Stay (in days): 7 - 13 Acuity (Admit via E.D.?): Yes Comorbidities: Diabetes w/o Complication E.D. Visits: 5 - Answers: Total Score: 13 Risk of Readmission: High Risk Care Management Discharge Reason for Hospitalization: Cellulitis Discharge Plan: Valerio will return home when ready per MD. He will follow up with his PCP, the CCC at [facility] as well as [facility] ID; CM faxed clinical information. Abelardo will also see LISETTE Lira at [facility] for Lyphedemia management, Soraya reports she will coordinate needed compression stockings once Abelardo has had a few appointments with her. Patient/Family Education Needs: Review of discharge instructions, discuss Ask Me Three. Services Needed at Discharge: Physical Therapy ([facility] for L[facility]hedema)
[2019-05-04] MEDS: Bacitracin 1 PACKET TP (15:53)
== END 2019-05-04 16:00 | disposition home or self-care (01) | DRG 603 ==
PROVIDERS: Family Medicine; Internal Medicine; Admitting Provider Internal Medicine; PCP Internal Medicine; Visit Provider Internal Medicine
DX: L03.116 Cellulitis of left lower limb (principal); F11.20 Opioid dependence, uncomplicated; Z79.2 Long term (current) use of antibiotics; I89.0 Lymphedema, not elsewhere classified; E66.9 Obesity, unspecified; G47.33 Obstructive sleep apnea (adult) (pediatric); F17.210 Nicotine dependence, cigarettes, uncomplicated
CPT/HCPCS: 36415; 80048; 80053; 80307; 87040; 99223; 99233; 99316; J1650; NC; 80202; 82565; 83735; 85025; 85049; 86140; J0131; J3490

== ENCOUNTER 2019-07-08 16:55 | Outpatient (REF) | payer OTHER, SELFPAY ==
[2019-07-14 13:52] LABS: Benzoylecgonine 7205 ng/mL (Cutoff: 50); Cocaine Negative ng/mL (Cutoff: 50); Cocaine Interpretation Positive.
== END 2019-07-08 17:15 ==
LOC: NCHCN 16:55
PROVIDERS: PCP Nurse Practitioner Family; Visit Provider Internal Medicine
DX: F11.20 Opioid dependence, uncomplicated (principal)
CPT/HCPCS: 80353

== ENCOUNTER 2019-11-15 17:40 | Outpatient (REF) | payer OTHER, SELFPAY ==
[2019-11-19 22:53] LABS: Amphetamine 1206 ng/mL (Cutoff: 25); Amphetamines Interpretation Positive.; MDA (Ecstasy Metabolite) Negative ng/mL (Cutoff: 25); MDMA (Ecstasy) Negative ng/mL (Cutoff: 25); Methamphetamine Negative ng/mL (Cutoff: 25); Phentermine Negative ng/mL (Cutoff: 25); Pseudoephedrine/Ephedrine Negative ng/mL (Cutoff: 25)
== END 2019-11-15 18:00 ==
LOC: NCHCN 17:40
PROVIDERS: PCP Nurse Practitioner Family; Visit Provider Internal Medicine
DX: F11.20 Opioid dependence, uncomplicated (principal); F14.20 Cocaine dependence, uncomplicated
CPT/HCPCS: 80324

== ENCOUNTER 2019-12-14 17:25 | Outpatient (REF) | payer OTHER, SELFPAY ==
[2019-12-14 21:14] LABS: HCT 41.9 % (40.0-50.0); Mean Corp. HGB Concentration 33.4 g/dL (32.0-36.0); Mean Corpuscular Hemoglobin 28.8 pg (27.0-33.0); Mean Corpuscular Volume 86.2 fL (80-95); Mean Platelet Volume 9.6 fL (8.0-11.0); Platelet Count 256 x1000/uL (130-400); RBC 4.86 m/cumm (4.50-6.00); RBC Distribution Width 13.3 % (11.8-14.1); White Blood Cell Count 6.69 k/cumm (4.4-10.8)
[2019-12-14 21:19] LABS: Iron 97 ug/dL (65-175); Total Iron Binding Capacity 358 ug/dL (250-450); Transferrin Sat 27 % (20-55)
== END 2019-12-14 17:45 ==
LOC: NCHCN 17:25
PROVIDERS: PCP Nurse Practitioner Family; Visit Provider Internal Medicine
DX: D50.9 Iron deficiency anemia, unspecified (principal)
CPT/HCPCS: 85027; 83540; 83550

== ENCOUNTER 2020-07-19 11:27 | Emergency (ER) | payer OTHER, SELFPAY ==
[2020-07-19 11:33] VITALS: BP 154/108; PULSE 83; RESP 18; TEMP 36.8; O2SAT 97
--- NOTE | 2020-07-19 11:40 | W.ED.GENAD ---
Discharge Plan Disposition Patient Disposition: HOME Condition: Stable Discharge Details Clinical Impression: Abrasion of neck, Cellulitis of neck Primary Care Provider: Samira Boo ED Provider: Brenna Alaniz Home Meds and New Rx's Prescriptions: New cephalexin 500 mg tablet 500 mg PO BID 7 Days Qty: 14 RF: 0 Continued albuterol sulfate 90 mcg/actuation Hfa Aerosol Inhaler 2 puff Inhalation PRN PRN (Reason: Shortness Of Breath Or Wheezing) RF: 0 ammonium lactate 12 % Lotion 1 applic topical BID Qty: 222 RF: 1 (DME) Mepilex Border 6 X 6 bandage See Dose Instructions .ROUTE .MEDSUPPLY Qty: 5 RF: 1 ketoconazole 2 % Cream 0 % topical DAILY Qty: 0 RF: 0 buprenorphine-naloxone 8-2 mg film 1 film sublingual DAILY RF: 0 Discharge Instructions Instructions: Cellulitis (ED), Abrasion (ED) Additional Instructions: Follow up with primary care provider in 3-5 days. Return to ED sooner if any worsening or concerns. Increase oral fluids. Please take Tylenol or Ibuprofen with food every 4-6 hours as needed for pain and swelling. Take antibiotics as prescribed. At this time we did not do any notes x-rays or shoulder x-rays I cannot rule out fracture. Stand Alone Forms: Work Release Referrals: Samira Boo [Primary Care Provider] - Discharge Data Discharge Date/Time-TO BE ENTERED AT DEPARTURE: 07/19/20 12:22 Medical Decision Making 29-year-old male presents to the ED with chief complaint of left anterior neck wound. He reports fall 3 days ago where he hit a tree. Denies loss of consciousness no numbness or tingling in his arms. He does have some ecchymosis noted to his anterior left shoulder, he is reporting worsening of the wound. He states that he it has been draining white drainage and burning. He has an open abrasion proximately 7 cm in length 4 cm in width and has a yellow wound bed has a mild surrounding erythema, no red streaks no drainage noted at this time. He has been applying bacitracin and leaving open to air daily. At this time patient is declining imaging C-spine x-rays or shoulder x-rays. He is here concerning the wound to his left anterior neck. At this time L ET ordered for patient comfort, will do wound care and place patient on cephalexin for possible cellulitis. Given instructions for wound care. Patient given a prescription for cephalexin. This text was generated using [employer] dictation system, please disregard any oddities of phrase or misspellings. HPI General Mode of arrival: ambulatory. Date/Time Provider Initiated Documentation: 07/19/20 11:30. Limitations to Documentation: no limitations. Information obtained by: patient. HPI Narrative: 29-year-old male presents to the ED with chief complaint of left anterior neck wound. He reports fall 3 days ago where he hit a tree. Denies loss of consciousness no numbness or tingling in his arms. He does have some ecchymosis noted to his anterior left shoulder, he is reporting worsening of the wound. He states that he it has been draining white drainage and burning. He has an open abrasion proximately 7 cm in length 4 cm in width and has a yellow wound bed has a mild surrounding erythema, no red streaks no drainage noted at this time. He has been applying bacitracin and leaving open to air daily. Related Data Home Medications Medication Instructions Recorded Confirmed albuterol sulfate 2 puff INHALATION PRN PRN 03/29/19 07/19/20 Mepilex Border #5 each 04/05/19 04/19/19 ammonium lactate 1 applic TOPICAL BID #222 gm 04/05/19 07/19/20 ketoconazole 0 % TOPICAL DAILY #0 gm 05/04/19 07/19/20 buprenorphine-naloxone 1 film SUBLINGUAL DAILY 07/19/20 07/19/20 cephalexin 500 mg PO BID 7 Days #14 tab 07/19/20 Previous Rx's Medication Instructions Recorded Mepilex Border #5 each 04/05/19 ammonium lactate 1 applic TOPICAL BID #222 gm 04/05/19 ketoconazole 0 % TOPICAL DAILY #0 gm 05/04/19 cephalexin 500 mg PO BID 7 Days #14 tab 07/19/20 Allergies Allergy/AdvReac Type Severity Reaction Status Date / Time No Known Allergies Allergy Unverified 07/19/20 11:41 General GIL: 3 Review of Systems Narrative: Constitutional: Negative for weight loss, alert and oriented, well groomed, obese body habitus, appears uncomfortable. HEENT: Denies trauma, headaches, blurry vision, nasal discharge, sore throat, trouble swallowing. Chest: Denies chest pain, palpitations, irregular rhythm, hypertension. Respiratory: Denies Shortness of breath, cough, hemoptysis. GI: Denies abdominal pain, nausea, vomiting, diarrhea, constipation. : Denies dysuria, hematuria, flank pain, rectal bleeding. Neuro: Denies dizziness, blurry vision, weakness, syncope, headache or facial numbness. Hematologic: Denies easy bruising, intolerance to heat or cold, hair loss. [facility] Medical History (Updated 07/19/20 @ 12:08 by Brenna Alaniz) Asthma Bilateral cellulitis of lower leg History of substance abuse EtOH, opiates Lymphedema of both lower extremities Obesity, morbid, BMI 50 or higher Obstructive sleep apnea Opiate dependence, continuous now on suboxone therapy, confirmed via [facility] takes 1/2 of a 12-3 mg strip. Family History Sister Mental disorder Depression Grandfather Diabetes Grandmother Heart disease Maternal Uncle Mental disorder Depression Mother COPD (chronic obstructive pulmonary disease) Smoker Social History Smoking/Tobacco Use Status: Current every day Tobacco Type: cigarettes Alcohol Intake: former Counseling given: Yes Counseling provided: provider counseling Details: 7-12 drinks/day, last drink 3 days ago, denies withdrawal sx/seizures Drug use: Daily Substance use type: former substance user and marijuana Details: 3 years free of herion; on suboxone therapy Do you feel safe at home: Yes Do you feel safe in your relationship?: Yes Exam Narrative Exam Narrative: Constitutional: Alert and oriented x3. Appears stated age. Obese body habitus. Head: Normocephalic, no signs of trauma. No hematomas no depressed skull fractures. Eyes: Pupils PERRLA, Red reflex noted, EOM's intact. Eyelids symmetrical without lesions, discharge, or swelling. ENT: Bilateral TM's WNL, External ear normal to inspection, no mastoid TTP, swelling, or erythema, Nasal turbinates WNL, no nasal discharge. Normal dentition, Posterior pharynx WNL, no exudate. Chest: RRR, Normal S1, S2, distal pulses intact. Resp: Lungs clear to auscultation bilaterally, no wheezes, rales, or rhonchi. Musculoskeletal: Normal gait, 5/5 strength to all four extremities. He has intact flexion extension to his neck, is able to abduct and abduct his left shoulder without difficulty. No midline C-spine tenderness with palpation. Skin: Has an abrasion approximately 9 cm in length by 4 cm in width to the left anterior neck, mild surrounding erythema, yellow wound bed. Ecchymosis noted to the left anterior shoulder. Capillary refill less than 2 sec. Neurologic: Cranial nerves II-XII intact. Alert and oriented x 3. DTR's intact. Hematologic/Lymphatic: No ecchymosis, no lymphadenopathy.
[2020-07-19] MEDS: Lidocaine/Epinephri/Tetracaine Topical Gel 3 ML TP (11:52)
[2020-07-19] MEDS: Cephalexin 500 MG CAP PO (11:52)
--- NOTE | 2020-07-19 12:36 | NUR.NOTE ---
wound washed with soap and water, telfa applied.Nursing Note:
== END 2020-07-19 12:22 | disposition home or self-care (01) ==
PROVIDERS: Emergency Provider Registered Nurse Emergency; PCP Nurse Practitioner Family
DX: S10.81XA Abrasion of other specified part of neck, initial encounter (principal); S40.012A Contusion of left shoulder, initial encounter; L03.221 Cellulitis of neck; W01.198A Fall on same level from slipping, tripping and stumbling with subsequent striking against other object, initial encounter
CPT/HCPCS: 99283